=== PATIENT | male | born 1955 | race Caucasian/White ===

== ENCOUNTER 2017-04-04 14:44 | Emergency (ER) | payer OTHER ==
[~2017-04-04] VITALS: Ht 167.6 cm; Wt 72.0 kg
[~2017-04-04 14:44] MED LIST: ALBU1AER9 INH; BENZ1TAB2 PO; BUPR100T8 PO; LISI10TA PO; LURA80TA PO; SIMV40TA4 PO; SYMIN160 INH; TIOTCAP INH; TRAZ1TAB8 PO
[2017-04-04 14:49] VITALS: TEMP 36.8; Ht 167.6 cm; Wt 72.0 kg
[2017-04-04] MEDS ORDERED: LURA80TA PO (15:16)
[2017-04-04] MEDS ORDERED: FLUT0.15 NAE (15:16)
[2017-04-04] MEDS ORDERED: GABA-113 PO (15:16)
[2017-04-04] MEDS ORDERED: SIMV40TA2 PO (15:16)
[2017-04-04] MEDS ORDERED: BENZ2TAB6 PO (15:16)
[2017-04-04] MEDS ORDERED: TRAZ100T29 PO (15:16)
[2017-04-04] MEDS ORDERED: SPRIN/30 INH (15:16)
[2017-04-04 15:24] VITALS: O2SAT 97
[2017-04-04 15:43] LABS: BASO % 0.4 %; BASO ABS # 0.04 K/uL (0-0.2); COMPLETE YES; EOS % 1.5 %; HEMATOCRIT 45.3 % (42-52); IG% 0.2 %; LYMPH % 26.1 %; LYMPH ABS # 2.74 K/uL (1.2-3.4); MEAN CELL VOLUME 92.8 fL (80-100); MEAN CORPUSCULAR HEMOGLOBIN 32.4 pg (25-34); MEAN CORPUSCULAR HGB CONC 34.9 g/dl (32-36); MEAN PLATELET VOLUME 11.6 fL (7.4-10.4); MONO % 11.1 %; NEUT % 60.7 %; PLATELET COUNT 184 K/uL (130-400); RED BLOOD COUNT 4.88 M/uL (4.7-6.1); WHITE BLOOD COUNT 10.49 K/uL (4.8-10.8)
[2017-04-04 16:09] LABS: BUN/CREATININE RATIO 10.9 (10-20); CALCIUM 8.8 mg/dl (8.5-10.1); CREATININE 0.79 mg/dl (0.60-1.40); POTASSIUM 3.5 mmol/L (3.5-5.1)
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
[2017-04-04 16:11] LABS: ALB/GLOB RATIO 1.1 (0.9-2)
[2017-04-04 16:44] LABS: URINE APPEARANCE CLEAR (CLEAR); URINE BILIRUBIN NEG (NEG); URINE COLOR YELLOW; URINE NITRITE NEG (NEG); URINE PH 7.5 (4.5-7.5); URINE SPECIFIC GRAVITY 1.012 (1.000-1.030); UROBILINOGEN NEG (NEG); ZZUR CULT IF INDIC CLEAN CATCH NO
[2017-04-04 16:50] LABS: MANUAL MICROSCOPIC REQUIRED? NO; REVIEW REQ? NO
--- NOTE | 2017-04-04 16:59 | EMERGENCY ROOM VISIT NOTE ---
ED Visit Note First contact with patient: 15:03 This Patient was discussed with the physician Railcar Brake Operator, Loreta Carrillo PA-C. The pertinent historical and physical exam findings were confirmed. I agree with the studies ordered and with the interpretations of these studies. I agree with the disposition and care plan.
[2017-04-04 17:14] VITALS: BP 184/86; PULSE 71; O2SAT 96
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
== END 2017-04-04 17:15 | disposition home or self-care (01) ==
LOC: C.EDC 14:50
DX: M25.552 Pain in left hip (principal); V89.2XXA Person injured in unspecified motor-vehicle accident, traffic, initial encounter; J44.9 Chronic obstructive pulmonary disease, unspecified; F20.9 Schizophrenia, unspecified; F17.200 Nicotine dependence, unspecified, uncomplicated; Z83.3 Family history of diabetes mellitus; Z79.899 Other long term (current) drug therapy

== ENCOUNTER 2019-05-24 04:58 | Inpatient (IN) ==
[2019-05-24] MEDS ORDERED: ONDANSETRON INJ 2 MG/ML 2 ML VIAL IV STA (05:20)
[2019-05-24] MEDS ORDERED: SODIUM CHLORIDE 0.9% 1000ML 1,000 ML IV SCH (05:30)
[2019-05-24 06:13] LABS: Albumin Level 4.2 gm/dl (3.4-5.0); BUN Creatinine Ratio 25.9 (10-20); Calcium 9.8 mg/dl (8.5-10.1); Creatinine Clr Calc Pharmacy 55.7 ml/min; Est GFR (African American) 72.9; Est GFR (Non-African American) 62.9; Potassium 2.7 mmol/L (3.5-5.1)
[2019-05-24 06:18] LABS: Albumin Globulin Ratio 1.4 (0.9-2); Bilirubin,Total 3.7 mg/dl (0.2-1); Globulin 3.1 gm/dl (2.5-4.0); Total Protein 7.3 gm/dl (6.4-8.2); Troponin I 0.043 ng/ml (0-0.045)
[2019-05-24] MEDS ORDERED: POTASSIUM CHLORIDE / WTR 10 MEQ/100 ML PLCT IV ONE (06:22)
[2019-05-24 06:31] LABS: Hematocrit (blood only) 46.9 % (42-52); Hemoglobin 16.6 g/dL (14.0-18.0); Mean Corpuscular Hgb Conc 35.4 g/dL (32-36); Mean Corpuscular Volume 90.4 fL (80-100); Platelet Count 49 K/uL (130-400); RDW Coefficient of Variation 13.2 % (11.5-14.5); RDW Standard Deviation 43.7 fL (36.4-46.3); Red Blood Count 5.19 M/uL (4.7-6.1); White Blood Count 10.05 K/uL (4.8-10.8)
[2019-05-24 06:32] LABS: Immature Granulocytes # (auto) 0.03 K/uL (0.00-0.02); Immature Granulocytes % (auto) 0.3 %; Lymphocytes # (auto) 0.55 K/uL (1.2-3.4); Lymphocytes % (auto) 5.5 %; Monocytes # (auto) 1.02 K/uL (0.11-0.59); Monocytes % (auto) 10.1 %; Neutrophils # (auto) 8.45 K/uL (1.4-6.5); Neutrophils % (auto) 84.1 %; Platelet Estimate Decreased (Normal)
--- NOTE | 2019-05-24 06:45 | XRay Report ---
XR chest 1V portable CLINICAL HISTORY: cough/sore throat COMPARISON STUDY: Chest radiograph January 12, 2016. FINDINGS: Multiple old left rib fractures are noted. Several are nonunited. There is no pneumothorax or pleural effusion. There is no evidence for pulmonary edema. Cardiomediastinal silhouette is unrema rkable. IMPRESSION: 1. No acute cardiopulmonary findings. 2. Numerous old left rib fractures. Electronically signed by: Félix Mc M.D. 05/24/2019 6:44 AM
[2019-05-24] MEDS ORDERED: CHLORASEPTIC 1.4% SOLN 180 ML BTL MT PRN (07:36)
--- NOTE | 2019-05-24 07:43 | Emergency Department Note ---
Entered by Kadeem Bansal acting as a scribe for History of Present Illness General Chief complaint: Vomiting Stated complaint: VOMITING Time Seen by Provider: 05/24/19 05:08 Source: patient History of Present Illness Onset (ago): day(s) (2) Location: abdomen Pain Consistency: + intermittent Maximum Pain Intensity: 10 Quality: + other (vomiting) Associated symptoms: + denies other symptoms (diarrhea), + weakness and + other (sore throat, eye crusting and soreness) The patient is a 63 y/o male who presents to the ED w/ CC of intermittent vomiting beginning 2 days ago. The patient states he has a history of schizophrenia and alcoholism and has been sober for 9 years. He reports 5 days ago he stopped taking his schizophrenia medication. The patient notes he could not take counseling anymore and "just wanted to get drunk". He states over the course of two days he drank 10 beers and 1/2 gallon of vodka. The patient reports he is back on his medication and has stopped drinking. He notes shortly after starting his medication again, his vomiting started. The patient states now he has severe abdominal pain, sore throat, and cannot drink anything, including water. He reports he also developed eye soreness and pain with crusting around his eyes and severe weakness. The patient notes he is still urinating, and he lives alone. He denies a history of this before, being around anyone sick, drug use, and suicidal ideations. He also denies diarrhea and falling down or hurting himself. Home Medications Home Medications Medication Instructions Recorded Confirmed Type benztropine 2 mg PO QAM 02/04/19 05/24/19 History simvastatin 40 mg tablet 40 mg PO HS #30 tab 04/07/19 05/24/19 Rx lisinopril 10 mg tablet 10 mg PO DAILY #30 tab 04/18/19 05/24/19 Rx gabapentin 300 mg capsule 300 mg PO TID #90 cap 05/09/19 05/24/19 Rx umeclidinium 62.5 mcg/actuation 1 inh INHALATION DAILY #30 ea 05/09/19 05/24/19 Rx blister powder for inhalation risperidone 2 mg PO BID 05/24/19 05/24/19 History Allergies Allergy/AdvReac Type Severity Reaction Status Date / Time ibuprofen AdvReac Mild sick to Verified 05/24/19 05:23 stomach Past Med/Surg History Medical History AA (alcohol abuse) QUIT DRINKING 9 YEARS AGO Bronchitis HX OF Chronic back pain Chronic obstructive pulmonary disease Depression Hyperlipidemia Hypertension Osteoarthritis Schizophrenia Surgical History History of colonoscopy History of tooth extraction Family History Brother Family history of diabetes mellitus Social History Preferred Language: Mongolian Communication Ability: Effective Photographic Double Required: No Beliefs That Will Affect Care: None Current Living Situation: Alone Feels Safe at Home: Yes Smoking Status: Current every day smoker Tobacco Type: cigarettes ; Cigarettes Per Day: 15 CIG DAILY ; Second Hand Exposure: No ; Hx Alcohol Use: No Hx Substance Use: No Review of Systems See HPI for pertinent positives & negatives. and A total of 10 systems reviewed and were otherwise negative Physical Exam Vital Signs Vital Signs - 24 hr 05/24/19 05:01 05/24/19 07:18 05/24/19 07:26 Temperature 37 C Temperature Source Oral Sepsis Recent Fever Within 48 Hours No Sepsis Action Taken by Nursing No Action Required Pulse Rate 131 H 89 92 H Pulse Rate from SpO2 Sensor 97 H Respiratory Rate 18 18 14 Respiratory Effort / Characteristics Non-Labored Spontaneous Respiratory Depth Normal Blood Pressure 75/53 L 123/84 144/78 H Blood Pressure Mean 60 97 100 Pulse Oximetry 97 91 Oxygen Delivery Method Room Air 05/24/19 07:30 Temperature Temperature Source Sepsis Recent Fever Within 48 Hours Sepsis Action Taken by Nursing Pulse Rate 90 Pulse Rate from SpO2 Sensor 95 H Respiratory Rate 17 Respiratory Effort / Characteristics Respiratory Depth Blood Pressure 106/72 Blood Pressure Mean 83 Pulse Oximetry 97 Oxygen Delivery Method HEENT: Head - normocephalic and atraumatic Pupils are equal, round, and reactive to light. Extraocular eye muscles are intact, and sclera are anicteric. Moderate yellow/brown discharge from the eyes with moderate crusting around the eyes. Nos e - moist nasal mucosa without discharge. Mouth - dry buccal mucosa. Oropharynx is nonerythematous and there is no tonsillar exudate or edema noted. Neck: Supple; no JVD, nuchal rigidity, cervical lymphadenopathy. Heart: Tachycardia rate and regular rhythm. There is a normal S1 and S2 with no murmurs, clicks, or gallops appreciated. Lungs: Clear to auscultation bilaterally with no wheezes, rales, or rhonchi. Abdomen: Soft, completely nontender, nondistended, with good bowel sounds. There are no palpable pulsatile masses or hepatosplenomegaly. There is no guarding, rigidity, or rebound noted. Extremities: No evidence of cyanosis, clubbing, or edema. There are easily palpable peripheral pulses. Skin: warm and dry with poor turgor and no rashes. Course 0515: The patient was evaluated in room B07. A complete history and physical examination were performed. Nursing notes and previous electronic medical records were reviewed. IV lock was established and labs were drawn as above. 0520: Ordered Ondansetron HCl 4mg IV 0530: Ordered Sodium Chloride 1000 ml @ 999 mls/hr IV. 0550: I reevaluated the patient. Labs were just obtained. 0618: I recirculated the patient's BP. It is 137/77. He is drinking water. 0622: Ordered Potassium Chloride 10 meq in 100 mls @ 100 mls/hr IV 0637: The patient was able to drink water without vomiting. He is still complaining of a sore throat. He will receive Chloraseptic spray. 0721: Upon reevaluation, I discussed findings and results with him. He is vomiting again and not able to keep fluids down. He verbalized agreement of the treatment plan. 0734: I spoke with Dr. Anaya of the [facility] Hospitalist Service. The patient will be evaluated for further management and care. Administered Medications Discontinued Medications Sodium Chloride (Nss 1000ml) 1,000 mls @ 999 mls/hr IV .Q1H1M LAKISHA Stop: 05/24/19 06:30 Last Admin: 05/24/19 05:42 Dose: 999 mls/hr Documented by: [id number] Potassium Chloride (K Yusef / Wtr) 10 meq in 100 mls @ 100 mls/hr IV ONE ONE Stop: 05/24/19 07:21 Last Admin: 05/24/19 06:47 Dose: 100 mls/hr Documented by: [id number] Ondansetron HCl (Zofran) 4 mg IV NOW STA Stop: 05/24/19 05:21 Last Admin: 05/24/19 05:42 Dose: 4 mg Documented by: [id number] Medical Decision Making Differential Diagnosis Differential diagnosis includes: hypokalemia, hypoglycemia, dehydration. Medical Records Attestation: I reviewed the patient's medical records. Home Medications Current Medication List: was personally reviewed by me Laboratory Data Attestation: I reviewed the patient's lab results. Result diagrams: 05/24/19 05:42 05/24/19 05:42 Lab Results 05/24/19 05/24/19 Range/Units 05:42 05:42 WBC 10.05 (4.8-10.8) K/uL RBC 5.19 (4.7-6.1) M/uL Hgb 16.6 (14.0-18.0) g/dL Hct 46.9 (42-52) % MCV 90.4 (80-100) fL MCH 32.0 (25-34) pg MCHC 35.4 (32-36) g/dL RDW Std Deviation 43.7 (36.4-46.3) fL RDW Coeff of Harley 13.2 (11.5-14.5) % Plt Count 49 L (130-400) K/uL Immature Gran % (Auto) 0.3 % Neut % (Auto) 84.1 % Lymph % (Auto) 5.5 % [place] % (Auto) 10.1 % Eos % (Auto) 0.0 % Baso % (Auto) 0.0 % Immature Gran # (Auto) 0.03 H (0.00-0.02) K/uL Neut # (Auto) 8.45 H (1.4-6.5) K/uL Lymph # (Auto) 0.55 L (1.2-3.4) K/uL [place] # (Auto) 1.02 H (0.11-0.59) K/uL Eos # (Auto) 0.00 (0-0.5) K/uL Baso # (Auto) 0.00 (0-0.2) K/uL Platelet Estimate Decreased L (Normal) Sodium 136 (136-145) mmol/L Potassium 2.7 L (3.5-5.1) mmol/L Chloride 89 L (98-107) mmol/L Carbon Dioxide 33 H (21-32) mmol/L Anion Gap 14.0 H (3-11) BUN 31 H (7-18) mg/dl Creatinine 1.21 (0.6-1.4) mg/dl Est Cr Clr Drug Dosing 55.7 ml/min Est GFR ( Amer) 72.9 Est GFR (Non-Af Amer) 62.9 BUN/Creatinine Ratio 25.9 H (10-20) Glucose 159 H (70-99) mg/dl Calcium 9.8 (8.5-10.1) mg/dl Total Bilirubin 3.7 H (0.2-1) mg/dl AST 91 H (15-37) U/L ALT 112 H (12-78) U/L Alkaline Phosphatase 76 (45-117) U/L Troponin I 0.043 (0-0.045) ng/ml Total Protein 7.3 (6.4-8.2) gm/dl Albumin 4.2 (3.4-5.0) gm/dl Globulin 3.1 (2.5-4.0) gm/dl Albumin/Globulin Ratio 1.4 (0.9-2) Lipase 292 (73-393) U/L Imaging Data Radiologist's Impression: Radiology results as stated below per my review and the radiologist's interpretation: XR chest 1V portable CLINICAL HISTORY: cough/sore throat COMPARISON STUDY: Chest radiograph January 12, 2016. FINDINGS: Multiple old left rib fractures are noted. Several are nonunited. There is no pneumothorax or pleural effusion. There is no evidence for pulmonary edema. Cardiomediastinal silhouette is unremarkable. IMPRESSION: 1. No acute cardiopulmonary findings. 2. Numerous old left rib fractures. Electronically signed by: Félix Mc M.D. 05/24/2019 6:44 AM ECG Data Attestation: I personally reviewed and interpreted this ECG as follows: Indication: weakness Rate (beats per minute): 91 Findings: + other (Prolonged QTc at 555 ms); no PAC, no PVC, no ST depression, no ST elevation, no acute ischemic change and no ectopy Blood Pressure Blood Pressure Findings: Low blood pressure Blood Pressure Disposition: Referred to patients primary care provider MDM Narrative The patient is a 63 y/o male who presents to the ED w/ CC of intermittent v omiting beginning 2 days ago. Patient presents unable to keep anything down including water. His symptoms started 2 days ago after he drank a half of a gallon of vodka. The patient appears significantly dehydrated. He was hypotensive on presentation. He received a liter of normal saline solution which did seem to improve blood pressure. He was initially able to drink clear liquids with no further vomiting but then began to vomit again. The patient's potassium was quite low and he received a K rider. Patient also complained of significant sore throat. There was no evidence of thrush within his mouth. He also had drainage from both eyes and may be suffering from an acute viral illness. The patient will be evaluated by the [facility] Hospitalist group for further care. Impression & Plan Acute hypotension, Acute dehydration, Vomiting, Acute hypokalemia, Thrombocytopenia Critical Care Time Critical Care Time: Yes Total Critical Care Time: 50 I have personally spent 50 minutes of critical care time in the direct manage ment of this patient. This includes bedside care, interpretation of diagnostic studies, and testing, discussion with consultants, patient, and family members, and other required patient management activities. This 50 minutes is in excess of all separately billable procedures. Discharge Plan Visit Data Chief Complaint: Vomiting Stated Complaint: VOMITING ED Provider: Gina Weeks Discharge Problem: Acute hypotension, Acute dehydration, Vomiting, Acute hypokalemia, Thrombocytopenia Patient Disposition: Being Evaluated by Hospitalist Forms Stand Alone Forms: My [facility] Prescriptions Prescriptions: No Action simvastatin 40 mg tablet 40 mg PO HS Qty: 30 RF: 5 lisinopril 10 mg tablet 10 mg PO DAILY Qty: 30 RF: 5 gabapentin 300 mg capsule 300 mg PO TID Qty: 90 RF: 5 Incruse Ellipta 62.5 mcg/actuation blister with device 1 inh INHALATION DAILY Qty: 30 RF: 5 benztropine 2 mg Tablet 2 mg PO QAM RF: 0 risperidone 2 mg Tablet 2 mg PO BID RF: 0 Referrals Referrals: Owen Mckinnon III, MD [Primary Care Provider] - Discharge Problem: Vomiting Qualifiers: Vomiting type: unspecified Vomiting Intractability: non-intractable Nausea presence: with nausea Qualified Code(s): R11.2 - Nausea with vomiting, unspecified The scribe's documentation has been prepared under my direction and personally reviewed by me in its entirety. I confirm that the note above accurately reflects all work, treatment, procedures, and medical decision making performed by me.
--- NOTE | 2019-05-24 08:25 | History & Physical Report ---
Date of Service May 24, 2019 Assessment & Plan (1) Vomiting: Seems to be multifactorial, but mostly his symptoms appear consistent with the viral gastroenteritis that is present in the community. I suspect that his is also superimposed on a degree of alcohol induced gastritis given his binge drink 2 days before his nausea vomiting started, but given that he drank heavily, seemed to be okay for a day, and then was bad for the last 2 days with symptoms quite consistent with infection, it seems that a viral GE is the most likely culprit. Of course with his somewhat difficult history will need to be vigilant for any other pathology, but overall his exam is reassuring, and his history is consistent with this. IV fluids, Pepcid to cover for presumed alcohol and viral gastritis, Zofran as needed nausea, serial exams, carefully diet as tolerated. (2) Acute dehydration: Relates to above, IV fluids, hold lisinopril, follow. (3) Acute hypotension: Same as above. Seems to have resolved, follow (4) Acute hypokalemia: From GI lossesreplace. Follow-up in the morning (5) Thrombocytopenia: Acute compared to labs from not quite 2 months ago, uncertain etiology, no other atypia on his CBC noted. Follow-up in a.m. Could be alcohol or viral induced marrow suppression, not showing any petechiae bleeding etc. (6) Transaminitis: Very likely acute related to the virus and the binge drinking 4 days ago. Follow-up in a.m. (7) Elevated bilirubin: Previously completely normal, suspect this to his fairly acute. Check an INR to be safe given his somewhat vague history and prior history of alcohol abuse, but he shows no other stigmata of decompensated liver disease. Follow-up in a.m. (8) Alcohol abuse: Relates that he has been sober for about a decade before one binge recentl y. Seems to be forthcoming in his history as this relates, so he should be no risk for alcohol withdrawal, but obviously given his somewhat withholding history, will follow closely. (9) Schizophrenia: Continue home meds. 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 (10) COPD (chronic obstructive pulmonary disease): Was treated earlier this month for what seemed to have been a bit of an exacerbation, right now his lungs sound quite clear, he has no shortness of breath. Continue with anticholinergic inhaler, and albuterol as needed. (11) DVT prophylaxis: Pharmacologic contraindicated relative to his thrombocytopenia. Mechanical would be of dubious benefit. Ambulation is possible. (12) Discharge planning issues: Admit to medical under [facility] hospitalist service. Hopefully will be able to go home at time of discharge. History of Present Illness Chief Complaint: Nausea and vomiting Primary Care Provider: Owen Mckinnon MD Pleasant 63-year-old male who notes that he has had intractable nausea and vomiting for about the last 2 days. He notes predominantly that he vomits every time he tries to drink anything, and that it will come right back up. After asking several times about vomiting in between attempts at eating or drinking is not clear, but it seems that he probably has some. He is vomited enough that he has a very sore throat. Fortunately there is been no blood in the vomitus. He notes having had some watery diarrhea, none today. He is had subjective fevers as well as chills and questionable sweats. He has had no shortness of breath, he has a cough but seems to not related as acute. This comes on the background of 4 days ago having broken sobriety with an unquantified but seemingly significant amount of beer and whiskey. It should be noted however that 3 days ago he did not seem to be having any trouble with nausea vomiting or diarrhea. He also notes that he stopped his psychiatric meds for a few days, but did resume them in the last day or so as well. It seems he was only off of them approximately 2 to 3 days. He is a somewhat difficult historian, seemingly consistent with his background of schizophreniahe is quite pleasant but seems to almost involuntarily withhold information without directed questioning, and offers reasonably limited responses with directed questioning. Allergies Allergy/AdvReac Type Severity Reaction Status Date / Time ibuprofen AdvReac Mild sick to Verified 05/24/19 05:23 stomach Home Medications Home Medications Medication Instructions Recorded Confirmed Type benztropine 2 mg PO QAM 02/04/19 05/24/19 History simvastatin 40 mg tablet 40 mg PO HS #30 tab 04/07/19 05/24/19 Rx lisinopril 10 mg tablet 10 mg PO DAILY #30 tab 04/18/19 05/24/19 Rx gabapentin 300 mg capsule 300 mg PO TID #90 cap 05/09/19 05/24/19 Rx umeclidinium 62.5 mcg/actuation 1 inh INHALATION DAILY #30 ea 05/09/19 05/24/19 Rx blister powder for inhalation risperidone 2 mg PO BID 05/24/19 05/24/19 History Past Med/Surg History Medical History AA (alcohol abuse) QUIT DRINKING 9 YEARS AGO Bronchitis HX OF Chronic back pain Chronic obstructive pulmonary disease Depression Hyperlipidemia Hypertension Osteoarthritis Schizophrenia Surgical History History of colonoscopy History of tooth extraction Family History Brother Family history of diabetes mellitus Social History Preferred Language: [place] Communication Ability: Effective [employer] Specialist Required: No Beliefs That Will Affect Care: None Current Living Situation: Alone Feels Safe at Home: Yes Smoking Status: Current every day smoker Tobacco Type: cigarettes ; Cigarettes Per Day: 15 CIG DAILY ; Second Hand Exposure: No ; Hx Alcohol Use: No Hx Substance Use: No Review of Systems Review of Systems: All systems reviewed & are unremarkable except as noted in HPI & below Physical Exam Physical Exam: General he is awake and alert pleasant but appears quite fatigued, no pain or respiratory distress. HEENT normocephalic atraumatic mucous membranes fairly dry, eyes somewhat red and swollen. Cardio is regular no rubs murmurs gallops. Lungs are markedly diminished throughout but no rales rhonchi or wheezes with good effort, markedly diminished air entry, no accessory muscle use. Abdomen is soft mildly distended absolutely no fluid wave or dilated blood vessels, mild nondescript left-sided abdominal tenderness without guarding or rebound. No masses noted. Extremities show no sinus clubbing or edema. Skin shows no rashes, telangiectasias, no pallor, no icterus. Neuro shows cranial nerves II through XII be grossly intact gross motor and sensory are intact. Mental status is as aboveshe seems to have good recent and remote recall but is pleasantly withholding and information (fitting with his background history of schizophrenia) seems to have normal mood and affect, reasonable judgment and insight. Musculoskeletal exam shows left-sided mid thoracic paraspinals high in tone, somewhat tender, decreased range of motiondirect myofascialimproved somewhat. Results & Data Vital Signs (Past 12 Hours) Vital Signs Temp Pulse Resp BP Pulse Ox 05/24/19 07:30 90 17 106/72 97 05/24/19 07:26 92 H 14 144/78 H 91 05/24/19 07:18 89 18 123/84 05/24/19 05:01 98.6 F 131 H 18 75/53 L 97 PG Care Time/CCT Total # of Minutes Spent Total Time Spent with Patient: Total time spent is greater than 50% in coordination of care (as documented) at patient's floor/unit and/or counseling patient: (1) Vomiting Nausea presence: with nausea Vomiting Intractability: non-intractable Vomiting type: unspecified Qualified Code(s): R11.2 - Nausea with vomiting, unspecified
[2019-05-24] MEDS ORDERED: POLYETHYLENE (MIRALAX) 17 GM PACK PO PRN (09:39)
[2019-05-24] MEDS ORDERED: ALBUTEROL HFA 8 GM INHALER INH PRN (09:39)
[2019-05-24] MEDS ORDERED: MAGNESIUM HYDROXIDE SUSP 30 ML UDC PO PRN (09:39)
[2019-05-24] MEDS ORDERED: ALUMINUM/MAGNESIUM SUSP 30 ML UDC PO PRN (09:39)
[2019-05-24 10:11] LABS: INR 1.1 (0.9-1.1); Prothrombin Time 10.9 Seconds (9.0-12.0)
[2019-05-24] MEDS: LACTATED RINGER'S 1,000 ML IV SCH ×2 (10:14→18:21)
[2019-05-24] MEDS: ONDANSETRON INJ 2 MG/ML 2 ML VIAL IV PRN ×2 (10:37→16:17)
[2019-05-24] MEDS: GABAPENTIN 300 MG CAP PO SCH ×3 (11:02→20:02)
[2019-05-24] MEDS: FAMOTIDINE 20 MG TAB PO SCH ×2 (11:03→20:02)
[2019-05-24] MEDS: BENZTROPINE MESYLATE 1 MG TAB PO SCH (11:03)
[2019-05-24] MEDS: risperiDONE 2 MG TABLET PO SCH ×2 (11:03→20:03)
[2019-05-24] MEDS: LIDOCAINE HCL 2% VISCOUS 60 ML, DiphenhydrAMINE Syrup 150 MG, ALUMINUM/MAGNESIUM SUSP 6... MT PRN (14:08)
[2019-05-25] MEDS: LACTATED RINGER'S 1,000 ML IV SCH ×3 (02:25→18:06)
[2019-05-25] MEDS ORDERED: COUGH DROP (SUGAR FREE) LOZ 24 LOZ/1 BOX BUCCAL PRN (02:48)
[2019-05-25] MEDS ORDERED: COUGH DROP (SUGAR FREE) LOZ 24 LOZ/1 BOX BUCCAL ONE (02:52)
[2019-05-25 05:08] LABS: Hematocrit (blood only) 41.7 % (42-52); Hemoglobin 14.5 g/dL (14.0-18.0); Mean Corpuscular Hemoglobin 32.1 pg (25-34); Mean Corpuscular Hgb Conc 34.8 g/dL (32-36); Mean Corpuscular Volume 92.3 fL (80-100); RDW Coefficient of Variation 13.1 % (11.5-14.5); RDW Standard Deviation 44.5 fL (36.4-46.3); Red Blood Count 4.52 M/uL (4.7-6.1); White Blood Count 5.38 K/uL (4.8-10.8)
[2019-05-25 05:35] LABS: Albumin Level 3.2 gm/dl (3.4-5.0); BUN Creatinine Ratio 24.6 (10-20); Calcium 8.5 mg/dl (8.5-10.1); Creatinine Clr Calc Pharmacy 94.9 ml/min; Est GFR (African American) 114.9; Est GFR (Non-African American) 99.2; Potassium 2.7 mmol/L (3.5-5.1)
[2019-05-25 05:38] LABS: Albumin Globulin Ratio 1.2 (0.9-2); Bilirubin,Total 2.8 mg/dl (0.2-1); Globulin 2.7 gm/dl (2.5-4.0); Total Protein 5.9 gm/dl (6.4-8.2)
[2019-05-25 05:43] LABS: Mean Platelet Volume 11.2 fL (7.4-10.4); Platelet Count 40 K/uL (130-400)
[2019-05-25 06:01] LABS: Eosinophils # (auto) 0.01 K/uL (0-0.5); Eosinophils % (auto) 0.2 %; Giant Platelets 1+; Immature Granulocytes # (auto) 0.02 K/uL (0.00-0.02); Immature Granulocytes % (auto) 0.4 %; Lymphocytes % (auto) 16.7 %; Monocytes # (auto) 0.68 K/uL (0.11-0.59); Monocytes % (auto) 12.6 %; Neutrophils # (auto) 3.77 K/uL (1.4-6.5); Neutrophils % (auto) 70.1 %
[2019-05-25] MEDS: risperiDONE 2 MG TABLET PO SCH ×2 (09:10→20:56)
[2019-05-25] MEDS: FAMOTIDINE 20 MG TAB PO SCH ×2 (09:10→20:55)
[2019-05-25] MEDS: GABAPENTIN 300 MG CAP PO SCH ×3 (09:11→20:55)
[2019-05-25] MEDS: BENZTROPINE MESYLATE 1 MG TAB PO SCH (09:11)
[2019-05-25] MEDS: ONDANSETRON INJ 2 MG/ML 2 ML VIAL IV PRN ×2 (09:18→16:53)
[2019-05-25] MEDS: POTASSIUM CHLORIDE / WTR 10 MEQ/100 ML PLCT IV SCH ×4 (09:53→13:29)
--- NOTE | 2019-05-25 19:19 | Hospitalist Progress Note ---
Date of Service May 25, 2019 Assessment & Plan (1) Vomiting: Seems to be multifactorial, but mostly his symptoms appear consistent with the viral gastroenteritis that is present in the community. I suspect that his is also superimposed on a degree of alcohol induced gastritis given his binge drink 2 days before his nausea vomiting started, but given that he drank heavily, seemed to be okay for a day, and then was bad for the last 2 days with symptoms quite consistent with infection, it seems that a viral GE is the most likely culprit. That said, he is not really improving with fairly aggressive supportive care. Continue current supportive care, but I will ask gastroenterology to see him to consider an EGD to look for peptic ulcer disease. Also given his somewhat evasive history (I doubt he is deliberately trying to hide something, but he seems to have a hard time opening up because of his schizophrenia) will need to be mindful of maintaining a broad differential (2) Acute dehydration: Secondary to above, he appears better hydrated now, but he is not eating well, so continue IV fluids (3) Acute hypotension: Same as above. Seems to have resolved, follow (4) Acute hypokalemia: From GI lossesreplace. (5) Thrombocytopenia: Acute compared to labs from not quite 2 months ago, uncertain etiology, no other atypia on his CBC noted. Follow-up in a.m. Could be alcohol or viral induced marrow suppression, not showing any petechiae bleeding etc. slightly lower today, but since no bleeding or other worry signs or symptoms, continue to follow. (6) Transaminitis: Very likely acute related to the virus and the binge drinking 4 days ago. Continue to follow to normal (7) Elevated bilirubin: Previously completely normal, suspect this to his fairly acute illness. Improved slightly, INR was reassuring. Continue to trend (8) Alcohol abuse: Relates that he has been sober for about a decade before one binge recently. Seems to be forthcoming in his history as this relates, so he should be no risk for alcohol withdrawal, but obviously given his somewhat withholding history, will follow closely. Thus far he does not appear to be in withdrawal (9) Schizophrenia: Continue home meds. 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 His schizophrenia does seem to complicate his care somewhat in that he is fairly tight with what history he seems to be able to disclose (10) COPD (chronic obstructive pulmonary disease): Was treated earlier this month for what seemed to have been a bit of an exacerbation, but is currently not short of breath (11) DVT prophylaxis: Pharmacologic contraindicated relative to his thrombocytopenia. Mechanical would be of dubious benefit. Ambulation is possible. (12) Discharge planning issues: Continue on medical floor, GI consult as above, anticipate his ability to go home once he is medically stable for discharge. Subjective Unfortunately feeling about the same. Still vomiting. Still has some epigastric discomfort. No blood in the vomitus. No fevers chills sweats. Has not really been able to eat meaningfully. No other new complaints otherwise. He is still a fairly difficult historian being very tight with information he will disclose Review of Systems Review of Systems: All systems reviewed & are unremarkable except as noted in HPI & below Physical Exam Physical Exam: General he is awake and alert pleasant no distress. HEENT normocephalic atraumatic mucous membranes are moist. Breathing unlabored no accessory muscle use good effort. Abdomen is soft he has ongoing epigastric tenderness no guarding no rebound no rigidity, but is quite tender. Extremities show no sinus clubbing or edema. Results & Data Vital Signs (Past 12 Hours) Vital Signs Temp Pulse Resp BP Pulse Ox 05/25/19 15:33 98.8 F 102 H 18 173/93 H 92 PG Care Time/CCT Total # of Minutes Spent Total Time Spent with Patient: Total time spent is greater than 50% in coordination of care (as documented) at patient's floor/unit and/or counseling patient: (1) Vomiting Nausea presence: with nausea Vomiting Intractability: non-intractable Vomiting type: unspecified Qualified Code(s): R11.2 - Nausea with vomiting, unspecified
[2019-05-25] MEDS ORDERED: ALUMINUM/MAGNESIUM SUSP 18 ML, LIDOCAINE HCL VISCOUS 2% 6 ML, BARCODE IDENTIFIER 1 EA PO ONE (21:53)
[2019-05-26] MEDS: LACTATED RINGER'S 1,000 ML IV SCH ×2 (02:21→10:13)
[2019-05-26 06:32] LABS: Hematocrit (blood only) 39.5 % (42-52); Hemoglobin 13.1 g/dL (14.0-18.0); Mean Corpuscular Hemoglobin 30.7 pg (25-34); Mean Corpuscular Hgb Conc 33.2 g/dL (32-36); Mean Corpuscular Volume 92.5 fL (80-100); Mean Platelet Volume 11.7 fL (7.4-10.4); Platelet Count 60 K/uL (130-400); RDW Coefficient of Variation 13.1 % (11.5-14.5); RDW Standard Deviation 44.1 fL (36.4-46.3); Red Blood Count 4.27 M/uL (4.7-6.1); White Blood Count 4.48 K/uL (4.8-10.8)
[2019-05-26 06:41] LABS: Eosinophils # (auto) 0.02 K/uL (0-0.5); Eosinophils % (auto) 0.4 %; Immature Granulocytes # (auto) 0.02 K/uL (0.00-0.02); Immature Granulocytes % (auto) 0.4 %; Lymphocytes # (auto) 1.32 K/uL (1.2-3.4); Lymphocytes % (auto) 29.5 %; Monocytes # (auto) 0.55 K/uL (0.11-0.59); Monocytes % (auto) 12.3 %; Neutrophils # (auto) 2.57 K/uL (1.4-6.5); Neutrophils % (auto) 57.4 %; RBC Morphology Unremarkable
[2019-05-26 06:51] LABS: Albumin Level 2.7 gm/dl (3.4-5.0); BUN Creatinine Ratio 8.6 (10-20); Calcium 8.2 mg/dl (8.5-10.1); Creatinine Clr Calc Pharmacy 118.1 ml/min; Est GFR (African American) 125.8; Est GFR (Non-African American) 108.5; Potassium 2.7 mmol/L (3.5-5.1)
[2019-05-26 06:55] LABS: Bilirubin,Total 1.8 mg/dl (0.2-1); Globulin 2.8 gm/dl (2.5-4.0); Total Protein 5.5 gm/dl (6.4-8.2)
[2019-05-26] MEDS: GABAPENTIN 300 MG CAP PO SCH ×3 (07:57→20:52)
[2019-05-26] MEDS: risperiDONE 2 MG TABLET PO SCH ×2 (07:57→20:53)
[2019-05-26] MEDS: BENZTROPINE MESYLATE 1 MG TAB PO SCH (07:57)
[2019-05-26] MEDS: FAMOTIDINE 20 MG TAB PO SCH ×2 (07:57→20:52)
[2019-05-26] MEDS ORDERED: POTASSIUM CHLORIDE 20 MEQ TABCR PO STA (08:50)
[2019-05-26] MEDS: LISINOPRIL 10 MG TAB PO SCH (09:13)
[2019-05-26] MEDS: POTASSIUM CHLORIDE / WTR 10 MEQ/100 ML PLCT IV SCH ×4 (09:13→12:22)
--- NOTE | 2019-05-26 10:06 | Gastrointestinal Consultation ---
Date of Consultation May 26, 2019 Assessment & Plan (1) Nausea & vomiting: Patient's n/v is improving with prn Zofran. He has not vomited since 05/25. He denies hematemesis/melena. He ate breakfast this AM. -Protonix 40 mg po BID -US abdomen -Continue prn Zofran -Pending results, will consider EGD for further evaluation (inpatient vs outpatient) (2) Transaminitis: Improving. Possibly viral in the setting of nausea & vomiting symptoms as well. -Acute hepatitis panel -US abdomen to assess liver & gallbladder -Continue to monitor LFTs Present on Admission?: Yes Supervising Physician Co-Signing Physician Notes Agree with PRISCILA Tate as above Abd: Soft, NT, ND, +BS Nursing reports no further vomiting today Continue current therapy EGD as outpatient History of Present Illness Reason for Consultation: nausea & vomiting Attending Physician: Anna Cassidy MD History of Present Illness Patient is a 63 yo male with a past medical history of COPD, alcohol abuse, anemia, thrombocytopenia, & schizophrenia. GI has been consulted for nausea & vomiting. He has not vomiting since 05/25 and endorses he is feeling significantly better. He reports some vague abdominal pain, but it is not isolated to a single location. He reports that previously, he was experiencing nausea & vomiting 4-5 times daily. He reports a history of acid reflux. He ate breakfast this AM. He denies previous GI issues. He does not think he takes NSAIDs, but is not confident in that answer. He reports he has not moved his bowels since admission but reports that was not an issue prior to coming to the hospital. He denies pertinent GI family history. He is now receiving IV Zofran prn. He identifies that this has helped him significantly. His T bili upon admission was 3.7 but is now 1.8. AST was 91 and is now 50. ALT was 112 and is now 66. Alk phos has been normal. It is unclear if this is viral, but he reports 2 days of symptoms prior to [facility] Of note, his platelets are only 60. WBC is 4.48. H/H is 13.1/39.5. MCV 92.5. Allergies Allergy/AdvReac Type Severity Reaction Status Date / Time ibuprofen AdvReac Mild sick to Verified 05/24/19 05:23 stomach Home Medications Home Medications Medication Instructions Recorded Confirmed Type benztropine 2 mg PO QAM 02/04/19 05/24/19 History simvastatin 40 mg tablet 40 mg PO HS #30 tab 04/07/19 05/24/19 Rx lisinopril 10 mg tablet 10 mg PO DAILY #30 tab 04/18/19 05/24/19 Rx gabapentin 300 mg capsule 300 mg PO TID #90 cap 05/09/19 05/24/19 Rx umeclidinium 62.5 mcg/actuation 1 inh INHALATION DAILY #30 ea 05/09/19 05/24/19 Rx blister powder for inhalation risperidone 2 mg PO BID 05/24/19 05/24/19 History Patient History Medical History AA (alcohol abuse) QUIT DRINKING 9 YEARS AGO Bronchitis HX OF Chronic back pain Chronic obstructive pulmonary disease Depression Hyperlipidemia Hypertension Osteoarthritis Schizophrenia Surgical History History of colonoscopy History of tooth extraction Family History Brother Family history of diabetes mellitus Social History Preferred Language: Finnish Communication Ability: Effective [employer] Supervisor Required: No Beliefs That Will Affect Care: None Current Living Situation: Alone Other Information That Helps Us Care for You: No Feels Safe at Home: Yes Safety Concerns: Feels Safe At This Time Smoking Status: Current every day smoker Tobacco Type: cigarettes ; Cigarettes Per Day: 10 ; Second Hand Exposure: No ; Hx Alcohol Use: Yes Alcohol type: beer and hard liquor Hx Substance Use: No Review of Systems Constitutional: no fever and no chills Eyes: no acute issues Ear, Nose, Mouth, Throat: no acute issues Respiratory: no cough and no dyspnea Cardiovascular: no chest pain Gastrointestinal: + abdominal pain, + heartburn and + nausea; no vomiting (resolved at present), no coffee ground emesis, no change in bowel habits, no blood in stools and no melena Musculoskeletal: + joint pain Integumentary: no rash Neurologic: no acute complaints Psychiatric: schizophrenia with some non-compliance with meds Hematologic / Lymphatic: no easy bleeding Physical Exam Constitutional: WD/WN, vitals as above Eyes: PERRL, conjunctivae normal, anicteric sclerae ENMT: external ear and nose normal, oropharynx normal Neck: normal visual inspection Respiratory: normal respiratory effort, lungs clear to auscultation Cardiovascular: Rate/Rhythm: regular rate and regular rhythm Gastrointestinal (Abdomen): normal bowel sounds, soft, nontender, no hepatosplenomegaly Musculoskeletal: no cyanosis or clubbing Skin: no rashes, warm and dry Psychiatric: Orientation: alert and oriented x 3 Results & Data Vital Signs (Past 12 Hours) Vital Signs Temp Pulse Resp BP BP Pulse Ox 05/26/19 07:28 36.8 C 83 20 187/90 H 91 05/25/19 23:40 37.1 C 92 H 20 182/88 H 178/94 H 92 PG Care Time/CCT Total # of Minutes Spent Total Time Spent with Patient: Total time spent is greater than 50% in coordination of care (as documented) at patient's floor/unit and/or counseling patient:
[2019-05-26 11:55] LABS: Hepatitis B Surface Antigen Neg (Neg)
[2019-05-26 12:23] LABS: Hepatitis C IgG 13Yrs+Old_Rflx Neg (Neg)
--- NOTE | 2019-05-26 15:00 | Ultrasound Report ---
ABDOMINAL ULTRASOUND COMPLETE HISTORY: Generalized abdominal pain, elevated LFTs, thrombocytopenia. COMPARISON: Abdomen and pelvis CT 01/11/2016. FINDINGS: Pancreas: The pancreatic head is obscured by overlying bowel gas. The remaining portions of the pancr eas are within normal limits. Liver: The liver is echogenic consistent with fatty change. Mildly enlarged measuring 19 cm in length . Gallbladder: Mildly distended. No gallbladder wall thickening. A few small stones are identified. The re is also gallbladder sludge. CBD: 6 mm. Kidneys: No hydronephrosis. Spleen: Normal in size. Aorta: Normal in caliber. IVC: Patent. IMPRESSION: 1. A few small gallstones and gallbladder sludge. No gallbladder wall thickening. 2. Hepatomegaly demonstrating fatty change. Electronically signed by: Zaheer Toledo M.D. 05/26/2019 2:59 PM
[2019-05-26] MEDS: LIDOCAINE HCL 2% VISCOUS 60 ML, DiphenhydrAMINE Syrup 150 MG, ALUMINUM/MAGNESIUM SUSP 6... MT PRN (15:08)
--- NOTE | 2019-05-26 15:32 | Family Medicine Progress Note ---
Date of Service May 26, 2019 Assessment & Plan (1) Nausea & vomitin63 y/o M here with intractable nausea/vomiting and upper abdominal pain. N/V/Abdominal pain -?sec to GE. Alcoholic gastritis given his binge drink 2 days before. -Continue current supportive care -continue liquid diet. -GI consult since not improving -Ordered RUQ ultrasound. Dehydration: -Resolved. -d/c IVF Hypokalemia: -replace with IV and oral k -with h/o HTN - r/o hyperaldosteronism . Thrombocytopenia: -? sec to alcohol or viral induced marrow suppression -no sign of bleeding. Follow. Abnormal LFT with elevated Bili and Transaminitis: -viral/alcohol. HTN -resume home lisinopril. Alcohol abuse: -no sign of withdrawal Schizophrenia: -risperidone COPD -stable DVT prophylaxis:Ambulation F/E/N - LR at 125ml/hr, Replace K, liquid diet (2) Elevated liver enzymes: (3) Thrombocytopenia: (4) Alcohol abuse: (5) COPD (chronic obstructive pulmonary disease): (6) Schizophrenia: Subjective No new concerns. still with some upper abdomen pain some nausea. no fever, chest pain, shortness of breath. Physical Exam Constitutional: WD/WN, vitals as above Respiratory: normal respiratory effort, lungs clear to auscultation Cardiovascular: RRR, no murmur, no edema Gastrointestinal (Abdomen): Inspection/Auscultation: abdomen normal to inspection and normal bowel sounds; abdomen not distended Percussion/Palpation: abdomen soft minimal epigastric tenderness Skin: no rashes, warm and dry Results & Data Vital Signs (Past 12 Hours) Vital Signs Temp Pulse Resp BP Pulse Ox 05/26/19 07:28 36.8 C 83 20 187/90 H 91
[2019-05-26] MEDS: PANTOprazole 40 MG TAB PO SCH (20:53)
[2019-05-27] MEDS: risperiDONE 2 MG TABLET PO SCH (07:59)
[2019-05-27] MEDS: BENZTROPINE MESYLATE 1 MG TAB PO SCH (07:59)
[2019-05-27] MEDS: GABAPENTIN 300 MG CAP PO SCH ×2 (07:59→14:16)
[2019-05-27] MEDS: PANTOprazole 40 MG TAB PO SCH (07:59)
[2019-05-27] MEDS: FAMOTIDINE 20 MG TAB PO SCH (08:00)
[2019-05-27] MEDS: LISINOPRIL 10 MG TAB PO SCH (08:00)
[2019-05-27] MEDS ORDERED: AMLODIPINE BESYLATE 5 MG TAB PO SCH (09:00)
[2019-05-27 10:28] LABS: Albumin Globulin Ratio 0.9 (0.9-2); BUN Creatinine Ratio 7.8 (10-20); Calcium 8.9 mg/dl (8.5-10.1); Creatinine Clr Calc Pharmacy 103.6 ml/min; Est GFR (African American) 119.2; Est GFR (Non-African American) 102.8; Globulin 3.2 gm/dl (2.5-4.0); Total Protein 6.2 gm/dl (6.4-8.2)
[2019-05-27 11:43] VITALS: TEMP 98.8; O2SAT 95
[2019-05-27 13:33] LABS: Hepatitis A Antibody IgM NON-REACTIVE (NON-REACTIVE); Hepatitis B Core Antibody IgM NON-REACTIVE (NON-REACTIVE)
[2019-05-27] MEDS ORDERED: POTASSIUM CHLORIDE 20 MEQ TABCR PO STA (13:38)
[2019-05-27 15:38] VITALS: BP 181/103; PULSE 98
--- NOTE | 2019-05-27 15:43 | Discharge Summary ---
Date of Service May 27, 2019 Admission HPI Per Admitting Provider Pleasant 63-year-old male who notes that he has had intractable nausea and vomiting for about the last 2 days. He notes predominantly that he vomits every time he tries to drink anything, and that it will come right back up. After asking several times about vomiting in between attempts at eating or drinking is not clear, but it seems that he probably has some. He is vomited enough that he has a very sore throat. Fortunately there is been no blood in the vomitus. He notes having had some watery diarrhea, none today. He is had subjective fevers as well as chills and questionable sweats. He has had no shortness of breath, he has a cough but seems to not related as acute. This comes on the background of 4 days ago having broken sobriety with an unquantified but seemingly significant amount of beer and whiskey. It should be noted however that 3 days ago he did not seem to be having any trouble with nausea vomiting or diarrhea. He also notes that he stopped his psychiatric meds for a few days, but did resume them in the last day or so as well. It seems he was only off of them approximately 2 to 3 days. He is a somewhat difficult historian, seemingly consistent with his background of schizophreniahe is quite pleasant but seems to almost involuntarily withhold information without directed questioning, and offers reasonably limited responses with directed questioning. Principal Diagnosis Intractable nausea secondary to viral illness/alcohol use Thrombocytopenia Elevated LFT Discharge Exam Constitutional WD/WN, vitals as above Respiratory normal respiratory effort, lungs clear to auscultation Cardiovascular RRR, no murmur, no edema Gastrointestinal (Abdomen) normal bowel sounds, soft, nontender, no hepatosplenomegaly Skin no rashes, warm and dry Discharge Data Allergies Allergy/AdvReac Type Severity Reaction Status Date / Time ibuprofen AdvReac Mild sick to Verified 05/24/19 05:23 stomach Consultations 05/24/19 07:53 ED Decision to Admit Stat 05/25/19 19:13 Consult Gastroenterology Routine Ordered Studies 05/26/19 10:19 US abdomen complete Routine Hospital Course (1) Nausea & vomitin63 y/o M here with intractable nausea/vomiting and upper abdominal pain. N/V/Abdominal pain -?sec to GE. Alcoholic gastritis given his binge drink 2 days before. -Resolved with supportive care. -GI consulted. Ordered RUQ ultrasound - few gallstones, no cholecystitis. fatty liver noted. Abnormal LFT with elevated Bili and Transaminitis: -viral/alcohol. Dehydration: -Resolved with IVF Hypokalemia: -replaced -with h/o HTN - r/o hyperaldosteronism - pending renin, aldosterone level . Thrombocytopenia: -? sec to alcohol or viral -no sign of bleeding. - oupatient follow up. HTN -increased dose of lisinopril to 20mgs -r/o hyperaldosteronism considering hypokalemia. Alcohol abuse: -no sign of withdrawal Schizophrenia: -risperidone COPD -stable (2) Elevated liver enzymes: (3) Thrombocytopenia: (4) Alcohol abuse: (5) COPD (chronic obstructive pulmonary disease): (6) Schizophrenia: Total Time Total Time Spent Total Time Spent (In Minutes): 35 Discharge Plan Discharge Items Patient Disposition: Home - Self-Care Reason For Visit: INTRACTABLE NAUSEA Discharge Diagnosis: Intractable Nausea secondary to viral illness/alcohol use ds Elevated LFT Thrombocytopenia Activity: Resume your previous activity Non-emergency contact: Primary Care Provider Call non-emergency contact if: you have any medication questions and your symptoms worsen Follow-up/Referrals: Owen Mckinnon III, MD [Primary Care Provider] - Diet: Low Sodium (2gm) Addtl Attending Provider Instructions: Follow with family physician in one week Please refrain from alcohol use so the liver enzymes can get better. Since your blood pressure was running high - your lisinopril dose has been increased to 20mgs daily Your potassium level here has been running low - please have your family physician recheck it. Your platelet level went down as well but was coming up on discharge. You will need to have that rechecked as well by your family physician. You have some blood test pending which you will follow up with your family physician. Pending Studies at Discharge: Yes Studies:: Aldosterone, renin Stand-Alone Forms: My [facility] [place] Medications and DC Order Prescriptions: New lisinopril 20 mg tablet 20 mg PO DAILY Qty: 30 RF: 0 Continued simvastatin 40 mg tablet 40 mg PO HS Qty: 30 RF: 5 gabapentin 300 mg capsule 300 mg PO TID Qty: 90 RF: 5 Incruse Ellipta 62.5 mcg/actuation blister with device 1 inh INHALATION DAILY Qty: 30 RF: 5 benztropine 2 mg Tablet 2 mg PO QAM RF: 0 risperidone 2 mg Tablet 2 mg PO BID RF: 0 Discontinued lisinopril 10 mg tablet 10 mg PO DAILY Qty: 30 RF: 5 Discharge Orders: Discharge Order (Routine); Ordered 05/27/19 Ordered By: Anna Cassidy Admission Data Admit Date/Time: 05/24/19 08:17 Attending Provider: Anna Cassidy Admit Provider: Saad Anaya Primary Care Provider: Owen Mckinnon III Other Providers: Saad Anaya ; Sunil Kincaid DC Date/Time DO NOT enter until pt leaves facility: 05/27/19 15:46
[2019-05-30 17:07] LABS: Renin Activity 2.35 ng/mL/h (0.25-5.82)
== END 2019-05-27 15:46 | disposition home or self-care (01) | DRG 392 ==
LOC: ED 04:58 → 2N 08:17 → SUATTDRO 08:17 → 2N 09:30
DX: E78.5 Hyperlipidemia, unspecified; K29.20 Alcoholic gastritis without bleeding; J44.9 Chronic obstructive pulmonary disease, unspecified; F17.210 Nicotine dependence, cigarettes, uncomplicated; I10 Essential (primary) hypertension; I95.9 Hypotension, unspecified; F32.9 Major depressive disorder, single episode, unspecified; F20.9 Schizophrenia, unspecified; E86.0 Dehydration; Z79.899 Other long term (current) drug therapy; D69.6 Thrombocytopenia, unspecified; E87.6 Hypokalemia; A08.4 Viral intestinal infection, unspecified

== ENCOUNTER 2019-08-27 23:33 | Inpatient (IN) ==
[2019-08-28] MEDS ORDERED: ONDANSETRON INJ 2 MG/ML 2 ML VIAL IV STA ×2 (00:01→01:11)
[2019-08-28] MEDS ORDERED: SODIUM CHLORIDE 0.9% 1000ML 1,000 ML IV ONE (00:01)
[2019-08-28] MEDS ORDERED: fentaNYL citrate 100 MCG/2 ML VIAL IV STA (00:08)
--- NOTE | 2019-08-28 00:12 | Emergency Department Note ---
History of Present Illness General Chief complaint: Weakness Stated complaint: WEAKNESS, VOMITING - GOING ON ABT A WEEK Source: patient Mode of arrival: ambulatory Limitations: no limitations History of Present Illness Provider Complaint: + nausea and + vomiting Onset (ago): day(s) 3 Description of Vomiting: + watery Description of Diarrhea: + none Associated Abdominal Pain: Yes Location of pain: + diffuse Severity: severe Maximum Pain Intensity: 10 Current Pain Intensity: 10 Quality: + crushing and + sharp Pain Consistency: + constant Relieved By: + none Exacerbated By: + none Associated symptoms: + chest pain, + diaphoresis, + fever/chills, + weakness and + fatigue Treatments prior to arrival: + none HPI Narrative: This 63-year-old male patient presents emergency department today, ambulatory, accompanied by a friend. The patient states he has been nauseated and vomiting for the past 3 days. He is not able to eat or drink or keep down food or fluids for this amount of time. The patient states yesterday he developed chest pain in the middle of his chest which radiated across and lasted approximately 3 to 4 hours. He describes this as a sharp and shooting pain radiating into the back into the belly. He states he took some prescription pain medication without relief of the pain. He describes a bandlike sensation in his chest and in his abdomen. The patient states today, he developed some chest tightness which lasted a few hours. He states it was accompanied with shortness of breath and diaphoresis. While on his way to the ED, the patient fell, landing on his back and is now complaining of pain in his back and ribs. He is a current smoker states he smokes 1 pack/day. The patient denies any fever, but does report chills. He denies any recent diarrhea. He denies any hematemesis. The patient does have current substernal chest pain and epigastric/central abdominal pain radiating into the back. Home Medications Home Medications Medication Instructions Recorded Confirmed Type gabapentin 300 mg capsule 300 mg PO TID #90 cap 05/09/19 08/28/19 Rx umeclidinium 62.5 mcg/actuation 1 inh INHALATION DAILY #30 ea 05/09/19 08/28/19 Rx blister powder for inhalation risperidone 2 mg PO QAM 05/24/19 08/28/19 History lisinopril 20 mg tablet 20 mg PO DAILY #30 tab 06/04/19 08/28/19 Rx simvastatin 40 mg tablet 40 mg PO HS tab 06/18/19 08/28/19 History benztropine 2 mg tablet 2 mg PO QAM 07/22/19 08/28/19 History fluticasone propionate 50 2 spray INTNAS DAILY #15.8 gm 08/14/19 08/28/19 Rx mcg/actuation nasal spray,suspension prednisone 10 mg tablet See Rx Instructions PO DAILY #30 08/14/19 08/28/19 Rx tabs guaifenesin [Mucinex] 600 mg PO BID 08/28/19 08/28/19 History risperidone 4 mg PO HS 08/28/19 08/28/19 History Allergies Allergy/AdvReac Type Severity Reaction Status Date / Time ibuprofen AdvReac Mild sick to Verified 08/28/19 01:20 stomach Past Med/Surg History Medical History AA (alcohol abuse) QUIT DRINKING 9 YEARS AGO Bronchitis HX OF Chronic back pain Chronic obstructive pulmonary disease Depression Hyperlipidemia Hypertension Osteoarthritis Schizophrenia Surgical History (Updated 08/14/19 @ 10:37 by Chris Eugene) History of colonoscopy History of hip replacement History of tooth extraction Social History Preferred Language: Gabonese Communication Ability: Effective Print Manager Required: No Beliefs That Will Affect Care: None Current Living Situation: Alone Feels Safe at Home: Yes Smoking Status: Current every day smoker Tobacco Type: cigarettes ; Cigarettes Per Day: 10 ; Second Hand Exposure: No ; Hx Alcohol Use: Yes Alcohol type: beer and hard liquor Hx Substance Use: No Review of Systems A total of 10 systems reviewed and were otherwise negative Physical Exam Vital Signs: Vital Signs - 24 hr 08/27/19 23:44 08/27/19 23:55 08/28/19 00:00 Temperature 36.5 C Temperature Source Oral Pulse Rate 89 91 H Pulse Rate [Apical ] Pulse Rate from Sp O2 Sensor 91 H Respiratory Rate 18 19 Respiratory Effort / Characteristics Non-Labored Sponta neous Respiratory Depth Normal Respiratory Patter n Regular Blood Pressure 89/57 L 83/51 L Blood Pressure [Ri ght Arm] Blood Pressure Nancy n 67 54 Blood Pressure Nancy n [Right Arm] Pulse Oximetry 100 99 98 Oxygen Delivery Me thod Room Air Room Air Sepsis Recent Feve r Within 48 Hours No Sepsis New/Unexpla ined Change in Men nora Status No Sepsis Action Take n by Nursing No Action Required 08/28/19 00:03 08/28/19 00:10 08/28/19 00:20 Temperature Temperature Source Pulse Rate 93 H 85 80 Pulse Rate [Apical ] Pulse Rate from Sp O2 Sensor 92 H 80 Respiratory Rate 21 21 17 Respiratory Effort / Characteristics Respiratory Depth Respiratory Patter n Blood Pressure Blood Pressure [Ri ght Arm] Blood Pressure Nancy n Blood Pressure Nancy n [Right Arm] Pulse Oximetry 98 93 Oxygen Delivery Me thod Sepsis Recent Feve r Within 48 Hours Sepsis New/Unexpla ined Change in Men nora Status Sepsis Action Take n by Nursing 08/28/19 00:27 08/28/19 00:30 08/28/19 00:31 Temperature Temperature Source Pulse Rate 87 86 87 Pulse Rate [Apical ] Pulse Rate from Sp O2 Sensor 87 86 87 Respiratory Rate 19 17 17 Respiratory Effort / Characteristics Respiratory Depth Respiratory Patter n Blood Pressure 93/53 L 95/52 L Blood Pressure [Ri ght Arm] Blood Pressure Nancy n 64 69 Blood Pressure Nancy n [Right Arm] Pulse Oximetry 94 96 96 Oxygen Delivery Me thod Sepsis Recent Feve r Within 48 Hours Sepsis New/Unexpla ined Change in Men nora Status Sepsis Action Take n by Nursing 08/28/19 00:33 08/28/19 00:55 08/28/19 00:56 Temperature Temperature Source Pulse Rate 107 H 106 H Pulse Rate [Apical ] 89 Pulse Rate from Sp O2 Sensor 106 H 106 H Respiratory Rate 16 19 16 Respiratory Effort / Characteristics Non-Labored Sponta neous Respiratory Depth Normal Respiratory Patter n Blood Pressure 128/68 Blood Pressure [Ri ght Arm] 95/52 L Blood Pressure Nancy n 78 Blood Pressure Nancy n [Right Arm] 66 Pulse Oximetry 95 99 98 Oxygen Delivery Me thod Room Air Sepsis Recent Feve r Within 48 Hours Sepsis New/Unexpla ined Change in Men nora Status Sepsis Action Take n by Nursing 08/28/19 01:00 08/28/19 01:01 08/28/19 01:10 Temperature Temperature Source Pulse Rate 100 H 98 H 96 H Pulse Rate [Apical ] Pulse Rate from Sp O2 Sensor 99 H 98 H 96 H Respiratory Rate 18 18 18 Respiratory Effort / Characteristics Respiratory Depth Respiratory Patter n Blood Pressure 108/67 Blood Pressure [Ri ght Arm] Blood Pressure Nancy n 84 Blood Pressure Nancy n [Right Arm] Pulse Oximetry 97 98 99 Oxygen Delivery Me thod Sepsis Recent Feve r Within 48 Hours Sepsis New/Unexpla ined Change in Men nora Status Sepsis Action Take n by Nursing 08/28/19 01:20 08/28/19 01:30 08/28/19 01:31 Temperature Temperature Source Pulse Rate 96 H 93 H 94 H Pulse Rate [Apical ] Pulse Rate from Sp O2 Sensor 96 H 92 H 94 H Respiratory Rate 21 21 19 Respiratory Effort / Characteristics Respiratory Depth Respiratory Patter n Blood Pressure 87/55 L Blood Pressure [Ri ght Arm] Blood Pressure Nancy n 67 Blood Pressure Nancy n [Right Arm] Pulse Oximetry 98 98 98 Oxygen Delivery Me thod Sepsis Recent Feve r Within 48 Hours Sepsis New/Unexpla ined Change in Men nora Status Sepsis Action Take n by Nursing 08/28/19 01:40 08/28/19 01:50 08/28/19 01:55 Temperature Temperature Source Pulse Rate 97 H 109 H 103 H Pulse Rate [Apical ] Pulse Rate from Sp O2 Sensor 103 H Respiratory Rate 16 15 19 Respiratory Effort / Characteristics Respiratory Depth Respiratory Patter n Blood Pressure 117/70 Blood Pressure [Ri ght Arm] Blood Pressure Nancy n 90 Blood Pressure Nancy n [Right Arm] Pulse Oximetry 99 Oxygen Delivery Me thod Sepsis Recent Feve r Within 48 Hours Sepsis New/Unexpla ined Change in Men nora Status Sepsis Action Take n by Nursing 08/28/19 03:01 Temperature Temperature Source Pulse Rate Pulse Rate [Apical ] 102 H Pulse Rate from Sp O2 Sensor Respiratory Rate 18 Respiratory Effort / Characteristics Non-Labored Sponta neous Respiratory Depth Normal Respiratory Patter n Blood Pressure Blood Pressure [Ri ght Arm] 107/65 Blood Pressure Nancy n Blood Pressure Nancy n [Right Arm] 79 Pulse Oximetry 95 Oxygen Delivery Me thod Room Air Sepsis Recent Feve r Within 48 Hours Sepsis New/Unexpla ined Change in Men nora Status Sepsis Action Take n by Nursing Physical Exam: VITALS: Vitals are noted on the nurse's note and reviewed by myself. Vital signs stable. GENERAL: This is a 63-year-old white male, ill-appearing, nondiaphoretic, well- developed well-nourished. SKIN: The skin was pale and ashen without rashes, erythema, edema, or bruising. He is mildly jaundice. There is no tenting of the skin. Capillary refill less than 2 seconds. HEAD: Normocephalic atraumatic. EARS: External auditory canals clear, tympanic membranes pearly taylor without erythema or effusion bilaterally. EYES: Pupils equal round and reactive to light and accommodation. Conjunctivae without injection. Scleral icterus noted. Extraocular movements intact. NOSE: Patent, turbinates without inflammation or discharge. No sinus tender ness. MOUTH: Mucous membranes moist. Tonsils are not enlarged. Pharynx without erythema or exudate. Uvula midline. Airway patent. Tongue does not deviate. NECK: Supple without nuchal rigidity. No lymphadenopathy. Cervical spine is nontender. No JVD. HEART: Regular rate and rhythm without murmurs gallops or rubs. LUNGS: Clear to auscultation bilaterally without wheezes, rales or rhonchi. No retractions or accessory muscle use. ABDOMEN: Positive bowel sounds x 4. Normal tympanic percussion. Epigastric tenderness to palpation. The abdomen is otherwise soft, nontender, without masses or organomegaly. Hall sign positive. + guarding without rebound tenderness. MUSCULOSKELETAL: No muscle atrophy, erythema, or edema noted. Full range of motion without joint tenderness in all extremities. No tenderness to palpation. Normal gait. Strength 5/5 throughout. NEURO: Patient was alert and oriented to person place and time. Normal sensation to light and sharp touch. No focal neurological deficits. Course The patient was seen and evaluated as above. I discussed the case with my attending. IV access obtained, labs drawn. Pt. medicated with 1L IV fluids, Zofran, and Fentanyl. Labs reviewed by myself. Pt. given 2L IV fluids, repeat dose of Zofran, and K rider. Imaging performed and reviewed by myself and radiologist as above. I discussed the findings with the patient at bedside. He complained of ongoing pain and was given fentanyl. I discussed the case with the surgeon on-call, Dr. Kennedy. He recommends admission to medicine with surgery and GI consult for ERCP tomorrow. I discussed the case with the [facility] hospitalist. They did agree to see and evaluate the patient. Administered Medications Fentanyl Citrate (Fentanyl Citrate) 50 mcg IV Q15M PRN PRN Reason: Pain Stop: 09/11/19 01:58 Last Admin: 08/28/19 02:04 Dose: 50 mcg Documented by: [id number] Ioversol (Optiray 320 125ml) 125 ml IV ONCE PRN PRN Reason: Interaction Checking Stop: 09/01/19 01:02 Last Admin: 08/28/19 01:03 Dose: 114 ml Documented by: [id number] Discontinued Medications Fentanyl Citrate (Fentanyl Citrate) 50 mcg IV NOW STA Stop: 08/28/19 00:09 Last Admin: 08/28/19 00:17 Dose: 50 mcg Documented by: [id number] Sodium Chloride (Nss 1000ml) 1,000 mls @ 999 mls/hr IV .Q1H1M ONE Stop: 08/28/19 01:01 Last Infusion: 08/28/19 01:24 Dose: 0 mls/hr Documented by: [id number] Admin: 08/28/19 00:17 Dose: 999 mls/hr Documented by: [id number] Sodium Chloride (Nss 1000ml) 1,000 mls @ 999 mls/hr IV .Q1H1M LAKISHA Stop: 08/28/19 03:11 Last Infusion: 08/28/19 02:28 Dose: 0 mls/hr Documented by: [id number] Admin: 08/28/19 01:24 Dose: 999 mls/hr Documented by: [id number] Potassium Chloride (K Yusef / Wtr) 10 meq in 100 mls @ 100 mls/hr IV ONE ONE Stop: 08/28/19 02:11 Last Infusion: 08/28/19 02:24 Dose: 0 mls/hr Documented by: [id number] Admin: 08/28/19 01:24 Dose: 100 mls/hr Documented by: [id number] Piperacillin Sod/Tazobactam Sod (Zosyn) 3.375 gm in 115 mls @ 230 mls/hr IV NOW STA Stop: 08/28/19 02:15 Last Infusion: 08/28/19 02:59 Dose: 0 mls/hr Documented by: [id number] Admin: 08/28/19 02:23 Dose: 230 mls/hr Documented by: [id number] Ondansetron HCl (Zofran) 4 mg IV NOW STA Stop: 08/28/19 00:02 Last Admin: 08/28/19 00:17 Dose: 4 mg Documented by: [id number] Ondansetron HCl (Zofran) 4 mg IV NOW STA Stop: 08/28/19 01:12 Last Admin: 08/28/19 01:24 Dose: 4 mg Documented by: [id number] Potassium Chloride (Klor-Con M10) 40 meq PO NOW ONE Stop: 08/28/19 03:49 Last Admin: 08/28/19 04:00 Dose: 40 meq Documented by: [id number] Medical Decision Making Differential Diagnosis + gastroenteritis, + food borne illness, + infections, + appendicitis, + diverticulitis, + inflammatory bowel disease, + GI bleed, + biliary pathology, + nausea, + vomiting, + diarrhea and + abdominal pain In addition to the above, etiologies such as cardiac ischemia, aortic dissection, pulmonary embolism, pneumonia, pneumothorax, musculoskeletal, infections, gastrointestinal, as well as others were entertained. Medical Records Attestation: I reviewed the patient's medical records. Home Medications Current Medication List: was personally reviewed by me Laboratory Data Attestation: I reviewed the patient's lab results. No leukocytosis. No anemia. Patient is thrombocytopenic with a platelet count of 48,000. Coags normal. Patient is hypokalemic with a potassium of 2.8. Creatinine 1.48. Glucose elevated to 15. Lactic acid 7.1. Transaminases elevated with an AST of 740 and ALT of 304. Total bilirubin 7.5. Magnesium 1.6. Troponin negative. Lipase normal. TSH 1.09. Influenza testing negative. Result diagrams: 08/28/19 00:18 08/28/19 00:18 Lab Results 08/28/19 08/28/19 08/28/19 Range/Units 00:18 00:18 00:18 WBC 9.01 (4.8-10.8) K/uL RBC 4.61 L (4.7-6.1) M/uL Hgb 15.2 (14.0-18.0) g/dL POC Hgb (14.0-18.0) g/dl Hct 43.5 (42-52) % POC Hct (42-52) % MCV 94.4 (80-100) fL MCH 33.0 (25-34) pg MCHC 34.9 (32-36) g/dL RDW Std Deviation 46.8 H (36.4-46.3) fL RDW Coeff of Harley 13.6 (11.5-14.5) % Plt Count 48 L (130-400) K/uL MPV 11.7 H (7.4-10.4) fL Immature Gran % (Auto) 0.2 % Neut % (Auto) 95.8 % Lymph % (Auto) 1.8 % [place] % (Auto) 2.2 % Eos % (Auto) 0.0 % Baso % (Auto) 0.0 % Immature Gran # (Auto) 0.02 (0.00-0.02) K/uL Neut # (Auto) 8.63 H (1.4-6.5) K/uL Lymph # (Auto) 0.16 L (1.2-3.4) K/uL [place] # (Auto) 0.20 (0.11-0.59) K/uL Eos # (Auto) 0.00 (0-0.5) K/uL Baso # (Auto) 0.00 (0-0.2) K/uL Platelet Estimate Decreased L (Normal) Giant Platelets 1+ Pappenheimer Bodies 1+ PT 10.3 (9.0-12.0) Seconds INR 1.0 (0.9-1.1) APTT 22.4 (21.0-31.0) Seconds PTT Ratio 0.8 POC Sodium (135-144) mEq/L Sodium 136 (136-145) mmol/L POC Potassium (3.3-5.0) mEq/L Potassium 2.8 L (3.5-5.1) mmol/L POC Chloride (101-112) mEq/L Chloride 93 L (98-107) mmol/L Carbon Dioxide 30 (21-32) mmol/L POC Total CO2 (24-31) mEq/l Anion Gap 13.0 H (3-11) POC Anion Gap (16-25) mmol/L POC BUN (7-18) mg/dl BUN 16 (7-18) mg/dl Creatinine 1.48 H (0.6-1.4) mg/dl POC Creatinine (0.6-1.3) mg/dl Est Cr Clr Drug Dosing Not Reportable Est GFR ( Amer) 57.1 Est GFR (Non-Af Amer) 49.3 BUN/Creatinine Ratio 10.6 (10-20) Glucose 215 H (70-99) mg/dl POC Glucose (other) (70-99) mg/dl Lactate (0.4-2.0) mmol/L Calcium 9.2 (8.5-10.1) mg/dl POC Ioniz Calcium Andrew (1.12-1.32) mmol/l Magnesium 1.6 L (1.8-2.4) mg/dl Total Bilirubin 7.5 H (0.2-1) mg/dl AST 740 H (15-37) U/L ALT 304 H (12-78) U/L Alkaline Phosphatase 124 H (45-117) U/L Troponin I < 0.015 (0-0.045) ng/ml Total Protein 7.2 (6.4-8.2) gm/dl Albumin 3.8 (3.4-5.0) gm/dl Globulin 3.4 (2.5-4.0) gm/dl Albumin/Globulin Ratio 1.1 (0.9-2) Lipase 243 (73-393) U/L TSH 1.090 (0.300-4.500) uIu/ml Influenza Type A Ag (Neg) Influenza Type B Ag (Neg) 08/28/19 08/28/19 08/28/19 Range/Units 00:18 00:28 00:29 WBC (4.8-10.8) K/uL RBC (4.7-6.1) M/uL Hgb (14.0-18.0) g/dL POC Hgb 16.3 (14.0-18.0) g/dl Hct (42-52) % POC Hct 48 (42-52) % MCV (80-100) fL MCH (25-34) pg MCHC (32-36) g/dL RDW Std Deviation (36.4-46.3) fL RDW Coeff of Harley (11.5-14.5) % Plt Count (130-400) K/uL MPV (7.4-10.4) fL Immature Gran % (Auto) % Neut % (Auto) % Lymph % (Auto) % [place] % (Auto) % Eos % (Auto) % Baso % (Auto) % Immature Gran # (Auto) (0.00-0.02) K/uL Neut # (Auto) (1.4-6.5) K/uL Lymph # (Auto) (1.2-3.4) K/uL [place] # (Auto) (0.11-0.59) K/uL Eos # (Auto) (0-0.5) K/uL Baso # (Auto) (0-0.2) K/uL Platelet Estimate (Normal) Giant Platelets Pappenheimer Bodies PT (9.0-12.0) Seconds INR (0.9-1.1) APTT (21.0-31.0) Seconds PTT Ratio POC Sodium 135 (135-144) mEq/L Sodium (136-145) mmol/L POC Potassium 2.7 L (3.3-5.0) mEq/L Potassium (3.5-5.1) mmol/L POC Chloride 92 L (101-112) mEq/L Chloride (98-107) mmol/L Carbon Dioxide (21-32) mmol/L POC Total CO2 28 (24-31) mEq/l Anion Gap (3-11) POC Anion Gap 19.0 (16-25) mmol/L POC BUN 15 (7-18) mg/dl BUN (7-18) mg/dl Creatinine (0.6-1.4) mg/dl POC Creatinine 1.0 (0.6-1.3) mg/dl Est Cr Clr Drug Dosing Est GFR ( Amer) Est GFR (Non-Af Amer) BUN/Creatinine Ratio (10-20) Glucose (70-99) mg/dl POC Glucose (other) 225 H (70-99) mg/dl Lactate 7.1 H* (0.4-2.0) mmol/L Calcium (8.5-10.1) mg/dl POC Ioniz Calcium Andrew 1.12 (1.12-1.32) mmol/l Magnesium (1.8-2.4) mg/dl Total Bilirubin (0.2-1) mg/dl AST (15-37) U/L ALT (12-78) U/L Alkaline Phosphatase (45-117) U/L Troponin I (0-0.045) ng/ml Total Protein (6.4-8.2) gm/dl Albumin (3.4-5.0) gm/dl Globulin (2.5-4.0) gm/dl Albumin/Globulin Ratio (0.9-2) Lipase (73-393) U/L TSH (0.300-4.500) uIu/ml Influenza Type A Ag Neg for Influ A (Neg) Influenza Type B Ag Neg for Influ B (Neg) Imaging Data My Impression: Chest x-ray. Findings: A chest x-ray was performed and revealed no pneumothorax, effusion, infiltrate, pulmonary edema, free air under the diaphragm, or wide mediastinum. Radiologist's Impression: CTA CHEST: The mid-ascending aorta is slightly ectatic measuring 3.6 cm in diameter but demonstrates normal tapering to the aortic arch. The aortic arch and descending aorta are normal in caliber. No dissection or acute periaortic abnormality identified. No definite intimal abnormality identified on precontrast imaging. No evidence for pulmonary embolism. The cardiac chambers are normal. No pericar dial effusion. Calcified subcarinal and precarinal lymph nodes incidentally noted without mediastinal lymphadenopathy. No focal consolidation with minimal dependent atelectasis. No pleural effusion or pneumothorax. Chronic appearing dysmorphic changes of multiple left ribs, consistent with remote traumatic injury. No acute osseous abnormality identified. Radiologist: Abel Burns MD CTA ABDOMEN & PELVIS W/WO Contrast: There is a 4 mm stone noted in the distal common bile duct at the level of the ampulla, most consistent with a potentially impacted choledocholithiasis with a borderline prominent common bile duct noted at 8 mm near the head of the pancreas. The gallbladder is prominently distended with multiple additional cholelithiasis noted in the fundus of the gallbladder. Please correlate with laboratory findings for potential biliary stasis. The abdominal aorta is normal in caliber without aneurysm or dissection. No periaortic abnormality. Precontrast imaging demonstrates no intimal abnormality. The visceral branches and single bilateral renal arteries demonstrate no significant abnormality. The common iliac, internal and external iliac arteries demonstrate no significant acute abnormality. Fatty infiltration the liver. The pancreas, spleen, adrenal glands and kidneys demonstrate no significant acute abnormality. No bowel obstruction or significant focal bowel mucosal abnormality. No free intraperitoneal fluid or pneumoperitoneum. The visible bladder is unremarkable. Detailed evaluation is somewhat limited with left hip arthroplasty. No acute osseous or significant overlying soft tissue abnormality. Radiologist: Abel Burns MD ECG Data Attestation: I personally reviewed and interpreted this ECG as follows: Indication: chest pain Rate (beats per minute): 87 Rhythm: normal sinus Findings: no ST depression, no T-wave inversion, no ST elevation, no acute ischemic change and no ectopy Comparison ECG Date: from (05/2019) Change: no significant change Blood Pressure Blood Pressure Findings: Low blood pressure MDM Narrative This 63-year-old male patient presents emergency department today due to weakness, nausea, and vomiting for the past 4 days. The patient is complaining of bilateral rib pain, chest pain, epigastric abdominal pain, dyspnea, and diaphoresis. He has been unable to tolerate any food or fluids for several days. On initial examination, the patient is pale, somewhat ashen, hypotensive, and tachycardic. I was initially concerned for possible cardiac etiology or dissection. We did elect to perform CT imaging which shows evidence of choledocholithiasis with biliary stasis. The patient has been afebrile, but lactic acid was elevated at 7. His hypotension significantly improved with 3 L of IV fluids. His pain was managed with IV fentanyl. His potassium was replaced with a K rider and he was started on Zosyn. The patient will remain n.p.o. I did consult with surgery who recommended admission to medicine with surgery and GI consultation for ERCP tomorrow. I discussed the case with the [facility] hospitalist to did agree to see and evaluate the patient. He will be admitted for further testing and management of his symptoms. The chart was completed utilizing [employer] Speech voice recognition software. Gr ammatical errors, random word insertions, pronoun errors, and incomplete sentences are an occasional consequence of this system due to software limitations, ambient noise, and hardware issues. Any formal questions or concerns about the content, text, or information contained within the body of this dictation should be directly addressed to the provider for clarification. Impression & Plan Choledocholithiasis, Acute hypokalemia, Nausea & vomiting, Hypotension, Abdominal pain, Chest pain Discharge Plan Visit Data Chief Complaint: Weakness Stated Complaint: WEAKNESS, VOMITING - GOING ON ABT A WEEK ED Provider: Gina Weeks ED Midlevel Provider: Elisabeth Buck Discharge Problem: Choledocholithiasis, Acute hypokalemia, Nausea & vomiting, Hypotension, Abdominal pain, Chest pain Patient Disposition: Admitted As Inpatient Condition: Good Forms Stand Alone Forms: My [facility], Important Visit Information Prescriptions Prescriptions: No Action gabapentin 300 mg capsule 300 mg PO TID Qty: 90 RF: 5 Incruse Ellipta 62.5 mcg/actuation blister with device 1 inh INHALATION DAILY Qty: 30 RF: 5 lisinopril 20 mg tablet 20 mg PO DAILY Qty: 30 RF: 5 simvastatin 40 mg tablet 40 mg PO HS RF: 0 fluticasone propionate 50 mcg/actuation spray,suspension 2 spray INTNAS DAILY Qty: 15.8 RF: 2 prednisone 10 mg tablet See Rx Instructions PO DAILY Qty: 30 RF: 0 benztropine 2 mg tablet 2 mg PO QAM RF: 0 risperidone 2 mg Tablet 2 mg PO QAM RF: 0 risperidone 4 mg tablet 4 mg PO HS RF: 0 guaifenesin [Mucinex] 600 mg Tablet Extended Release 12hr 600 mg PO BID RF: 0 Referrals Referrals: Owen Mckinnon III, MD [Primary Care Provider] -
[2019-08-28 00:33] LABS: Hematocrit (blood only) 43.5 % (42-52); Hemoglobin 15.2 g/dL (14.0-18.0); Mean Corpuscular Hgb Conc 34.9 g/dL (32-36); Mean Corpuscular Volume 94.4 fL (80-100); RDW Coefficient of Variation 13.6 % (11.5-14.5); RDW Standard Deviation 46.8 fL (36.4-46.3); Red Blood Count 4.61 M/uL (4.7-6.1); White Blood Count 9.01 K/uL (4.8-10.8)
[2019-08-28 00:46] LABS: Partial Thromboplastin Ratio 0.8; Partial Thromboplastin Time 22.4 Seconds (21.0-31.0); Prothrombin Time 10.3 Seconds (9.0-12.0)
[2019-08-28 00:46] LABS: iSTAT Hemoglobin 16.3 g/dl (14.0-18.0); iSTAT Ionized Calcium 1.12 mmol/l (1.12-1.32); iSTAT Potassium 2.7 mEq/L (3.3-5.0)
[2019-08-28 00:57] LABS: Mean Platelet Volume 11.7 fL (7.4-10.4); Platelet Count 48 K/uL (130-400)
[2019-08-28 00:58] LABS: Giant Platelets 1+; Immature Granulocytes # (auto) 0.02 K/uL (0.00-0.02); Immature Granulocytes % (auto) 0.2 %; Lymphocytes # (auto) 0.16 K/uL (1.2-3.4); Lymphocytes % (auto) 1.8 %; Monocytes % (auto) 2.2 %; Neutrophils # (auto) 8.63 K/uL (1.4-6.5); Neutrophils % (auto) 95.8 %; Pappenheimer Bodies 1+; Platelet Estimate Decreased (Normal)
[2019-08-28 01:03] LABS: Alanine Aminotransferase 304 U/L (12-78); Albumin Globulin Ratio 1.1 (0.9-2); Albumin Level 3.8 gm/dl (3.4-5.0); Alkaline Phosphatase 124 U/L (45-117); Aspartate Aminotransferase 740 U/L (15-37); BUN Creatinine Ratio 10.6 (10-20); Bilirubin,Total 7.5 mg/dl (0.2-1); Blood Urea Nitrogen 16 mg/dl (7-18); Calcium 9.2 mg/dl (8.5-10.1); Carbon Dioxide 30 mmol/L (21-32); Chloride 93 mmol/L (98-107); Est GFR (African American) 57.1; Est GFR (Non-African American) 49.3; Globulin 3.4 gm/dl (2.5-4.0); Glucose 215 mg/dl (70-99); Lipase 243 U/L (73-393); Magnesium 1.6 mg/dl (1.8-2.4); Potassium 2.8 mmol/L (3.5-5.1); Sodium 136 mmol/L (136-145); Total Protein 7.2 gm/dl (6.4-8.2); Troponin I < 0.015 ng/ml (0-0.045)
[2019-08-28] MEDS ORDERED: OPTIRAY 320 125ml IV PRN (01:03)
[2019-08-28] MEDS ORDERED: POTASSIUM CHLORIDE / WTR 10 MEQ/100 ML PLCT IV ONE (01:12)
[2019-08-28] MEDS: SODIUM CHLORIDE 0.9% 1000ML 1,000 ML IV SCH ×2 (01:24→05:59)
[2019-08-28] MEDS ORDERED: PIPERACILL/TAZOBAC CONSULT ACTIVE PRN (01:46)
[2019-08-28] MEDS ORDERED: PIPERACILLIN/TAZOBACTAM 3.375 GM/115 ML BAG IV STA (01:46)
[2019-08-28] MEDS ORDERED: fentaNYL citrate 100 MCG/2 ML VIAL IV PRN (01:59)
--- NOTE | 2019-08-28 02:02 | Emergency Department Note ---
ED Visit Note This is a 63-year-old male patient who presents to the emergency department with severe epigastric pain, vomiting and hypotension. I saw this patient in conjunction with Elisabeth Buck PA-C. On physical exam, the patient does have reproducible epigastric tenderness. We reviewed the results of the CT scan of the abdomen/pelvis. The patient continues to complain of pain and requests additional pain medication. His blood pressure has responded nicely to crystalloid therapy. Systolic blood pressure was now at 117. The patient will require further inpatient evaluation by internal medicine and surgery. .
[2019-08-28] MEDS ORDERED: POTASSIUM CHLORIDE 10 MEQ TABCR PO ONE (03:48)
--- NOTE | 2019-08-28 04:05 | History & Physical Report ---
Date of Service August 28, 2019 Assessment & Plan (1) Choledocholithiasis: 63-year old male was admitted on 28 August 2019 for abdominal and chest pain as well as impacted choledocholithiasis. Impacted choledocholithiasis, transaminitis, hypotension: Patient notes N/V without diarrhea for least three days. Complains of pain virtually everywhere in his thorax and abdomen as well as low back. Does have more focal RUQ ttp on exam. Hypotension may be more volume depletion (instead of overt sepsis), as he responded well to initial IVF. Suspect his CP is more epigastric pain. - In ED, afebrile, borderline tachycardia, lowest BP 87/55, normal room SpO2. WBC 9, lactate 7.1, negative for influenza. Blood and urine culture sent. T bili 7.5 as well as elevations in AST + ALT + alk phos. Negative troponin and EKG NSR 87. Lipase and TSH normal. Overnight reads of CTA chest without acute findings but multiple findings on CT a/p including a 4 mm stone in the distal CBD. - In ED, was given two liters normal saline, fentanyl, Zofran, and started on Zosyn. ED spoke with Dr. Kennedy (general surgery). - Will keep n.p.o. and on IVF. Continue zosyn as above. Recheck lactate. Provide some Dilaudid as needed for pain control. Will consult GI as well and defer further local imaging (e.g. MRCP) vs ERCP to them. 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 Patient says his last drink was five days ago. - Will check an alcohol level. Placed on AWSS. Will not start on empiric benzodiazepines on admit, though may end up needing them. Thrombocytopenia: History of the same back in May that recovered. On this admit, platelets 48. INR 1.0. No present evidence of bleeding. Monitor for now, particularly if he needs to go to the OR. Hypokalemia, hypomagnesemia: Admit K 2.8 and Mg 1.6. Suspect from vomiting and malnutrition. In ED, given potassium rider. EKG looks okay. - Will continue to replace and monitor. Acute kidney injury: Admit Cr 1.48. Recent comparisons around 0.6. Suspect pre-renal given reports of frequent emesis. - Given IVF. Will recheck in afternoon. Elevated glucose: Admit glucose 215. 02Nov HbA1c was 5.6. No reported history of diabetes. - Given IVF. Will recheck in afternoon. Incidental imaging findings: CTA chest: "Slightly ectatic mid sending aorta measuring 3.6 cm". Chronic appearing dysmorphic changes of multiple left ribs. Ongoing medical issues: - Hypertension, hyperlipidemia: Held home Lisinopril due to mild elevated Cr. Continue statin. - COPD: Continue home Incruse Ellipta. - Schizophrenia, depression: Continue home risperidone. - Chronic back pain: Continue home benztropine, gabapentin. - Chronic rhinitis: Continue home Flonase and Mucinex. Code status: Full code. Diet: N.p.o. except meds. DVT prophy: Holding chemical prophylaxis due to thrombocytopenia. SCDs. PT/OT: Deferred. Disbo: Admit to MedSurg. (2) Transaminitis: (3) Hypotension: (4) Alcohol abuse: (5) Thrombocytopenia: (6) Hypokalemia: (7) Hypomagnesemia: (8) Acute kidney injury: (9) Elevated glucose: (10) Hypertension: (11) Hyperlipidemia: (12) COPD (chronic obstructive pulmonary disease): (13) Schizophrenia: (14) Depression: (15) Chronic back pain: (16) Chronic rhinitis: History of Present Illness Primary Care Provider: Owen Mckinnon MD 63-year-old male presents to the ED via a friend after complaining of chest pain, epigastric pain, back pain, as well as nausea and vomiting (without hematemesis). At the time of this H&P, initially found the patient sleeping very comfortably. He wakes easily to voice and immediately said that his epigastric region hurt before any introduction/questioning. He says that he has been vomiting for at least three days. Denies any diarrhea. Also says he has had some chest pain as well as low back pain of unclear duration, perhaps just today. He denies any difficulty breathing or recent fevers. He asked for more pain medicine throughout our interview as well as if he could eat a cracker because he says he is hungry. No other acute patient concerns raised. Of note, patient says that he still smokes and drinks alcohol. Says his last drink was five days ago and denies any recent tremors. - Past medical history includes chronic rhinitis, alcohol abuse, hypertension, schizophrenia, bronchitis, chronic back pain, COPD, depression, hyperlipidemia, osteoarthritis, thrombocytopenia - Past surgical history includes left hip replacement. - Social history includes current smoker. Drinks beer and hard liquor. Lives at home alone. Allergies Allergy/AdvReac Type Severity Reaction Status Date / Time ibuprofen AdvReac Mild sick to Verified 08/28/19 01:20 stomach Home Medications Home Medications Medication Instructions Recorded Confirmed Type gabapentin 300 mg capsule 300 mg PO TID #90 cap 05/09/19 08/28/19 Rx umeclidinium 62.5 mcg/actuation 1 inh INHALATION DAILY #30 ea 05/09/19 08/28/19 Rx blister powder for inhalation risperidone 2 mg PO QAM 05/24/19 08/28/19 History lisinopril 20 mg tablet 20 mg PO DAILY #30 tab 06/04/19 08/28/19 Rx simvastatin 40 mg tablet 40 mg PO HS tab 06/18/19 08/28/19 History benztropine 2 mg tablet 2 mg PO QAM 07/22/19 08/28/19 History fluticasone propionate 50 2 spray INTNAS DAILY #15.8 gm 08/14/19 08/28/19 Rx mcg/actuation nasal spray,suspension prednisone 10 mg tablet See Rx Instructions PO DAILY #30 08/14/19 08/28/19 Rx tabs guaifenesin [Mucinex] 600 mg PO BID 08/28/19 08/28/19 History risperidone 4 mg PO HS 08/28/19 08/28/19 History Past Med/Surg History Medical History AA (alcohol abuse) QUIT DRINKING 9 YEARS AGO Acute hypokalemia (Acute) Acute kidney injury Bronchitis HX OF Choledocholithiasis (Acute) Chronic back pain Chronic obstructive pulmonary disease Depression Elevated liver enzymes Hyperlipidemia Hypertension Osteoarthritis Schizophrenia (Chronic) Schizophrenia Thrombocytopenia (Acute) Surgical History (Updated 08/28/19 @ 14:[address] Telles DO) History of colonoscopy History of hip replacement History of tooth extraction S/P ERCP Family History Brother Family history of diabetes mellitus Social History Preferred Language: Nigerien Communication Ability: Effective Barrel Cooper Required: No Beliefs That Will Affect Care: None marital status: Single Current Living Situation: Alone Other Information That Helps Us Care for You: No Feels Safe at Home: Yes Safety Concerns: Feels Safe At This Time Smoking Status: Current every day smoker Tobacco Type: cigarettes and smokeless tobacco ; Cigarettes Per Day: 10 ; Do You Dip or Chew Tobacco: Yes ; Second Hand Exposure: Yes ; Tobacco Cessation Education Requested by Patient: No (No.) Hx Alcohol Use: Yes Alcohol type: beer and hard liquor Hx Substance Use: No (Per patient statement.) Review of Systems Review of Systems: Constitutional: Denies fevers, chills, focal weakness Eyes: Denies any visual loss or diplopia ENT: Denies any ear/nose/throat pain or difficulty speaking or swallowing Respiratory: Denies any dyspnea, cough, hemoptysis Cardiovascular: Positive chest pain. Gastrointestinal: Positive abdominal pain, nausea, and vomiting. Denies diarrhea. Musculoskeletal: Denies any acute extremity pains, myalgias, or focal weakness Skin: Denies any known acute rashes or lesions Neuro: Denies any headache, acute focal weakness or numbness, or difficulties with speech or swallow. Physical Exam Physical Exam: GENERAL: Initially found patient sleeping very comfortably. He wakes easily, states that he has ongoing epigastric pain, but does not appear in immediate distress. Skin appears jaundiced. HENT: Normocephalic, atraumatic. Oropharynx dry. NECK: Inspection normal. Supple and full ROM. No nuchal rigidity. CARDIAC: +S1S2 borderline but regular tachycardia, no murmurs. RESPIRATORY: Clear to auscultation. No wheezes or rales. Normal respiratory effort. GI: +BS, soft, non-distended. No rebound or guarding. Positive subjective > objective tenderness throughout his abdomen. Objectively, more tender in the right upper quadrant and epigastric regions. BACK: Positive tenderness to light palpation throughout the entire bilateral lumbar region. No contusions or ecchymosis seen. EXTREMITIES: No pedal edema or calf tenderness. Moving all extremities naturally and easily. NEURO: No gross neuro deficits. Results & Data Vital Signs (Past 12 Hours) Vital Signs Temp Pulse Pulse Resp BP BP Pulse Ox 08/28/19 03:01 102 H 18 107/65 95 08/28/19 01:55 103 H 19 117/70 99 08/28/19 01:50 109 H 15 08/28/19 01:40 97 H 16 08/28/19 01:31 94 H 19 98 08/28/19 01:30 93 H 21 87/55 L 98 08/28/19 01:20 96 H 21 98 08/28/19 01:10 96 H 18 99 08/28/19 01:01 98 H 18 98 08/28/19 01:00 100 H 18 108/67 97 08/28/19 00:56 106 H 16 128/68 98 08/28/19 00:55 107 H 19 99 08/28/19 00:33 89 16 95/52 L 95 08/28/19 00:31 87 17 96 08/28/19 00:30 86 17 95/52 L 96 08/28/19 00:27 87 19 93/53 L 94 08/28/19 00:20 80 17 93 08/28/19 00:10 85 21 08/28/19 00:03 93 H 21 98 08/28/19 00:00 91 H 19 83/51 L 98 08/27/19 23:55 99 08/27/19 23:44 36.5 C 89 18 89/57 L 100 Laboratory Results 08/28/19 08/28/19 08/28/19 Range/Units 00:29 00:28 00:18 WBC (4.8-10.8) K/uL RBC (4.7-6.1) M/uL Hgb (14.0-18.0) g/dL POC Hgb 16.3 (14.0-18.0) g/dl Hct (42-52) % POC Hct 48 (42-52) % MCV (80-100) fL MCH (25-34) pg MCHC (32-36) g/dL RDW Std Deviation (36.4-46.3) fL RDW Coeff of Harley (11.5-14.5) % Plt Count (130-400) K/uL MPV (7.4-10.4) fL Immature Gran % (Auto) % Neut % (Auto) % Lymph % (Auto) % [place] % (Auto) % Eos % (Auto) % Baso % (Auto) % Immature Gran # (Auto) (0.00-0.02) K/uL Neut # (Auto) (1.4-6.5) K/uL Lymph # (Auto) (1.2-3.4) K/uL [place] # (Auto) (0.11-0.59) K/uL Eos # (Auto) (0-0.5) K/uL Baso # (Auto) (0-0.2) K/uL Platelet Estimate (Normal) Giant Platelets Pappenheimer Bodies PT (9.0-12.0) Seconds INR (0.9-1.1) APTT (21.0-31.0) Seconds PTT Ratio POC Sodium 135 (135-144) mEq/L Sodium (136-145) mmol/L POC Potassium 2.7 L (3.3-5.0) mEq/L Potassium (3.5-5.1) mmol/L POC Chloride 92 L (101-112) mEq/L Chloride (98-107) mmol/L Carbon Dioxide (21-32) mmol/L POC Total CO2 28 (24-31) mEq/l Anion Gap (3-11) POC Anion Gap 19.0 (16-25) mmol/L POC BUN 15 (7-18) mg/dl BUN (7-18) mg/dl Creatinine (0.6-1.4) mg/dl POC Creatinine 1.0 (0.6-1.3) mg/dl Est Cr Clr Drug Dosing Est GFR ( Amer) Est GFR (Non-Af Amer) BUN/Creatinine Ratio (10-20) Glucose (70-99) mg/dl POC Glucose (other) 225 H (70-99) mg/dl Lactate 7.1 H* (0.4-2.0) mmol/L Calcium (8.5-10.1) mg/dl POC Ioniz Calcium Andrew 1.12 (1.12-1.32) mmol/l Magnesium (1.8-2.4) mg/dl Total Bilirubin (0.2-1) mg/dl AST (15-37) U/L ALT (12-78) U/L Alkaline Phosphatase (45-117) U/L Troponin I (0-0.045) ng/ml Total Protein (6.4-8.2) gm/dl Albumin (3.4-5.0) gm/dl Globulin (2.5-4.0) gm/dl Albumin/Globulin Ratio (0.9-2) Lipase (73-393) U/L TSH (0.300-4.500) uIu/ml Influenza Type A Ag Neg for Influ A (Neg) Influenza Type B Ag Neg for Influ B (Neg) 08/28/19 08/28/19 08/28/19 Range/Units 00:18 00:18 00:18 WBC 9.01 (4.8-10.8) K/uL RBC 4.61 L (4.7-6.1) M/uL Hgb 15.2 (14.0-18.0) g/dL POC Hgb (14.0-18.0) g/dl Hct 43.5 (42-52) % POC Hct (42-52) % MCV 94.4 (80-100) fL MCH 33.0 (25-34) pg MCHC 34.9 (32-36) g/dL RDW Std Deviation 46.8 H (36.4-46.3) fL RDW Coeff of Harley 13.6 (11.5-14.5) % Plt Count 48 L (130-400) K/uL MPV 11.7 H (7.4-10.4) fL Immature Gran % (Auto) 0.2 % Neut % (Auto) 95.8 % Lymph % (Auto) 1.8 % [place] % (Auto) 2.2 % Eos % (Auto) 0.0 % Baso % (Auto) 0.0 % Immature Gran # (Auto) 0.02 (0.00-0.02) K/uL Neut # (Auto) 8.63 H (1.4-6.5) K/uL Lymph # (Auto) 0.16 L (1.2-3.4) K/uL [place] # (Auto) 0.20 (0.11-0.59) K/uL Eos # (Auto) 0.00 (0-0.5) K/uL Baso # (Auto) 0.00 (0-0.2) K/uL Platelet Estimate Decreased L (Normal) Giant Platelets 1+ Pappenheimer Bodies 1+ PT 10.3 (9.0-12.0) Seconds INR 1.0 (0.9-1.1) APTT 22.4 (21.0-31.0) Seconds PTT Ratio 0.8 POC Sodium (135-144) mEq/L Sodium 136 (136-145) mmol/L POC Potassium (3.3-5.0) mEq/L Potassium 2.8 L (3.5-5.1) mmol/L POC Chloride (101-112) mEq/L Chloride 93 L (98-107) mmol/L Carbon Dioxide 30 (21-32) mmol/L POC Total CO2 (24-31) mEq/l Anion Gap 13.0 H (3-11) POC Anion Gap (16-25) mmol/L POC BUN (7-18) mg/dl BUN 16 (7-18) mg/dl Creatinine 1.48 H (0.6-1.4) mg/dl POC Creatinine (0.6-1.3) mg/dl Est Cr Clr Drug Dosing Not Reportable Est GFR ( Amer) 57.1 Est GFR (Non-Af Amer) 49.3 BUN/Creatinine Ratio 10.6 (10-20) Glucose 215 H (70-99) mg/dl POC Glucose (other) (70-99) mg/dl Lactate (0.4-2.0) mmol/L Calcium 9.2 (8.5-10.1) mg/dl POC Ioniz Calcium Andrew (1.12-1.32) mmol/l Magnesium 1.6 L (1.8-2.4) mg/dl Total Bilirubin 7.5 H (0.2-1) mg/dl AST 740 H (15-37) U/L ALT 304 H (12-78) U/L Alkaline Phosphatase 124 H (45-117) U/L Troponin I < 0.015 (0-0.045) ng/ml Total Protein 7.2 (6.4-8.2) gm/dl Albumin 3.8 (3.4-5.0) gm/dl Globulin 3.4 (2.5-4.0) gm/dl Albumin/Globulin Ratio 1.1 (0.9-2) Lipase 243 (73-393) U/L TSH 1.090 (0.300-4.500) uIu/ml Influenza Type A Ag (Neg) Influenza Type B Ag (Neg) Medications Administered Fentanyl Citrate (Fentanyl Citrate) 50 mcg IV Q15M PRN PRN Reason: Pain Stop: 09/11/19 01:58 Last Admin: 08/28/19 02:04 Dose: 50 mcg Documented by: [id number] Ioversol (Optiray 320 125ml) 125 ml IV ONCE PRN PRN Reason: Interaction Checking Stop: 09/01/19 01:02 Last Admin: 08/28/19 01:03 Dose: 114 ml Documented by: [id number] Discontinued Medications Fentanyl Citrate (Fentanyl Citrate) 50 mcg IV NOW STA Stop: 08/28/19 00:09 Last Admin: 08/28/19 00:17 Dose: 50 mcg Documented by: [id number] Sodium Chloride (Nss 1000ml) 1,000 mls @ 999 mls/hr IV .Q1H1M ONE Stop: 08/28/19 01:01 Last Infusion: 08/28/19 01:24 Dose: 0 mls/hr Documented by: [id number] Admin: 08/28/19 00:17 Dose: 999 mls/hr Documented by: [id number] Sodium Chloride (Nss 1000ml) 1,000 mls @ 999 mls/hr IV .Q1H1M LAKISHA Stop: 08/28/19 03:11 Last Infusion: 08/28/19 02:28 Dose: 0 mls/hr Documented by: [id number] Admin: 08/28/19 01:24 Dose: 999 mls/hr Documented by: [id number] Potassium Chloride (K Yusef / Wtr) 10 meq in 100 mls @ 100 mls/hr IV ONE ONE Stop: 08/28/19 02:11 Last Infusion: 08/28/19 02:24 Dose: 0 mls/hr Documented by: [id number] Admin: 08/28/19 01:24 Dose: 100 mls/hr Documented by: [id number] Piperacillin Sod/Tazobactam Sod (Zosyn) 3.375 gm in 115 mls @ 230 mls/hr IV NOW STA Stop: 08/28/19 02:15 Last Infusion: 08/28/19 02:59 Dose: 0 mls/hr Documented by: [id number] Admin: 08/28/19 02:23 Dose: 230 mls/hr Documented by: [id number] Ondansetron HCl (Zofran) 4 mg IV NOW STA Stop: 08/28/19 00:02 Last Admin: 08/28/19 00:17 Dose: 4 mg Documented by: [id number] Ondansetron HCl (Zofran) 4 mg IV NOW STA Stop: 08/28/19 01:12 Last Admin: 08/28/19 01:24 Dose: 4 mg Documented by: [id number] Potassium Chloride (Klor-Con M10) 40 meq PO NOW ONE Stop: 08/28/19 03:49 Last Admin: 08/28/19 04:00 Dose: 40 meq Documented by: [id number] Code Status & VTE Plan Code Status Full code VTE Prophylaxis Plan VTE Prophylaxis will be ordered: Yes Supervising Physician Co-Signing Physician Notes Attending addendum: I have physically seen this patient, have supervised the medical residents activities, and agree with the H&P unless as otherwise noted. Assessment and Plan: Choledocholithiasis/abnormal LFTs- 4 mm stone causing obstruction of distal common bile duct. N.p.o. IV fluids Zosyn 4.5 g IV every 8 hours Famotidine 20 mg IV every 12 hours. Zofran 4 mg IV every 6 hours PRN. Consult gastroenterology, will hold on ordering MRCP since there is an obvious obstructing stone. Will likely need ERCP. Follow serial laboratories. Consult general surgery. Alcohol abuse- AWSS protocol Remainder of orders and notations as noted. Resident Activity Tracking Resident Involvement: Resident Care Provided Care Provided: Adult Hospital Medicine
--- NOTE | 2019-08-28 04:09 | Surgery Consultation ---
Date of Consultation August 28, 2019 Assessment & Plan (1) Acute kidney injury: pt is a 63 year-old male who presents to Er with 3 days history nausea and vomiting with abdominal pain, IMP: choledocholithiasis, cholangitis, hypokalemia, acute kidney injury Plan, Hospitalist will admit pt to hospital, consult GI for ERCP, correct low k, iv antibiotic, laparoscopic cholecystectomy in 1-2 days, D/W benefits, risks and alternatives of the surgery, pt understood, he agrees with the plan, I answered all questions. (2) Hypokalemia: (3) Hypotension: (4) Transaminitis: (5) Choledocholithiasis: (6) Cholangitis: History of Present Illness History of Present Illness Chief complaint: Weakness Stated complaint: WEAKNESS, VOMITING - GOING ON ABT A WEEK Source: patient Mode of arrival: ambulatory Limitations: no limitations History of Present Illness Provider Complaint: + nausea and + vomiting Onset (ago): day(s) 3 Description of Vomiting: + watery Description of Diarrhea: + none Associated Abdominal Pain: Yes Location of pain: + diffuse Severity: severe Maximum Pain Intensity: 10 Current Pain Intensity: 10 Quality: + crushing and + sharp Pain Consistency: + constant Relieved By: + none Exacerbated By: + none Associated symptoms: + chest pain, + diaphoresis, + fever/chills, + weakness and + fatigue Treatments prior to arrival: + none HPI Narrative: This 63-year-old male patient presents emergency department today, ambulatory, accompanied by a friend. The patient states he has been nauseated and vomiting for the past 3 days. He is not able to eat or drink or keep down food or fluids for this amount of time. The patient states yesterday he developed chest pain in the middle of his chest which radiated across and lasted approximately 3 to 4 hours. He describes this as a sharp and shooting pain radiating into the back into the belly. He states he took some prescription pain medication without relief of the pain. He describes a bandlike sensation in his chest and in his abdomen. The patient states today, he developed some chest tightness which lasted a few hours. He states it was accompanied with shortness of breath and diaphoresis. While on his way to the ED, the patient fell, landing on his back and is now complaining of pain in his back and ribs. He is a current smoker states he smokes 1 pack/day. The patient denies any fever, but does report chills. He denies any recent diarrhea. He denies any hematemesis. The patient does have current substernal chest pain and epigastric/central abdominal pain radiating into the back. I ( Dionicio Kennedy MD ) got a call for consult acute cholecystitis, I reviewed pt's H/P, labs, CT scan with pt, pt is still have RUQ pain. pt denies chest pain now, Allergies Allergy/AdvReac Type Severity Reaction Status Date / Time ibuprofen AdvReac Mild sick to Verified 08/28/19 01:20 stomach Home Medications Home Medications Medication Instructions Recorded Confirmed Type gabapentin 300 mg capsule 300 mg PO TID #90 cap 05/09/19 08/28/19 Rx umeclidinium 62.5 mcg/actuation 1 inh INHALATION DAILY #30 ea 05/09/19 08/28/19 Rx blister powder for inhalation risperidone 2 mg PO QAM 05/24/19 08/28/19 History lisinopril 20 mg tablet 20 mg PO DAILY #30 tab 06/04/19 08/28/19 Rx simvastatin 40 mg tablet 40 mg PO HS tab 06/18/19 08/28/19 History benztropine 2 mg tablet 2 mg PO QAM 07/22/19 08/28/19 History fluticasone propionate 50 2 spray INTNAS DAILY #15.8 gm 08/14/19 08/28/19 Rx mcg/actuation nasal spray,suspension prednisone 10 mg tablet See Rx Instructions PO DAILY #30 08/14/19 08/28/19 Rx tabs guaifenesin [Mucinex] 600 mg PO BID 08/28/19 08/28/19 History risperidone 4 mg PO HS 08/28/19 08/28/19 History Patient History Medical History AA (alcohol abuse) QUIT DRINKING 9 YEARS AGO Bronchitis HX OF Chronic back pain Chronic obstructive pulmonary disease Depression Hyperlipidemia Hypertension Osteoarthritis Schizophrenia Surgical History (Updated 08/14/19 @ 10:37 by Chris Eugene) History of colonoscopy History of hip replacement History of tooth extraction Social History Preferred Language: Bulgarian Communication Ability: Effective Splitter Hand Required: No Beliefs That Will Affect Care: None Current Living Situation: Alone Feels Safe at Home: Yes Smoking Status: Current every day smoker Tobacco Type: cigarettes ; Cigarettes Per Day: 10 ; Second Hand Exposure: No ; Hx Alcohol Use: Yes Alcohol type: beer and hard liquor Hx Substance Use: No Review of Systems Review of Systems: All systems reviewed & are unremarkable except as noted in HPI & below COPD, Schizophrenia Physical Exam Constitutional: WD/WN, vitals as above well developed and well nourished ENMT: external ear and nose normal, oropharynx normal jaundice, Neck: trachea midline, no thyromegaly Respiratory: normal respiratory effort, lungs clear to auscultation Cardiovascular: RRR, no murmur, no edema Rate/Rhythm: regular rate and regular rhythm Heart Sounds: normal S1 and normal S2 Gastrointestinal (Abdomen): normal bowel sounds, soft, nontender, no hepatosplenomegaly Percussion/Palpation: + abdomen tender and abdomen soft tenderness at RUQ, no rebound pain, no distend, Musculoskeletal: no cyanosis or clubbing, extremities motor strength 5/5 Skin: no rashes, warm and dry Neurologic: patellar DTR's 2+ bilat, sensation intact Psychiatric: Orientation: alert and oriented x 3 Results & Data Vital Signs (Past 12 Hours) Vital Signs Temp Pulse Pulse Resp BP BP Pulse Ox 08/28/19 03:01 102 H 18 107/65 95 08/28/19 01:55 103 H 19 117/70 99 08/28/19 01:50 109 H 15 08/28/19 01:40 97 H 16 08/28/19 01:31 94 H 19 98 08/28/19 01:30 93 H 21 87/55 L 98 08/28/19 01:20 96 H 21 98 08/28/19 01:10 96 H 18 99 08/28/19 01:01 98 H 18 98 08/28/19 01:00 100 H 18 108/67 97 08/28/19 00:56 106 H 16 128/68 98 08/28/19 00:55 107 H 19 99 08/28/19 00:33 89 16 95/52 L 95 08/28/19 00:31 87 17 96 08/28/19 00:30 86 17 95/52 L 96 08/28/19 00:27 87 19 93/53 L 94 08/28/19 00:20 80 17 93 08/28/19 00:10 85 21 08/28/19 00:03 93 H 21 98 08/28/19 00:00 91 H 19 83/51 L 98 08/27/19 23:55 99 08/27/19 23:44 36.5 C 89 18 89/57 L 100 Laboratory Results Abnormal lab results 08/28/19 08/28/19 08/28/19 Range/Units 00:18 00:18 00:18 RBC 4.61 L (4.7-6.1) M/uL RDW Std Deviation 46.8 H (36.4-46.3) fL Plt Count 48 L (130-400) K/uL MPV 11.7 H (7.4-10.4) fL Neut # (Auto) 8.63 H (1.4-6.5) K/uL Lymph # (Auto) 0.16 L (1.2-3.4) K/uL Platelet Estimate Decreased L (Normal) POC Potassium (3.3-5.0) mEq/L Potassium 2.8 L (3.5-5.1) mmol/L POC Chloride (101-112) mEq/L Chloride 93 L (98-107) mmol/L Anion Gap 13.0 H (3-11) Creatinine 1.48 H (0.6-1.4) mg/dl Glucose 215 H (70-99) mg/dl POC Glucose (other) (70-99) mg/dl Lactate 7.1 H* (0.4-2.0) mmol/L Magnesium 1.6 L (1.8-2.4) mg/dl Total Bilirubin 7.5 H (0.2-1) mg/dl AST 740 H (15-37) U/L ALT 304 H (12-78) U/L Alkaline Phosphatase 124 H (45-117) U/L 08/28/19 Range/Units 00:29 RBC (4.7-6.1) M/uL RDW Std Deviation (36.4-46.3) fL Plt Count (130-400) K/uL MPV (7.4-10.4) fL Neut # (Auto) (1.4-6.5) K/uL Lymph # (Auto) (1.2-3.4) K/uL Platelet Estimate (Normal) POC Potassium 2.7 L (3.3-5.0) mEq/L Potassium (3.5-5.1) mmol/L POC Chloride 92 L (101-112) mEq/L Chloride (98-107) mmol/L Anion Gap (3-11) Creatinine (0.6-1.4) mg/dl Glucose (70-99) mg/dl POC Glucose (other) 225 H (70-99) mg/dl Lactate (0.4-2.0) mmol/L Magnesium (1.8-2.4) mg/dl Total Bilirubin (0.2-1) mg/dl AST (15-37) U/L ALT (12-78) U/L Alkaline Phosphatase (45-117) U/L Diagnostic Findings CT scan- choledocholithiasis
[2019-08-28] MEDS ORDERED: ONDANSETRON INJ 2 MG/ML 2 ML VIAL IV PRN (05:30)
[2019-08-28] MEDS ORDERED: LORazepam 1 MG/2 ML VIAL IV PRN (05:30)
[2019-08-28] MEDS ORDERED: MAGNESIUM SULFATE / D5W 1 GM/100 ML BAG IV ONE (05:30)
--- NOTE | 2019-08-28 06:31 | XRay Report ---
XR chest 1V portable HISTORY: 63 years-old Male chest pain acute vomiting with weakness COMPARISON: Chest radiograph 05/24/2019, CTA chest 08/28/2019 TECHNIQUE: Portable AP view of the chest. FINDINGS: Cardiac silhouette is mildly enlarged. Moderate emphysema. No pneumothorax, pleural effusion, focal a irspace consolidation or overt pulmonary edema. Multiple remote and displaced ununited left-sided rib fractures. Degenerative changes of the shoulders and spine. IMPRESSION: Chronic findings as above without acute process. ACT 112: Negative or not required by law. The above report was generated using voice recognition software. It may contain grammatical, syntax o r spelling errors. Electronically signed by: Kehinde Solis M.D. 08/28/2019 6:30 AM
[2019-08-28] MEDS: PATIENT'S HEIGHT AND/OR WEIGHT NEEDED SCH ×2 (06:38→08:12)
--- NOTE | 2019-08-28 07:13 | CT Scan Report ---
CT angio abd pelvis wo/w con CLINICAL HISTORY: 63 years-old Male presenting with abdominal pain, hypotension, vomiting, chest pain . TECHNIQUE: Multidetector CT angiography of the abdomen and pelvis was performed before and after the administration of intravenous contrast. 3-D volumetric and/or maximum intensity projection (MIP) imag es were subsequently reconstructed for review. IV contrast: 114 mL of Optiray 320. One or more dose l owering techniques were used consistent with the principles of ALARA (as low as reasonably achievable ), including automatic exposure control, mA or kV adjustment to individual patient size, and/or use o f iterative reconstruction. Stenosis measurements were based on NASCET-like criteria (distal lumen di ameter as the denominator for stenosis measurement). COMPARISON: 01/11/2016. CT DOSE (mGy.cm): The estimated cumulative dose is 978.92. 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 Vasculature: Mild atherosclerosis of the normal caliber abdominal aorta. No aneurysm or dissection. Patent major b ranch vessels of the abdominal aorta without evidence of stenosis at their origins or along their cou rses. Bilateral common, internal, and external iliac arteries patent as well as the proximal portions of the femoral arteries. Remaining abdomen and pelvis: Lung bases: Normal heart size. Coronary artery calcification. No pericardial or pleural effusion. Emp hysema. Liver: Normal morphology. Density consistent with moderate hepatic steatosis. Hyperenhancing focus pe ripherally in the right hepatic lobe possibly flash filling hemangioma or vascular shunting. Patent h epatic vasculature. Biliary: 4 mm calculus in the common bile duct at the level of the pancreatic head new from prior. Th ere is moderate upstream extrahepatic biliary ductal dilatation. No intrahepatic biliary ductal dilat ation. The gallbladder is distended with gallstones evident. No gallbladder wall thickening or convin cing evidence of tension at the fundus. Pancreas: Normal. Spleen: Normal. Adrenal glands: Normal. Kidneys and ureters: Calcification in the region of the right renal pelvis is similar to prior exam a nd may either represent a nonobstructing renal pelvic calculus versus adjacent renal vascular calcifi cation. No other evidence of nephrolithiasis. Normal parenchyma. No hydronephrosis. Ureters nondisten ded. Bladder: Circumferential bladder wall thickening, which could be due to underdistention or chronic bl adder outlet obstruction. Pelvic organs: Prostate and seminal vesicles normal. Bowel: Fatty atrophy of the appendix. No bowel obstruction. Heterogeneous material within the stomach likely due to ingested contents. Peritoneal cavity: No free fluid or intraperitoneal gas. Lymph nodes: No enlarged lymph nodes in the abdomen or pelvis. Abdominal wall: Normal. Musculoskeletal: Total left hip arthroplasty. Degenerative changes of the right hip. Degenerative theodora nges of the spine. Multiple old left rib fractures, some of which are nonunited. IMPRESSION: 1. No evidence of acute aortic injury. No dissection, aneurysm, or vessel occlusion. 2. 4 mm obstructing calculus in the distal common bile duct with upstream extrahepatic biliary ducta l dilatation. In addition a choledocholithiasis, the gallbladder is distended and contains gallstones . Cholecystitis is not apparent at this time. Gastroenterology consultation recommended. 3. Moderate hepatic steatosis. ACT 112: Negative or not required by law. Electronically signed by: Adrien Sainz M.D. 08/28/2019 7:11 AM
[2019-08-28] MEDS: POTASSIUM CHLORIDE / WTR 10 MEQ/100 ML PLCT IV SCH ×4 (07:15→12:27)
--- NOTE | 2019-08-28 07:32 | CT Scan Report ---
CT angio chest dissec wo/w con CLINICAL HISTORY: 63 years-old Male presenting with atypical chest pain and hypotension. TECHNIQUE: Multidetector CT angiography of the chest was performed before and after the administratio n of intravenous contrast. 3-D volumetric and/or maximum intensity projection (MIP) images were subse quently reconstructed for review. IV contrast: 114 mL of Optiray 320. One or more dose lowering techn iques were used consistent with the principles of ALARA (as low as reasonably achievable), including automatic exposure control, mA or kV adjustment to individual patient size, and/or use of iterative r econstruction. COMPARISON: Contrast-enhanced chest CT from 01/11/2016. CT DOSE (mGy.cm): The estimated cumulative dose is 978.92 mGy.cm. 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 Vasculature: The study is adequate for assessment of the aorta. Precontrast imaging demonstrates no evidence of in tramural hematoma. Postcontrast imaging demonstrates no evidence of dissection, penetrating ulcer, or aneurysm. Allowing for timing of the contrast bolus, no gross evidence of a filling defect within th e pulmonary arteries to suggest embolus. Main pulmonary artery is not enlarged. No flattening of the interventricular septum. No intracardiac filling defect. No reflux of contrast into the hepatic veins . Remaining chest: Soft tissues: Normal thyroid and thoracic inlet. Gynecomastia. Few calcified mediastinal and right hi lar lymph nodes. Top normal heart size. Moderate coronary artery calcification. No pericardial or ple ural effusion. Hepatic steatosis. Lungs and airways: No pneumothorax. Central airways patent. Pulmonary arteries are not significantly enlarged relative to adjacent bronchi. No interlobular septal thickening. Moderate to severe diffuse centrilobular emphysema versus, less likely, cystic lung disease. Minimal dependent changes likely at electasis. Calcified granuloma noted in the right lower lobe. Musculoskeletal: Degenerative changes of the spine. Multiple old rib fractures, some of which are non united. IMPRESSION: 1. No evidence of acute aortic injury. No acute intrathoracic pathology. 2. Moderate to severe centrilobular emphysema versus, less likely, cystic lung disease. No focal inf iltrate to suggest pneumonia. 3. Evidence of old granulomatous disease. 4. Moderate coronary artery calcification. 5. Hepatic steatosis. ACT 112: Negative or not required by law. Electronically signed by: Adrien Sainz M.D. 08/28/2019 7:31 AM
[2019-08-28] MEDS: LACTATED RINGER'S 1,000 ML IV SCH ×3 (08:07→20:11)
[2019-08-28 08:24] LABS: Folate (Folic Acid) 11.26 ng/ml (>5.38)
[2019-08-28] MEDS: PIPERACILLIN/TAZOBACTAM 3.375 GM in DEXTROSE 5% 100 ML IV SCH ×3 (08:43→23:36)
[2019-08-28] MEDS: INCRUSE ELLIPTA~ORDER AWAITING ACTION SCH ×3 (08:44→23:02)
[2019-08-28] MEDS: risperiDONE 2 MG TABLET PO SCH ×2 (09:13→20:07)
[2019-08-28] MEDS: guaiFENesin 600 MG TABCR PO SCH ×2 (09:13→20:07)
[2019-08-28] MEDS: BENZTROPINE MESYLATE 1 MG TAB PO SCH (09:13)
[2019-08-28] MEDS: GABAPENTIN 300 MG CAP PO SCH ×3 (09:13→20:07)
[2019-08-28] MEDS: FLUTICASONE PROPIONATE NA SPR 16 GM BTL SCH (09:13)
[2019-08-28] MEDS ORDERED: PROPOFOL IV EMULSION 10 MG/ML 20 ML VIAL IV ONE (09:18)
[2019-08-28] MEDS ORDERED: MIDAZOLAM HCL 1 MG/ML 2ML VIAL ONE (09:18)
[2019-08-28] MEDS ORDERED: ONDANSETRON INJ 2 MG/ML 2 ML VIAL ONE (09:18)
[2019-08-28] MEDS ORDERED: LIDOCAINE HCL 2% 2 ML VIAL/AMP(20MG/ML) INFIL ONE (09:18)
[2019-08-28] MEDS ORDERED: GLYCOPYRROLATE 0.2 MG/ML VIAL ONE (09:18)
[2019-08-28] MEDS ORDERED: ROCURONIUM BROMIDE 10 MG/ML 5 ML VIAL ONE (09:18)
[2019-08-28] MEDS ORDERED: fentaNYL citrate 100 MCG/2 ML VIAL ONE (09:18)
[2019-08-28] MEDS ORDERED: DEXAMETHASONE SOD INJ 4 MG/ML VIAL ONE (09:18)
[2019-08-28] MEDS ORDERED: NEOSTIGMINE METHYLSULFATE 5 MG/5 ML SYR ONE (09:18)
--- NOTE | 2019-08-28 09:28 | Gastrointestinal Consultation ---
Date of Consultation August 28, 2019 Assessment & Plan (1) Choledocholithiasis: I spoke with Daughter Esther by phone this morning, explaned her father's admission and need for ERCP. She will come and plans to provide consent. ERCP today after correction of hypokalemia . Further recommendations to follow ERCP. Present on Admission?: Yes Supervising Physician Co-Signing Physician Notes I performed a history and physical examination of the patient, including specifically on physical exam - soft, nontender abdomen. I have discussed the patient's management with Roge. Please refer to the nurse practitioner's note for the documented findings and plan of care. Patient with CBD stone on CT scan and jaundice, signs of cholangitis. Plan for ERCP today Surgery for cholecystectomy Has low PLT count and I explained the risk of bleeding but ERCP seems urgent due to sepsis and AMS History of Present Illness Reason for Consultation: ERCP Requesting Physician: Dr. Bermudez Attending Physician: Di Bermudez, DO History of Present Illness Mr. Jose Raul Maradiaga is a 63 yr old male pt of Dr. Mckinnon was brought to [facility] by a friend for nausea vomiting, weakness. He carries a hx of increased alcohol intake, though ethanol level on arrival was <3, Schizophrenia, Chronic Back pain, HTN, and Hyperlipidemia. On arrival, CT was suggestive of a distended gallbladder with stones and a 4 mm obstructing distal CBD stone. His LFTs were elevated: T Bili 7.5, AST 740, ALT 304, Alk Phos 124. He is afebrile w/o leukocytosis. When examined he is very sleepy though wakes easily and can tell me his name then becomes sleepy again. He did not c/o pain on palpation of the abdomen this morning. Allergies Allergy/AdvReac Type Severity Reaction Status Date / Time ibuprofen AdvReac Mild sick to Verified 08/28/19 01:20 stomach Home Medications Home Medications Medication Instructions Recorded Confirmed Type gabapentin 300 mg capsule 300 mg PO TID #90 cap 05/09/19 08/28/19 Rx umeclidinium 62.5 mcg/actuation 1 inh INHALATION DAILY #30 ea 05/09/19 08/28/19 Rx blister powder for inhalation risperidone 2 mg PO QAM 05/24/19 08/28/19 History lisinopril 20 mg tablet 20 mg PO DAILY #30 tab 06/04/19 08/28/19 Rx simvastatin 40 mg tablet 40 mg PO HS tab 06/18/19 08/28/19 History benztropine 2 mg tablet 2 mg PO QAM 07/22/19 08/28/19 History fluticasone propionate 50 2 spray INTNAS DAILY #15.8 gm 08/14/19 08/28/19 Rx mcg/actuation nasal spray,suspension prednisone 10 mg tablet See Rx Instructions PO DAILY #30 08/14/19 08/28/19 Rx tabs guaifenesin [Mucinex] 600 mg PO BID 08/28/19 08/28/19 History risperidone 4 mg PO HS 08/28/19 08/28/19 History Patient History Medical History AA (alcohol abuse) QUIT DRINKING 9 YEARS AGO Bronchitis HX OF Chronic back pain Chronic obstructive pulmonary disease Depression Hyperlipidemia Hypertension Osteoarthritis Schizophrenia Surgical History History of colonoscopy History of hip replacement History of tooth extraction Family History Brother Family history of diabetes mellitus Social History Preferred Language: Italian Communication Ability: Effective Die Baker Required: No Beliefs That Will Affect Care: None Current Living Situation: Alone Other Information That Helps Us Care for You: No Feels Safe at Home: Yes Safety Concerns: Feels Safe At This Time Smoking Status: Current every day smoker Tobacco Type: cigarettes and smokeless tobacco ; Cigarettes Per Day: 10 ; Do You Dip or Chew Tobacco: Yes ; Second Hand Exposure: Yes ; Tobacco Cessation Education Requested by Patient: No (No.) Hx Alcohol Use: Yes Alcohol type: beer and hard liquor Hx Substance Use: No (Per patient statement.) Review of Systems Review of Systems: Unable to provide ROS because very sleepy. I spoke with his daughter who offers that he has been drinking increased amts of alcohol, having relapsed in June when his x- passed. Physical Exam Constitutional: WD/WN, vitals as above + ill appearing and + thin Eyes: PERRL, conjunctivae normal, anicteric sclerae ENMT: external ear and nose normal, oropharynx normal Neck: trachea midline, no thyromegaly Respiratory: normal respiratory effort Scattered wheezes throughout and decreased sounds to the bases. Cardiovascular: RRR, no murmur, no edema Gastrointestinal (Abdomen): Inspection/Auscultation: abdomen normal to inspection; abdomen not distended Percussion/Palpation: abdomen soft; abdomen nontender Skin: no rashes, warm and dry + turgor decreased Neurologic: PERRL, EOMI, accommodation nl, no face palsy, no dysarthria Psychiatric: Sleepy but able to tell me his name. Results & Data Vital Signs (Past 12 Hours) Vital Signs Temp Pulse Pulse Pulse Resp BP BP 08/28/19 09:21 36.8 C 85 16 92/60 L 08/28/19 07:16 36.7 C 91 H 14 94/58 L 08/28/19 06:36 36.7 C 107 H 14 101/65 08/28/19 05:30 36.7 C 107 H 14 10108/28/19 05:07 99 H 16 86/57 L 08/28/19 03:01 102 H 18 107/65 08/28/19 01:55 103 H 19 117/70 08/28/19 01:50 109 H 15 08/28/19 01:40 97 H 16 08/28/19 01:31 94 H 19 08/28/19 01:30 93 H 21 87/55 L 08/28/19 01:20 96 H 21 08/28/19 01:10 96 H 18 08/28/19 01:01 98 H 18 08/28/19 01:00 100 H 18 108/67 08/28/19 00:56 106 H 16 128/68 08/28/19 00:55 107 H 19 08/28/19 00:33 89 16 95/52 L 08/28/19 00:31 87 17 08/28/19 00:30 86 17 95/52 L 08/28/19 00:27 87 19 93/53 L 08/28/19 00:20 80 17 08/28/19 00:10 85 21 08/28/19 00:03 93 H 21 08/28/19 00:00 91 H 19 83/51 L 08/27/19 23:55 08/27/19 23:44 36.5 C 89 18 89/57 L Pulse Ox 08/28/19 09:21 95 08/28/19 07:16 94 08/28/19 06:36 93 08/28/19 05:30 93 08/28/19 05:07 97 08/28/19 03:01 95 08/28/19 01:55 99 08/28/19 01:50 08/28/19 01:40 08/28/19 01:31 98 08/28/19 01:30 98 08/28/19 01:20 98 08/28/19 01:10 99 08/28/19 01:01 98 08/28/19 01:00 97 08/28/19 00:56 98 08/28/19 00:55 99 08/28/19 00:33 95 08/28/19 00:31 96 08/28/19 00:30 96 08/28/19 00:27 94 08/28/19 00:20 93 08/28/19 00:10 08/28/19 00:03 98 08/28/19 00:00 98 08/27/19 23:55 99 08/27/19 23:44 100 Laboratory Results K .7, Na 136, BUN 16, Cr. 1.48, glucose 215. WBC 8, Hb 15, Hct 43, platelets 215. Diagnostic Findings CT abd/pelvis 06/28 1. No evidence of acute aortic injury. No dissection, aneurysm, or vessel occlusion. 2. 4 mm obstructing calculus in the distal common bile duct with upstream extrahepatic biliary ductal dilatation. In addition a choledocholithiasis, the gallbladder is distended and contains gallstones. Cholecystitis is not apparent at this time. Gastroenterology consultation recommended. 3. Moderate hepatic steatosis.
[2019-08-28] MEDS ORDERED: POTASSIUM CHLORIDE 20 MEQ TABCR PO ONE (10:00)
--- NOTE | 2019-08-28 10:19 | Surgery Progress Note ---
Date of Service pt is doing better, but pt is still have some RUQ pain, with nausea, August 28, 2019 Assessment & Plan (1) Acute kidney injury: pt is a 63 year-old male who presents to Er with 3 days history nausea and vomiting with abdominal pain, IMP: choledocholithiasis, cholangitis, hypokalemia, acute kidney injury Plan, Hospitalist will admit pt to hospital, consult GI for ERCP, correct low k, iv antibiotic, laparoscopic cholecystectomy in 1-2 days, D/W benefits, risks and alternatives of the surgery, pt understood, he agrees with the plan, I answered all questions. 08/28/2019 10:16am pt will have ERCP by GI doctor, I recommend to do laparoscopic cholecystectomy possible open or cholangiogram following ERCP with pt and his daughter, D/W benefits, risks and alternatives of the surgery, the risks - infection, bleeding, injury CBD, sepsis, multiple organs failure, , pt and his daughter understood, they agree with the surgery, I answered all questions, (2) Hypokalemia: (3) Hypotension: (4) Transaminitis: (5) Choledocholithiasis: (6) Cholangitis: Physical Exam Constitutional: WD/WN, vitals as above well developed and well nourished ENMT: external ear and nose normal, oropharynx normal Neck: trachea midline, no thyromegaly Respiratory: normal respiratory effort, lungs clear to auscultation Cardiovascular: RRR, no murmur, no edema Rate/Rhythm: regular rate and regular rhythm Heart Sounds: normal S1 and normal S2 Gastrointestinal (Abdomen): normal bowel sounds, soft, nontender, no hepatosplenomegaly Percussion/Palpation: + abdomen tender and abdomen soft Musculoskeletal: no cyanosis or clubbing, extremities motor strength 5/5 Skin: no rashes, warm and dry Neurologic: patellar DTR's 2+ bilat, sensation intact Psychiatric: Orientation: alert and oriented x 3 Results & Data Vital Signs (Past 12 Hours) Vital Signs Temp Pulse Pulse Pulse Resp BP BP 08/28/19 09:21 36.8 C 85 16 92/60 L 08/28/19 07:16 36.7 C 91 H 14 94/58 L 08/28/19 06:36 36.7 C 107 H 14 101/65 08/28/19 05:30 36.7 C 107 H 14 101/65 08/28/19 05:07 99 H 16 86/57 L 08/28/19 03:01 102 H 18 107/65 08/28/19 01:55 103 H 19 117/70 08/28/19 01:50 109 H 15 08/28/19 01:40 97 H 16 08/28/19 01:31 94 H 19 08/28/19 01:30 93 H 21 87/55 L 08/28/19 01:20 96 H 21 08/28/19 01:10 96 H 18 08/28/19 01:01 98 H 18 08/28/19 01:00 100 H 18 108/67 08/28/19 00:56 106 H 16 128/68 08/28/19 00:55 107 H 19 08/28/19 00:33 89 16 95/52 L 08/28/19 00:31 87 17 08/28/19 00:30 86 17 95/52 L 08/28/19 00:27 87 19 93/53 L 08/28/19 00:20 80 17 08/28/19 00:10 85 21 08/28/19 00:03 93 H 21 08/28/19 00:00 91 H 19 83/51 L 08/27/19 23:55 08/27/19 23:44 36.5 C 89 18 89/57 L Pulse Ox 08/28/19 09:21 95 08/28/19 07:16 94 08/28/19 06:36 93 08/28/19 05:30 93 08/28/19 05:07 97 08/28/19 03:01 95 08/28/19 01:55 99 08/28/19 01:50 08/28/19 01:40 08/28/19 01:31 98 08/28/19 01:30 98 08/28/19 01:20 98 08/28/19 01:10 99 08/28/19 01:01 98 08/28/19 01:00 97 08/28/19 00:56 98 08/28/19 00:55 99 08/28/19 00:33 95 08/28/19 00:31 96 08/28/19 00:30 96 08/28/19 00:27 94 08/28/19 00:20 93 08/28/19 00:10 08/28/19 00:03 98 08/28/19 00:00 98 08/27/19 23:55 99 08/27/19 23:44 100 Laboratory Results Abnormal lab results 08/28/19 08/28/19 08/28/19 Range/Units 00:18 00:18 00:18 RBC 4.61 L (4.7-6.1) M/uL RDW Std Deviation 46.8 H (36.4-46.3) fL Plt Count 48 L (130-400) K/uL MPV 11.7 H (7.4-10.4) fL Neut # (Auto) 8.63 H (1.4-6.5) K/uL Lymph # (Auto) 0.16 L (1.2-3.4) K/uL Platelet Estimate Decreased L (Normal) POC Potassium (3.3-5.0) mEq/L Potassium 2.8 L (3.5-5.1) mmol/L POC Chloride (101-112) mEq/L Chloride 93 L (98-107) mmol/L Anion Gap 13.0 H (3-11) Creatinine 1.48 H (0.6-1.4) mg/dl Glucose 215 H (70-99) mg/dl POC Glucose (other) (70-99) mg/dl Lactate 7.1 H* (0.4-2.0) mmol/L Magnesium 1.6 L (1.8-2.4) mg/dl Total Bilirubin 7.5 H (0.2-1) mg/dl AST 740 H (15-37) U/L ALT 304 H (12-78) U/L Alkaline Phosphatase 124 H (45-117) U/L Vitamin B12 (211-911) pg/ml 08/28/19 08/28/19 08/28/19 Range/Units 00:29 06:07 06:07 RBC (4.7-6.1) M/uL RDW Std Deviation (36.4-46.3) fL Plt Count (130-400) K/uL MPV (7.4-10.4) fL Neut # (Auto) (1.4-6.5) K/uL Lymph # (Auto) (1.2-3.4) K/uL Platelet Estimate (Normal) POC Potassium 2.7 L (3.3-5.0) mEq/L Potassium (3.5-5.1) mmol/L POC Chloride 92 L (101-112) mEq/L Chloride (98-107) mmol/L Anion Gap (3-11) Creatinine (0.6-1.4) mg/dl Glucose (70-99) mg/dl POC Glucose (other) 225 H (70-99) mg/dl Lactate 3.8 H* (0.4-2.0) mmol/L Magnesium (1.8-2.4) mg/dl Total Bilirubin (0.2-1) mg/dl AST (15-37) U/L ALT (12-78) U/L Alkaline Phosphatase (45-117) U/L Vitamin B12 1277 H (211-911) pg/ml
--- NOTE | 2019-08-28 10:20 | History & Physical Bridge Note ---
Date of Service August 28, 2019 History & Physical Bridge Note I have examined the patient, reviewed the History & Physical and in the interval since the performance of the History & Physical I have noted the following changes of clinical significance: no changes noted
[2019-08-28] MEDS ORDERED: BACITRACIN OINT 15 GM TUBE ONE (10:27)
[2019-08-28] MEDS ORDERED: BUPIVACAINE 0.5 % 5 MG/1 ML MPF 30ML VIAL ONE (10:28)
[2019-08-28] MEDS ORDERED: LIDOCAINE HCL 1% 20 ML VIAL ONE (10:28)
[2019-08-28 10:35] LABS: BUN Creatinine Ratio 14.9 (10-20); Calcium 8.1 mg/dl (8.5-10.1); Creatinine Clr Calc Pharmacy 72.4 ml/min; Est GFR (African American) 100.2; Est GFR (Non-African American) 86.5; Potassium 4.3 mmol/L (3.5-5.1)
[2019-08-28] MEDS ORDERED: INDOMETHACIN 50 MG SUPP PR ONE (11:00)
--- NOTE | 2019-08-28 11:04 | Anesthesiology Consultation ---
Date of Service August 28, 2019 Assessment & Plan (1) Encounter for pre-operative examination: Chart Review Chart Review: Acceptable Risk for Surgery and Patient NOT seen in Pre Admission Testing Consults Requested none History Surgery Operation Date: 08/28/19 07:00 Proposed Procedures p Endoscopic Retrograde Cholangiopancreatogram - Satish Guerrero MD s Laparoscopic Cholecystectomy - Dionicio Kennedy MD Operation Date: 08/29/19 13:00 Proposed Procedures p Laparoscopic Cholecystectomy, No Cholangiogram - Dionicio Kennedy MD Height/Weight Height: 5 ft 6 in Weight: 64.4 kg Allergies Allergy/AdvReac Type Severity Reaction Status Date / Time ibuprofen AdvReac Mild sick to Verified 08/28/19 01:20 stomach Medications Home Medications Medication Instructions Recorded Confirmed Last Taken gabapentin 300 mg capsule 300 mg PO TID #90 cap 05/09/19 08/28/19 05/23/19 umeclidinium 62.5 mcg/actuation 1 inh INHALATION DAILY #30 ea 05/09/19 08/28/19 05/23/19 blister powder for inhalation risperidone 2 mg PO QAM 05/24/19 08/28/19 05/23/19 lisinopril 20 mg tablet 20 mg PO DAILY #30 tab 06/04/19 08/28/19 Unknown simvastatin 40 mg tablet 40 mg PO HS tab 06/18/19 08/28/19 Unknown benztropine 2 mg tablet 2 mg PO QAM 07/22/19 08/28/19 Unknown fluticasone propionate 50 2 spray INTNAS DAILY #15.8 gm 08/14/19 08/28/19 Unknown mcg/actuation nasal spray,suspension prednisone 10 mg tablet See Rx Instructions PO DAILY #30 08/14/19 08/28/19 Unknown tabs guaifenesin [Mucinex] 600 mg PO BID 08/28/19 08/28/19 Unknown risperidone 4 mg PO HS 08/28/19 08/28/19 Unknown Active Medications Generic Name Dose Route Start Last Admin Trade Name Freq PRN Reason Stop Dose Admin Benztropine Mesylate 2 mg 08/28/19 09:00 08/28/19 09:13 Cogentin PO 09/27/19 08:59 Not Given QAM LAKISHA Fluticasone Propionate 2 sprays 08/28/19 09:00 08/28/19 09:13 Flonase NA 09/27/19 08:59 Not Given DAILY LAKISHA Gabapentin 300 mg 08/28/19 09:00 08/28/19 09:13 Neurontin PO 09/27/19 08:59 Not Given TID LAKISHA Guaifenesin 600 mg 08/28/19 09:00 08/28/19 09:13 Mucinex PO 09/27/19 08:59 Not Given BID LAKISHA Lactated Ringer's 1,000 mls @ 80 mls/hr 08/28/19 05:30 08/28/19 10:06 Lr IV 09/27/19 05:29 80 mls/hr .[id number] LAKISHA Infusion Piperacillin Sod/Tazobactam 115 mls @ 28.75 mls/hr 08/28/19 08:00 08/28/19 08:43 Sod 3.375 gm/ Dextrose IV 09/07/19 07:59 28.8 mls/hr Q8H LAKISHA Administration Protocol Ioversol 125 ml 08/28/19 01:03 08/28/19 01:03 Optiray 320 125ml IV 09/01/19 01:02 114 ml ONCE PRN Administration Interaction Checking Miscellaneous 1 ea 08/28/19 08:00 08/28/19 08:44 Order Awaiting Action N/A 09/27/19 07:59 Not Given QS LAKISHA Risperidone 2 mg 08/28/19 09:00 08/28/19 09:13 Risperdal PO 09/27/19 08:59 Not Given QAM LAKISHA NPO Date Last Intake of Fluids: 08/28/19 Time Last Intake of Fluids: 10:25 Last Intake of Fluids Comment: sip with pill Date Last Intake of Solids: 08/26/19 Time Last Intake of Solids: 23:59 Past Medical History Medical History AA (alcohol abuse) QUIT DRINKING 9 YEARS AGO Bronchitis HX OF Chronic back pain Chronic obstructive pulmonary disease Depression Hyperlipidemia Hypertension Osteoarthritis Schizophrenia Exercise / Class Metabolic Activity III < 4 Walking/Shop/Light housework Past Family History Family History Brother Family history of diabetes mellitus Past Surgical History Surgical History History of colonoscopy History of hip replacement History of tooth extraction Past Anesthesia History No Hx of Anesthesia Complications and No Family Hx of Anesthesia Complications History of PONV No Hx of PONV and No Hx of Motion Sickness Social History Smoking Status: Current every day smoker tobacco type: cigarettes and smokeless tobacco Smoking cigarettes per day: 10 Do You Dip or Chew Tobacco: Yes Hx Alcohol Use: Yes Alcohol type: beer and hard liquor alcohol intake frequency: a few times a month Hx Substance Use: No (Per patient statement.) substance use type: does not use Physical Exam Vital Signs Last Vital Signs Temp 36.7 C 08/28/19 10:44 Pulse 91 H 08/28/19 10:44 Resp 16 08/28/19 10:44 BP 121/76 08/28/19 10:44 Pulse Ox 94 08/28/19 10:44 Testing Laboratory Results 08/28/19 00:18 08/28/19 09:50 PT 10.3 Seconds (9.0-12.0) 08/28/19 00:18 INR 1.0 (0.9-1.1) 08/28/19 00:18 APTT 22.4 Seconds (21.0-31.0) 08/28/19 00:18 08/28/19 00:29 POC Glucose (other) 225 H Electrocardiogram Date: 08/27/19 Findings: + NSR @ nst.
--- NOTE | 2019-08-28 11:32 | History & Physical Bridge Note ---
Date of Service August 28, 2019 History & Physical Bridge Note I have examined the patient, reviewed the History & Physical and in the interval since the performance of the History & Physical I have noted the following changes of clinical significance: base on low platelet , anesthesiologist recommend to do ERCP today, pt will have laparoscopic cholecystectomy tomorrow, D/W pt and his daughter who agree with the jin, today the cholecystectomy surgery is cancelled.
[2019-08-28] MEDS ORDERED: INDOMETHACIN 50 MG SUPP PR STA (11:38)
--- NOTE | 2019-08-28 12:11 | Operative Report ---
Post Operative Report Pre & Post Diagnosis Operation Date: 08/28/19 07:00 Pre-Op Diagnosis: CHOLEDOCHOLITHIASIS Post-Op Diagnosis: CHOLEDOCHOLITHIASIS Operation Date: 08/29/19 13:00 <No data on this case meets the specified criteria> I identified the patient and participated in the time-out.: Yes Procedure Operation Date: 08/28/19 07:00 Actual Procedures p Endoscopic Retrograde Cholangiopancreatogram, Stent Insertion(Not Applicable) - Satish Guerrero MD Operation Date: 08/29/19 13:00 <No data on this case meets the specified criteria> Surgeon Satish Guerrero MD Route Sales Trainee None Estimated Blood Loss 0 Findings See Below (Cholangitis, CBD stone removed, stent placed) Specimens None Description of Procedure ERCP I attest to the content of the Intraoperative Record and any orders documented therein. Any exceptions are noted below.
[2019-08-28] MEDS ORDERED: GLUCAGON FOR INJ 1 MG VIAL ONE (12:20)
--- NOTE | 2019-08-28 12:23 | GI REPORT ---
Patient Name: Jose Raul Maradiaga Procedure Date: 08/28/2019 11:41 AM Date of : 1955 Admit Type: Inpatient Age: 63 Gender: Male Attending MD: Satish Guerrero MD Procedure: ERCP Providers: Satish Guerrero MD Referring MD: Dionicio Walden . Md Indications: Abdominal pain of suspected biliary origin, Bile duct stone on Computed Tomogram Scan, For therapy of bile duct stone(s), Jaundice, Elevated liver enzymes Medicines: General Anesthesia Complications: No immediate complications. Estimated Blood Loss: Estimated blood loss: none. Procedure: Pre-Anesthesia Assessment: - Prior to the procedure, a History and Physical was performed, and patient medications, allergies and sensitivities were reviewed. The patient's tolerance of previous anesthesia was reviewed. - The risks and benefits of the procedure and the sedation options and risks were discussed with the patient. All questions were answered and informed consent was obtained. - Patient identification and proposed procedure were verified prior to the procedure by the physician and the nurse. The procedure was verified in the procedure room. - Pre-procedure physical examination revealed no contraindications to sedation. After obtaining informed consent, the scope was passed under direct vision. Throughout the procedure, the patient's blood pressure, pulse, and oxygen saturations were monitored continuously. The Scope was introduced through the mouth, and advanced to the duodenum and used to inject contrast into the bile duct. The ERCP was accomplished without difficulty. The patient tolerated the procedure well. Findings: The factory expert film was normal. The esophagus was successfully intubated under direct vision. The scope was advanced to a normal major papilla in the descending duodenum without detailed examination of the pharynx, larynx and associated structures, and upper GI tract. The upper GI tract was grossly normal. The major papilla was on the rim of a diverticulum. A 0.035 inch straight standard Acrobat wire was passed into the biliary tree from the first attempt. The Fusion OMNI sphincterotome was passed over the guidewire and the bile duct was then deeply cannulated. Contrast was injected. I personally interpreted the bile duct images. Ductal flow of contrast was adequate. Image quality was adequate. Contrast extended to the main bile duct. The main bile duct was mildly dilated. The largest diameter was 8 mm. Biliary sphincterotomy was made with a monofilament traction (standard) sphincterotome using ERBE electrocautery. There was no post-sphincterotomy bleeding. The biliary tree was swept with an 11.5 mm balloon starting at the bifurcation. One stone was removed. No stones remained. Black sludge was swept from the duct. One 10 Fr by 7 cm plastic biliary stent with a single external flap and a single internal flap was placed into the common bile duct. Bile flowed through the stent. The stent was in good position. Indomethacin 100 mg was given via suppository to decrease the risk of post-ERCP pancreatitis (PEP). PD was not cannulated nor injected with contrast. Impression: - Choledocholithiasis and sludge was found. Complete removal was accomplished by biliary sphincterotomy and balloon extraction. - One plastic biliary stent was placed into the common bile duct. Recommendation: - [facility]. - Avoid aspirin and nonsteroidal anti-inflammatory medicines for 5 days. - Repeat ERCP in 4 - 6 weeks to remove stent. - Surgery for cholecystectomy. - Continue ABx, complete a 10 days course. - Recall GI if needed. Satish Guerrero MD 08/28/2019 12:22:37 PM This report has been signed electronically. Note Initiated On: 08/28/2019 11:41 AM Number of Addenda: 0 I attest to the content of the Intraoperative Record and orders documented therein, exceptions below {[id number]}
--- NOTE | 2019-08-28 12:25 | Fluoroscopy Report ---
[place] ERCP biliary ductal CLINICAL HISTORY: 63 years-old Male presenting with ERCP. TECHNIQUE: Fluoroscopy was provided for endoscopic retrograde cholangiopancreatography. 9 fluoroscopi c image(s) recorded. COMPARISON: CT from earlier today. FINDINGS: Procedure: An endoscope projects over the descending duodenum. A microcatheter was advanced into the common bile duct to the level of the liver hilum. Common duct subsequently opacified revealing fillin g defects compatible with choledocholithiasis. The gallbladder and intrahepatic ducts subsequently op acified. This indicates an unobstructed cystic duct. Peritoneal spillage: No evidence of peritoneal spillage of contrast. Extrahepatic bile ducts: Mild prominence of the extrahepatic bile duct with filling defect consistent with choledocholithiasis. Subsequent balloon clearance. Intrahepatic bile ducts: There is no intrahepatic bile duct dilatation. Dose area product (mGy.cm^2): 1.8699. Fluoroscopy time: 31.5 seconds. Number or time of high level fluoroscopy (HLF), digital spot, or digital subtraction images: 0. IMPRESSION: Balloon clearance of choledocholithiasis. ACT 112: Negative or not required by law. Electronically signed by: Adrien Sainz M.D. 08/28/2019 12:23 PM
[2019-08-28] MEDS ORDERED: ePHEDrine sulfate 50 MG/ML AMP IV PRN (12:49)
[2019-08-28] MEDS ORDERED: ATROPINE SULFATE 0.1 MG/ML 10ML SYR IV PRN (12:49)
--- NOTE | 2019-08-28 12:49 | Anesthesiology Progress Note ---
Date of Service August 28, 2019 Anesthesia Post Procedure Vital Signs Vital Signs: Temp Pulse Pulse Pulse Resp BP BP 08/28/19 12:45 86 18 110/67 08/28/19 12:35 86 14 99/64 L 08/28/19 12:25 86 15 94/64 L 08/28/19 12:18 36.9 C 95 H 16 89/60 L 08/28/19 10:44 36.7 C 91 H 16 121/76 08/28/19 09:21 36.8 C 85 16 92/60 L 08/28/19 07:16 36.7 C 91 H 14 94/58 L 08/28/19 06:36 36.7 C 107 H 14 101/65 08/28/19 05:30 36.7 C 107 H 14 101/65 08/28/19 05:07 99 H 16 86/57 L 08/28/19 03:01 102 H 18 107/65 08/28/19 01:55 103 H 19 117/70 08/28/19 01:50 109 H 15 08/28/19 01:40 97 H 16 08/28/19 01:31 94 H 19 08/28/19 01:30 93 H 21 87/55 L 08/28/19 01:20 96 H 21 08/28/19 01:10 96 H 18 08/28/19 01:01 98 H 18 08/28/19 01:00 100 H 18 108/67 08/28/19 00:56 106 H 16 128/68 08/28/19 00:55 107 H 19 08/28/19 00:33 89 16 95/52 L 08/28/19 00:31 87 17 08/28/19 00:30 86 17 95/52 L 08/28/19 00:27 87 19 93/53 L 08/28/19 00:20 80 17 08/28/19 00:10 85 21 08/28/19 00:03 93 H 21 08/28/19 00:00 91 H 19 83/51 L 08/27/19 23:55 08/27/19 23:44 36.5 C 89 18 89/57 L Pulse Ox 08/28/19 12:45 94 08/28/19 12:35 98 08/28/19 12:25 97 08/28/19 12:18 97 08/28/19 10:44 94 08/28/19 09:21 95 08/28/19 07:16 94 08/28/19 06:36 93 08/28/19 05:30 93 08/28/19 05:07 97 08/28/19 03:01 95 08/28/19 01:55 99 08/28/19 01:50 08/28/19 01:40 08/28/19 01:31 98 08/28/19 01:30 98 08/28/19 01:20 98 08/28/19 01:10 99 08/28/19 01:01 98 08/28/19 01:00 97 08/28/19 00:56 98 08/28/19 00:55 99 08/28/19 00:33 95 08/28/19 00:31 96 08/28/19 00:30 96 08/28/19 00:27 94 08/28/19 00:20 93 08/28/19 00:10 08/28/19 00:03 98 08/28/19 00:00 98 08/27/19 23:55 99 08/27/19 23:44 100 Pain Intensity Abdomen: Pain Intensity: 0 Right Arm: Pain Intensity: 6 Transfer of Care Handoff Completed per policy Notes Mental Status: alert / awake / arousable and participated in evaluation Patient Amnestic to Procedure: Yes Nausea / Vomiting: adequately controlled Pain: adequately controlled Airway Patency, RR, SpO2: stable & adequate BP & HR: stable & adequate Hydration State: stable & adequate Anesthetic Complications: no major complications apparent and Pt Satisfied with anesthetic care
[2019-08-28] MEDS ORDERED: SODIUM CHLORIDE 0.9% 250 ML IV PRN (13:38)
[2019-08-28] MEDS: PANTOprazole 40 MG TAB PO SCH (14:20)
--- NOTE | 2019-08-28 14:45 | Anesthesiology Consultation ---
Date of Service August 28, 2019 Assessment & Plan Chart Review Chart Review: Acceptable Risk for Surgery and Patient NOT seen in Pre Admission Testing awaiting re-check PLT after administration of 1 unit dose PLT Consults Requested none History Surgery Operation Date: 08/28/19 07:00 Proposed Procedures p Endoscopic Retrograde Cholangiopancreatogram - Satish Guerrero MD s Laparoscopic Cholecystectomy - Dionicio Kennedy MD Operation Date: 08/29/19 13:00 Proposed Procedures p Laparoscopic Cholecystectomy, No Cholangiogram - Dionicio Kennedy MD Height/Weight Height: 5 ft 6 in Weight: 64.4 kg Allergies Allergy/AdvReac Type Severity Reaction Status Date / Time ibuprofen AdvReac Mild sick to Verified 08/28/19 01:20 stomach Medications Home Medications Medication Instructions Recorded Confirmed Last Taken gabapentin 300 mg capsule 300 mg PO TID #90 cap 05/09/19 08/28/19 05/23/19 umeclidinium 62.5 mcg/actuation 1 inh INHALATION DAILY #30 ea 05/09/19 08/28/19 05/23/19 blister powder for inhalation risperidone 2 mg PO QAM 05/24/19 08/28/19 05/23/19 lisinopril 20 mg tablet 20 mg PO DAILY #30 tab 06/04/19 08/28/19 Unknown simvastatin 40 mg tablet 40 mg PO HS tab 06/18/19 08/28/19 Unknown benztropine 2 mg tablet 2 mg PO QAM 07/22/19 08/28/19 Unknown fluticasone propionate 50 2 spray INTNAS DAILY #15.8 gm 08/14/19 08/28/19 Unknown mcg/actuation nasal spray,suspension prednisone 10 mg tablet See Rx Instructions PO DAILY #30 08/14/19 08/28/19 Unknown tabs guaifenesin [Mucinex] 600 mg PO BID 08/28/19 08/28/19 Unknown risperidone 4 mg PO HS 08/28/19 08/28/19 Unknown Active Medications Generic Name Dose Route Start Last Admin Trade Name Freq PRN Reason Stop Dose Admin Benztropine Mesylate 2 mg 08/28/19 09:00 08/28/19 09:13 Cogentin PO 09/27/19 08:59 Not Given QAM LAKISHA Fluticasone Propionate 2 sprays 08/28/19 09:00 08/28/19 09:13 Flonase NA 09/27/19 08:59 Not Given DAILY LAKISHA Gabapentin 300 mg 08/28/19 09:00 08/28/19 14:20 Neurontin PO 09/27/19 08:59 300 mg TID LAKISHA Administration Guaifenesin 600 mg 08/28/19 09:00 08/28/19 09:13 Mucinex PO 09/27/19 08:59 Not Given BID LAKISHA Lactated Ringer's 1,000 mls @ 80 mls/hr 08/28/19 05:30 08/28/19 10:06 Lr IV 09/27/19 05:29 80 mls/hr .[id number] LAKISHA Infusion Piperacillin Sod/Tazobactam 115 mls @ 28.75 mls/hr 08/28/19 08:00 08/28/19 13:19 Sod 3.375 gm/ Dextrose IV 09/07/19 07:59 Infused Q8H LAKISHA Infusion Protocol Ioversol 125 ml 08/28/19 01:03 08/28/19 01:03 Optiray 320 125ml IV 09/01/19 01:02 114 ml ONCE PRN Administration Interaction Checking Miscellaneous 1 ea 08/28/19 08:00 08/28/19 08:44 Order Awaiting Action N/A 09/27/19 07:59 Not Given QS LAKISHA Pantoprazole Sodium 40 mg 08/28/19 12:15 08/28/19 14:20 Protonix PO 09/27/19 12:14 40 mg QAM LAKISHA Administration Risperidone 2 mg 08/28/19 09:00 08/28/19 09:13 Risperdal PO 09/27/19 08:59 Not Given QAM LAKISHA NPO Date Last Intake of Fluids: 08/28/19 Time Last Intake of Fluids: 10:25 Last Intake of Fluids Comment: sip with pill Date Last Intake of Solids: 08/26/19 Time Last Intake of Solids: 23:59 Past Medical History Medical History AA (alcohol abuse) QUIT DRINKING 9 YEARS AGO Acute hypokalemia (Acute) Acute kidney injury Bronchitis HX OF Choledocholithiasis (Acute) Chronic back pain Chronic obstructive pulmonary disease Depression Elevated liver enzymes Hyperlipidemia Hypertension Osteoarthritis Schizophrenia (Chronic) Schizophrenia Thrombocytopenia (Acute) Exercise / Class Metabolic Activity III < 4 Walking/Shop/Light housework Past Family History Family History Brother Family history of diabetes mellitus Past Surgical History Surgical History (Updated 08/28/19 @ 14:[address] Telles DO) History of colonoscopy History of hip replacement History of tooth extraction S/P ERCP Past Anesthesia History No Hx of Anesthesia Complications and No Family Hx of Anesthesia Complications History of PONV No Hx of PONV and No Hx of Motion Sickness Social History Smoking Status: Current every day smoker tobacco type: cigarettes and smokeless tobacco Smoking cigarettes per day: 10 Do You Dip or Chew Tobacco: Yes Hx Alcohol Use: Yes Alcohol type: beer and hard liquor alcohol intake frequency: a few times a month Hx Substance Use: No (Per patient statement.) substance use type: does not use Physical Exam Vital Signs Last Vital Signs Temp 37.1 C 08/28/19 14:28 Pulse 80 08/28/19 14:28 Resp 18 08/28/19 14:28 BP 123/76 08/28/19 14:28 Pulse Ox 93 08/28/19 14:28 Constitutional + cachectic ENMT Mouth: no TMJ abnormality Thyromental Distance: > or= 3.5 Finger Breadths Mallampati Class: II Neck normal visual inspection and trachea midline; neck extension not limited Respiratory normal respiratory effort Auscultation: lungs clear to auscultation bilaterally Cardiovascular Rate/Rhythm: regular rate and regular rhythm Heart Sounds: no murmur Musculoskeletal Spine: normal cervical ROM Extremities: full ROM of extremities Skin +facial hair Neurologic moves all extremities Psychiatric Orientation: alert Testing Laboratory Results 08/28/19 00:18 PT 10.3 Seconds (9.0-12.0) 08/28/19 00:18 INR 1.0 (0.9-1.1) 08/28/19 00:18 APTT 22.4 Seconds (21.0-31.0) 08/28/19 00:18 Blood Type O Positive 08/28/19 10:55 Antibody Screen NEGATIVE 08/28/19 10:55 08/28/19 00:18 Anaerobic Blood Culture - Preliminary Blood Gram negative bacilli 08/28/19 00:18 Anaerobic Blood Culture - Preliminary Blood Gram negative bacilli pt current receiving unit dose of PLT. awaiting re-check Electrocardiogram Date: 08/28/19 Findings: + NSR @ (87bpm)
[2019-08-28 14:51] LABS: Albumin Level 2.9 gm/dl (3.4-5.0); Creatinine Clr Calc Pharmacy 89.8 ml/min; Est GFR (African American) 112.4; Est GFR (Non-African American) 96.9; Magnesium 1.7 mg/dl (1.8-2.4); Potassium 4.6 mmol/L (3.5-5.1)
[2019-08-28 14:55] LABS: Albumin Globulin Ratio 1.3 (0.9-2); Bilirubin,Total 6.6 mg/dl (0.2-1); Globulin 2.2 gm/dl (2.5-4.0); Total Protein 5.1 gm/dl (6.4-8.2)
--- NOTE | 2019-08-28 14:56 | Hospitalist Progress Note ---
Date of Service August 28, 2019 Assessment & Plan (1) Choledocholithiasis: ERCP on 08/28 with stone noted Stent placed Plan for abx x10 days and repeat ERCP in 6 weeks Awaiting OR for lap north Could not be done on 08/28 due to platelets (2) Thrombocytopenia: Seen on last admission and resolved spontaneously Ideally would monitor however pt cannot have lap north with current levels Will transfuse and monitor Likely related to alcohol use (3) Acute hypokalemia: Likely related to persistent n/v Replace and monitor (4) Acute kidney injury: Dehydration related to above Monitor (5) Depression: continue home meds (6) Hyperlipidemia: Holding statin (7) Hypertension: Holding home meds for hypoTN Monitor (8) Elevated glucose: No hx of DM Monitor A1c pending (9) Hypomagnesemia: Replace and monitor (10) Alcohol abuse: Denies current use EtOH neg on admission B12, folate WNL (11) COPD (chronic obstructive pulmonary disease): continue home meds (12) DVT prophylaxis: Holding given likely OR Subjective Pt is feeling much improved s/p ERCP. No further abd pain, n/v. He is hungry and awaiting PO. Pt denies fever, SOB, chest pain, c/d, LE pain or swelling. Review of Systems Review of Systems: Pertinent positives and negatives reviewed in HPI--all others negative Physical Exam Constitutional: WD/WN, vitals as above Eyes: normal visual blood by confrontation and + anicteric sclerae Neck: normal visual inspection and trachea midline Respiratory: normal respiratory effort, lungs clear to auscultation Cardiovascular: Rate/Rhythm: regular rate and regular rhythm Gastrointestinal (Abdomen): Inspection/Auscultation: abdomen not distended Percussion/Palpation: abdomen soft; abdomen nontender Musculoskeletal: Head/Neck/Chest: normocephalic and head atraumatic negative for edema, peripheral pulses intact Skin: no rashes, warm and dry Neurologic: awake; not confused Speech / Cognition: normal speech Psychiatric: A+Ox3, euthymic affect Results & Data Vital Signs (Past 12 Hours) Vital Signs Temp Pulse Pulse Pulse Resp BP BP 08/28/19 14:28 37.1 C 80 18 123/76 08/28/19 14:09 36.5 C 76 18 119/72 08/28/19 13:10 36.7 C 81 16 116/74 08/28/19 13:00 82 15 106/70 08/28/19 12:55 36.8 C 85 17 103/71 08/28/19 12:45 86 18 110/67 08/28/19 12:35 86 14 99/64 L 08/28/19 12:25 86 15 94/64 L 08/28/19 12:18 36.9 C 95 H 16 89/60 L 08/28/19 10:44 36.7 C 91 H 16 121/76 08/28/19 09:21 36.8 C 85 16 92/60 L 08/28/19 07:16 36.7 C 91 H 14 94/58 L 08/28/19 06:36 36.7 C 107 H 14 101/65 08/28/19 05:30 36.7 C 107 H 14 101/65 08/28/19 05:07 99 H 16 86/57 L 08/28/19 03:01 102 H 18 107/65 Pulse Ox 08/28/19 14:28 93 08/28/19 14:09 08/28/19 13:10 95 08/28/19 13:00 94 08/28/19 12:55 94 08/28/19 12:45 94 08/28/19 12:35 98 08/28/19 12:25 97 08/28/19 12:18 97 08/28/19 10:44 94 08/28/19 09:21 95 08/28/19 07:16 94 08/28/19 06:36 93 08/28/19 05:30 93 08/28/19 05:07 97 08/28/19 03:01 95 PG Care Time/CCT Total # of Minutes Spent Total Time Spent with Patient: Total time spent is greater than 50% in coordination of care (as documented) at patient's floor/unit and/or counseling patient:
[2019-08-28] MEDS: SIMVASTATIN 40 MG TAB PO SCH (20:07)
[2019-08-28] MEDS: HYDROmorphone INJ 0.5 MG/0.5 ML SYR IV PRN (23:01)
[2019-08-29 05:34] LABS: Hemoglobin 11.7 g/dL (14.0-18.0); Mean Corpuscular Hemoglobin 31.9 pg (25-34); Mean Corpuscular Hgb Conc 33.4 g/dL (32-36); Mean Corpuscular Volume 95.4 fL (80-100); Mean Platelet Volume 10.9 fL (7.4-10.4); Platelet Count 52 K/uL (130-400); RDW Standard Deviation 48.4 fL (36.4-46.3); Red Blood Count 3.67 M/uL (4.7-6.1); White Blood Count 8.32 K/uL (4.8-10.8)
[2019-08-29 05:58] LABS: Estimated Average Glucose 100 mg/dl; Hemoglobin A1C 5.1 % (4.5-5.6)
[2019-08-29 06:03] LABS: Albumin Globulin Ratio 0.9 (0.9-2); Albumin Level 2.4 gm/dl (3.4-5.0); BUN Creatinine Ratio 10.4 (10-20); Bilirubin,Total 5.3 mg/dl (0.2-1); Calcium 7.8 mg/dl (8.5-10.1); Creatinine Clr Calc Pharmacy 97.6 ml/min; Est GFR (African American) 116.3; Est GFR (Non-African American) 100.3; Globulin 2.6 gm/dl (2.5-4.0); Potassium 3.8 mmol/L (3.5-5.1)
[2019-08-29] MEDS: INCRUSE ELLIPTA~ORDER AWAITING ACTION SCH ×2 (08:00→18:50)
[2019-08-29] MEDS: GABAPENTIN 300 MG CAP PO SCH ×3 (08:00→20:40)
[2019-08-29] MEDS: PANTOprazole 40 MG TAB PO SCH (08:00)
[2019-08-29] MEDS: FLUTICASONE PROPIONATE NA SPR 16 GM BTL SCH (08:00)
[2019-08-29] MEDS: risperiDONE 2 MG TABLET PO SCH ×2 (08:00→20:40)
[2019-08-29] MEDS: BENZTROPINE MESYLATE 1 MG TAB PO SCH (08:00)
[2019-08-29] MEDS: guaiFENesin 600 MG TABCR PO SCH ×2 (08:00→20:41)
[2019-08-29] MEDS: HYDROmorphone INJ 0.5 MG/0.5 ML SYR IV PRN ×3 (08:06→22:28)
[2019-08-29] MEDS: PIPERACILLIN/TAZOBACTAM 3.375 GM in DEXTROSE 5% 100 ML IV SCH ×2 (08:10→20:37)
[2019-08-29] MEDS: LACTATED RINGER'S 1,000 ML IV SCH ×2 (08:14→20:35)
--- NOTE | 2019-08-29 10:01 | Surgery Progress Note ---
Date of Service August 29, 2019 Assessment & Plan (1) Choledocholithiasis: pOD # 1 s/p ERCP with biliary sphincterotomy and biliary stent placement - vitals stable, afebrile - no leukocytosis - t. bili and lfts improving but still elevated - 2/2 positive blood cultures for gram negative bacilli - Platelets 52,000 s/p 1 unit of Platelets Plan: Lap cholecystectomy scheduled today at 1 pm will give 1 more unit of platelets now continue NPO continue IV abx, will need to determine extent of abx given positive blood cultures repeat am labs tomorrow, (cbc, cmp) continue medical management (2) Transaminitis: Improving s/p ERCP with biliary sphincterotomy and stent placement plan as above for lap north today Discussed with Dr. Kennedy who is to see patient prior to lap north Subjective still having some epigastric pain but improved compared to prior to ERCP no nausea or vomiting, tolerated clear liquids last night, hungry wants solid food Physical Exam Constitutional: WD/WN, vitals as above no acute distress Gastrointestinal (Abdomen): Inspection/Auscultation: abdomen normal to inspection; abdomen not distended Percussion/Palpation: + abdomen tender (epigastrium deep palpation) and abdomen soft; no guarding and abdomen not rigid Skin: no rashes, warm and dry Psychiatric: A+Ox3, euthymic affect Results & Data Vital Signs (Past 12 Hours) Vital Signs Temp Pulse Pulse Resp BP BP Pulse Ox 08/29/19 09:51 36.8 C 93 H 18 150/94 H 96 08/29/19 07:05 36.6 C 91 H 16 157/89 H 96 08/28/19 23:03 36.7 C 88 16 142/76 H 95 Laboratory Results 08/29/19 08/29/19 08/29/19 Range/Units 09:40 05:15 05:15 WBC 8.32 (4.8-10.8) K/uL RBC 3.67 L (4.7-6.1) M/uL Hgb 11.7 L D (14.0-18.0) g/dL Hct 35.0 L (42-52) % MCV 95.4 (80-100) fL MCH 31.9 (25-34) pg MCHC 33.4 (32-36) g/dL RDW Std Deviation 48.4 H (36.4-46.3) fL RDW Coeff of Harley 14.0 (11.5-14.5) % Plt Count 52 L (130-400) K/uL MPV 10.9 H (7.4-10.4) fL Sodium 139 (136-145) mmol/L Potassium 3.8 D (3.5-5.1) mmol/L Chloride 108 H (98-107) mmol/L Carbon Dioxide 25 (21-32) mmol/L Anion Gap 6.0 (3-11) BUN 7 D (7-18) mg/dl Creatinine 0.69 (0.6-1.4) mg/dl Est Cr Clr Drug Dosing 97.6 ml/min Est GFR ( Amer) 116.3 Est GFR (Non-Af Amer) 100.3 BUN/Creatinine Ratio 10.4 (10-20) Glucose 85 (70-99) mg/dl Estimat Average Glucose mg/dl Hemoglobin A1c (4.5-5.6) % Calcium 7.8 L (8.5-10.1) mg/dl Magnesium (1.8-2.4) mg/dl Total Bilirubin 5.3 H (0.2-1) mg/dl AST 337 H (15-37) U/L ALT 252 H (12-78) U/L Alkaline Phosphatase 87 (45-117) U/L Total Protein 5.0 L (6.4-8.2) gm/dl Albumin 2.4 L (3.4-5.0) gm/dl Globulin 2.6 (2.5-4.0) gm/dl Albumin/Globulin Ratio 0.9 (0.9-2) Urine Color Pending Urine Appearance Pending Urine pH Pending Ur Specific [place] Pending Urine Protein Pending Urine Glucose (UA) Pending Urine Ketones Pending Urine Blood Pending Urine Nitrite Pending Urine Bilirubin Pending Urine Urobilinogen Pending Ur Leukocyte Esterase Pending Blood Type Antibody Screen 08/29/19 08/28/19 08/28/19 Range/Units 05:15 14:13 10:55 WBC (4.8-10.8) K/uL RBC (4.7-6.1) M/uL Hgb (14.0-18.0) g/dL Hct (42-52) % MCV (80-100) fL MCH (25-34) pg MCHC (32-36) g/dL RDW Std Deviation (36.4-46.3) fL RDW Coeff of Harley (11.5-14.5) % Plt Count (130-400) K/uL MPV (7.4-10.4) fL Sodium 140 (136-145) mmol/L Potassium 4.6 (3.5-5.1) mmol/L Chloride 107 (98-107) mmol/L Carbon Dioxide 26 (21-32) mmol/L Anion Gap 7.0 (3-11) BUN 12 (7-18) mg/dl Creatinine 0.75 (0.6-1.4) mg/dl Est Cr Clr Drug Dosing 89.8 ml/min Est GFR ( Amer) 112.4 Est GFR (Non-Af Amer) 96.9 BUN/Creatinine Ratio 16.0 (10-20) Glucose 106 H (70-99) mg/dl Estimat Average Glucose 100 mg/dl Hemoglobin A1c 5.1 (4.5-5.6) % Calcium 8.0 L (8.5-10.1) mg/dl Magnesium 1.7 L (1.8-2.4) mg/dl Total Bilirubin 6.6 H (0.2-1) mg/dl AST 604 H (15-37) U/L ALT 344 H (12-78) U/L Alkaline Phosphatase 83 (45-117) U/L Total Protein 5.1 L D (6.4-8.2) gm/dl Albumin 2.9 L (3.4-5.0) gm/dl Globulin 2.2 L (2.5-4.0) gm/dl Albumin/Globulin Ratio 1.3 (0.9-2) Urine Color Urine Appearance Urine pH Ur Specific [place] Urine Protein Urine Glucose (UA) Urine Ketones Urine Blood Urine Nitrite Urine Bilirubin Urine Urobilinogen Ur Leukocyte Esterase Blood Type O Positive Antibody Screen NEGATIVE 08/28/19 Range/Units 09:50 WBC (4.8-10.8) K/uL RBC (4.7-6.1) M/uL Hgb (14.0-18.0) g/dL Hct (42-52) % MCV (80-100) fL MCH (25-34) pg MCHC (32-36) g/dL RDW Std Deviation (36.4-46.3) fL RDW Coeff of Harley (11.5-14.5) % Plt Count (130-400) K/uL MPV (7.4-10.4) fL Sodium 138 (136-145) mmol/L Potassium 4.3 D (3.5-5.1) mmol/L Chloride 106 (98-107) mmol/L Carbon Dioxide 25 (21-32) mmol/L Anion Gap 7.0 (3-11) BUN 14 (7-18) mg/dl Creatinine 0.93 D (0.6-1.4) mg/dl Est Cr Clr Drug Dosing 72.4 ml/min Est GFR ( Amer) 100.2 Est GFR (Non-Af Amer) 86.5 BUN/Creatinine Ratio 14.9 (10-20) Glucose 170 H (70-99) mg/dl Estimat Average Glucose mg/dl Hemoglobin A1c (4.5-5.6) % Calcium 8.1 L (8.5-10.1) mg/dl Magnesium (1.8-2.4) mg/dl Total Bilirubin (0.2-1) mg/dl AST (15-37) U/L ALT (12-78) U/L Alkaline Phosphatase (45-117) U/L Total Protein (6.4-8.2) gm/dl Albumin (3.4-5.0) gm/dl Globulin (2.5-4.0) gm/dl Albumin/Globulin Ratio (0.9-2) Urine Color Urine Appearance Urine pH Ur Specific [place] Urine Protein Urine Glucose (UA) Urine Ketones Urine Blood Urine Nitrite Urine Bilirubin Urine Urobilinogen Ur Leukocyte Esterase Blood Type Antibody Screen
[2019-08-29 10:03] LABS: Appearance Urine Clear (Clear); Blood Urine Negative (Negative); Color Urine Dark Yellow; Glucose Urine UA Negative (Negative); Ketones Urine Negative (Negative); Leukocyte Esterase Urine Negative (Negative); Nitrite Urine Negative (Negative); Protein Urine Negative (Negative); Specific Gravity Urine 1.009 (1.000-1.030); Urobilinogen Urine Positive (Negative)
[2019-08-29 10:10] LABS: Bilirubin Urine 1+ (Negative)
[2019-08-29 10:11] LABS: Ictotest Urine Positive (Negative)
--- NOTE | 2019-08-29 11:18 | Gastroenterology Progress Note ---
Date of Service August 29, 2019 Assessment & Plan (1) Choledocholithiasis: Mr. Maradiaga is a 63 yr old male who is Post ERCP day #1 with sphincterotomy and ballon extraction of choledocholithiasis. He is clinically improved. 1. Agree with cholecystectomy - will defer management of platelets, timing of surgery to that team. 2. Diet per surgery. 3. Will arrange OP ERCP in 4-6 weeks for removal of stent, at [facility] with Dr. Guerrero. 4. Pt encouraged to completely abstain from alcohol, which he believes he will be able to do, w/o a structured program or counselling. He has family support (daughter). 5. Avoid NSAIDs for 5 days. 6. GI will sign off. Please notify us if new/worsening GI issues. Present on Admission?: Yes Supervising Physician Co-Signing Physician Notes I performed a history and physical examination of the patient, including specifically on physical exam - soft, nontender abdomen. I have discussed the patient's management with Roge. Please refer to the nurse practitioner's note for the documented findings and plan of care. Doing well today, no abdominal pain. Planned for Lap north today. LFTs improved. Recall GI if needed. Subjective : Mr. Jose Raul Maradiaga was admitted late on 08/27 with nausea/vomiting/abdominal pain. He underwent ERCP with stone extraction and placement of a stent on 08/28, now with improvement in elevated LFTs: T Bili 7.5->5.3, AST 40->337, ALT 124- >87Alk Phos 124->87. Review of Systems Review of Systems: ROS: Gen: Denies weakness, fevers, weight loss Eyes: No eye redness, or pain, no recent vision changes Resp: No SOB, no cough Cardio: No palpitations/irregular beats, no chest pain GI: No abdominal pain, no nausea/vomiting : Denies pain on urination Skin: No jaundice, itching or new rashes Physical Exam Constitutional: WD/WN, vitals as above Eyes: PERRL, conjunctivae normal, anicteric sclerae ENMT: external ear and nose normal, oropharynx normal Neck: trachea midline, no thyromegaly Respiratory: normal respiratory effort, lungs clear to auscultation Cardiovascular: RRR, no murmur, no edema Gastrointestinal (Abdomen): Inspection/Auscultation: abdomen normal to inspection; abdomen not distended Percussion/Palpation: + abdomen tender (mild epigastric and RUQ tenderness w/o guarding) and abdomen soft Skin: no rashes, warm and dry + jaundice (improved) Neurologic: PERRL, EOMI, accommodation nl, no face palsy, no dysarthria Psychiatric: A+Ox3, euthymic affect Lymphatic: no cervical or axillary lymphadenopathy Results & Data Vital Signs (Past 12 Hours) Vital Signs Temp Pulse Pulse Resp BP BP Pulse Ox 08/29/19 10:24 36.7 C 88 18 146/85 H 96 08/29/19 10:09 36.7 C 91 H 18 157/88 H 95 08/29/19 09:51 36.8 C 93 H 18 150/94 H 96 08/29/19 07:05 36.6 C 91 H 16 157/89 H 96
[2019-08-29] MEDS ORDERED: LIDOCAINE HCL 1% 20 ML VIAL INFIL ONE (12:29)
[2019-08-29] MEDS ORDERED: BACITRACIN OINT 15 GM TUBE EXT ONE ×2 (12:29→14:29)
[2019-08-29] MEDS ORDERED: BUPIVACAINE 0.5 % 5 MG/1 ML MPF 30ML VIAL IM ONE (12:29)
--- NOTE | 2019-08-29 12:29 | Hospitalist Progress Note ---
Date of Service August 29, 2019 Assessment & Plan (1) Choledocholithiasis: ERCP on 08/28 with stone noted Stent placed Plan for abx x10 days and repeat ERCP in 6 weeks Awaiting OR for lap north Could not be done on 08/28 due to platelets (2) Thrombocytopenia: Seen on last admission and resolved spontaneously after d/c Ideally would monitor as in the past however pt cannot have lap north with current levels Will transfuse and monitor Likely related to alcohol use Improved s/p platelet transfused x1 on 08/28, repeat transfusion on 08/29 (3) Acute hypokalemia: Likely related to persistent n/v Replace and monitor (4) Acute kidney injury: Dehydration related to above Monitor Cr returned to WNL on 08/29 (5) Depression: continue home meds (6) Hyperlipidemia: Holding statin (7) Hypertension: Holding home meds for hypoTN Monitor (8) Elevated glucose: No hx of DM Monitor A1c 5.1 Likely an acute stress reaction (9) Hypomagnesemia: Replace and monitor (10) Alcohol abuse: Denies current use EtOH neg on admission B12, folate WNL (11) COPD (chronic obstructive pulmonary disease): continue home meds (12) DVT prophylaxis: Holding given likely OR Subjective Pt is still feeling overall improved s/p ERCP. No further abd pain. He had broth yesterday and no issues. Pt denies fever, SOB, chest pain, n/v/c/d, LE pain or swelling. He is hungry, but currently NPO for OR later today. Review of Systems Review of Systems: Pertinent positives and negatives reviewed in HPI--all o thers negative Physical Exam Constitutional: WD/WN, vitals as above Eyes: normal visual blood by confrontation and + anicteric sclerae Neck: normal visual inspection and trachea midline Respiratory: normal respiratory effort, lungs clear to auscultation Cardiovascular: Rate/Rhythm: regular rate and regular rhythm Gastrointestinal (Abdomen): Inspection/Auscultation: abdomen not distended Percussion/Palpation: abdomen soft; abdomen nontender Musculoskeletal: Head/Neck/Chest: normocephalic and head atraumatic neg LE edema Skin: no rashes, warm and dry Neurologic: awake; not confused Speech / Cognition: normal speech Psychiatric: A+Ox3, euthymic affect Results & Data Vital Signs (Past 12 Hours) Vital Signs Temp Pulse Pulse Resp BP BP Pulse Ox 08/29/19 11:26 36.7 C 84 145/82 H 96 08/29/19 10:54 36.8 C 92 H 18 147/87 H 99 08/29/19 10:24 36.7 C 88 18 146/85 H 96 08/29/19 10:09 36.7 C 91 H 18 157/88 H 95 08/29/19 09:51 36.8 C 93 H 18 150/94 H 96 08/29/19 07:05 36.6 C 91 H 16 157/89 H 96 PG Care Time/CCT Total # of Minutes Spent Total Time Spent with Patient: Total time spent is greater than 50% in coordination of care (as documented) at patient's floor/unit and/or counseling patient:
[2019-08-29] MEDS ORDERED: MIDAZOLAM HCL 1 MG/ML 2ML VIAL ONE (12:41)
[2019-08-29] MEDS ORDERED: fentaNYL citrate 100 MCG/2 ML VIAL ONE ×2 (12:42→14:24)
[2019-08-29 13:34] LABS: Platelet Count 85 K/uL (130-400)
[2019-08-29] MEDS ORDERED: CEFAZOLIN 2000MG 2,000 MG/15 ML SYR IV ONE (13:37)
--- NOTE | 2019-08-29 13:37 | History & Physical Bridge Note ---
Date of Service August 29, 2019 History & Physical Bridge Note I have examined the patient, reviewed the History & Physical and in the interval since the performance of the History & Physical I have noted the following changes of clinical significance: no changes noted Supervising Physician Co-Signing Physician Notes I performed a history and physical examination of the patient, including specifically on physical exam - soft, nontender abdomen. I have discussed the patient's management with Roge. Please refer to the nurse practitioner's note for the documented findings and plan of care. Patient with CBD stone on CT scan and jaundice, signs of cholangitis. Plan for ERCP today Surgery for cholecystectomy Has low PLT count and I explained the risk of bleeding but ERCP seems urgent due to sepsis and AMS
[2019-08-29] MEDS ORDERED: CEFAZOLIN 1,000 MG/7.5 ML IV PUSH IV ONE (13:39)
[2019-08-29] MEDS ORDERED: ePHEDrine sulfate 50 MG/ML AMP IV PRN (13:48)
[2019-08-29] MEDS ORDERED: ATROPINE SULFATE 0.1 MG/ML 10ML SYR IV PRN (13:48)
[2019-08-29] MEDS ORDERED: ONDANSETRON INJ 2 MG/ML 2 ML VIAL IV PRN (13:48)
[2019-08-29] MEDS ORDERED: LIDOCAINE HCL 2% 2 ML VIAL/AMP(20MG/ML) INFIL ONE (14:22)
[2019-08-29] MEDS ORDERED: PROPOFOL IV EMULSION 10 MG/ML 20 ML VIAL IV ONE (14:22)
[2019-08-29] MEDS ORDERED: ROCURONIUM BROMIDE 10 MG/ML 5 ML VIAL ONE (14:22)
[2019-08-29] MEDS ORDERED: ONDANSETRON INJ 2 MG/ML 2 ML VIAL ONE (14:22)
[2019-08-29] MEDS ORDERED: ESMOLOL HCL INJ 10 MG/ML 10ML VIAL IV ONE (14:34)
[2019-08-29] MEDS ORDERED: LIDOCAINE HCL 1% 20 ML VIAL INJ ONE (14:49)
[2019-08-29] MEDS ORDERED: BUPIVACAINE 0.5 % 5 MG/1 ML MPF 30ML VIAL INFIL ONE (14:54)
[2019-08-29] MEDS ORDERED: XYLOCAINE 1%/SOD BICARB 20 ML VIAL INFIL STA (15:37)
--- NOTE | 2019-08-29 15:43 | Post Operative Brief Note ---
Immediate Post Op Note v1 Date of Surgery August 29, 2019 Pre & Post Diagnosis Operation Date: 08/28/19 07:00 Pre-Op Diagnosis: CHOLEDOCHOLITHIASIS Post-Op Diagnosis: CHOLEDOCHOLITHIASIS Operation Date: 08/29/19 13:00 Pre-Op Diagnosis: CHOLEDOCHOLITHIASIS, acute cholecystitis Post-Op Diagnosis: CHOLEDOCHOLITHIASIS, acute cholecystitis I identified the patient and participated in the time-out.: Yes Procedure Operation Date: 08/28/19 07:00 Actual Procedures p Endoscopic Retrograde Cholangiopancreatogram, Stent Insertion(Not Applicable) - Satish Guerrero MD Operation Date: 08/29/19 13:00 Actual Procedures p Laparoscopic Cholecystectomy(Not Applicable) - Dionicio Kennedy MD Surgeon Dionicio Kennedy MD Senior Web Engineer surgical garment assembler Estimated Blood Loss 20 Findings Consistent with Post-Op Diagnosis significant inflammation on gallbladder wall Fluids 1300ml Specimens gallbladder Anesthesia Type General Complications none Disposition Accompanied Patient To Recovery: Yes Disposition: Recovery Room Overlapping Procedure I was immediately available: during the entire case.
[2019-08-29] MEDS ORDERED: XYLOCAINE 1%/SOD BICARB 20 ML VIAL INFIL ONE (15:45)
[2019-08-29] MEDS: fentaNYL citrate 100 MCG/2 ML VIAL IV PRN ×2 (16:12→16:22)
[2019-08-29] MEDS ORDERED: LABETALOL HCL IV 5 MG/ML 20ML IV STA (16:41)
[2019-08-29] MEDS ORDERED: LABETALOL HCL IV 5 MG/ML 20ML IV ONE (16:43)
[2019-08-29] MEDS ORDERED: LABETALOL HCL IV 5 MG/ML 20ML IV PRN ×2 (16:54→17:01)
[2019-08-29] MEDS ORDERED: HYDROmorphone INJ 2 MG/ML SYR/VIAL IV PRN (17:01)
[2019-08-29] MEDS ORDERED: fentaNYL citrate 100 MCG/2 ML VIAL IV PRN (17:01)
[2019-08-29] MEDS ORDERED: HYDROmorphone INJ 1 MG/ML SYRINGE ONE (17:08)
--- NOTE | 2019-08-29 17:46 | Anesthesiology Progress Note ---
Date of Service August 29, 2019 Anesthesia Post Procedure Vital Signs Vital Signs: Temp Pulse Pulse Pulse Resp BP BP 08/29/19 17:34 36.9 C 74 18 160/93 H 08/29/19 17:20 68 16 156/96 H 08/29/19 17:10 75 16 162/96 H 08/29/19 17:00 70 14 167/103 H 08/29/19 16:50 37.1 C 73 16 177/107 H 08/29/19 16:40 82 16 176/106 H 08/29/19 16:30 82 14 180/106 H 08/29/19 16:20 85 14 171/95 H 08/29/19 16:10 94 H 16 177/96 H 08/29/19 16:00 92 H 14 175/103 H 08/29/19 15:53 37.1 C 106 H 16 182/110 H 08/29/19 12:22 37 C 88 20 163/97 H 08/29/19 11:26 36.7 C 84 145/82 H 08/29/19 10:54 36.8 C 92 H 18 147/87 H 08/29/19 10:24 36.7 C 88 18 146/85 H 08/29/19 10:09 36.7 C 91 H 18 157/88 H 08/29/19 09:51 36.8 C 93 H 18 150/94 H 08/29/19 07:05 36.6 C 91 H 16 157/89 H 08/28/19 23:03 36.7 C 88 16 142/76 H Pulse Ox 08/29/19 17:34 96 08/29/19 17:20 95 08/29/19 17:10 98 08/29/19 17:00 100 08/29/19 16:50 100 08/29/19 16:40 97 08/29/19 16:30 98 08/29/19 16:20 96 08/29/19 16:10 98 08/29/19 16:00 100 08/29/19 15:53 100 08/29/19 12:22 97 08/29/19 11:26 96 08/29/19 10:54 99 08/29/19 10:24 96 08/29/19 10:09 95 08/29/19 09:51 96 08/29/19 07:05 96 08/28/19 23:03 95 Pain Intensity Abdomen: Pain Intensity: 8 Right Arm: Pain Intensity: 5 Transfer of Care Handoff Completed per policy Notes Mental Status: alert / awake / arousable and participated in evaluation Patient Amnestic to Procedure: Yes Nausea / Vomiting: adequately controlled Pain: adequately controlled Airway Patency, RR, SpO2: stable & adequate BP & HR: stable & adequate Hydration State: stable & adequate Anesthetic Complications: no major complications apparent and Pt Satisfied with anesthetic care
[2019-08-29] MEDS: SIMVASTATIN 40 MG TAB PO SCH (20:41)
[2019-08-30] MEDS: INCRUSE ELLIPTA~ORDER AWAITING ACTION SCH ×3 (00:53→16:20)
--- NOTE | 2019-08-30 03:14 | Operative Report ---
DATE OF OPERATION: 08/29/2019 PREOPERATIVE DIAGNOSES: Acute cholecystitis, cholelithiasis. POSTOPERATIVE DIAGNOSES: Acute cholecystitis, cholelithiasis. PROCEDURE: Laparoscopic cholecystectomy. SURGEON: Dionicio Kennedy MD ANESTHESIA: General. ESTIMATED BLOOD LOSS: About 20 mL. FINDINGS: Significant inflammation on the gallbladder wall, gallbladder wall thickening and edema, confirmed diagnosis of acute cholecystitis. COMPLICATIONS: None. INDICATIONS FOR THE PROCEDURE: This is a 63-year-old gentleman who was admitted to the hospital for acute cholecystitis with cholangitis, common bile duct stone. The patient is post ERCP and now patient required to do laparoscopic cholecystectomy, possible open, possible cholangiogram. I did talk to the patient about the benefits, the risks, alternate procedures. I indicated the risks may include, but not limited, such as bleeding, infection, injury to common bile duct, bile leak, myocardial infarction, DVT, stroke, and even . The patient and patient's daughter understand. The patient's daughter signed informed consent and I answered all questions. DETAILS OF PROCEDURE: We brought in the patient to the OR; put the patient in the supine position. The patient received SCDs on bilateral legs to prevent DVT. Also, patient received 2 grams Ancef IV for prophylactic antibiotic. The patient received general anesthesia without difficulties. The abdomen was prepped and draped in routine sterile fashion. After time-out, I injected local anesthesia by using 1% lidocaine mixed with 0.5% Marcaine just above umbilicus. Then I made a small incision just above umbilicus, opened fascia, and opened peritoneum under direct vision, put a Da trocar in, connected to CO2 to create pneumoperitoneum. Flow rate is 6 liter per minute. Pressure not more than 14 mmHg. Once we got a nice pneumoperitoneum, we put the camera in, looked around the abdomen. It showed possible early stage liver disease, cirrhosis, and the gallbladder showed significant inflammation. Gallbladder wall thickening and edema confirmed diagnosis of acute cholecystitis. Then I put another two 5-mm trocars on the right upper quadrant, one 12 trocar on the epigastric area. Then we used the grasper to hold the gallbladder and put direction to the diaphragm, another grasper to hold the pouch of gallbladder, put lateral to expose the triangle of Calot. The cystic duct was identified and mobilized. The cystic duct had significant dilatation close to 1 cm. Then I used a 10-mm metal clip on the proximal cystic duct x2, one on the distal cystic duct x1. Then I used scissors for transection of cystic duct. Rechecked and no bile leak. The cystic artery was identified and mobilized. I put two 5-mm metal clips on the proximal cystic artery, one on the distal cystic artery. Then I used the scissors for transection of cystic artery. Rechecked, no active bleeding. Then we used the Bovie to take down gallbladder from liver bed. Rechecked and no active bleeding, no bile leak from the liver bed. Then we removed gallbladder through the catch bag. Then we reinserted Da trocar in, connected to CO2 to create pneumoperitoneum and again looked around the abdomen, no active bleeding, no bile leak from the liver bed. Then we removed all trocars under direct vision. No active bleeding from the trocar sites. Pneumoperitoneum was released. Then I closed the umbilical incision, fascial layer by using #1 Vicryl [id number] x2, closed subcutaneous layer by using 2-0 Vicryl interruptedly, closed skin by using 4-0 Vicryl continuous running, closed the epigastric areas trocar site fascial layer by using #1 Vicryl [id number] x2, closed subcutaneous layer by using 2-0 Vicryl interruptedly, closed skin by using 4-0 Vicryl interruptedly, and closed another two 5-mm trocar sites skin only by using 4-0 Vicryl. Then we put the dressing on. The patient tolerated the procedure well. All the instrument, needle, and sponge counts were correct x2 at the end of the case. The patient was transferred to recovery room in a stable condition. The specimen sent to pathology. After procedure, I did talk to the patient's family members about the OR finding and procedure we did, they understand. Also, I informed them the on-call surgeon will cover the patient tomorrow and they understand. I attest to the content of the Intraoperative Record and any orders documented therein. Any exception s are noted below.
[2019-08-30] MEDS: PIPERACILLIN/TAZOBACTAM 3.375 GM in DEXTROSE 5% 100 ML IV SCH ×3 (03:50→20:37)
[2019-08-30] MEDS: HYDROmorphone INJ 0.5 MG/0.5 ML SYR IV PRN (03:51)
--- NOTE | 2019-08-30 04:58 | Billing Data ---
Date of Service August 30, 2019 Coding Level of Care Code 87128 Initial Inpt Care Lvl 3
[2019-08-30 05:37] LABS: Hematocrit (blood only) 37.8 % (42-52); Hemoglobin 12.6 g/dL (14.0-18.0); Mean Corpuscular Hemoglobin 31.7 pg (25-34); Mean Corpuscular Hgb Conc 33.3 g/dL (32-36); RDW Coefficient of Variation 14.2 % (11.5-14.5); RDW Standard Deviation 48.4 fL (36.4-46.3); Red Blood Count 3.98 M/uL (4.7-6.1); White Blood Count 5.01 K/uL (4.8-10.8)
[2019-08-30 05:54] LABS: Mean Platelet Volume 10.5 fL (7.4-10.4); Platelet Count 96 K/uL (130-400)
[2019-08-30 06:03] LABS: BUN Creatinine Ratio 7.4 (10-20); Calcium 8.6 mg/dl (8.5-10.1); Creatinine Clr Calc Pharmacy 105.2 ml/min; Est GFR (African American) 119.9; Est GFR (Non-African American) 103.5; Magnesium 1.5 mg/dl (1.8-2.4)
[2019-08-30 06:17] LABS: Basophils # (auto) 0.02 K/uL (0-0.2); Basophils % (auto) 0.4 %; Eosinophils # (auto) 0.23 K/uL (0-0.5); Eosinophils % (auto) 4.6 %; Immature Granulocytes # (auto) 0.02 K/uL (0.00-0.02); Immature Granulocytes % (auto) 0.4 %; Monocytes # (auto) 0.47 K/uL (0.11-0.59); Monocytes % (auto) 9.4 %; Neutrophils # (auto) 3.77 K/uL (1.4-6.5); Neutrophils % (auto) 75.2 %
--- NOTE | 2019-08-30 08:13 | Surgery Progress Note ---
Date of Service August 30, 2019 Assessment & Plan (1) Choledocholithiasis: POD 1 lap north, day 2 ERCP advance diet Plt count stable cont IV Zosyn also seen by Dr. Toledo Subjective no c/o, wants solid food Physical Exam Gastrointestinal (Abdomen): Inspection/Auscultation: + abdomen distended (minimal) Percussion/Palpation: abdomen soft Results & Data Vital Signs (Past 12 Hours) Vital Signs Temp Pulse Resp BP Pulse Ox 08/30/19 03:38 37.3 C 93 H 18 157/88 H 96 08/29/19 23:35 37.1 C 92 H 18 160/89 H 94 08/29/19 20:47 36.9 C 82 18 154/90 H 95 PG Care Time/CCT Total # of Minutes Spent Total Time Spent with Patient: Total time spent is greater than 50% in coordination of care (as documented) at patient's floor/unit and/or counseling patient:
[2019-08-30] MEDS: LACTATED RINGER'S 1,000 ML IV SCH (08:37)
[2019-08-30] MEDS: lisinopriL 20 MG TAB PO SCH (09:31)
[2019-08-30] MEDS: BENZTROPINE MESYLATE 1 MG TAB PO SCH (09:32)
[2019-08-30] MEDS: guaiFENesin 600 MG TABCR PO SCH ×2 (09:32→20:35)
[2019-08-30] MEDS: risperiDONE 2 MG TABLET PO SCH ×2 (09:33→20:35)
[2019-08-30] MEDS: GABAPENTIN 300 MG CAP PO SCH ×3 (09:33→20:35)
[2019-08-30] MEDS: PANTOprazole 40 MG TAB PO SCH (09:33)
[2019-08-30] MEDS: FLUTICASONE PROPIONATE NA SPR 16 GM BTL SCH (09:33)
[2019-08-30] MEDS: predniSONE 10 MG TABLET PO SCH (09:36)
[2019-08-30] MEDS ORDERED: OXYCODONE/ACETAMINOPHEN 5mg/325mg TAB PO PRN (13:58)
[2019-08-30] MEDS: MAGNESIUM SULFATE / D5W 1 GM/100 ML BAG IV SCH ×2 (14:05→15:19)
--- NOTE | 2019-08-30 16:56 | Hospitalist Progress Note ---
Date of Service August 30, 2019 Assessment & Plan (1) Choledocholithiasis: s/p ERCP with stone extraction stents in biliary ducts will follow up with GI no pain, no fever, WBC normal continue broad spectrum abx on discharge s/p lap north on 08/29 tolerated well, minimal pain tolerating regular diet today (2) Transaminitis: due to stone with blockage of CBD resolved (3) Hypotension: due to infection, resolved stop fluids today (4) Alcohol abuse: Denies current use EtOH neg on admission B12, folate WNL no signs of withdrawal (5) Thrombocytopenia: Seen on last admission and resolved spontaneously after d/c Ideally would monitor as in the past however pt cannot have lap north with current levels transfused one unit platelets stable at 92 (6) Hypokalemia: resolved (7) Hypomagnesemia: Replace and monitor (8) Acute kidney injury: Dehydration related to above Monitor Cr returned to WNL on 08/29 stop LR today (9) Elevated glucose: No hx of DM Monitor A1c 5.1 Likely an acute stress reaction (10) Hypertension: stable (11) Hyperlipidemia: Holding statin (12) COPD (chronic obstructive pulmonary disease): continue home meds (13) Schizophrenia: (14) Depression: continue home meds (15) Chronic back pain: (16) Chronic rhinitis: Subjective patient feeling a lot better, tolerating solid food today, no nausea/vomiting minimal abdominal pain, discussed that we can try Percocet for pain, he agrees will stop fluids discussed with general surgery, appreciate their input reviewed chart, had ERCP with stent, continue broad spectrum antibiotics patient without a BM in a few days but discussed with him that he did not eat for a few days, this is okay labs reviewed, WBC normal, hb stable, BMP with normal electrolytes and renal function discussed that he could likely go home tomorrow Review of Systems Review of Systems: All systems reviewed & are unremarkable except as noted in HPI & below Respiratory: no cough and no dyspnea Cardiovascular: no chest pain and no edema Gastrointestinal: + abdominal pain (minimal, surgical sites); no nausea, no vomiting and no diarrhea/loose stools Physical Exam Constitutional: WD/WN, vitals as above Eyes: PERRL, conjunctivae normal, anicteric sclerae ENMT: external ear and nose normal, oropharynx normal Neck: trachea midline, no thyromegaly Respiratory: normal respiratory effort, lungs clear to auscultation Cardiovascular: RRR, no murmur, no edema Gastrointestinal (Abdomen): normal bowel sounds, soft, nontender, no hepatosplenomegaly (incisions clean and dry) Musculoskeletal: no cyanosis or clubbing, extremities motor strength 5/5 Skin: no rashes, warm and dry Neurologic: patellar DTR's 2+ bilat, sensation intact and PERRL, EOMI, accommodation nl, no face palsy, no dysarthria Psychiatric: A+Ox3, euthymic affect Lymphatic: no cervical or axillary lymphadenopathy Results & Data Vital Signs (Past 12 Hours) Vital Signs Temp Pulse Resp BP Pulse Ox 08/30/19 15:11 37.1 C 91 H 16 128/80 95 08/30/19 09:39 97 H 170/90 H Laboratory Results Laboratory Results - last 24 hr 08/30/19 08/30/19 05:18 05:18 WBC 5.01 RBC 3.98 L Hgb 12.6 L Hct 37.8 L MCV 95.0 MCH 31.7 MCHC 33.3 RDW Std Deviation 48.4 H RDW Coeff of Harley 14.2 Plt Count 96 L MPV 10.5 H Immature Gran % (Auto) 0.4 Neut % (Auto) 75.2 Lymph % (Auto) 10.0 Jennings % (Auto) 9.4 Eos % (Auto) 4.6 Baso % (Auto) 0.4 Immature Gran # (Auto) 0.02 Neut # (Auto) 3.77 Lymph # (Auto) 0.50 L Jennings # (Auto) 0.47 Eos # (Auto) 0.23 Baso # (Auto) 0.02 Sodium 136 Potassium 4.0 Chloride 103 Carbon Dioxide 29 Anion Gap 4.0 BUN 5 L Creatinine 0.64 Est Cr Clr Drug Dosing 105.2 Est GFR ( Amer) 119.9 Est GFR (Non-Af Amer) 103.5 BUN/Creatinine Ratio 7.4 L Glucose 105 H Calcium 8.6 Magnesium 1.5 L Medications Administered Current Inpatient Medications Benztropine Mesylate (Cogentin) 2 mg PO QAM [facility] Stop: 09/27/19 08:59 Last Admin: 08/30/19 09:32 Dose: 2 mg Documented by: Fluticasone Propionate (Flonase) 2 sprays NA DAILY [facility] Stop: 09/27/19 08:59 Last Admin: 08/30/19 09:33 Dose: Not Given Documented by: Gabapentin (Neurontin) 300 mg PO TID [facility] Stop: 09/27/19 08:59 Last Admin: 08/30/19 20:35 Dose: 300 mg Documented by: Guaifenesin (Mucinex) 600 mg PO BID [facility] Stop: 09/27/19 08:59 Last Admin: 08/30/19 20:35 Dose: 600 mg Documented by: Hydromorphone HCl (Dilaudid) 0.5 mg IV Q4H PRN PRN Reason: Pain Stop: 09/11/19 05:29 Last Admin: 08/30/19 03:51 Dose: 0.5 mg Documented by: Lorazepam (Ativan) 1 mg in 2 mls @ 2 mls/min IV ONE PRN; Protocol PRN Reason: EtoH Withdrawal AWSS 6-10 Stop: 09/27/19 05:29 Piperacillin Sod/Tazobactam (Sod 3.375 gm/ Dextrose) 115 mls @ 28.75 mls/hr IV Q8H [facility]; Protocol Stop: 09/07/19 07:59 Last Admin: 08/30/19 20:37 Dose: 28.8 mls/hr Documented by: Lisinopril (Zestril) 20 mg PO DAILY [facility] Stop: 09/29/19 08:59 Last Admin: 08/30/19 09:31 Dose: 20 mg Documented by: Miscellaneous (Order Awaiting Action) 1 ea N/A QS [facility] Stop: 09/27/19 07:59 Last Admin: 08/30/19 16:20 Dose: Not Given Documented by: Miscellaneous Information (Consult) 1 ea N/A UD PRN PRN Reason: Consult Stop: 09/27/19 01:45 Ondansetron HCl (Zofran) 4 mg IV Q6H PRN PRN Reason: Nausea Stop: 09/27/19 05:29 Last Admin: 08/29/19 20:45 Dose: 4 mg Documented by: Oxycodone/Acetaminophen (Percocet 5mg/325mg) 1 tab PO Q4H PRN PRN Reason: Pain Stop: 09/13/19 13:57 Pantoprazole Sodium (Protonix) 40 mg PO QAM [facility] Stop: 09/27/19 12:14 Last Admin: 12/28/19 09:33 Dose: 40 mg Documented by: Prednisone (Prednisone) 40 mg PO DAILY [facility]; Taper Stop: 09/11/19 08:59 Last Admin: 08/30/19 09:36 Dose: 40 mg Documented by: [facility] [place]: 09/27/19 08:59 Last Admin: 08/30/19 09:33 Dose: 2 mg Documented by: Risperidone (Risperdal) 4 mg PO [facility] Stop: 09/27/19 20:59 Last Admin: 08/30/19 20:35 Dose: 4 mg Documented by: Simvastatin (Zocor) 40 mg PO [facility] Stop: 09/27/19 20:59 Last Admin: 08/30/19 20:35 Dose: 40 mg Documented by: PG Care Time/CCT Total # of Minutes Spent Total Time Spent with Patient: Total time spent is greater than 50% in coordination of care (as documented) at patient's floor/unit and/or counseling patient:
--- NOTE | 2019-08-30 19:07 | Anesthesiology Progress Note ---
Date of Service August 30, 2019 Anesthesia Post Procedure Vital Signs Vital Signs: Temp Pulse Resp BP Pulse Ox 08/30/19 15:11 37.1 C 91 H 16 128/80 95 08/30/19 09:39 97 H 170/90 H 08/30/19 03:38 37.3 C 93 H 18 157/88 H 96 08/29/19 23:35 37.1 C 92 H 18 160/89 H 94 08/29/19 20:47 36.9 C 82 18 154/90 H 95 08/29/19 19:31 36.9 C 83 18 146/87 H 95 Pain Intensity Abdomen: Pain Intensity: 3 Right Arm: Pain Intensity: 5 Notes Mental Status: alert / awake / arousable and participated in evaluation Patient Amnestic to Procedure: Yes Nausea / Vomiting: adequately controlled Pain: adequately controlled Airway Patency, RR, SpO2: stable & adequate BP & HR: stable & adequate Hydration State: stable & adequate Anesthetic Complications: no major complications apparent and Pt Satisfied with anesthetic care
[2019-08-30] MEDS: SIMVASTATIN 40 MG TAB PO SCH (20:35)
[2019-08-31] MEDS: INCRUSE ELLIPTA~ORDER AWAITING ACTION SCH ×2 (01:03→08:42)
[2019-08-31] MEDS: PIPERACILLIN/TAZOBACTAM 3.375 GM in DEXTROSE 5% 100 ML IV SCH (05:07)
[2019-08-31] MEDS: FLUTICASONE PROPIONATE NA SPR 16 GM BTL SCH (08:43)
[2019-08-31] MEDS: BENZTROPINE MESYLATE 1 MG TAB PO SCH (08:44)
[2019-08-31] MEDS: predniSONE 10 MG TABLET PO SCH (08:44)
[2019-08-31] MEDS: guaiFENesin 600 MG TABCR PO SCH (08:44)
[2019-08-31] MEDS: PANTOprazole 40 MG TAB PO SCH (08:44)
[2019-08-31] MEDS: lisinopriL 20 MG TAB PO SCH (08:45)
[2019-08-31] MEDS: risperiDONE 2 MG TABLET PO SCH (08:45)
[2019-08-31] MEDS: GABAPENTIN 300 MG CAP PO SCH (08:45)
--- NOTE | 2019-08-31 11:00 | Discharge Summary ---
Date of Service August 31, 2019 Admission HPI Per Admitting Provider 63-year-old male presents to the ED via a friend after complaining of chest pain, epigastric pain, back pain, as well as nausea and vomiting (without hematemesis). At the time of this H&P, initially found the patient sleeping very comfortably. He wakes easily to voice and immediately said that his epigastric region hurt before any introduction/questioning. He says that he has been vomiting for at least three days. Denies any diarrhea. Also says he has had some chest pain as well as low back pain of unclear duration, perhaps just today. He denies any difficulty breathing or recent fevers. He asked for more pain medicine throughout our interview as well as if he could eat a cracker because he says he is hungry. No other acute patient concerns raised. Of note, patient says that he still smokes and drinks alcohol. Says his last drink was five days ago and denies any recent tremors. - Past medical history includes chronic rhinitis, alcohol abuse, hypertension, schizophrenia, bronchitis, chronic back pain, COPD, depression, hyperlipidemia, osteoarthritis, thrombocytopenia - Past surgical history includes left hip replacement. - Social history includes current smoker. Drinks beer and hard liquor. Lives at home alone. Principal Diagnosis Choledocholithiasis Discharge Exam Constitutional WD/WN, vitals as above Eyes PERRL, conjunctivae normal, anicteric sclerae ENMT external ear and nose normal, oropharynx normal Neck trachea midline, no thyromegaly Respiratory normal respiratory effort, lungs clear to auscultation Cardiovascular RRR, no murmur, no edema Gastrointestinal (Abdomen) normal bowel sounds, soft, nontender, no hepatosplenomegaly (incisions clean and dry) Musculoskeletal no cyanosis or clubbing, extremities motor strength 5/5 Skin no rashes, warm and dry Neurologic patellar DTR's 2+ bilat, sensation intact and PERRL, EOMI, accommodation nl, no face palsy, no dysarthria Psychiatric A+Ox3, euthymic affect Lymphatic no cervical or axillary lymphadenopathy Discharge Data Allergies Allergy/AdvReac Type Severity Reaction Status Date / Time ibuprofen AdvReac Mild sick to Verified 08/28/19 01:20 stomach Consultations 08/28/19 02:32 ED Decision to Admit Stat 08/28/19 05:30 Consult Gastroenterology Routine Consult General Surgery Routine 08/28/19 07:57 Consult Gastroenterology Routine Procedures Performed Operation Date: 08/28/19 07:00 Actual Procedures p Endoscopic Retrograde Cholangiopancreatogram, Stent Insertion(Not Applicable) - Satish Guerrero MD Operation Date: 08/29/19 13:00 Actual Procedures p Laparoscopic Cholecystectomy(Not Applicable) - Dionicio Kennedy MD Ordered Studies 08/28/19 00:01 CT angio abd pelvis wo/w con Urgent CT angio chest dissec wo/w con Urgent 08/28/19 11:00 FL ERCP biliary ductal Routine Hospital Course (1) Choledocholithiasis: s/p ERCP with stone extraction stents in biliary ducts will follow up with GI in 4-6 weeks for stent removal no pain, no fever, WBC normal continue broad spectrum abx on discharge, 5 more days of Augmentin s/p lap north on 08/29 tolerated well, minimal pain tolerating regular diet for two days will follow up with general surgery in 2 weeks (2) Transaminitis: due to stone with blockage of CBD resolved (3) Hypotension: due to infection, resolved stop fluids 08/31 (4) Alcohol abuse: Denies current use EtOH neg on admission B12, folate WNL no signs of withdrawal (5) Thrombocytopenia: Seen on last admission and resolved spontaneously after d/c transfused one unit so that he could have lap north platelets stable at 92 on 08/31 (6) Hypokalemia: resolved (7) Hypomagnesemia: Replace and monitor (8) Acute kidney injury: Dehydration related to above Monitor Cr returned to WNL on 08/29 stop LR 08/31 (9) Elevated glucose: No hx of DM Monitor A1c 5.1 Likely an acute stress reaction (10) Hypertension: stable (11) Hyperlipidemia: Holding statin, can resume on discharge (12) COPD (chronic obstructive pulmonary disease): continue home meds (13) Schizophrenia: (14) Depression: continue home meds (15) Chronic back pain: (16) Chronic rhinitis: Total Time Total Time Spent Total Time Spent (In Minutes): 32 minutes Total Time Includes: Examination of the Patient, Discharge Planning, Medication Reconciliation and Communication With Other Providers Discharge Plan Discharge Items Patient Disposition: Home - Home Health Services Reason For Visit: CHOLEDOCHOLITHIASIS Discharge Diagnosis: Cholecystitis, s/p cholecystectomy Choledocholithiasis, s/p ERCP with stone extraction, stent placement Thrombocytopenia Condition on Discharge: Good Goals: complete course of antibiotics follow up with general surgery in two weeks follow up with gastroenterology in several weeks for stent removal Activity: Per Instructions section Lifting: No more than 5 pounds Bathing: Keep incision dry Bathing Comment: may shower, no baths, do not soak Exercise/Sports: Gradually increase as tolerated Driving/Machine Use: do not drive if still taking narcotics Non-emergency contact: Primary Care Provider, Surgeon and Educational Adviser Call non-emergency contact if: you have any medication questions, your symptoms worsen, your pain is not controlled and you have a fever Follow-up/Referrals: Owen Mckinnon III, MD [Primary Care Provider] - Dionicio Kennedy MD [Physician] - (Please call to schedule follow up in clinic within 1-2 weeks) Diet: Low Fat Addtl Attending Provider Instructions: Medications: - AUGMENTIN: take for 5 more days for antibiotic coverage - PERCOCET: take as needed for pain Cholecystitis, cholangitis, stone in common bile duct ERCP on 08/28 with stone extraction, stent placed [facility] will call you for outpatient ERCP in 4-6 weeks for stent removal lap cholecystectomy with Dr. Kennedy on 08/29 pain is well controlled, use Percocet see the activity instructions above follow up with general surgery in office in 2 weeks, call [phone] FOLLOW UP - call Dr. Mckinnon's office tomorrow for follow up visit, need to be seen in the next week for hospital follow up follow up with general surgery in 2 weeks follow up with GI in 4-6 weeks Pending Studies at Discharge: No Stand-Alone Forms: My [employer], Opioid Pain Management, Smoking Cessation Medications and DC Order Prescriptions: New oxycodone-acetaminophen [Percocet] 5-325 mg Tablet 1 tab PO Q4H PRN (Reason: pain) 7 Days Qty: 14 RF: 0 amoxicillin-pot clavulanate [Augmentin] 875-125 mg tablet 1 tab PO BID Qty: 10 RF: 0 Continued gabapentin 300 mg capsule 300 mg PO TID Qty: 90 RF: 5 Incruse Ellipta 62.5 mcg/actuation blister with device 1 inh INHALATION DAILY Qty: 30 RF: 5 lisinopril 20 mg tablet 20 mg PO DAILY Qty: 30 RF: 5 simvastatin 40 mg tablet 40 mg PO HS RF: 0 fluticasone propionate 50 mcg/actuation spray,suspension 2 spray INTNAS DAILY Qty: 15.8 RF: 2 benztropine 2 mg tablet 2 mg PO QAM RF: 0 risperidone 2 mg Tablet 2 mg PO QAM RF: 0 risperidone 4 mg tablet 4 mg PO HS RF: 0 guaifenesin [Mucinex] 600 mg Tablet Extended Release 12hr 600 mg PO BID RF: 0 Discontinued prednisone 10 mg tablet See Rx Instructions PO DAILY Qty: 30 RF: 0 Discharge Orders: Discharge Order (Routine); Ordered 08/31/19 Ordered By: Yony Modi Admission Data Admit Date/Time: 08/28/19 03:48 Attending Provider: Yony Modi Admit Provider: Kehinde Reeves Primary Care Provider: Owen Mckinnon III Other Providers: [place] ; César Santo ; Mejia Pichardo ; Dionicio Kennedy ; Satish Guerrero Other Interventions: Discharge Summary Assessment (RN) Last Done: 08/31/19 10:35 DC Date/Time DO NOT enter until pt leaves facility: 08/31/19 11:18
--- NOTE | 2019-08-31 11:06 | Surgery Progress Note ---
Date of Service August 31, 2019 Assessment & Plan (1) Choledocholithiasis: POD#2 lap north and POD#3 ERCP Pt tolerating diet Incisions c/d/i Passing flatus Needs follow up with GI as o/p for stent removal Okay for discharge from surgical standpoint Will ask patient to follow up with Dr. Kennedy in clinic within 1-2wks Seen and examined with Dr. [place] Subjective Patient feels good. Eager for discharge to home. Physical Exam Physical Exam: awake/alert Gastrointestinal (Abdomen): Inspection/Auscultation: + abdominal surgical incision (c/d/i) Percussion/Palpation: abdomen soft Results & Data Vital Signs (Past 12 Hours) Vital Signs Temp Pulse Pulse Resp BP Pulse Ox 08/31/19 10:35 36.7 C 68 86 18 139/71 95 08/30/19 23:05 36.7 C 86 18 139/71 95 PG Care Time/CCT Total # of Minutes Spent Total Time Spent with Patient: Total time spent is greater than 50% in coordination of care (as documented) at patient's floor/unit and/or counseling patient:
== END 2019-08-31 11:18 | disposition home health service (06) | DRG 418 ==
LOC: ED 23:33 → SUATTDRO 08-28 03:48 → 3N 08-28 03:48

== ENCOUNTER 2020-04-01 17:08 | Inpatient (IN) ==
[2020-04-01] MEDS ORDERED: MULTI-VITAMIN INFUSION 10 ML, THIAMINE HCL 100 MG, FOLIC ACID 1 MG in SODIUM CHLORIDE 0... IV ONE (17:20)
--- NOTE | 2020-04-01 17:25 | Emergency Department Note ---
Impression & Plan Weakness, Fall, Bilateral hip pain, Hypomagnesemia, Hypokalemia ED Provider Note NAME: PARISH CARDOZA AGE: 64 SEX: M : 1955 ARRIVES VIA: Ambulance INFORMANT: [Patient][ems, nurses] ED PROVIDER(S): [Orlando Ortez MD] CHIEF COMPLAINT: Hip pain HISTORY OF PRESENT ILLNESS: Patient is a 64-year-old male who states that 3 days ago he fell. He is not sure why he fell but since the fall, he has bilateral hip pain and states he cannot walk even with a cane. He states he did strike his head but did not lose consciousness. He has no real headache or neck pain. No chest pain. He is not short of breath but he has coughed some lately. No abdominal pain. No back pain. The patient states that he quit drinking alcohol about 3 days ago. He was drinking 12 beers a day. He does not feel any withdrawal symptoms. He has had some vomiting and diarrhea the last few days though. He states he has been drinking a lot of fluids because he is concerned he could be getting dehydrated. Patient rates the hip pain is an 8/10. The pain is worse with any type of ambu lation. REVIEW OF SYSTEMS: See HPI for pertinent positives and negatives. A total of ten systems were reviewed and were otherwise negative. PMHx/PSHx: See Below SOCIAL HISTORY: See Below. PHYSICAL EXAM: GENERAL: Patient is in no acute distress. Frail-appearing. HEENT: No acute trauma, normocephalic atraumatic, mucous membranes moist, no nasal congestion, no scleral icterus. NECK: No stridor, no adenopathy, no meningismus, trachea is midline. Nontender cervical spine. LUNGS: Clear to auscultation bilaterally, no wheeze, no rhonchi, breath sounds equal. HEART: Without murmurs gallops or rubs, regular rate and rhythm. ABDOMEN: Soft, nontender, bowel sounds positive, no hernias, no peritonitis. EXTREMITIES: No cyanosis or edema. There is no gross deformity to either lower extremity but he does complain of some pain with movement of both hip joints. No evidence for acute trauma to the knee or ankles. NEUROLOGIC: Oriented x 3, no acute motor or sensory deficits, no focal weakness. SKIN: No rash, no jaundice, no diaphoresis. DIFFERENTIAL DIAGNOSIS: Infection, dehydration, metabolic abnormality, hypo/hyperglycemia, hip fracture, pelvis contusion, intracranial bleeding, alcohol withdrawal, alcohol abuse, electrolyte disturbance, anemia, hypoxia, cardiac sources, intracerebral event, toxicologic, neurologic, as well as other pathologies. EMERGENCY DEPARTMENT COURSE/PROCEDURES: ECG: Indication was weakness. The ECG shows a normal sinus rhythm with a rate of 88. There is an old septal infarct. There is no ST elevation, no PVCs. QTC is 488. Continuous Cardiac Monitoring: An order was placed for continuous cardiac monitoring. The monitor shows a rate of 83 with normal sinus rhythm. MEDICAL DECISION MAKING: There is a lower white blood cell count. A mild anemia was present. Platelet count was low at 47, the patient has a history of thrombocytopenia. Potassium was slightly low at 3. Magnesium was low at 1.5. No renal failure. There were some liver enzyme elevations consistent with his alcoholism. The patient appeared to be in a euthyroid state. ECG shows a normal sinus rhythm, no acute ischemia. Cardiac enzyme testing x1 is not consistent with acute cardiac injury. Alcohol level was undetectable. Chest film did not show pneumonia or CHF. Brain CT showed no acute bleed or mass-effect. Pelvis CT did not show any fractures. Patient received IV saline for hydration. He was given IV saline with multivitamins, thiamine and folate. He was given IV potassium, IV magnesium, he was given oral potassium. The patient is currently resting comfortably. He was able to eat during his ED stay. The patient is quite debilitated. He is falling at home. He has multiple electrolyte abnormalities. He is currently not able to care for himself at home, he cannot walk since falling 3 days ago. The patient is not stable for discharge. At this point, the reason for his severe hip pain is not clear. He requires a hospital stay, hydration, electrolyte replacement and likely eventually rehab. I did speak to the patient, I talked to case management. The on-call hospitalist was consulted. Past Med/Surg History Medical History Acute kidney injury Alcohol abuse Bronchitis hx Choledocholithiasis Chronic back pain Chronic obstructive pulmonary disease Depression Hip fracture, left (2017) Hyperlipidemia Hypertension Osteoarthritis Schizophrenia Thrombocytopenia Surgical History History of colonoscopy History of hip replacement (2017) LEFT History of tooth extraction S/P ERCP Family History Brother Family history of diabetes mellitus Social History Smoking Status: Current every day smoker Cigarettes Per Day: 1PPD; Second Hand Exposure: No; Hx Alcohol Use: Yes Alcohol type: beer and hard liquor Hx Substance Use: No Preferred Language: Ukrainian Communication Ability: Effective Internet Webmaster Required: No Beliefs That Will Affect Care: None marital status: Single Current Living Situation: Alone How many Children do You have: 1 Feels Safe at Home: Yes Allergies Allergies Allergy/AdvReac Type Severity Reaction Status Date / Time No Known Allergies Allergy Verified 04/01/20 18:31 Home Meds Home Medications Medication Instructions Recorded Confirmed benztropine 2 mg tablet 2 mg PO QAM 07/22/19 04/01/20 azelastine 137 mcg (0.1 %) nasal 1 spray INTNAS BID 09/24/19 04/01/20 spray aerosol bupropion HCl 100 mg tablet 100 mg PO QAM 09/24/19 04/01/20 trazodone 100 mg tablet 200 mg PO HS 09/24/19 04/01/20 aripiprazole 30 mg tablet 30 mg PO DAILY 11/25/19 04/01/20 naproxen 500 mg tablet 500 mg PO TID tab 02/17/20 04/01/20 Previous Rx's Medication Instructions Recorded umeclidinium 62.5 mcg/actuation 1 inh INHALATION DAILY #30 ea 05/09/19 blister powder for inhalation gabapentin 300 mg capsule 300 mg PO TID #90 cap 12/03/19 simvastatin 40 mg tablet 40 mg PO HS #90 tab 01/27/20 lisinopril 20 mg tablet 20 mg PO DAILY #30 tab 02/10/20 ipratropium bromide 0.03 % nasal 2 spray INTNAS BID #30 ml 02/16/20 spray Results & Data (ED) Vital Signs Vital Signs - 24 hr 04/01/20 17:12 04/01/20 17:15 04/01/20 17:21 Temperature 36.7 C Temperature Source Oral Pulse Rate 92 H 92 H 87 Pulse Rate from SpO2 Sensor 91 H 87 Pulse Rhythm Regular Pulse Strength Normal Respiratory Rate 17 16 14 Respiratory Effort / Characteristics Non-Labored Respiratory Depth Normal Respiratory Pattern Regular Blood Pressure 127/74 127/74 Blood Pressure Mean 90 91 Blood Pressure Position Sitting Pulse Oximetry 95 98 95 Oxygen Delivery Method Room Air Sepsis Recent Fever Within 48 Hours No Sepsis New/Unexplained Change in Mental Status N/A Sepsis Action Taken by Nursing No Action Required 04/01/20 17:30 04/01/20 17:36 04/01/20 18:00 Temperature Temperature Source Pulse Rate 103 H Pulse Rate from SpO2 Sensor 94 H 105 H Pulse Rhythm Pulse Strength Respiratory Rate 16 20 Respiratory Effort / Characteristics Respiratory Depth Respiratory Pattern Blood Pressure 109/75 133/86 Blood Pressure Mean 81 116 Blood Pressure Position Pulse Oximetry 94 98 Oxygen Delivery Method Room Air Sepsis Recent Fever Within 48 Hours Sepsis New/Unexplained Change in Mental Status Sepsis Action Taken by Nursing 04/01/20 18:30 04/01/20 19:00 04/01/20 19:30 Temperature Temperature Source Pulse Rate 88 83 110 H Pulse Rate from SpO2 Sensor Pulse Rhythm Pulse Strength Respiratory Rate 12 16 16 Respiratory Effort / Characteristics Respiratory Depth Respiratory Pattern Blood Pressure 123/76 120/72 141/113 H Blood Pressure Mean 90 88 117 Blood Pressure Position Pulse Oximetry 98 Oxygen Delivery Method Sepsis Recent Fever Within 48 Hours Sepsis New/Unexplained Change in Mental Status Sepsis Action Taken by Group Home Medications Current Medication List: was personally reviewed by me Laboratory Data Attestation: I reviewed the patient's lab results. Result diagrams: 04/01/20 17:38 04/01/20 17:38 Lab Results 04/01/20 04/01/20 04/01/20 Range/Units 17:38 17:38 17:38 WBC 3.21 L (4.8-10.8) K/uL RBC 3.84 L (4.7-6.1) M/uL Hgb 12.5 L (14.0-18.0) g/dL Hct 36.6 L (42-52) % MCV 95.3 (80-100) fL MCH 32.6 (25-34) pg MCHC 34.2 (32-36) g/dL RDW Std Deviation 53.0 H (36.4-46.3) fL RDW Coeff of Harley 15.3 H (11.5-14.5) % Plt Count 47 L (130-400) K/uL MPV 11.2 H (7.4-10.4) fL Immature Gran % (Auto) 0.6 % Neut % (Auto) 72.3 % Lymph % (Auto) 14.3 % [place] % (Auto) 12.8 % Eos % (Auto) 0.0 % Baso % (Auto) 0.0 % Neut # (Auto) 2.32 (1.4-6.5) K/uL Lymph # (Auto) 0.46 L (1.2-3.4) K/uL [place] # (Auto) 0.41 (0.11-0.59) K/uL Eos # (Auto) 0.00 (0-0.5) K/uL Baso # (Auto) 0.00 (0-0.2) K/uL Immature Gran # (Auto) 0.02 (0.00-0.02) K/uL [place] Bodies 1+ Sodium 136 (136-145) mmol/L Potassium 3.0 L (3.5-5.1) mmol/L Chloride 99 (98-107) mmol/L Carbon Dioxide 28 (21-32) mmol/L Anion Gap 9.0 (3-11) BUN 9 (7-18) mg/dl Creatinine 0.90 (0.6-1.4) mg/dl Est Cr Clr Drug Dosing 66.2 ml/min Est GFR ( Amer) 103.5 Est GFR (Non-Af Amer) 89.3 BUN/Creatinine Ratio 9.7 L (10-20) Glucose 106 H (70-99) mg/dl Calcium 9.6 (8.5-10.1) mg/dl Magnesium 1.5 L (1.8-2.4) mg/dl Total Bilirubin 1.8 H (0.2-1) mg/dl AST 117 H (15-37) U/L ALT 99 H (12-78) U/L Alkaline Phosphatase 130 H (45-117) U/L Troponin I < 0.015 (0-0.045) ng/ml Total Protein 7.0 (6.4-8.2) gm/dl Albumin 3.1 L (3.4-5.0) gm/dl Globulin 3.9 (2.5-4.0) gm/dl Albumin/Globulin Ratio 0.8 L (0.9-2) TSH 1.660 (0.300-4.500) uIu/ml Ethyl Alcohol mg/dL < 3.0 (0-3) mg/dl Administered Medications Discontinued Medications Sodium Chloride (Nss) 500 mls @ 999 mls/hr IV .Q31M LAKISHA Stop: 04/01/20 18:00 Last Infusion: 04/01/20 18:38 Dose: 0 mls/hr Documented by: [id number] Admin: 04/01/20 17:56 Dose: 999 mls/hr Documented by: [id number] Multivitamins 10 ml/ Thiamine HCl 100 mg/ Folic Acid 1 mg/Sodium Chloride 1,011.2 mls @ 1,011.2 mls/hr IV .Q1H ONE Stop: 04/01/20 18:19 Last Infusion: 04/01/20 20:16 Dose: 0 mls/hr Documented by: [id number] Admin: 04/01/20 17:56 Dose: 1,011.2 mls/hr Documented by: [id number] Potassium Chloride (K Yusef / Wtr) 10 meq in 100 mls @ 100 mls/hr IV ONE ONE Stop: 04/01/20 19:15 Last Infusion: 04/01/20 19:45 Dose: 0 mls/hr Documented by: [id number] Admin: 04/01/20 18:38 Dose: 100 mls/hr Documented by: [id number] Magnesium Sulfate/Dextrose (Magnesium Sulfate / D5w) 1 gm in 100 mls @ 100 mls/hr IV NOW STA Stop: 04/01/20 19:15 Last Infusion: 04/01/20 19:45 Dose: 0 mls/hr Documented by: [id number] Admin: 04/01/20 18:38 Dose: 100 mls/hr Documented by: [id number] Lorazepam (Ativan) 2 mg in 4 mls @ 4 mls/min IV NOW STA Stop: 04/01/20 19:58 Last Admin: 04/01/20 20:06 Dose: 4 mls/min Documented by: [id number] Potassium Chloride (Klor-Con M20) 40 meq PO NOW STA Stop: 04/01/20 18:17 Last Admin: 04/01/20 18:38 Dose: 40 meq Documented by: [id number] Imaging Data Radiologist's Impression: XR chest 1V portable CLINICAL HISTORY: weakness dyspnea COMPARISON STUDY: 08/28/2019 FINDINGS: The bones soft tissues and hemidiaphragms are normal. The cardiomediastinal silhouette is normal. The lungs are clear. The pulmonary vasculature is normal. Several old left-sided rib fractures unchanged from the prior study. IMPRESSION: No acute process. CT head/brain wo con CT DOSE: 894.83 mGy.cm HISTORY: Trauma fall, etoh TECHNIQUE: Multiaxial CT images of the head were performed without the use of intravenous contrast. A dose lowering technique was utilized adhering to the principles of ALARA. Comparison: None. Findings: The paranasal sinuses and mastoid air cells are clear. The calvarium and skull base are intact. The ventricles and sulci are within normal limits. There is no mass, hematoma, midline shift, or acute infarct. Impression: No acute intracranial abnormality. Age-related atrophy and chronic small vessel change Study: CT pelvis HISTORY: Trauma. Pain. FINDINGS: Total left hip arthroplasty. Slight deformity left pubic ring consider old posttraumatic change. No acute bony abnormality. Cortical margins are intact. IMPRESSION: No acute posttraumatic abnormality. Blood Pressure Blood Pressure Findings: Elevated blood pressure Blood Pressure Disposition: further management by hospitalist Head Trauma GCS Score: 15 Discharge Plan Visit Data *Final* Discharge Date/Time: 04/01/20 22:41 Chief Complaint: Hip Pain Stated Complaint: LEG PAIN ED Provider: Orlando Ortez Discharge Problem: Weakness, Fall, Bilateral hip pain, Hypomagnesemia, Hypokalemia Patient Disposition: Admitted As Inpatient Condition: Fair Discharge Instructions Interventions: ED Discharge Assessment Last Done: 04/01/20 22:41
[2020-04-01] MEDS ORDERED: SODIUM CHLORIDE 0.9% 500 ML IV SCH (17:30)
--- NOTE | 2020-04-01 17:37 | XRay Report ---
XR chest 1V portable CLINICAL HISTORY: weakness dyspnea COMPARISON STUDY: 08/28/2019 FINDINGS: The bones soft tissues and hemidiaphragms are normal. The cardiomediastinal silhouette is n ormal. The lungs are clear. The pulmonary vasculature is normal. Several old left-sided rib fractures unchanged from the prior study. IMPRESSION: No acute process. ACT 112: Negative or not required by law. The above report was generated using voice recognition software. It may contain grammatical, syntax or spelling errors. Electronically signed by: Ward Werner M.D. 04/01/2020 5:36 PM
--- NOTE | 2020-04-01 18:04 | CT Scan Report ---
CT head/brain wo con CT DOSE: 894.83 mGy.cm HISTORY: Trauma fall, etoh TECHNIQUE: Multiaxial CT images of the head were performed without the use of intravenous contrast. A dose lowering technique was utilized adhering to the principles of ALARA. Comparison: None. Findings: The paranasal sinuses and mastoid air cells are clear. The calvarium and skull base are int act. The ventricles and sulci are within normal limits. There is no mass, hematoma, midline shift, or acute infarct. Impression: No acute intracranial abnormality. Age-related atrophy and chronic small vessel change ACT 112: Negative or not required by law. The above report was generated using voice recognition software. It may contain grammatical, syntax or spelling errors. Electronically signed by: aWrd Werner M.D. 04/01/2020 6:03 PM
--- NOTE | 2020-04-01 18:08 | CT Scan Report ---
Study: CT pelvis HISTORY: Trauma. Pain. FINDINGS: Total left hip arthroplasty. Slight deformity left pubic ring consider old posttraumatic ch bethany. No acute bony abnormality. Cortical margins are intact. IMPRESSION: No acute posttraumatic abnormality. Electronically signed by: Ward Werner M.D. 04/01/2020 6:07 PM
[2020-04-01 18:14] LABS: Alanine Aminotransferase 99 U/L (12-78); Albumin Level 3.1 gm/dl (3.4-5.0); Aspartate Aminotransferase 117 U/L (15-37); BUN Creatinine Ratio 9.7 (10-20); Blood Urea Nitrogen 9 mg/dl (7-18); Calcium 9.6 mg/dl (8.5-10.1); Carbon Dioxide 28 mmol/L (21-32); Chloride 99 mmol/L (98-107); Creatinine Clr Calc Pharmacy 66.2 ml/min; Est GFR (African American) 103.5; Est GFR (Non-African American) 89.3; Glucose 106 mg/dl (70-99); Magnesium 1.5 mg/dl (1.8-2.4); Sodium 136 mmol/L (136-145)
[2020-04-01] MEDS ORDERED: POTASSIUM CHLORIDE 20 MEQ TABCR PO STA (18:16)
[2020-04-01] MEDS ORDERED: MAGNESIUM SULFATE / D5W 1 GM/100 ML BAG IV STA (18:16)
[2020-04-01] MEDS ORDERED: POTASSIUM CHLORIDE / WTR 10 MEQ/100 ML PLCT IV ONE (18:16)
[2020-04-01 18:25] LABS: Albumin Globulin Ratio 0.8 (0.9-2); Alkaline Phosphatase 130 U/L (45-117); Bilirubin,Total 1.8 mg/dl (0.2-1); Globulin 3.9 gm/dl (2.5-4.0); Troponin I < 0.015 ng/ml (0-0.045)
[2020-04-01 18:36] LABS: Hematocrit (blood only) 36.6 % (42-52); Hemoglobin 12.5 g/dL (14.0-18.0); Howell-Jolly Bodies 1+; Immature Granulocytes # (auto) 0.02 K/uL (0.00-0.02); Immature Granulocytes % (auto) 0.6 %; Lymphocytes # (auto) 0.46 K/uL (1.2-3.4); Lymphocytes % (auto) 14.3 %; Mean Corpuscular Hemoglobin 32.6 pg (25-34); Mean Corpuscular Hgb Conc 34.2 g/dL (32-36); Mean Corpuscular Volume 95.3 fL (80-100); Mean Platelet Volume 11.2 fL (7.4-10.4); Monocytes # (auto) 0.41 K/uL (0.11-0.59); Monocytes % (auto) 12.8 %; Neutrophils # (auto) 2.32 K/uL (1.4-6.5); Neutrophils % (auto) 72.3 %; Platelet Count 47 K/uL (130-400); RDW Coefficient of Variation 15.3 % (11.5-14.5); Red Blood Count 3.84 M/uL (4.7-6.1); White Blood Count 3.21 K/uL (4.8-10.8)
[2020-04-01] MEDS ORDERED: LORazepam 1 MG TAB PO PRN (19:55)
--- NOTE | 2020-04-01 19:56 | History & Physical Report ---
Date of Service April 01, 2020 Assessment & Plan (1) Weakness: 64 yo M PMHx HTN, HLD, schizophrenia, COPD, pancytopenia for admission for generalized weakness and fall, potential alcohol withdrawal, and electrolyte derangement. Weakness and Fall: - For several days has been increasingly weak. No outward signs of infection, no findings on CTHead or CTpelvis suggestive of bleed, fracture, acute process. CXR without signs of pneumonia. - Patient unable to get up out of bed himself, and was brought in via EMS due to concern by neighbors. - PT/OT evaluations placed. - Placement vs. home with home PT/OT pending evaluations. ? Alcohol withdrawal: - Over the last 2 months has been drinking 12 beers a day. - Alcohol level negative in ED. - Patient with some outward signs of potential withdrawal including tremor and mild tachycardia, though he has tremor at baseline. - Ativan 2mg IV now, then continue at risk Ativan PO protocol. - AWSS score of 9 on my interview due to tremor, nausea, unclear on date. - B12, folate levels ordered. - Patient received banana bag in ED, continue thiamine, folate, multivitamin while admitted. Hypokalemia/Hypomagnesemia: - K on arrival 3.0; given KCl 40meq PO, KRiders 10meq IV in ED. - Mg on arrival 1.5; given Mag Sulfate 1g IV in ED. - Repeat BMP, Mg on AM labs. Pancytopenia: - History of, normocytic, chronic since starting his alcohol consumption. - Likely 2/2 alcohol abuse causing bone marrow toxicity. COPD: - Hx of, with chronic cough. Current active smoker. - Declines nicotine patch at this time. - Continue home Incruse Ellipta. Albuterol inhaler PRN SOB/wheezing. Schizophrenia: - Continue home Abilify, benztropine, trazodone. - Patient is mentating well at this time, alert and oriented. HTN: - Continue lisinopril 20mg daily. - Patient normotensive at this time. HLD: - Continue simvastatin 40mg daily. Chronic Back Pain: - Continue naproxen 500mg TID, gabapentin 300mg TID. Code Status: FULL CODE FEN/GI: Heart Healthy DVT ppx: low risk, SCDs Dispo: Med/Surg with Telemetry for AWSS scoring, PT/OT evaluations in AM (2) Fall: (3) Neuroleptic-induced Parkinsonism: (4) Chronic back pain: (5) Hyperlipidemia: (6) Hypertension: (7) Transaminitis: (8) Thrombocytopenia: (9) Anemia: (10) Schizophrenia: (11) Leukopenia: History of Present Illness Chief Complaint: weakness and fall Primary Care Provider: Owen Mckinnon MD 64 yo M PMHx HTN, HLD, schizophrenia, COPD, pancytopenia presented to hospital via EMS for several falls, profound weakness such that he could not get up, and hip pain. EMS was called by a friend who had come to check in on him. Patient endorses that for the last 2 months, in bereavement over his who has recently passed, he has been drinking 12 regular-sized cans of beer daily. Over the last 3-4 days has had 2 falls due to feeling so weak that he could not take another step. During the second fall he did hit his head but did not lose consciousness. Since the second fall 3 days ago he has not had any alcohol, and he has had bilateral hip pain which is worse with any attempt at ambulating. Has also endorsed some nausea and diarrhea over the last several days, but no stated increase in tremor (has one at baseline), no auditory/visual/tactile hallucinations. ED course: CT Pelvis without fracture, CTHead without signs of acute pathology, CXR negative. Labwork showed pancytopenia, hypokalemia, hypomagnesemia, mild transaminitis, alcohol level normal. Hospitalist service was consulted for admission for electrolyte repletion, alcohol withdrawal protocol, and PT/OT for weakness and falls. Allergies Allergy/AdvReac Type Severity Reaction Status Date / Time No Known Allergies Allergy Verified 04/01/20 18:31 Home Medications Home Medications Medication Instructions Recorded Confirmed Type umeclidinium 62.5 mcg/actuation 1 inh INHALATION DAILY #30 ea 05/09/19 04/01/20 Rx blister powder for inhalation benztropine 2 mg tablet 2 mg PO QAM 07/22/19 04/01/20 History azelastine 137 mcg (0.1 %) nasal 1 spray INTNAS BID 09/24/19 04/01/20 History spray aerosol bupropion HCl 100 mg tablet 100 mg PO QAM 09/24/19 04/01/20 History trazodone 100 mg tablet 200 mg PO HS 09/24/19 04/01/20 History aripiprazole 30 mg tablet 30 mg PO DAILY 11/25/19 04/01/20 History gabapentin 300 mg capsule 300 mg PO TID #90 cap 12/03/19 04/01/20 Rx simvastatin 40 mg tablet 40 mg PO HS #90 tab 01/27/20 04/01/20 Rx lisinopril 20 mg tablet 20 mg PO DAILY #30 tab 02/10/20 04/01/20 Rx ipratropium bromide 0.03 % nasal 2 spray INTNAS BID #30 ml 02/16/20 04/01/20 Rx spray naproxen 500 mg tablet 500 mg PO TID tab 02/17/20 04/01/20 History Past Med/Surg History Medical History Acute kidney injury Alcohol abuse Bronchitis hx Choledocholithiasis Chronic back pain Chronic obstructive pulmonary disease Depression Hip fracture, left (2016) Hyperlipidemia Hypertension Osteoarthritis Schizophrenia Thrombocytopenia Surgical History History of colonoscopy History of hip replacement (2017) LEFT History of tooth extraction S/P ERCP Family History Brother Family history of diabetes mellitus Social History Smoking Status: Current every day smoker Cigarettes Per Day: 1PPD; Second Hand Exposure: No; Hx Alcohol Use: Yes Alcohol type: beer and hard liquor Hx Substance Use: No Preferred Language: Dominican Communication Ability: Effective 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: No Beliefs That Will Affect Care: None marital status: Single Current Living Situation: Alone How many Children do You have: 1 Feels Safe at Home: Yes Review of Systems Review of Systems: All systems reviewed & are unremarkable except as noted in HPI & below Physical Exam Constitutional: disheveled appearing but pleasant, thin, no acute distress Eyes: PERRL, conjunctivae normal, anicteric sclerae ENMT: external ear and nose normal, oropharynx normal Neck: normal visual inspection Respiratory: respiratory effort normal with decreased air movement throughout, no wheezes or crackles intermittent cough (chronic) Cardiovascular: RRR, no murmur, no edema Gastrointestinal (Abdomen): normal bowel sounds, soft, nontender, no hepatosplenomegaly Musculoskeletal: Head/Neck/Chest: normocephalic and head atraumatic Extremities: no cyanosis and no clubbing diffusely weak bilateral UE/LE, no asymmetry Skin: no rashes, warm and dry Neurologic: moves all extremities; no focal motor deficits Speech / Cognition: normal speech Motor/Sensory: + tremor Psychiatric: Speech: normal rate/rhythm/volume of speech Affect: euthymic affect alert and oriented to self, situation (does not know the date), tangential but redirectable Results & Data [facility] & [facility] ([facility]) Vital Signs (Past 12 Hours) Vital Signs Temp Pulse Resp BP Pulse Ox 04/01/20 19:00 83 16 120/72 98 04/01/20 18:30 88 12 123/76 04/01/20 18:00 103 H 20 133/86 04/01/20 17:36 98 04/01/20 17:30 16 109/75 94 04/01/20 17:21 87 14 95 04/01/20 17:15 36.7 C 92 H 16 127/74 98 04/01/20 17:12 92 H 17 127/74 95 Code Status & VTE Plan VTE Prophylaxis Plan VTE Prophylaxis will be ordered: Yes Supervising Physician Co-Signing Physician Notes Patient seen and examined, chart reviewed, case discussed with Dr. Verdin clinically with her assessment and plan as documented above. Briefly, patient is a 64-year-old male with history of schizophrenia, COPD, hypertension, hyperlipidemia presenting with 2 weeks of progressive weakness, frequent falls and alcohol abuse with possible withdrawal. On exam patient is afebrile hemodynamically stable, mild tremor HEENT - NC/AT, PERRL, EOMI, dry MM, neck supple Heart - +S1/S2, regular, tachycardic Lungs - CTA Abd - +BS, soft, NT/ND Ext - No edema Labs and images reviewed. Patient with hypomagnesemia, hypokalemia. Pancytopenia with chronic lymphopenia, abnormal liver studies. TSH WNL. CT head unremarkable Assessment/Plan - 64yo C male presenting with increased weakness, frequent falls and Etoh withdrawal -Admit to Med Surge with telemetry -AWSS protocol -Electrolyte repletion -Repeat labs in AM -PT/OT -Remainder of plan as above Resident Activity Tracking Resident Involvement: Resident Care Provided Care Provided: Adult Hospital Medicine (1) Anemia Anemia type: unspecified type Qualified Code(s): D64.9 - Anemia, unspecified (2) Hyperlipidemia Hyperlipidemia type: unspecified Qualified Code(s): E78.5 - Hyperlipidemia, unspecified (3) Schizophrenia Schizophrenia type: unspecified Qualified Code(s): F20.9 - Schizophrenia, unspecified (4) Chronic back pain Back pain laterality: unspecified Back pain location: low back pain Sciatica presence: unspecified whether sciatica present Qualified Code(s): M54.5 - Low back pain; G89.29 - Other chronic pain (5) Hypertension Hypertension type: essential hypertension Qualified Code(s): I10 - Essential (primary) hypertension (6) Fall Encounter type: initial encounter Qualified Code(s): W19.XXXA - Unspecified fall, initial encounter
[2020-04-01] MEDS ORDERED: LORazepam 2 MG/4 ML VIAL IV STA (19:57)
[2020-04-01] MEDS ORDERED: ALBUTEROL HFA 8 GM INHALER INH PRN (20:18)
[2020-04-01] MEDS ORDERED: POLYETHYLENE (MIRALAX) 17 GM PACK PO PRN (23:33)
[2020-04-01] MEDS ORDERED: TRAZODONE HCL 100 MG TAB PO SCH (23:33)
[2020-04-01] MEDS ORDERED: ONDANSETRON INJ 2 MG/ML 2 ML VIAL IV PRN (23:33)
[2020-04-02] MEDS ORDERED: MAGNESIUM SULFATE / D5W 1 GM/100 ML BAG IV ONE (00:30)
--- NOTE | 2020-04-02 00:34 | Billing Data ---
Date of Service April 01, 2020 Coding Level of Care Code 58989 Initial Inpt Care Lvl 3
[2020-04-02] MEDS: SIMVASTATIN 40 MG TAB PO SCH ×2 (01:32→21:02)
[2020-04-02] MEDS: NAPROXEN 250 MG TAB PO SCH ×4 (01:32→21:01)
[2020-04-02] MEDS: FOLIC ACID 1 MG TAB PO SCH ×2 (01:32→09:30)
[2020-04-02] MEDS: GABAPENTIN 300 MG CAP PO SCH ×3 (01:32→14:47)
[2020-04-02] MEDS: THIAMINE HCL 100 MG TAB PO SCH ×2 (01:32→09:30)
[2020-04-02 01:38] LABS: Appearance Urine Clear (Clear); Bacteria Urine Automated Negative (Negative); Bilirubin Urine Negative (Negative); Blood Urine Trace (Negative); Color Urine Yellow; Glucose Urine UA Negative (Negative); Ketones Urine Negative (Negative); Leukocyte Esterase Urine Negative (Negative); Nitrite Urine Negative (Negative); Protein Urine Negative (Negative); RBC Urine Automated 0-4 /hpf (0-4); Specific Gravity Urine 1.009 (1.000-1.030); Urobilinogen Urine Negative (Negative); pH Urine 7.5 (4.5-7.5)
[2020-04-02] MEDS: LORazepam 1 MG/2 ML VIAL IV PRN ×4 (03:21→17:00)
[2020-04-02] MEDS ORDERED: LORazepam 1 MG/2 ML VIAL IV ONE (04:15)
[2020-04-02 07:47] LABS: Hematocrit (blood only) 36.9 % (42-52); Hemoglobin 12.8 g/dL (14.0-18.0); Mean Corpuscular Hemoglobin 32.8 pg (25-34); Mean Corpuscular Hgb Conc 34.7 g/dL (32-36); Mean Corpuscular Volume 94.6 fL (80-100); RDW Coefficient of Variation 15.3 % (11.5-14.5); RDW Standard Deviation 52.4 fL (36.4-46.3); White Blood Count 3.65 K/uL (4.8-10.8)
[2020-04-02 07:58] LABS: Mean Platelet Volume 10.8 fL (7.4-10.4); Platelet Count 54 K/uL (130-400)
[2020-04-02 08:01] LABS: Prothrombin Time 10.5 Seconds (9.0-12.0)
--- NOTE | 2020-04-02 08:06 | Hospitalist Progress Note ---
Date of Service April 02, 2020 Assessment & Plan (1) Alcohol abuse: pt admitted with falls and concerns for alcohol withdrawal, previously on gabapentin for other issues, ativan for withdrawal Patient be hydrated as he appears to be clinically dry he is tachycardic gabapentin be escalated limit need for benzodiazepines Difficult to assess mental status (2) COPD (chronic obstructive pulmonary disease): has remained stable , continues albuterol and umeclidinium (3) Hypertension: remains on lisinopril (4) Depression: aripiprazole, buproprion, trazadone Pt has neuroloeptic induced parkinsonism, continues on benztropine (5) Chronic back pain: naproxen and gabapentin (6) DVT prophylaxis: will start on heparin Admission and Anticipated Discharge Date Admission Date: April 01, 2020 Subjective Patient looks much older than his stated age he looks much more declined and the picture on file in the chart. He is confused and lethargic reaching about he is placid and redirectable has some abrasions on his elbows Review of Systems Review of Systems: Unobtainable due to cognitive status She is in mild/moderate distress he is confused and sedate Physical Exam Physical Exam: The patient appeared patient. Ill And older than his stated age Vital signs as documented. Head exam is normocephalic atraumatic no scleral icterus Neck is without JVD, thyromegaly, or carotid bruits. Lungs are clear to auscultation, no focal loss of breath sounds Cardiac exam, tachycardic but regular, no murmurs, rubs or gallops. Abdominal exam reveals normal bowel sounds, soft non tender, no masses Extremities are nonedematous and abrasions on his elbows and knees Neurologic exam is alert disoriented redirectable follows commands Skin is with abrasions particularly left elbow Psychologically is able to be assessed as he is in alcohol withdrawal at this time Results & Data Results & Data ([facility]) Vital Signs (Past 12 Hours) Vital Signs Temp Pulse Pulse Resp BP BP Pulse Ox 04/02/20 07:31 97.7 F 81 16 157/96 H 96 04/02/20 07:17 102 H 04/02/20 05:00 106 H 04/02/20 03:35 98.8 F 112 H 18 155/92 H 97 04/02/20 00:13 97.5 F L 120 H 16 128/86 94 07/30/20 23:15 97.9 F 111 H 18 152/93 H 97 04/01/20 22:30 100 H 22 144/85 H 96 04/01/20 22:02 116 H 24 152/81 H 99 04/01/20 21:31 102 H 16 137/84 98 04/01/20 21:00 20 127/78 98 04/01/20 20:30 95 H 16 111/71 94 04/01/20 20:00 92 H 14 140/85 PG Care Time/CCT Total # of Minutes Spent Total Time Spent with Patient: Total time spent is greater than 50% in coordination of care (as documented) at patient's floor/unit and/or counseling patient: Coding Level of Care Code 80802 Subseq Hosp Care Lvl 3 Diagnoses Alcohol abuse F10.10 COPD (chronic obstructive pulmonary disease) J44.9 Hypertension I10 Hypertension type: essential hypertension Depression F32.9 Chronic back pain M54.5; G89.29 Back pain laterality: unspecified Back pain location: low back pain Sciatica presence: unspecified whether sciatica present DVT prophylaxis Z29.9 (1) Chronic back pain Back pain laterality: unspecified Back pain location: low back pain Sciatica presence: unspecified whether sciatica present Qualified Code(s): M54.5 - Low back pain; G89.29 - Other chronic pain (2) Hypertension Hypertension type: essential hypertension Qualified Code(s): I10 - Essential (primary) hypertension
[2020-04-02 08:11] LABS: Basophils # (auto) 0.01 K/uL (0-0.2); Basophils % (auto) 0.3 %; Eosinophils # (auto) 0.03 K/uL (0-0.5); Eosinophils % (auto) 0.8 %; Immature Granulocytes # (auto) 0.02 K/uL (0.00-0.02); Immature Granulocytes % (auto) 0.5 %; Lymphocytes % (auto) 21.9 %; Monocytes # (auto) 0.52 K/uL (0.11-0.59); Monocytes % (auto) 14.2 %; Neutrophils # (auto) 2.27 K/uL (1.4-6.5); Neutrophils % (auto) 62.3 %; Pappenheimer Bodies Occasional
[2020-04-02 08:29] LABS: Albumin Globulin Ratio 0.9 (0.9-2); Albumin Level 3.2 gm/dl (3.4-5.0); BUN Creatinine Ratio 8.2 (10-20); Bilirubin,Total 1.3 mg/dl (0.2-1); Calcium 8.6 mg/dl (8.5-10.1); Est GFR (African American) 131.8; Est GFR (Non-African American) 113.7; Globulin 3.5 gm/dl (2.5-4.0); Potassium 2.9 mmol/L (3.5-5.1); Total Protein 6.7 gm/dl (6.4-8.2)
[2020-04-02 08:38] LABS: Folate (Folic Acid) 14.48 ng/ml (>5.38)
[2020-04-02] MEDS ORDERED: HEPARIN SOD 5,000 UNIT/0.5 ML VIAL SQ SCH (09:00)
[2020-04-02] MEDS: buPROPion HCl 100 MG TABLET PO SCH (09:30)
[2020-04-02] MEDS: ARIPiprazole 15 MG TAB PO SCH (09:30)
[2020-04-02] MEDS: BENZTROPINE MESYLATE 1 MG TAB PO SCH (09:30)
[2020-04-02] MEDS: lisinopriL 20 MG TAB PO SCH (09:30)
[2020-04-02] MEDS: UMECLIDINIUM BROMIDE 62.5MCG/BLISTER 7 PUFFS/INHALER INH SCH (09:30)
[2020-04-02] MEDS: MULTIVITAMIN TAB PO SCH (09:30)
[2020-04-02] MEDS: D5W AND 1/2NSS + 20MEQ KCL 20 MEQ/1,000 ML BAG IV SCH (20:49)
[2020-04-02] MEDS: TRAZODONE HCL 100 MG TAB PO SCH (21:01)
[2020-04-02] MEDS: GABAPENTIN 600 MG TAB PO SCH (21:02)
[2020-04-03] MEDS: LORazepam 1 MG/2 ML VIAL IV PRN ×2 (03:35→08:40)
[2020-04-03] MEDS: D5W AND 1/2NSS + 20MEQ KCL 20 MEQ/1,000 ML BAG IV SCH ×2 (04:22→12:24)
--- NOTE | 2020-04-03 06:45 | Electrocardiogram Report ---
Test Reason : Blood Pressure : / mmHG Vent. Rate : 088 BPM Atrial Rate : 088 BPM P-R Int : 166 ms QRS Dur : 082 ms QT Int : 404 ms P-R-T Axes : 068 007 057 degrees QTc Int : 488 ms Normal sinus rhythm Septal infarct , age undetermined Abnormal ECG When compared with ECG of 28-AUG-2019 00:00, Septal infarct is now Present Confirmed by Suleman Gomez ([id number]) on 04/03/2020 6:45:14 AM Referred By: REFERRED SELF Confirmed By:Suleman Gomez
--- NOTE | 2020-04-03 08:29 | Hospitalist Progress Note ---
Date of Service April 03, 2020 Assessment & Plan (1) Alcohol abuse: pt admitted with falls and concerns for alcohol withdrawal, previously on gabapentin for other issues, Patient will have AWSS stopped and just continue on ativan prn and gabapentin be escalated to try to limit need for benzodiazepines continues to be difficult to assess mental status (2) COPD (chronic obstructive pulmonary disease): has remained stable , continues albuterol and umeclidinium (3) Hypertension: contriolled with lisinopril (4) Depression: aripiprazole, buproprion, trazadone Pt has neuroloeptic induced parkinsonism, continues on benztropine (5) Chronic back pain: naproxen and gabapentin (6) DVT prophylaxis: sc heparin Admission and Anticipated Discharge Date Admission Date: April 01, 2020 Subjective Patient continues to be sedate and lethargic, difficult to get in home meds, maybe scale is too aggressive for him, he looks much older than his stated age. He is confused and lethargic reaching about he remains placid and re directable has some abrasions on his elbows Review of Systems Review of Systems: he is in mild/moderate distress he is confused and sedate Physical Exam Physical Exam: The patient appeared patient. Ill And older than his stated age Vital signs as documented. Head exam is normocephalic atraumatic no scleral icterus Neck is without JVD, thyromegaly, or carotid bruits. Lungs are clear to auscultation, no focal loss of breath sounds Cardiac exam, tachycardic but regular, no murmurs, rubs or gallops. Abdominal exam reveals normal bowel sounds, soft non tender, no masses Extremities are nonedematous and abrasions on his elbows and knees Neurologic exam is alert disoriented redirectable follows commands Skin is with abrasions particularly left elbow Psychologically is able to be assessed as he is in alcohol withdrawal at this time Results & Data Results & Data ([facility]) Vital Signs (Past 12 Hours) Vital Signs Temp Pulse Resp BP Pulse Ox 04/03/20 08:00 98.6 F 110 H 20 156/88 H 91 04/03/20 03:26 97.9 F 105 H 20 158/89 H 96 04/02/20 23:41 98.2 F 76 20 152/91 H 95 PG Care Time/CCT Total # of Minutes Spent Total Time Spent with Patient: Total time spent is greater than 50% in coordination of care (as documented) at patient's floor/unit and/or counseling patient: Coding Level of Care Code 20471 Subseq Hosp Care Lvl 2 Diagnoses Alcohol abuse F10.10 COPD (chronic obstructive pulmonary disease) J44.9 Hypertension I10 Hypertension type: essential hypertension Depression F32.9 Chronic back pain M54.5; G89.29 Back pain laterality: unspecified Back pain location: low back pain Sciatica presence: unspecified whether sciatica present DVT prophylaxis Z29.9 (1) Chronic back pain Back pain laterality: unspecified Back pain location: low back pain Sciatica presence: unspecified whether sciatica present Qualified Code(s): M54.5 - Low back pain; G89.29 - Other chronic pain (2) Hypertension Hypertension type: essential hypertension Qualified Code(s): I10 - Essential (primary) hypertension
[2020-04-03 09:27] LABS: BUN Creatinine Ratio 9.6 (10-20); Calcium 8.7 mg/dl (8.5-10.1); Creatinine Clr Calc Pharmacy 121.8 ml/min; Est GFR (African American) 132.9; Est GFR (Non-African American) 114.7; Potassium 3.2 mmol/L (3.5-5.1)
[2020-04-03] MEDS: BENZTROPINE MESYLATE 1 MG TAB PO SCH (11:28)
[2020-04-03] MEDS: MULTIVITAMIN TAB PO SCH (11:28)
[2020-04-03] MEDS: FOLIC ACID 1 MG TAB PO SCH (11:28)
[2020-04-03] MEDS: ARIPiprazole 15 MG TAB PO SCH (11:28)
[2020-04-03] MEDS: UMECLIDINIUM BROMIDE 62.5MCG/BLISTER 7 PUFFS/INHALER INH SCH (11:28)
[2020-04-03] MEDS: buPROPion HCl 100 MG TABLET PO SCH (11:29)
[2020-04-03] MEDS: GABAPENTIN 600 MG TAB PO SCH ×3 (11:29→20:44)
[2020-04-03] MEDS: lisinopriL 20 MG TAB PO SCH (11:29)
[2020-04-03] MEDS: NAPROXEN 250 MG TAB PO SCH ×3 (11:29→20:43)
[2020-04-03] MEDS: THIAMINE HCL 100 MG TAB PO SCH (11:29)
[2020-04-03] MEDS: POTASSIUM CHLORIDE 40 MEQ in D5W AND 1/2NSS 1,000 ML/1,000 ML BAG IV SCH (18:16)
[2020-04-03] MEDS: TRAZODONE HCL 100 MG TAB PO SCH (20:43)
[2020-04-03] MEDS: SIMVASTATIN 40 MG TAB PO SCH (20:44)
[2020-04-04] MEDS: POTASSIUM CHLORIDE 40 MEQ in D5W AND 1/2NSS 1,000 ML/1,000 ML BAG IV SCH ×3 (02:57→23:52)
[2020-04-04] MEDS: LORazepam 0.5 MG/1 ML VIAL IV PRN (03:35)
[2020-04-04 06:43] LABS: BUN Creatinine Ratio 6.2 (10-20); Calcium 8.9 mg/dl (8.5-10.1); Creatinine Clr Calc Pharmacy 108.9 ml/min; Est GFR (African American) 126.7; Est GFR (Non-African American) 109.4; Potassium 3.7 mmol/L (3.5-5.1)
--- NOTE | 2020-04-04 07:26 | Hospitalist Progress Note ---
Date of Service April 04, 2020 Assessment & Plan (1) Alcohol abuse: pt admitted with falls and concerns for alcohol withdrawal, previously on gabapentin for other issues, 04/03/2020 AWSS stopped and continues on ativan prn and gabapentin, his usual home dose has been increased to try to limit need for benzodiazepines (2) COPD (chronic obstructive pulmonary disease): has remained stable , continues albuterol and umeclidinium Patient is a cough of green sputum this could be aspiration event versus bronchitis associate with COPD. He is on oral doxycycline and will have an x- ray (3) Hypertension: contriolled with lisinopril (4) Depression: aripiprazole, buproprion, trazadone Pt has neuroloeptic induced parkinsonism, continues on benztropine Physical therapy and Occupational Therapy is ordered patient may likely need placement (5) Chronic back pain: naproxen and gabapentin (6) DVT prophylaxis: sc heparin Admission and Anticipated Discharge Date Admission Date: April 01, 2020 Subjective Patient has improved since discontinuing the alcohol withdrawal scale he is now on gabapentin with PRN Ativan at a lower dose. He is much more awake and alert. He is coughing productive sputum. Certainly with his level of sedation her last visit would be concern for some aspiration. Patient is placed on doxycycline and an x-ray was performed Review of Systems Review of Systems: Mild distress and fatigue no headache, blurry or double vision Patient has dysarthria but is trying to communicate he can make out some words I think he needs his dentures in place no chest pain, pressure or palpitations no shortness of breath, has been coughing up thick green sputum no abdominal pain, nausea or vomiting, diarrhea or constipation no dysuria, hematuria or frequency no focal joint pain or swelling no back pain, CVA tenderness or radicular pain no bruising, bleeding or rashes no focal signs of weakness or numbness or altered sensation no complaints or anxiety or depression. Physical Exam Physical Exam: The patient appeared older than his stated age Vital signs as documented. Head exam is normocephalic atraumatic no scleral icterus Neck is without JVD, thyromegaly, or carotid bruits. Lungs are coarse rhonchi bilaterally right greater than left Cardiac exam, tachycardic but regular, no murmurs, rubs or gallops. Abdominal exam reveals normal bowel sounds, soft non tender, no masses Extremities are nonedematous and abrasions on his elbows and knees Neurologic exam is alert speech is garbled, re directable follows commands Skin is with abrasions particularly left elbow Psychologically is able to be assessed as he is in alcohol withdrawal at this time Results & Data Results & Data ([facility]) Vital Signs (Past 12 Hours) Vital Signs Temp Pulse Pulse Resp BP Pulse Ox 04/04/20 04:16 98.1 F 71 18 184/83 H 96 04/04/20 01:42 107 H 04/03/20 23:28 98.2 F 85 20 145/84 H 94 04/03/20 19:37 98.2 F 78 20 145/91 H 96 PG Care Time/CCT Total # of Minutes Spent Total Time Spent with Patient: Total time spent is greater than 50% in coordination of care (as documented) at patient's floor/unit and/or counseling patient: Coding Level of Care Code 13423 Subseq Hosp Care Lvl 2 Diagnoses Alcohol abuse F10.10 COPD (chronic obstructive pulmonary disease) J44.9 Hypertension I10 Hypertension type: essential hypertension Depression F32.9 Chronic back pain M54.5; G89.29 Back pain laterality: unspecified Back pain location: low back pain Sciatica presence: unspecified whether sciatica present DVT prophylaxis Z29.9 (1) Chronic back pain Back pain laterality: unspecified Back pain location: low back pain Sciatica presence: unspecified whether sciatica present Qualified Code(s): M54.5 - Low back pain; G89.29 - Other chronic pain (2) Hypertension Hypertension type: essential hypertension Qualified Code(s): I10 - Essential (primary) hypertension
[2020-04-04] MEDS: CIPRO 0.3%/DEXAMETHASONE 0.1% OTIC SUSP 7.5ML OT SCH ×2 (09:06→20:48)
[2020-04-04] MEDS: lisinopriL 20 MG TAB PO SCH (09:07)
[2020-04-04] MEDS: MULTIVITAMIN TAB PO SCH (09:07)
[2020-04-04] MEDS: BENZTROPINE MESYLATE 1 MG TAB PO SCH (09:07)
[2020-04-04] MEDS: FOLIC ACID 1 MG TAB PO SCH (09:08)
[2020-04-04] MEDS: UMECLIDINIUM BROMIDE 62.5MCG/BLISTER 7 PUFFS/INHALER INH SCH (09:08)
[2020-04-04] MEDS: buPROPion HCl 100 MG TABLET PO SCH (09:09)
[2020-04-04] MEDS: ARIPiprazole 15 MG TAB PO SCH (09:09)
[2020-04-04] MEDS: NAPROXEN 250 MG TAB PO SCH ×3 (09:10→21:30)
[2020-04-04] MEDS: GABAPENTIN 600 MG TAB PO SCH ×3 (09:10→21:30)
[2020-04-04] MEDS: THIAMINE HCL 100 MG TAB PO SCH (09:11)
--- NOTE | 2020-04-04 15:53 | XRay Report ---
XR chest 1V portable CLINICAL HISTORY: Weakness and shortness of breath SUSPECTED PNEUMONIA COMPARISON STUDY: No previous studies for comparison. FINDINGS: The heart is the upper limits of normal in size. There are old left-sided rib fractures. Th ere is no failure. There is no lobar consolidation. Slightly prominent right basilar markings are lik steven atelectatic.[ IMPRESSION: Slightly prominent right basilar markings statistically atelectatic. No evidence of lobar consolidation. No evidence of failure ACT 112: Negative or not required by law. Electronically signed by: True Tan M.D. 04/04/2020 3:51 PM
[2020-04-04] MEDS: TRAZODONE HCL 100 MG TAB PO SCH (21:29)
[2020-04-04] MEDS: DOXYCYCLINE HYCLATE 100 MG CAP PO SCH (21:31)
[2020-04-04] MEDS: SIMVASTATIN 40 MG TAB PO SCH (21:31)
[2020-04-05 06:34] LABS: Mean Corpuscular Hemoglobin 32.4 pg (25-34); Mean Corpuscular Hgb Conc 33.3 g/dL (32-36); Mean Corpuscular Volume 97.2 fL (80-100); Mean Platelet Volume 11.1 fL (7.4-10.4); Platelet Count 138 K/uL (130-400); RDW Coefficient of Variation 15.8 % (11.5-14.5); RDW Standard Deviation 56.4 fL (36.4-46.3); Red Blood Count 4.32 M/uL (4.7-6.1); White Blood Count 5.71 K/uL (4.8-10.8)
[2020-04-05 07:02] LABS: BUN Creatinine Ratio 10.1 (10-20); Calcium 9.2 mg/dl (8.5-10.1); Creatinine Clr Calc Pharmacy 130.9 ml/min; Est GFR (African American) 136.4; Est GFR (Non-African American) 117.7; Potassium 3.9 mmol/L (3.5-5.1)
[2020-04-05] MEDS: MULTIVITAMIN TAB PO SCH (08:22)
[2020-04-05] MEDS: buPROPion HCl 100 MG TABLET PO SCH (08:22)
[2020-04-05] MEDS: DOXYCYCLINE HYCLATE 100 MG CAP PO SCH ×2 (08:22→20:04)
[2020-04-05] MEDS: lisinopriL 20 MG TAB PO SCH (08:22)
[2020-04-05] MEDS: ARIPiprazole 15 MG TAB PO SCH (08:22)
[2020-04-05] MEDS: FOLIC ACID 1 MG TAB PO SCH (08:22)
[2020-04-05] MEDS: GABAPENTIN 600 MG TAB PO SCH ×3 (08:22→20:01)
[2020-04-05] MEDS: UMECLIDINIUM BROMIDE 62.5MCG/BLISTER 7 PUFFS/INHALER INH SCH (08:23)
[2020-04-05] MEDS: NAPROXEN 250 MG TAB PO SCH ×3 (08:23→20:03)
[2020-04-05] MEDS: CIPRO 0.3%/DEXAMETHASONE 0.1% OTIC SUSP 7.5ML OT SCH ×2 (08:23→20:03)
[2020-04-05] MEDS: BENZTROPINE MESYLATE 1 MG TAB PO SCH (08:23)
[2020-04-05] MEDS: THIAMINE HCL 100 MG TAB PO SCH (08:23)
[2020-04-05] MEDS: POTASSIUM CHLORIDE 40 MEQ in D5W AND 1/2NSS 1,000 ML/1,000 ML BAG IV SCH ×2 (09:33→20:01)
--- NOTE | 2020-04-05 15:05 | Hospitalist Progress Note ---
Date of Service April 05, 2020 Assessment & Plan (1) Alcohol abuse: pt admitted with falls and concerns for alcohol withdrawal, previously on gabapentin for other issues, 04/03/2020 AWSS stopped and continues on ativan prn and gabapentin, He is more alert on just gabapentin and dose will be reduced in the PM of 04/05 (2) COPD (chronic obstructive pulmonary disease): has remained stable , continues albuterol and umeclidinium Patient is a cough of green sputum, concern for bronchitis associate with COPD. He is on oral doxycycline and will have an x-ray (3) Hypertension: contriolled with lisinopril (4) Depression: aripiprazole, buproprion, trazadone Pt has neuroloeptic induced parkinsonism, continues on benztropine Physical therapy and Occupational Therapy (5) Chronic back pain: naproxen and gabapentin (6) DVT prophylaxis: sc heparin (7) Conjunctivitis: Patient is on oral Cipro Admission and Anticipated Discharge Date Admission Date: April 01, 2020 I did have a conversation with the patient's daughter Esther, she is understanding that he may need a supportive environment after discharge. She prefer we initially attempt to consider an [facility] but would be acceptance of a subacute rehab or senior living facility as long as it is a temporary situation. Subjective Patient has improved since discontinuing the alcohol withdrawal scale he is now on gabapentin with PRN Ativan at a lower dose. He is awake but continues to be lethargic. He had a episode of coughing and with initial lethargy was concern for aspiration Patient is placed on doxycycline and an x-ray was performed but did not show infiltrate Review of Systems Review of Systems: Mild distress and fatigue no headache, blurry or double vision Patient has dysarthria but is trying to communicate he can make out some words I think he needs his dentures in place no chest pain, pressure or palpitations no shortness of breath, has been coughing up thick green sputum no abdominal pain, nausea or vomiting, diarrhea or constipation no dysuria, hematuria or frequency no focal joint pain or swelling no back pain, CVA tenderness or radicular pain no bruising, bleeding or rashes no focal signs of weakness or numbness or altered sensation no complaints or anxiety or depression. Physical Exam Physical Exam: The patient appeared older than his stated age Vital signs as documented. Head exam is normocephalic atraumatic no scleral icterus Neck is without JVD, thyromegaly, or carotid bruits. Lungs are coarse rhonchi bilaterally right greater than left Cardiac exam, tachycardic but regular, no murmurs, rubs or gallops. Abdominal exam reveals normal bowel sounds, soft non tender, no masses Extremities are nonedematous and abrasions on his elbows and knees Neurologic exam is alert speech is garbled, re directable follows commands Skin is with abrasions particularly left elbow Psychologically is able to be assessed as he is in alcohol withdrawal at this time Results & Data Results & Data ([facility]) Vital Signs (Past 12 Hours) Vital Signs Temp Pulse Pulse Resp BP Pulse Ox 04/05/20 11:25 98.1 F 72 18 119/77 90 04/05/20 08:00 104 H 04/05/20 07:08 99.7 F H 19 L 18 164/89 H 98 04/05/20 05:08 98.6 F 81 20 177/96 H 97 PG Care Time/CCT Total # of Minutes Spent Total Time Spent with Patient: Total time spent is greater than 50% in coordination of care (as documented) at patient's floor/unit and/or counseling patient: Coding Level of Care Code 56145 Subseq Hosp Care Lvl 3 Diagnoses Alcohol abuse F10.10 COPD (chronic obstructive pulmonary disease) J44.9 Hypertension I10 Hypertension type: essential hypertension Depression F32.9 Chronic back pain M54.5; G89.29 Back pain location: low back pain Back pain laterality: unspecified Sciatica presence: unspecified whether sciatica present DVT prophylaxis Z29.9 Conjunctivitis H10.9 (1) Hypertension Hypertension type: essential hypertension Qualified Code(s): I10 - Essential (primary) hypertension (2) Chronic back pain Back pain location: low back pain Back pain laterality: unspecified Sciatica presence: unspecified whether sciatica present Qualified Code(s): M54.5 - Low back pain; G89.29 - Other chronic pain
[2020-04-05] MEDS: TRAZODONE HCL 100 MG TAB PO SCH (20:03)
[2020-04-05] MEDS: SIMVASTATIN 40 MG TAB PO SCH (20:04)
[2020-04-05] MEDS: LORazepam 0.5 MG/1 ML VIAL IV PRN (23:22)
[2020-04-06] MEDS: POTASSIUM CHLORIDE 40 MEQ in D5W AND 1/2NSS 1,000 ML/1,000 ML BAG IV SCH (06:13)
[2020-04-06 06:32] LABS: BUN Creatinine Ratio 11.4 (10-20); Calcium 9.6 mg/dl (8.5-10.1); Creatinine Clr Calc Pharmacy 92.3 ml/min; Est GFR (African American) 118.3; Est GFR (Non-African American) 102.1; Potassium 5.2 mmol/L (3.5-5.1)
[2020-04-06] MEDS: LORazepam 0.5 MG/1 ML VIAL IV PRN ×2 (07:19→09:50)
[2020-04-06] MEDS: BENZTROPINE MESYLATE 1 MG TAB PO SCH ×2 (08:50→10:35)
[2020-04-06] MEDS: ARIPiprazole 15 MG TAB PO SCH ×2 (08:50→10:35)
[2020-04-06] MEDS: DOXYCYCLINE HYCLATE 100 MG CAP PO SCH ×3 (08:50→20:36)
[2020-04-06] MEDS: GABAPENTIN 600 MG TAB PO SCH ×3 (08:50→20:34)
[2020-04-06] MEDS: FOLIC ACID 1 MG TAB PO SCH (08:50)
[2020-04-06] MEDS: MULTIVITAMIN TAB PO SCH (08:50)
[2020-04-06] MEDS: UMECLIDINIUM BROMIDE 62.5MCG/BLISTER 7 PUFFS/INHALER INH SCH (08:50)
[2020-04-06] MEDS: NAPROXEN 250 MG TAB PO SCH ×3 (08:50→20:36)
[2020-04-06] MEDS: THIAMINE HCL 100 MG TAB PO SCH (08:51)
[2020-04-06] MEDS: lisinopriL 20 MG TAB PO SCH ×2 (08:51→10:36)
[2020-04-06] MEDS: buPROPion HCl 100 MG TABLET PO SCH (08:51)
[2020-04-06] MEDS: CIPRO 0.3%/DEXAMETHASONE 0.1% OTIC SUSP 7.5ML OT SCH ×2 (09:15→20:32)
[2020-04-06] MEDS ORDERED: DIAZEPAM 5 MG/ML INJ 10ML VIAL IV STA (09:28)
[2020-04-06] MEDS ORDERED: MULTI-VITAMIN INFUSION 10 ML, THIAMINE HCL 100 MG, FOLIC ACID 1 MG in SODIUM CHLORIDE 0... IV ONE (09:30)
[2020-04-06] MEDS ORDERED: MULTI-VITAMIN INFUSION 10 ML, THIAMINE HCL 100 MG, FOLIC ACID 1 MG in SODIUM CHLORIDE 0... IV SCH (09:30)
--- NOTE | 2020-04-06 09:32 | Hospitalist Progress Note ---
Date of Service April 06, 2020 Assessment & Plan (1) Alcohol abuse: pt admitted with falls and concerns for alcohol withdrawal, previously on gabapentin for other issues, 04/03/2020 AWSS stopped and continues on ativan prn and gabapentin, He is more alert on just gabapentin and dose will be reduced in the PM of 04/05 On 04/06, patient appears confused. First day I am seeing patient. Patient is refusing PO meds. Encephalopathy is likely multifactorial. Maybe be from alcohol withdrawal, wernicke encephalopathy and schizophrenia. He has not bee taking his meds for schizophrenia. Currently though he appears somewhat agitated, as he is punching the air. Will order a one time dose of diazepam and monitor how he responds to this. (2) COPD (chronic obstructive pulmonary disease): has remained stable , continues albuterol and umeclidinium Patient is a cough of green sputum, concern for bronchitis associate with COPD. He is on oral doxycycline and will have an x-ray (3) Hypertension: contriolled with lisinopril (4) Depression: aripiprazole, buproprion, trazadone Pt has neuroloeptic induced parkinsonism, continues on benztropine Physical therapy and Occupational Therapy (5) Chronic back pain: naproxen and gabapentin (6) DVT prophylaxis: sc heparin (7) Conjunctivitis: Patient is on oral Cipro Admission and Anticipated Discharge Date Admission Date: April 01, 2020 Subjective Patient is incoherent. Patient is unable to provide complaints. Review of Systems Review of Systems: Unobtainable due to cognitive status Physical Exam Physical Exam: The patient appeared older than his stated age. Patient is punching the air. Vital signs as documented. Head exam is normocephalic atraumatic no scleral icterus Neck is without JVD, thyromegaly, or carotid bruits. Lungs: patient does not allow me to auscultate Cardiac exam, RR on moniotr, not allowing me to auscultate Abdominal exam: soft, nontender Extremities are nonedematous and abrasions on his elbows and knees Neurologic exam is alert speech is garbled, re directable follows commands Skin is with abrasions particularly left elbow Psychologically is able to be assessed as he is in alcohol withdrawal at this time Results & Data Results & Data ([facility]) Vital Signs (Past 12 Hours) Vital Signs Temp Pulse Pulse Resp BP BP Pulse Ox 08/04/20 07:31 156/81 H 04/06/20 07:16 36.8 C 89 20 167/147 H 176/101 H 95 04/06/20 05:23 89 04/06/20 04:03 36.9 C 78 20 160/91 H 95 04/05/20 23:15 36.8 C 70 18 113/74 96 04/05/20 23:00 Pulse Ox 04/06/20 07:31 04/06/20 07:16 04/06/20 05:23 04/06/20 04:03 04/05/20 23:15 04/05/20 23:00 96 PG Care Time/CCT Total # of Minutes Spent Total Time Spent with Patient: Total time spent is greater than 50% in coordination of care (as documented) at patient's floor/unit and/or counseling patient: Coding Level of Care Code 28844 Subseq Hosp Care Lvl 3 Diagnoses Alcohol abuse F10.10 COPD (chronic obstructive pulmonary disease) J44.9 Hypertension I10 Hypertension type: essential hypertension Depression F32.9 Chronic back pain M54.5; G89.29 Back pain location: low back pain Back pain laterality: unspecified Sciatica presence: unspecified whether sciatica present DVT prophylaxis Z29.9 Conjunctivitis H10.9 Time Spent (min) 35 (1) Hypertension Hypertension type: essential hypertension Qualified Code(s): I10 - Essential (primary) hypertension (2) Chronic back pain Back pain location: low back pain Back pain laterality: unspecified Sciatica presence: unspecified whether sciatica present Qualified Code(s): M54.5 - Low back pain; G89.29 - Other chronic pain
--- NOTE | 2020-04-06 12:40 | Psychiatric Consultation ---
Date of Consultation April 06, 2020 Impression / Recommendations Impression Dr. Nadia Mckoy was directly involved in review and discussion of the patient's case and participated in medical decision making regarding treatment recommendations. RECOMMENDATIONS: 04/06 - Psychiatric consultation requested to evaluate patient for history of schizophrenia, medication refusal, and alcohol withdrawal. - Pt is unable to participate in productive interview and based on observation appears to be delirious. Review of chart, vital signs, and collateral obtained from patient's daughter suggests patient is likely still going through alcohol withdrawal, and may even be experiencing delirium tremens. Suggest resuming active AWSS protocol and initiating gabapentin taper which can then be tapered as directed to his current dose. This recommendation was relayed to attending physician via [employer] message. - Recommend continuing aripiprazole, but holding benztropine until mental status improves and holding bupropion until patient is through active withdrawal given compounded concern for seizure in the setting of alcohol withdrawal. - Collateral obtained from patient's daughter, who reports patient likely drinks significantly more than he initially disclosed. Daughter states the patient's current presentation is consistent with episodes of alcohol withdrawal in the past and is not consistent with his history of schizophrenia. Will continue to coordinate with daughter as able. - Please reach out with any additional questions or updates. Psych History Identifying Data 64-year-old male admitted medically on 04/01/2020 after presenting to the ED with weakness and recent falls. Pt was initially started on AWSS protocol due to concern for alcohol withdrawal - last drink was 03/29 per patient reports. Psychiatric consultation was requested to evaluate patient for reported history of schizophrenia, patient refusing medications, and alcohol withdrawal. Chief Complaint [Pt only offering incoherent mumbling during interview]. History of Present Illness Jose Raul Maradiaga is a 64-year-old male admitted medically on 04/01/2020 after presenting to the ED for weakness and falls. It was reported that a friend had called EMS after checking on the patient and realizing his poor condition. Pt admitted earlier in his stay that he had been drinking alcohol excessively and was struggling with grieving the loss of his . PMH is significant for HTN, HLD, COPD, pancytopenia, generalized weakness, history of alcohol abuse, and reported diagnosis of schizophrenia. Pt had reported his last drink was on 03/29, but that prior to that he had been drinking 12 cans a beer a day. Collateral from daughter suggests his recent alcohol use has been more excessive than this. AWSS protocol was started on admission, but was discontinued on 04/03/2020. It is reported that the patient has been intermittently agitated, confused, and occasionally combative. He has intermittently refused or spit out medications. Psychiatric consultation was requested to evaluate patient for re ported diagnosis of schizophrenia, medication refusal, and alcohol withdrawal. Pt was seen initially by our psychiatric nurse liaison, who reported the patient was actively hallucinating during her attempted visit. He appeared to be reaching into the air and bringing his hand to his mouth as if feeding himself. Pt's daughter was reportedly present in the room, and she reportedly stated the patient's presentation was consistent with his history of alcohol withdrawal, not with diagnosis of schizophrenia. She clearly indicates that the patient's behavior at this time is not baseline and that his alcohol use was likely more excessive than patient originally stated. See remainder of psychiatric nurse liaison note for collateral. During this provider's assessment, the patient was unable to participate in conversation. He is incoherent and is not oriented. Pt was observed to be staring at the ceiling and appeared to be picking items from the air above him. Pt does not respond to questions asked by this provider. At one point, the patient does start mumbling incoherently but does not participate in any productive conversation. Past Psychiatric History Current Psychiatric Diagnosis: Schizophrenia, per previous visit notes Allergies Allergy/AdvReac Type Severity Reaction Status Date / Time No Known Allergies Allergy Verified 04/01/20 18:31 Home Medications Home Medications Medication Instructions Recorded Confirmed Type umeclidinium 62.5 mcg/actuation 1 inh INHALATION DAILY #30 ea 05/09/19 04/01/20 Rx blister powder for inhalation benztropine 2 mg tablet 2 mg PO QAM 07/22/19 04/01/20 History azelastine 137 mcg (0.1 %) nasal 1 spray INTNAS BID 09/24/19 04/01/20 History spray aerosol bupropion HCl 100 mg tablet 100 mg PO QAM 09/24/19 04/01/20 History trazodone 100 mg tablet 200 mg PO HS 09/24/19 04/01/20 History aripiprazole 30 mg tablet 30 mg PO DAILY 11/25/19 04/01/20 History gabapentin 300 mg capsule 300 mg PO TID #90 cap 12/03/19 04/01/20 Rx simvastatin 40 mg tablet 40 mg PO HS #90 tab 01/27/20 04/01/20 Rx lisinopril 20 mg tablet 20 mg PO DAILY #30 tab 02/10/20 04/01/20 Rx ipratropium bromide 0.03 % nasal 2 spray INTNAS BID #30 ml 02/16/20 04/01/20 Rx spray naproxen 500 mg tablet 500 mg PO TID tab 02/17/20 04/01/20 History Substance Abuse History H&P reports patient admitted to consuming 12 cans of beer a day. Daughter is concerned patient's alcohol use has been much more significant and includes excessive liquor consumption as well. Pt has numerous previous ED visits for alcohol intoxication. Personal History Living Arrangements: Home Marital Status: Number Of Children: at least one adult daughter Psychological Trauma History Comment: reportedly recently Patient History Medical History Acute kidney injury Alcohol abuse Bronchitis hx Choledocholithiasis Chronic back pain Chronic obstructive pulmonary disease Depression Hip fracture, left (2017) Hyperlipidemia Hypertension Osteoarthritis Schizophrenia Thrombocytopenia Surgical History History of colonoscopy History of hip replacement (2017) LEFT History of tooth extraction S/P ERCP Family History Brother Family history of diabetes mellitus Social History Smoking Status: Current every day smoker Cigarettes Per Day: 1PPD; Second Hand Exposure: No; Hx Alcohol Use: Yes (n/a pt aox1) Alcohol type: beer and hard liquor Hx Substance Use: No Preferred Language: [place] Communication Ability: Unable Pharmaceutical Sales Representative Required: No Beliefs That Will Affect Care: None marital status: Single Current Living Situation: Alone How many Children do You have: 1 Physical Exam Psychiatric: Orientation: + not alert (awake, but not alert or aware of surroundings) and + not oriented x 3 Apperance: appropriately dressed and + disheveled; + inappropriately groomed male, laying in bed appearing uncomfortable but not in acute distress. Pt is awake but does not seem to be aware of surroundings. He stares at the ceiling, moving his hands and arms as if picking things out of the air. He is appropriately dressed in a hospital gown, but level of hygiene and grooming are inadequate. Pt is malodorous and edentulous. Eye Contact: + poor eye contact (only staring at the ceiling) Motor Behavior: + psychomotor agitation and + tremor; + abnormal motor movements Pt appears restless but also with constricted motor movements. Intermittent fidgeting of arms and legs. Tremors observed in hands/arms bilaterally. Pt making movements as if picking things out of the air above him. Speech: + abnormal rate/rhythm/volume of speech (incoherent mumbling) Affect: + constricted affect Insight: + severely impaired insight Judgement: + severely impaired judgement Vital Signs (Past 24 Hours): Last Vital Signs Temp 36.3 C L 04/06/20 12:00 Pulse 97 H 04/06/20 12:00 Resp 16 04/06/20 12:00 BP 169/94 H 04/06/20 12:00 Pulse Ox 96 04/06/20 12:00 Review of Systems Pt is unable to participate in interview at this time due to level of disorientation. He is not able to verbalize any physical complaint. Results & Data ([facility]) Medications Administered Aripiprazole (Abilify) 30 mg PO DAILY [facility] Stop: 05/02/20 08:59 Last Admin: 04/06/20 10:35 Dose: 30 mg Documented by: [id number] Admin: 04/06/20 08:50 Dose: Not Given Documented by: [id number] Admin: 04/05/20 08:22 Dose: 30 mg Documented by: [id number] Admin: 04/04/20 09:09 Dose: 30 mg Documented by: [id number] Admin: 04/03/20 11:28 Dose: Not Given Documented by: [id number] Admin: 04/02/20 09:30 Dose: Not Given Documented by: [id number] Benztropine Mesylate (Cogentin) 2 mg PO QAM [facility] Stop: 05/02/20 08:59 Last Admin: 04/06/20 10:35 Dose: 2 mg Documented by: [id number] Admin: 04/06/20 08:50 Dose: Not Given Documented by: [id number] Admin: 04/05/20 08:23 Dose: 2 mg Documented by: [id number] Admin: 04/04/20 09:07 Dose: 2 mg Documented by: [id number] Admin: 04/03/20 11:28 Dose: Not Given Documented by: [id number] Admin: 04/02/20 09:30 Dose: Not Given Documented by: [id number] Bupropion HCl (Wellbutrin) 100 mg PO QAM [facility] Stop: 05/02/20 08:59 Last Admin: 04/06/20 08:51 Dose: Not Given Documented by: [id number] Admin: 04/05/20 08:22 Dose: 100 mg Documented by: [id number] Admin: 04/04/20 09:09 Dose: 100 mg Documented by: [id number] Admin: 04/03/20 11:29 Dose: Not Given Documented by: [id number] Admin: 04/02/20 09:30 Dose: Not Given Documented by: [id number] Ciprofloxacin/Dexamethasone (Ciprodex Otic) 4 drops OT BID [facility] Stop: 05/04/20 08:59 Last Admin: 04/06/20 09:15 Dose: 4 drops Documented by: [id number] Admin: 04/05/20 20:03 Dose: 4 drops Documented by: [id number] Admin: 04/05/20 08:23 Dose: 4 drops Documented by: [id number] Admin: 04/04/20 20:48 Dose: 4 drops Documented by: [id number] Admin: 04/04/20 09:06 Dose: 4 drops Documented by: [id number] Doxycycline Hyclate (Vibramycin) 100 mg PO BID [facility] Stop: 04/11/20 20:59 Last Admin: 04/06/20 10:36 Dose: 100 mg Documented by: [id number] Admin: 04/06/20 08:50 Dose: Not Given Documented by: [id number] Admin: 04/05/20 20:04 Dose: 100 mg Documented by: [id number] Admin: 04/05/20 08:22 Dose: 100 mg Documented by: [id number] Admin: 04/04/20 21:31 Dose: Not Given Documented by: [id number] Folic Acid (Folvite) 1 mg PO QAM [facility] Stop: 05/01/20 23:32 Last Admin: 04/06/20 08:50 Dose: Not Given Documented by: [id number] Admin: 04/05/20 08:22 Dose: 1 mg Documented by: [id number] Admin: 04/04/20 09:08 Dose: 1 mg Documented by: [id number] Admin: 04/03/20 11:28 Dose: Not Given Documented by: [id number] Admin: 04/02/20 09:30 Dose: Not Given Documented by: [id number] Admin: 04/02/20 01:32 Dose: Not Given Documented by: [id number] Gabapentin (Neurontin) 600 mg PO BID [facility] Stop: 05/05/20 20:59 Last Admin: 04/06/20 10:34 Dose: 600 mg Documented by: [id number] Admin: 04/06/20 08:50 Dose: Not Given Documented by: [id number] Admin: 04/05/20 20:01 Dose: 600 mg Documented by: [id number] Lorazepam (Ativan) 0.5 mg in 1 mls @ 1 mls/min IV Q4H PRN PRN Reason: Agitation Stop: 05/03/20 16:55 Last Admin: 04/06/20 09:50 Dose: 1 mls/min Documented by: [id number] Admin: 04/06/20 07:19 Dose: 1 mls/min Documented by: [id number] Admin: 04/05/20 23:22 Dose: 1 mls/min Documented by: [id number] Admin: 04/04/20 03:35 Dose: 1 mls/min Documented by: [id number] Lisinopril (Zestril) 20 mg PO DAILY [facility] Stop: 05/02/20 08:59 Last Admin: 04/06/20 10:36 Dose: 20 mg Documented by: [id number] Admin: 04/06/20 08:51 Dose: Not Given Documented by: [id number] Admin: 04/05/20 08:22 Dose: 20 mg Documented by: [id number] Admin: 04/04/20 09:07 Dose: 20 mg Documented by: [id number] Admin: 04/03/20 11:29 Dose: Not Given Documented by: [id number] Admin: 04/02/20 09:30 Dose: Not Given Documented by: [id number] Multivitamins (Multivitamin Tab) 1 tab PO QAM [facility] Stop: 05/02/20 08:59 Last Admin: 04/06/20 08:50 Dose: Not Given Documented by: [id number] Admin: 04/05/20 08:22 Dose: 1 tab Documented by: [id number] Admin: 04/04/20 09:07 Dose: 1 tab Documented by: [id number] Admin: 04/03/20 11:28 Dose: Not Given Documented by: [id number] Admin: 04/02/20 09:30 Dose: Not Given Documented by: [id number] Naproxen (Naprosyn) 500 mg PO TID [facility] Stop: 05/01/20 23:32 Last Admin: 04/06/20 10:35 Dose: 500 mg Documented by: [id number] Admin: 04/06/20 08:50 Dose: Not Given Documented by: [id number] Admin: 04/05/20 20:03 Dose: 500 mg Documented by: [id number] Admin: 04/05/20 13:00 Dose: 500 mg Documented by: [id number] Admin: 04/05/20 08:23 Dose: 500 mg Documented by: [id number] Admin: 04/04/20 21:30 Dose: Not Given Documented by: [id number] Admin: 04/04/20 14:36 Dose: Not Given Documented by: [id number] Admin: 04/04/20 09:10 Dose: 500 mg Documented by: [id number] Admin: 04/03/20 20:43 Dose: 500 mg Documented by: [id number] Admin: 04/03/20 14:19 Dose: Not Given Documented by: [id number] Admin: 04/03/20 11:29 Dose: Not Given Documented by: [id number] Admin: 04/02/20 21:01 Dose: Not Given Documented by: [id number] Admin: 04/02/20 14:47 Dose: Not Given Documented by: [id number] Admin: 04/02/20 09:30 Dose: Not Given Documented by: [id number] Admin: 04/02/20 01:32 Dose: Not Given Documented by: [id number] Simvastatin (Zocor) 40 mg PO HS [facility] Stop: 05/01/20 23:32 Last Admin: 04/05/20 20:04 Dose: 40 mg Documented by: [id number] Admin: 04/04/20 21:31 Dose: Not Given Documented by: [id number] Admin: 04/03/20 20:44 Dose: 40 mg Documented by: [id number] Admin: 04/02/20 21:02 Dose: Not Given Documented by: [id number] Admin: 04/02/20 01:32 Dose: Not Given Documented by: [id number] Thiamine HCl (Vitamin B-1) 100 mg PO QAM [facility] Stop: 05/01/20 23:32 Last Admin: 04/06/20 08:51 Dose: Not Given Documented by: [id number] Admin: 04/05/20 08:23 Dose: 100 mg Documented by: [id number] Admin: 04/04/20 09:11 Dose: 100 mg Documented by: [id number] Admin: 04/03/20 11:29 Dose: Not Given Documented by: [id number] Admin: 04/02/20 09:30 Dose: Not Given Documented by: [id number] Admin: 04/02/20 01:32 Dose: Not Given Documented by: [id number] Trazodone HCl (Desyrel) 100 mg PO HS [facility] Stop: 05/02/20 20:59 Last Admin: 04/05/20 20:03 Dose: 100 mg Documented by: [id number] Admin: 04/04/20 21:29 Dose: Not Given Documented by: [id number] Admin: 04/03/20 20:43 Dose: 100 mg Documented by: [id number] Admin: 04/02/20 21:01 Dose: Not Given Documented by: [id number] Umeclidinium [place] (Incruse Ellipta) 1 puffs INH DAILY [facility] Stop: 05/02/20 08:59 Last Admin: 04/06/20 08:50 Dose: Not Given Documented by: [id number] Admin: 04/05/20 08:23 Dose: 1 puffs Documented by: [id number] Admin: 04/04/20 09:08 Dose: 1 puffs Documented by: [id number] Admin: 04/03/20 11:28 Dose: Not Given Documented by: [id number] Admin: 04/02/20 09:30 Dose: Not Given Documented by: [id number] Coding Level of Care Code 12672 U Intl Hosp Care Lvl 1
[2020-04-06] MEDS: LORazepam 1 MG/2 ML VIAL IV PRN ×2 (14:27→20:29)
[2020-04-06] MEDS: TRAZODONE HCL 100 MG TAB PO SCH (20:34)
[2020-04-06] MEDS: SIMVASTATIN 40 MG TAB PO SCH (20:35)
[2020-04-07] MEDS: LORazepam 1 MG/2 ML VIAL IV PRN ×2 (00:28→19:30)
[2020-04-07 07:34] LABS: Hematocrit (blood only) 38.7 % (42-52); Hemoglobin 13.4 g/dL (14.0-18.0); Mean Corpuscular Hemoglobin 32.8 pg (25-34); Mean Corpuscular Hgb Conc 34.6 g/dL (32-36); Mean Corpuscular Volume 94.6 fL (80-100); Mean Platelet Volume 10.4 fL (7.4-10.4); Platelet Count 230 K/uL (130-400); RDW Coefficient of Variation 15.4 % (11.5-14.5); RDW Standard Deviation 53.2 fL (36.4-46.3); Red Blood Count 4.09 M/uL (4.7-6.1); White Blood Count 4.59 K/uL (4.8-10.8)
[2020-04-07 08:05] LABS: BUN Creatinine Ratio 17.2 (10-20); Calcium 9.2 mg/dl (8.5-10.1); Creatinine Clr Calc Pharmacy 114.4 ml/min; Est GFR (African American) 129.7; Est GFR (Non-African American) 111.9; Potassium 4.2 mmol/L (3.5-5.1)
[2020-04-07] MEDS: CIPRO 0.3%/DEXAMETHASONE 0.1% OTIC SUSP 7.5ML OT SCH ×2 (09:12→20:08)
[2020-04-07] MEDS: ARIPiprazole 15 MG TAB PO SCH (09:13)
[2020-04-07] MEDS: MULTIVITAMIN TAB PO SCH (09:13)
[2020-04-07] MEDS: FOLIC ACID 1 MG TAB PO SCH (09:13)
[2020-04-07] MEDS: NAPROXEN 250 MG TAB PO SCH ×3 (09:13→19:59)
[2020-04-07] MEDS: DOXYCYCLINE HYCLATE 100 MG CAP PO SCH ×2 (09:13→19:59)
[2020-04-07] MEDS: UMECLIDINIUM BROMIDE 62.5MCG/BLISTER 7 PUFFS/INHALER INH SCH (09:13)
[2020-04-07] MEDS: GABAPENTIN 600 MG TAB PO SCH ×2 (09:13→19:59)
[2020-04-07] MEDS: THIAMINE HCL 100 MG TAB PO SCH (09:13)
[2020-04-07] MEDS: lisinopriL 20 MG TAB PO SCH (09:14)
[2020-04-07] MEDS ORDERED: PIPERACILL/TAZOBAC CONSULT ACTIVE PRN (11:08)
[2020-04-07] MEDS ORDERED: SODIUM CHLORIDE 0.9% 500 ML IV SCH (11:15)
[2020-04-07] MEDS ORDERED: PIPERACILLIN/TAZOBACTAM 3.375 GM in DEXTROSE 5% 100 ML IV ONE (11:30)
--- NOTE | 2020-04-07 11:38 | XRay Report ---
XR chest 1V portable CLINICAL HISTORY: aspiration dyspnea COMPARISON STUDY: 04/04/2020 FINDINGS: . The interstitial prominence of the right lung bases show near complete resolution. Lungs currently are considered clear. There are several old left-sided rib fractures unchanged. Diaphragms are smooth. IMPRESSION: Improved exam with the lungs now considered clear. ACT 112: Negative or not required by law. The above report was generated using voice recognition software. It may contain grammatical, syntax or spelling errors. Electronically signed by: Ward Werner M.D. 04/07/2020 11:36 AM
[2020-04-07] MEDS: SODIUM CHLORIDE 0.9% 1000ML 1,000 ML IV SCH ×2 (11:43→20:07)
--- NOTE | 2020-04-07 12:50 | Hospitalist Progress Note ---
Date of Service April 07, 2020 Assessment & Plan (1) Alcohol abuse: pt admitted with falls and concerns for alcohol withdrawal, previously on gabapentin for other issues, 04/03/2020 AWSS stopped and continues on ativan prn and gabapentin, Gabapentin dosage has been down titrated this admission. Poor oral intake. He remains delirious and lethargic. He is not eating much and not taking oral medications Encephalopathy is likely multifactorial, from alcohol withdrawal, wernicke encephalopathy and schizophrenia. He has not bee taking his meds for schizophrenia. 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 (2) COPD (chronic obstructive pulmonary disease): continues albuterol and umeclidinium (3) Hypertension: contriolled with lisinopril (4) Depression: aripiprazole, buproprion, trazadone Pt has neuroloeptic induced parkinsonism. Benztropine is on hold Physical therapy and Occupational Therapy (5) Chronic back pain: naproxen and gabapentin (6) DVT prophylaxis: sc heparin (7) Conjunctivitis: Patient is on Cipro eyedrops (8) Aspiration into lower respiratory tract: Chest x-ray today. Start Zosyn therapy. IV fluids. N.p.o. until more alert Admission and Anticipated Discharge Date Admission Date: April 01, 2020 Subjective The patient is lethargic and delirious. He is not eating much. He appears to be volume depleted. IV fluids have been started. He has scattered rhonchi bilaterally. Zosyn started and chest x-ray will be obtained. He needs continued support. Review of Systems Review of Systems: The patient is unable to answer any review of systems questions Physical Exam Physical Exam: General-lethargic. Nonverbal HEENT-head atraumatic and normocephalic, pupils equal and reactive to light, extraocular muscles intact. Dry mucous membranes Neck-no lymphadenopathy or thyromegaly, trachea midline Chest-scattered bilateral rhonchi. No wheezing Cardiac-regular rate and rhythm, normal S1 and S2, no murmurs Abdomen-normal bowel sounds, no hepatosplenomegaly Extremities-no cyanosis, clubbing, or edema Neuro-moves all extremities randomly. He is lethargic and delirious. No apparent focal deficits Psych-lethargic Results & Data Results & Data ([facility]) Vital Signs (Past 12 Hours) Vital Signs Temp Pulse Pulse Resp BP Pulse Ox 04/07/20 11:14 36.6 C 78 20 147/72 H 94 04/07/20 07:13 84 04/07/20 07:00 36 C L 101 H 20 118/52 L 94 04/07/20 04:19 84 20 181/63 H 96 Laboratory Results Laboratory Results WBC 4.59 K/uL (4.8-10.8) L 04/07/20 07:18 RBC 4.09 M/uL (4.7-6.1) L 04/07/20 07:18 Hgb 13.4 g/dL (14.0-18.0) L 04/07/20 07:18 Hct 38.7 % (42-52) L 04/07/20 07:18 MCV 94.6 fL (80-100) 04/07/20 07:18 MCH 32.8 pg (25-34) 04/07/20 07:18 MCHC 34.6 g/dL (32-36) 04/07/20 07:18 RDW Std Deviation 53.2 fL (36.4-46.3) H 04/07/20 07:18 RDW Coeff of Harley 15.4 % (11.5-14.5) H 04/07/20 07:18 Plt Count 230 K/uL (130-400) 04/07/20 07:18 MPV 10.4 fL (7.4-10.4) 04/07/20 07:18 Immature Gran % (Auto) 0.5 % 04/02/20 07:40 Neut % (Auto) 62.3 % 04/02/20 07:40 Lymph % (Auto) 21.9 % 04/02/20 07:40 Worth % (Auto) 14.2 % 04/02/20 07:40 Eos % (Auto) 0.8 % 04/02/20 07:40 Baso % (Auto) 0.3 % 04/02/20 07:40 Neut # (Auto) 2.27 K/uL (1.4-6.5) 04/02/20 07:40 Lymph # (Auto) 0.80 K/uL (1.2-3.4) L 04/02/20 07:40 Worth # (Auto) 0.52 K/uL (0.11-0.59) 04/02/20 07:40 Eos # (Auto) 0.03 K/uL (0-0.5) 04/02/20 07:40 Baso # (Auto) 0.01 K/uL (0-0.2) 04/02/20 07:40 Immature Gran # (Auto) 0.02 K/uL (0.00-0.02) 04/02/20 07:40 Pappenheimer Bodies Occasional 04/02/20 07:40 [place] Bodies 1+ 04/01/20 17:38 PT 10.5 Seconds (9.0-12.0) 04/02/20 07:39 INR 1.0 (0.9-1.1) 04/02/20 07:39 Sodium 135 mmol/L (136-145) L 04/07/20 07:18 Potassium 4.2 mmol/L (3.5-5.1) D 04/07/20 07:18 Chloride 103 mmol/L (98-107) 04/07/20 07:18 Carbon Dioxide 24 mmol/L (21-32) 04/07/20 07:18 Anion Gap 8.0 (3-11) 04/07/20 07:18 BUN 9 mg/dl (7-18) 04/07/20 07:18 Creatinine 0.52 mg/dl (0.6-1.4) L 04/07/20 07:18 Est Cr Clr Drug Dosing 114.4 ml/min 04/07/20 07:18 Est GFR ( Amer) 129.7 04/07/20 07:18 Est GFR (Non-Af Amer) 111.9 04/07/20 07:18 BUN/Creatinine Ratio 17.2 (10-20) 04/07/20 07:18 Glucose 63 mg/dl (70-99) L 04/07/20 07:18 Calcium 9.2 mg/dl (8.5-10.1) 04/07/20 07:18 Magnesium 2.0 mg/dl (1.8-2.4) 04/02/20 07:39 Total Bilirubin 1.3 mg/dl (0.2-1) H 04/02/20 07:39 AST 102 U/L (15-37) H 04/02/20 07:39 ALT 89 U/L (12-78) H 04/02/20 07:39 Alkaline Phosphatase 117 U/L (45-117) 04/02/20 07:39 Ammonia 21.2 umol/L (11-32) 04/02/20 07:40 Troponin I < 0.015 ng/ml (0-0.045) 04/01/20 17:38 Total Protein 6.7 gm/dl (6.4-8.2) 04/02/20 07:39 Albumin 3.2 gm/dl (3.4-5.0) L 04/02/20 07:39 Globulin 3.5 gm/dl (2.5-4.0) 04/02/20 07:39 Albumin/Globulin Ratio 0.9 (0.9-2) 04/02/20 07:39 Vitamin B12 846 pg/ml (211-911) 04/02/20 07:39 Folate 14.48 ng/ml (>5.38) 04/02/20 07:39 TSH 1.660 uIu/ml (0.300-4.500) 04/01/20 17:38 Urine Color Yellow 04/02/20 01:05 Urine Appearance Clear (Clear) 04/02/20 01:05 Urine pH 7.5 (4.5-7.5) 04/02/20 01:05 Ur Specific [place] 1.009 (1.000-1.030) 04/02/20 01:05 Urine Protein Negative (Negative) 04/02/20 01:05 Urine Glucose (UA) Negative (Negative) 04/02/20 01:05 Urine Ketones Negative (Negative) 04/02/20 01:05 Urine Blood Trace (Negative) H 04/02/20 01:05 Urine Nitrite Negative (Negative) 04/02/20 01:05 Urine Bilirubin Negative (Negative) 04/02/20 01:05 Urine Urobilinogen Negative (Negative) 04/02/20 01:05 Ur Leukocyte Esterase Negative (Negative) 04/02/20 01:05 Urine WBC (Auto) 1-5 /hpf (0-5) 04/02/20 01:05 Urine RBC (Auto) 0-4 /hpf (0-4) 04/02/20 01:05 U Hyaline Cast (Auto) 1-5 /lpf (0-5) 04/02/20 01:05 U Epithel Cells (Auto) 5-10 /lpf (0-5) H 04/02/20 01:05 Urine Bacteria (Auto) Negative (Negative) 04/02/20 01:05 Ethyl Alcohol mg/dL < 3.0 mg/dl (0-3) 04/01/20 17:38 PG Care Time/CCT Total # of Minutes Spent Total Time Spent with Patient: Total time spent is greater than 50% in coordination of care (as documented) at patient's floor/unit and/or counseling patient: Coding Level of Care Code 09940 Subseq Hosp Care Lvl 3 Diagnoses Alcohol abuse F10.10 COPD (chronic obstructive pulmonary disease) J44.9 Hypertension I10 Hypertension type: essential hypertension Depression F32.9 Chronic back pain M54.5; G89.29 Back pain location: low back pain Back pain laterality: unspecified Sciatica presence: unspecified whether sciatica present DVT prophylaxis Z29.9 Conjunctivitis H10.9 Aspiration into lower respiratory tract T17.800A (1) Hypertension Hypertension type: essential hypertension Qualified Code(s): I10 - Essential (primary) hypertension (2) Chronic back pain Back pain location: low back pain Back pain laterality: unspecified Sciatica presence: unspecified whether sciatica present Qualified Code(s): M54.5 - Low back pain; G89.29 - Other chronic pain
[2020-04-07] MEDS: PIPERACILLIN/TAZOBACTAM 3.375 GM in DEXTROSE 5% 100 ML IV SCH (18:28)
[2020-04-07] MEDS: TRAZODONE HCL 100 MG TAB PO SCH (19:59)
[2020-04-07] MEDS: SIMVASTATIN 40 MG TAB PO SCH (19:59)
[2020-04-07] MEDS ORDERED: LORazepam 1 MG/2 ML VIAL IV PRN (22:15)
[2020-04-07] MEDS ORDERED: LORazepam 3 MG/6 ML VIAL IV PRN (22:15)
[2020-04-07] MEDS ORDERED: ATIVAN IV ALCOHOL WITHDRAWL IV PRN (22:15)
[2020-04-07] MEDS ORDERED: LORazepam 2 MG/4 ML VIAL IV PRN (22:15)
[2020-04-08] MEDS: PIPERACILLIN/TAZOBACTAM 3.375 GM in DEXTROSE 5% 100 ML IV SCH ×3 (01:14→17:48)
[2020-04-08] MEDS: SODIUM CHLORIDE 0.9% 1000ML 1,000 ML IV SCH ×3 (03:17→19:00)
[2020-04-08 06:22] LABS: BUN Creatinine Ratio 11.3 (10-20); Calcium 8.5 mg/dl (8.5-10.1); Creatinine Clr Calc Pharmacy 112.6 ml/min; Est GFR (African American) 128.7; Potassium 3.6 mmol/L (3.5-5.1)
[2020-04-08] MEDS: UMECLIDINIUM BROMIDE 62.5MCG/BLISTER 7 PUFFS/INHALER INH SCH (08:38)
[2020-04-08] MEDS: MULTIVITAMIN TAB PO SCH (08:38)
[2020-04-08] MEDS: lisinopriL 20 MG TAB PO SCH (08:38)
[2020-04-08] MEDS: DOXYCYCLINE HYCLATE 100 MG CAP PO SCH ×2 (08:38→20:28)
[2020-04-08] MEDS: NAPROXEN 250 MG TAB PO SCH ×3 (08:39→20:28)
[2020-04-08] MEDS: GABAPENTIN 600 MG TAB PO SCH ×2 (08:39→20:28)
[2020-04-08] MEDS: FOLIC ACID 1 MG TAB PO SCH (08:39)
[2020-04-08] MEDS: CIPRO 0.3%/DEXAMETHASONE 0.1% OTIC SUSP 7.5ML OT SCH ×2 (08:40→20:27)
[2020-04-08] MEDS: THIAMINE HCL 100 MG TAB PO SCH (08:40)
[2020-04-08] MEDS: ARIPiprazole 15 MG TAB PO SCH (08:40)
[2020-04-08] MEDS: NICOTINE 14 MG/24 HR PATCH TD SCH (11:22)
--- NOTE | 2020-04-08 12:25 | Hospitalist Progress Note ---
Date of Service April 08, 2020 Assessment & Plan (1) Alcohol abuse: pt admitted with falls and alcohol withdrawal 04/03/2020 AWSS stopped. Scheduled Librium dosing started today. Gabapentin dosage has been down titrated this admission. He is now alert and regular diet ordered. Encephalopathy is likely multifactorial, from alcohol withdrawal, wernicke encephalopathy and schizophrenia. He has not bee taking his meds for schizophrenia. 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 (2) COPD (chronic obstructive pulmonary disease): continues albuterol and umeclidinium (3) Hypertension: contriolled with lisinopril (4) Depression: aripiprazole, buproprion, trazadone Pt has neuroloeptic induced parkinsonism. Benztropine is on hold Physical therapy and Occupational Therapy (5) Chronic back pain: naproxen and gabapentin (6) DVT prophylaxis: sc heparin (7) Conjunctivitis: Patient is on Cipro eyedrops (8) Aspiration into lower respiratory tract: Chest x-ray 04/07 noted. Continue Zosyn therapy, day 2. IV fluids taper down. Now on regular diet Admission and Anticipated Discharge Date Admission Date: April 01, 2020 Subjective The patient is now awake and talkative. Somewhat test test test The patient is now alert but somewhat anxious and mildly tremulous. Librium will be started but held if he develops lethargy. He admits to having visual and auditory hallucinations but he states he always hears things. He is asking for a cigarette and a beer. Regular diet has been started and IV fluids taper down. OT and PT assessments requested. Review of Systems Review of Systems: Constitutional-no fever or chills ENT-no blurred vision, no double vision, no epistaxis, no sore throat Respiratory-no cough, no wheezing, no shortness of breath Cardiac-no palpitations, no chest pain, no syncope GI-no nausea, vomiting, diarrhea, melena, hematochezia -no urinary retention, no urinary incontinence, no dysuria, no hematuria Musculoskeletal-no joint pain, no muscle tenderness Skin-no bruising, no rashes, no pruritus Neuro-mild resting tremor. No apparent focal deficits Psych-appears anxious Physical Exam Physical Exam: General-awake and alert. Anxious HEENT-head atraumatic and normocephalic, pupils equal and reactive to light, extraocular muscles intact. Neck-no lymphadenopathy or thyromegaly, trachea midline Chest-scattered bilateral rhonchi have improved considerably from yesterday. No wheezing Cardiac-regular rate and rhythm, normal S1 and S2, no murmurs Abdomen-normal bowel sounds, no hepatosplenomegaly Extremities-no cyanosis, clubbing, or edema Neuro-no focal deficits. Mild resting tremor. Alert. Psych-appears anxious Results & Data Results & Data ([facility]) Vital Signs (Past 12 Hours) Vital Signs Temp Pulse Pulse Resp BP Pulse Ox 04/08/20 11:27 37.2 C 81 18 158/81 H 98 04/08/20 07:16 61 04/08/20 07:15 36.4 C L 79 20 189/93 H 98 04/08/20 03:20 37 C 71 20 180/91 H 96 Laboratory Results 04/07/20 07:18 04/08/20 05:31 PG Care Time/CCT Total # of Minutes Spent Total Time Spent with Patient: Total time spent is greater than 50% in coordination of care (as documented) at patient's floor/unit and/or counseling patient: Coding Level of Care Code 20198 Subseq Hosp Care Lvl 3 Diagnoses Alcohol abuse F10.10 COPD (chronic obstructive pulmonary disease) J44.9 Hypertension I10 Hypertension type: essential hypertension Depression F32.9 Chronic back pain M54.5; G89.29 Back pain location: low back pain Back pain laterality: unspecified Sciatica presence: unspecified whether sciatica present DVT prophylaxis Z29.9 Conjunctivitis H10.9 Aspiration into lower respiratory tract T17.800A (1) Hypertension Hypertension type: essential hypertension Qualified Code(s): I10 - Essential (primary) hypertension (2) Chronic back pain Back pain location: low back pain Back pain laterality: unspecified Sciatica presence: unspecified whether sciatica present Qualified Code(s): M54.5 - Low back pain; G89.29 - Other chronic pain
[2020-04-08] MEDS: chlordiazePOXIDE HCl 25 MG CAP PO SCH ×3 (14:40→20:28)
[2020-04-08] MEDS: SIMVASTATIN 40 MG TAB PO SCH (20:28)
[2020-04-08] MEDS: TRAZODONE HCL 100 MG TAB PO SCH (20:28)
[2020-04-09] MEDS: PIPERACILLIN/TAZOBACTAM 3.375 GM in DEXTROSE 5% 100 ML IV SCH ×2 (02:41→15:56)
[2020-04-09 06:00] LABS: Hemoglobin 12.8 g/dL (14.0-18.0); Mean Corpuscular Hemoglobin 33.2 pg (25-34); Mean Corpuscular Hgb Conc 34.6 g/dL (32-36); Mean Corpuscular Volume 95.9 fL (80-100); Mean Platelet Volume 10.3 fL (7.4-10.4); Platelet Count 263 K/uL (130-400); RDW Coefficient of Variation 15.5 % (11.5-14.5); RDW Standard Deviation 53.8 fL (36.4-46.3); Red Blood Count 3.86 M/uL (4.7-6.1); White Blood Count 3.96 K/uL (4.8-10.8)
[2020-04-09 06:35] LABS: BUN Creatinine Ratio 11.3 (10-20); Calcium 8.2 mg/dl (8.5-10.1); Creatinine Clr Calc Pharmacy 132.6 ml/min; Est GFR (African American) 137.6; Est GFR (Non-African American) 118.8; Potassium 3.1 mmol/L (3.5-5.1)
[2020-04-09] MEDS: NICOTINE 14 MG/24 HR PATCH TD SCH (09:00)
[2020-04-09] MEDS: NAPROXEN 250 MG TAB PO SCH ×3 (09:00→19:37)
[2020-04-09] MEDS: chlordiazePOXIDE HCl 25 MG CAP PO SCH ×2 (09:00→14:00)
[2020-04-09] MEDS: GABAPENTIN 600 MG TAB PO SCH ×2 (12:00→19:37)
[2020-04-09] MEDS: THIAMINE HCL 100 MG TAB PO SCH (12:00)
[2020-04-09] MEDS: ARIPiprazole 15 MG TAB PO SCH (12:00)
[2020-04-09] MEDS: MULTIVITAMIN TAB PO SCH (12:00)
[2020-04-09] MEDS: FOLIC ACID 1 MG TAB PO SCH (12:00)
[2020-04-09] MEDS: DOXYCYCLINE HYCLATE 100 MG CAP PO SCH ×2 (12:00→19:37)
[2020-04-09] MEDS: lisinopriL 20 MG TAB PO SCH (15:39)
[2020-04-09] MEDS: CIPRO 0.3%/DEXAMETHASONE 0.1% OTIC SUSP 7.5ML OT SCH ×2 (15:42→19:36)
[2020-04-09] MEDS: UMECLIDINIUM BROMIDE 62.5MCG/BLISTER 7 PUFFS/INHALER INH SCH (15:42)
--- NOTE | 2020-04-09 18:07 | Hospitalist Progress Note ---
Date of Service April 09, 2020 Assessment & Plan (1) Alcohol abuse: pt admitted with falls and alcohol withdrawal 04/03/2020 AWSS stopped. Scheduled Librium dosing started today. Gabapentin dosage has been down titrated this admission. He is now alert and regular diet ordered. Encephalopathy is likely multifactorial, from alcohol withdrawal, wernicke encephalopathy and schizophrenia. 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 (2) COPD (chronic obstructive pulmonary disease): continues albuterol and umeclidinium (3) Hypertension: contriolled with lisinopril (4) Depression: aripiprazole, buproprion, trazadone Pt has neuroloeptic induced parkinsonism. Benztropine is on hold Physical therapy and Occupational Therapy (5) Chronic back pain: naproxen and gabapentin (6) DVT prophylaxis: sc heparin (7) Conjunctivitis: Patient is on Cipro eyedrops (8) Aspiration into lower respiratory tract: Chest x-ray 04/07 noted. Completed course of zosyn, d/c on 04/09 (9) Fall: Likely related to above PT recs for SNF, OT recs for rehab CM working on this (10) Hypokalemia: Replace and monitor Admission and Anticipated Discharge Date Admission Date: April 01, 2020 Subjective Pt is doing better overall. He tells me he did not take his AM meds or have breakfast today. Nursing states that this was because he was too drowsy. Pt states he still feels weak. He has not been OOB yet today. Pt denies fever, SOB, chest pain, abd pain, n/v/c/d, LE pain or swelling. Review of Systems Review of Systems: Pertinent positives and negatives reviewed in HPI--all others negative Physical Exam Constitutional: WD/WN, vitals as above Eyes: normal visual blood by confrontation and + anicteric sclerae Neck: normal visual inspection and trachea midline Respiratory: normal respiratory effort, lungs clear to auscultation Cardiovascular: Rate/Rhythm: regular rate and regular rhythm Gastrointestinal (Abdomen): Inspection/Auscultation: abdomen not distended Percussion/Palpation: abdomen soft; abdomen nontender Musculoskeletal: Head/Neck/Chest: normocephalic and head atraumatic negative for edema, peripheral pulses intact Skin: no rashes, warm and dry Neurologic: awake; not confused Speech / Cognition: normal speech Psychiatric: Orientation: alert and cooperative Speech: normal rate/r hythm/volume of speech; no pressured speech Affect: euthymic affect Results & Data Results & Data ([facility]) Vital Signs (Past 12 Hours) Vital Signs Temp Pulse Pulse Resp BP Pulse Ox 04/09/20 16:00 59 L 04/09/20 15:45 36.8 C 61 18 134/80 97 04/09/20 07:28 36.4 C L 58 L 16 154/73 H 97 PG Care Time/CCT Total # of Minutes Spent Total Time Spent with Patient: Total time spent is greater than 50% in coordination of care (as documented) at patient's floor/unit and/or counseling patient: Coding Level of Care Code 30701 Subseq Hosp Care Lvl 3 Diagnoses Alcohol abuse F10.10 COPD (chronic obstructive pulmonary disease) J44.9 Hypertension I10 Hypertension type: essential hypertension Depression F32.9 Chronic back pain M54.5; G89.29 Back pain location: low back pain Back pain laterality: unspecified Sciatica presence: unspecified whether sciatica present DVT prophylaxis Z29.9 Conjunctivitis H10.9 Aspiration into lower respiratory tract T17.800A Fall W19.XXXA Encounter type: initial encounter Hypokalemia E87.6 (1) Hypertension Hypertension type: essential hypertension Qualified Code(s): I10 - Essential (primary) hypertension (2) Chronic back pain Back pain location: low back pain Back pain laterality: unspecified Sciatica presence: unspecified whether sciatica present Qualified Code(s): M54.5 - Low back pain; G89.29 - Other chronic pain (3) Fall Encounter type: initial encounter Qualified Code(s): W19.XXXA - Unspecified fall, initial encounter
[2020-04-09] MEDS ORDERED: POTASSIUM PHOS 3 MMOL/1 ML INFUSION IV STA (18:08)
[2020-04-09] MEDS ORDERED: POTASSIUM PHOSPHATE 21 MMOL in SODIUM CHLORIDE 0.9% 500 ML IV ONE (18:45)
[2020-04-09] MEDS: TRAZODONE HCL 100 MG TAB PO SCH (19:37)
[2020-04-09] MEDS: SIMVASTATIN 40 MG TAB PO SCH (19:37)
[2020-04-09] MEDS: SODIUM CHLORIDE 0.9% 1000ML 1,000 ML IV SCH (21:16)
[2020-04-10] MEDS: SODIUM CHLORIDE 0.9% 1000ML 1,000 ML IV SCH ×2 (03:36→17:02)
[2020-04-10] MEDS: ARIPiprazole 15 MG TAB PO SCH (09:58)
[2020-04-10] MEDS: UMECLIDINIUM BROMIDE 62.5MCG/BLISTER 7 PUFFS/INHALER INH SCH (09:59)
[2020-04-10] MEDS: DOXYCYCLINE HYCLATE 100 MG CAP PO SCH ×2 (09:59→20:22)
[2020-04-10] MEDS: CIPRO 0.3%/DEXAMETHASONE 0.1% OTIC SUSP 7.5ML OT SCH ×2 (09:59→20:19)
[2020-04-10] MEDS: NAPROXEN 250 MG TAB PO SCH ×3 (09:59→20:20)
[2020-04-10] MEDS: MULTIVITAMIN TAB PO SCH (09:59)
[2020-04-10] MEDS: GABAPENTIN 600 MG TAB PO SCH ×2 (09:59→20:20)
[2020-04-10] MEDS: FOLIC ACID 1 MG TAB PO SCH (09:59)
[2020-04-10] MEDS: NICOTINE 14 MG/24 HR PATCH TD SCH (09:59)
[2020-04-10] MEDS: lisinopriL 20 MG TAB PO SCH (09:59)
[2020-04-10 10:10] LABS: BUN Creatinine Ratio 15.1 (10-20); Calcium 8.7 mg/dl (8.5-10.1); Creatinine Clr Calc Pharmacy 82.3 ml/min; Est GFR (African American) 114.8; Magnesium 1.4 mg/dl (1.8-2.4); Phosphorus 2.8 mg/dl (2.5-4.9); Potassium 3.2 mmol/L (3.5-5.1)
[2020-04-10] MEDS ORDERED: POTASSIUM PHOS 3 MMOL/1 ML INFUSION IV STA (10:16)
[2020-04-10] MEDS ORDERED: POTASSIUM PHOSPHATE 30 MMOL in SODIUM CHLORIDE 0.9% 500 ML IV ONE (10:45)
[2020-04-10] MEDS: THIAMINE HCL 100 MG TAB PO SCH (11:21)
[2020-04-10] MEDS: MAGNESIUM SULFATE / D5W 1 GM/100 ML BAG IV SCH ×2 (11:21→13:21)
--- NOTE | 2020-04-10 15:04 | Hospitalist Progress Note ---
Date of Service April 10, 2020 Assessment & Plan (1) Alcohol abuse: pt admitted with falls and alcohol withdrawal 04/03/2020 AWSS stopped. Scheduled Librium dosing Gabapentin dosage has been down titrated this admission. He is now alert and regular diet ordered. Encephalopathy is likely multifactorial, from alcohol withdrawal, wernicke encephalopathy and schizophrenia. 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 (2) COPD (chronic obstructive pulmonary disease): continues albuterol and umeclidinium (3) Hypertension: contriolled with lisinopril (4) Depression: aripiprazole, buproprion, trazadone Pt has neuroloeptic induced parkinsonism. Benztropine is on hold Physical therapy and Occupational Therapy (5) Chronic back pain: naproxen and gabapentin (6) DVT prophylaxis: sc heparin (7) Conjunctivitis: Patient is on Cipro eyedrops (8) Aspiration into lower respiratory tract: Chest x-ray 04/07 noted. Completed course of zosyn, d/c on 04/09 (9) Fall: Likely related to above PT recs for SNF, OT recs for rehab CM working on this (10) Hypokalemia: Replace and monitor (11) Hypomagnesemia: Replace and monitor Admission and Anticipated Discharge Date Admission Date: April 01, 2020 Subjective Pt is doing better overall. Pt was OOB earlier today. Pt states he still feels weak. Pt denies fever, SOB, chest pain, abd pain, n/v/c/d, LE pain or swelling. Review of Systems Review of Systems: Pertinent positives and negatives reviewed in HPI--all others negative Physical Exam Constitutional: WD/WN, vitals as above Eyes: normal visual blood by confrontation and + anicteric sclerae Neck: normal visual inspection and trachea midline Respiratory: normal respiratory effort, lungs clear to auscultation Cardiovascular: Rate/Rhythm: regular rate and regular rhythm Gastrointestinal (Abdomen): Inspection/Auscultation: abdomen not distended Percussion/Palpation: abdomen soft; abdomen nontender Musculoskeletal: Head/Neck/Chest: normocephalic and head atraumatic Skin: no rashes, warm and dry Neurologic: awake; not confused Speech / Cognition: normal speech Psychiatric: A+Ox3, euthymic affect Orientation: alert and cooperative Speech: normal rate/rhythm/volume of speech; no pressured speech Affect: euthymic affect Results & Data Results & Data ([facility]) Vital Signs (Past 12 Hours) Vital Signs Temp Pulse Pulse Resp BP Pulse Ox 04/10/20 11:53 36.9 C 61 18 124/74 94 04/10/20 09:00 64 04/10/20 07:49 37.1 C 70 17 150/76 H 94 04/10/20 03:36 37 C 62 20 147/77 H 94 PG Care Time/CCT Total # of Minutes Spent Total Time Spent with Patient: Total time spent is greater than 50% in coordination of care (as documented) at patient's floor/unit and/or counseling patient: Coding Level of Care Code 52430 Subseq Hosp Care Lvl 3 Diagnoses Alcohol abuse F10.10 COPD (chronic obstructive pulmonary disease) J44.9 Hypertension I10 Hypertension type: essential hypertension Depression F32.9 Chronic back pain M54.5; G89.29 Back pain location: low back pain Back pain laterality: unspecified Sciatica presence: unspecified whether sciatica present DVT prophylaxis Z29.9 Conjunctivitis H10.9 Aspiration into lower respiratory tract T17.800A Fall W19.XXXA Encounter type: initial encounter Hypokalemia E87.6 Hypomagnesemia E83.42 (1) Hypertension Hypertension type: essential hypertension Qualified Code(s): I10 - Essential (primary) hypertension (2) Chronic back pain Back pain location: low back pain Back pain laterality: unspecified Sciatica presence: unspecified whether sciatica present Qualified Code(s): M54.5 - Low back pain; G89.29 - Other chronic pain (3) Fall Encounter type: initial encounter Qualified Code(s): W19.XXXA - Unspecified fall, initial encounter
[2020-04-10] MEDS: SIMVASTATIN 40 MG TAB PO SCH (20:23)
[2020-04-10] MEDS: TRAZODONE HCL 100 MG TAB PO SCH (20:23)
[2020-04-11] MEDS: SODIUM CHLORIDE 0.9% 1000ML 1,000 ML IV SCH ×2 (04:42→17:43)
[2020-04-11] MEDS: CIPRO 0.3%/DEXAMETHASONE 0.1% OTIC SUSP 7.5ML OT SCH ×2 (08:27→21:17)
[2020-04-11] MEDS: lisinopriL 20 MG TAB PO SCH (08:27)
[2020-04-11] MEDS: DOXYCYCLINE HYCLATE 100 MG CAP PO SCH (08:27)
[2020-04-11] MEDS: ARIPiprazole 15 MG TAB PO SCH (08:27)
[2020-04-11] MEDS: FOLIC ACID 1 MG TAB PO SCH (08:27)
[2020-04-11] MEDS: GABAPENTIN 600 MG TAB PO SCH ×2 (08:27→21:18)
[2020-04-11] MEDS: MULTIVITAMIN TAB PO SCH (08:27)
[2020-04-11] MEDS: NAPROXEN 250 MG TAB PO SCH ×3 (08:27→21:18)
[2020-04-11] MEDS: UMECLIDINIUM BROMIDE 62.5MCG/BLISTER 7 PUFFS/INHALER INH SCH (08:27)
[2020-04-11] MEDS: NICOTINE 14 MG/24 HR PATCH TD SCH (08:27)
[2020-04-11] MEDS: THIAMINE HCL 100 MG TAB PO SCH (08:27)
[2020-04-11 08:59] LABS: BUN Creatinine Ratio 11.7 (10-20); Calcium 8.4 mg/dl (8.5-10.1); Creatinine Clr Calc Pharmacy 93.6 ml/min; Est GFR (African American) 123.1; Est GFR (Non-African American) 106.2; Magnesium 1.9 mg/dl (1.8-2.4); Phosphorus 2.5 mg/dl (2.5-4.9); Potassium 3.8 mmol/L (3.5-5.1)
--- NOTE | 2020-04-11 16:03 | Hospitalist Progress Note ---
Date of Service April 11, 2020 Assessment & Plan (1) Alcohol abuse: pt admitted with falls and alcohol withdrawal 04/03/2020 AWSS stopped. Scheduled Librium dosing Gabapentin dosage has been down titrated this admission. He is now alert and regular diet ordered. Encephalopathy is likely multifactorial, from alcohol withdrawal, wernicke encephalopathy and schizophrenia. 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 (2) COPD (chronic obstructive pulmonary disease): continues albuterol and umeclidinium (3) Hypertension: contriolled with lisinopril (4) Depression: aripiprazole, buproprion, trazadone Pt has neuroloeptic induced parkinsonism. Benztropine is on hold Physical therapy and Occupational Therapy (5) Chronic back pain: naproxen and gabapentin (6) DVT prophylaxis: sc heparin (7) Conjunctivitis: Patient is on Cipro eyedrops (8) Aspiration into lower respiratory tract: Chest x-ray 04/07 noted. Completed course of zosyn, d/c on 04/09 (9) Fall: Likely related to above PT recs for SNF, OT recs for rehab CM working on this (10) Hypokalemia: Replace and monitor (11) Hypomagnesemia: Replace and monitor Admission and Anticipated Discharge Date Admission Date: April 01, 2020 Subjective Pt is OOB to chair during our discussion. He states he feels his weakness is better today. Pt denies fever, SOB, chest pain, abd pain, n/v/c/d, LE pain or swelling. Review of Systems Review of Systems: Pertinent positives and negatives reviewed in HPI--all others negative Physical Exam Constitutional: WD/WN, vitals as above Eyes: normal visual blood by confrontation and + anicteric sclerae Neck: normal visual inspection and trachea midline Respiratory: normal respiratory effort, lungs clear to auscultation Cardiovascular: Rate/Rhythm: regular rate and regular rhythm Gastrointestinal (Abdomen): Inspection/Auscultation: abdomen not distended Percussion/Palpation: abdomen soft; abdomen nontender Musculoskeletal: Head/Neck/Chest: normocephalic and head atraumatic Skin: no rashes, warm and dry Neurologic: awake; not confused Speech / Cognition: normal speech Psychiatric: A+Ox3, euthymic affect Orientation: alert and cooperative Speech: normal rate/rhythm/volume of speech; no pressured speech Affect: euthymic affect Results & Data Results & Data ([facility]) Vital Signs (Past 12 Hours) Vital Signs Temp Pulse Pulse Resp BP Pulse Ox 04/11/20 15:29 36.5 C 60 16 119/73 93 04/11/20 15:14 66 04/11/20 11:24 36.5 C 63 18 121/74 92 04/11/20 07:30 59 L 04/11/20 07:17 36.6 C 52 L 18 169/79 H 96 PG Care Time/CCT Total # of Minutes Spent Total Time Spent with Patient: Total time spent is greater than 50% in coordination of care (as documented) at patient's floor/unit and/or counseling patient: Coding Level of Care Code 15923 Subseq Hosp Care Lvl 2 Diagnoses Alcohol abuse F10.10 COPD (chronic obstructive pulmonary disease) J44.9 Hypertension I10 Hypertension type: essential hypertension Depression F32.9 Chronic back pain M54.5; G89.29 Back pain location: low back pain Back pain laterality: unspecified Sciatica presence: unspecified whether sciatica present DVT prophylaxis Z29.9 Conjunctivitis H10.9 Aspiration into lower respiratory tract T17.800A Fall W19.XXXA Encounter type: initial encounter Hypokalemia E87.6 Hypomagnesemia E83.42 (1) Hypertension Hypertension type: essential hypertension Qualified Code(s): I10 - Essential (primary) hypertension (2) Chronic back pain Back pain location: low back pain Back pain laterality: unspecified Sciatica presence: unspecified whether sciatica present Qualified Code(s): M54.5 - Low back pain; G89.29 - Other chronic pain (3) Fall Encounter type: initial encounter Qualified Code(s): W19.XXXA - Unspecified fall, initial encounter
[2020-04-11] MEDS: SIMVASTATIN 40 MG TAB PO SCH (21:19)
[2020-04-11] MEDS: TRAZODONE HCL 100 MG TAB PO SCH (21:19)
[2020-04-12 06:38] LABS: BUN Creatinine Ratio 18.3 (10-20); Calcium 8.2 mg/dl (8.5-10.1); Creatinine Clr Calc Pharmacy 106.1 ml/min; Est GFR (African American) 128.7; Magnesium 1.7 mg/dl (1.8-2.4); Potassium 3.8 mmol/L (3.5-5.1)
[2020-04-12 06:39] LABS: Phosphorus 2.6 mg/dl (2.5-4.9)
[2020-04-12] MEDS: SODIUM CHLORIDE 0.9% 1000ML 1,000 ML IV SCH (06:55)
[2020-04-12] MEDS: UMECLIDINIUM BROMIDE 62.5MCG/BLISTER 7 PUFFS/INHALER INH SCH (08:56)
[2020-04-12] MEDS: lisinopriL 20 MG TAB PO SCH (08:57)
[2020-04-12] MEDS: MULTIVITAMIN TAB PO SCH (08:57)
[2020-04-12] MEDS: ARIPiprazole 15 MG TAB PO SCH (08:57)
[2020-04-12] MEDS: FOLIC ACID 1 MG TAB PO SCH (08:57)
[2020-04-12] MEDS: THIAMINE HCL 100 MG TAB PO SCH (08:57)
[2020-04-12] MEDS: NICOTINE 14 MG/24 HR PATCH TD SCH (08:58)
[2020-04-12] MEDS: NAPROXEN 250 MG TAB PO SCH ×2 (08:58→15:31)
[2020-04-12] MEDS: GABAPENTIN 600 MG TAB PO SCH (08:59)
[2020-04-12] MEDS: CIPRO 0.3%/DEXAMETHASONE 0.1% OTIC SUSP 7.5ML OT SCH (09:04)
[2020-04-12] MEDS: MAGNESIUM SULFATE / D5W 1 GM/100 ML BAG IV SCH ×2 (09:05→11:17)
--- NOTE | 2020-04-12 14:27 | Discharge Summary ---
Date of Service April 12, 2020 Admission HPI Per Admitting Provider 64 yo M PMHx HTN, HLD, schizophrenia, COPD, pancytopenia presented to hospital via EMS for several falls, profound weakness such that he could not get up, and hip pain. EMS was called by a friend who had come to check in on him. Patient endorses that for the last 2 months, in bereavement over his who has recently passed, he has been drinking 12 regular-sized cans of beer daily. Over the last 3-4 days has had 2 falls due to feeling so weak that he could not take another step. During the second fall he did hit his head but did not lose consciousness. Since the second fall 3 days ago he has not had any alcohol, and he has had bilateral hip pain which is worse with any attempt at ambulating. Has also endorsed some nausea and diarrhea over the last several days, but no stated increase in tremor (has one at baseline), no auditory/visual/tactile hallucinations. ED course: CT Pelvis without fracture, CTHead without signs of acute pathology, CXR negative. Labwork showed pancytopenia, hypokalemia, hypomagnesemia, mild transaminitis, alcohol level normal. Hospitalist service was consulted for admission for electrolyte repletion, alcohol withdrawal protocol, and PT/OT for weakness and falls. Principal Diagnosis Pt still feeling weak, but better overall. He is OOB to chair currently. Tolerating PO without issue. Pt denies fever, SOB, chest pain, abd pain, n/v/c/d, LE pain or swelling. Discharge Exam Constitutional WD/WN, vitals as above Eyes normal visual blood by confrontation and + anicteric sclerae Neck normal visual inspection and trachea midline Respiratory normal respiratory effort, lungs clear to auscultation Cardiovascular Rate/Rhythm: regular rate and regular rhythm Gastrointestinal (Abdomen) Inspection/Auscultation: abdomen not distended Percussion/Palpation: abdomen soft; abdomen nontender Musculoskeletal Head/Neck/Chest: normocephalic and head atraumatic Skin no rashes, warm and dry Neurologic awake; not confused Speech / Cognition: normal speech Psychiatric A+Ox3, euthymic affect Orientation: alert and cooperative Speech: normal rate/rhythm/volume of speech; no pressured speech Affect: euthymic affect Discharge Data Allergies Allergy/AdvReac Type Severity Reaction Status Date / Time No Known Allergies Allergy Verified 04/01/20 18:31 Consultations 04/01/20 19:04 ED Decision to Admit Stat 04/01/20 23:33 Consult Case Management - Discharge Planning Routine 04/06/20 09:29 Consult Psychiatry Routine Ordered Studies 04/01/20 17:18 CT head/brain wo con Stat CT pelvis wo con Stat Hospital Course (1) Alcohol abuse: pt admitted with falls and alcohol withdrawal 04/03/2020 AWSS stopped. Scheduled Librium dosing Taper off librium as able He is now alert and regular diet ordered. Encephalopathy is likely multifactorial, from alcohol withdrawal, wernicke encephalopathy and schizophrenia. 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 Pt should be taking B complex, B1, and folate moving forward (2) COPD (chronic obstructive pulmonary disease): continues albuterol and umeclidinium (3) Hypertension: contriolled with lisinopril (4) Depression: aripiprazole, buproprion, trazadone Pt has neuroloeptic induced parkinsonism. Benztropine is on hold (5) Chronic back pain: naproxen and gabapentin (6) DVT prophylaxis: sc heparin (7) Conjunctivitis: Patient is on Cipro eyedrops (8) Aspiration into lower respiratory tract: Chest x-ray 04/07 noted. Completed course of zosyn, d/c on 04/09 (9) Fall: Likely related to above PT recs for SNF, OT recs for rehab CM working on this (10) Hypokalemia: Replace and monitor Repeat PRP, Mg in 3 days (11) Hypomagnesemia: Replace and monitor Total Time Total Time Spent Total Time Spent (In Minutes): >30 Total Time Includes: Examination of the Patient, Discharge Planning, Medication Reconciliation, Communication With Other Providers and Other Discharge Plan Discharge Items Patient Disposition: Transfer Inpatient Rehab Fac Reason For Visit: WEAKNESS, HIP PAIN, ALCOHOL WITHDRAWAL Discharge Diagnosis: Alcohol withdrawal Condition on Discharge: Fair Activity: Resume your previous activity Non-emergency contact: Primary Care Provider Call non-emergency contact if: you have any medication questions Follow-up/Referrals: Owen Mckinnon III, MD [Primary Care Provider] - Diet: Regular Addtl Attending Provider Instructions: Can use condom cath if ongoing HS urination issues Pending Studies at Discharge: No Stand-Alone Forms: [facility] Skilled Items Patient informed of condition?: Yes DNR: No Discharge Level of Care: Acute rehab Communicable Disease: No Discharge Prognosis: Stable Lines: None Urinary Catheter: No Medications and DC Order Prescriptions: Continued gabapentin 300 mg capsule 300 mg PO TID Qty: 90 RF: 5 simvastatin 40 mg tablet 40 mg PO HS Qty: 90 RF: 3 lisinopril 20 mg tablet 20 mg PO DAILY Qty: 30 RF: 5 ipratropium bromide 0.03 % spray,non-aerosol 2 spray INTNAS BID Qty: 30 RF: 2 Incruse Ellipta 62.5 mcg/actuation blister with device 1 inh INHALATION DAILY Qty: 30 RF: 5 azelastine 137 mcg (0.1 %) aerosol,spray 1 spray INTNAS BID RF: 0 trazodone 100 mg tablet 200 mg PO HS RF: 0 bupropion HCl 100 mg tablet 100 mg PO QAM RF: 0 naproxen 500 mg tablet 500 mg PO TID RF: 0 aripiprazole 30 mg tablet 30 mg PO DAILY RF: 0 benztropine 2 mg tablet 2 mg PO QAM RF: 0 Discharge Orders: Discharge Order (Routine); Ordered 04/12/20 Ordered By: Di Bermudez Admission Data Admit Date/Time: 04/01/20 19:55 Attending Provider: Di Bermudez Admit Provider: Candida Verdin Primary Care Provider: Owen Mckinnon III Other Providers: Marilee Sun ; Nadia Mckoy ; [facility] Other Interventions: Discharge Summary Assessment (RN) Last Done: 04/12/20 15:39 PSY Interdisciplinary Discharge Planning Last Done: 04/12/20 14:45 DC Date/Time DO NOT enter until pt leaves facility: 04/12/20 17:42 Coding Level of Care Code D/C Day Management >30 mins Diagnoses Alcohol abuse F10.10 COPD (chronic obstructive pulmonary disease) J44.9 Hypertension I10 Hypertension type: essential hypertension Depression F32.9 Chronic back pain M54.5; G89.29 Back pain laterality: unspecified Back pain location: low back pain Sciatica presence: unspecified whether sciatica present DVT prophylaxis Z29.9 Conjunctivitis H10.9 Aspiration into lower respiratory tract T17.800A Fall W19.XXXA Encounter type: initial encounter Hypokalemia E87.6 Hypomagnesemia E83.42
--- NOTE | 2020-04-20 15:02 | Coding Query ---
CODING QUERY To promote full compliance with coding requirements relating to patient care, provider participation is requested in all cases of plug machine operator uncertainty. Please assist us with the question(s) below: Coding Question(s): Patient admitted in [facility]. Progress note 04/04 documents cough,green sputum, aspiration vs: bronchitis. Patient with underlying COPD. Patient completed course of Zosyn. Subsequent progress notes document aspiration in lower respiratory airway. * Please document, a specific diagnosis for the aspiration in the airway, if known or suspected. Thanks for your help! Marciano Bray [facility] Physician's Response(s): Aspiration PNA Principal Diagnosis: "that condition established after study, to be chiefly responsible for occasioning the admission of the patient to the hospital for care." Co-Existing Principal Diagnosis: "when two or more diagnoses equally meet the criteria for principal diagnosis as determined by the circumstances of admission, diagnostic work up, and/or therapy provided, and the Alphabetic Index, Tabular List, or another coding guideline does not provide sequencing direction, any one of the diagnoses may be sequenced first." "When the physician has documented what appears to be a current diagnosis in the body of the record, but has not included the diagnosis in the final diagnostic statement, the physician should be asked whether the diagnosis should be added." (Source Coding [facility] 2 QTR90. p3-4) VANESSA
== END 2020-04-12 17:42 | DRG 896 ==
LOC: ED 17:08 → 2N 19:55 → SUATTDRO 19:55 → 2N 22:41

== ENCOUNTER 2020-09-20 04:03 | Inpatient (IN) ==
[2020-09-20] MEDS ORDERED: MULTI-VITAMIN INFUSION 10 ML, THIAMINE HCL 100 MG, FOLIC ACID 1 MG in SODIUM CHLORIDE 0... IV ONE (04:10)
[2020-09-20] MEDS ORDERED: ONDANSETRON INJ 2 MG/ML 2 ML VIAL IV STA ×2 (04:10→06:00)
--- NOTE | 2020-09-20 04:18 | Emergency Department Note ---
Impression & Plan Intractable vomiting, Abdominal pain, LLQ, ELENA (acute kidney injury) ED Provider Note Name: PARISH CARDOZA Age: 64 Sex: M Arrives Via: Ambulance Informant: Patient ED Provider: Segundo Moreno MD Chief Complaint: Vomiting Impression: Intractable Vomiting Abdominal Pain LLQ ELENA (Acute Kidney Injury) Medical Decision Makin yr old male with 1 day of continued nausea, vomiting. Notes vague abdominal pain on arrival along with chills, cough, fatigue. Covid testing obtained negative. CXR clear. Labs with AKD and low K consistent with vomiting and d ehydration. Multiple rounds nausea meds and still dry heaving. Noted some increasing localization abdominal pain to LLQ thus at this point CT obtained. While ELENA compared to previous labs, felt with IV fluids it would be best to get ct with contrast. CT fortunately negative. Patient still with nausea and noting pain. Unable to urinate thus bladder scan and PRN straight cath ordered. With three rounds of IV anti-emetics and still symptomatic consulted hospitalist for further monitoring/management. Prior Medical Record and Triage/Nursing Notes reviewed by Me Additional history obtained from chart. Differentials:Gastroenteritis, food borne illness, infections, appendicitis, diverticulitis, inflammatory bowel disease, obstruction, GI bleed, biliary pathology, volvulus, as well as other pathologies. Vital Signs: reviewed and remarkable for no significant abnormalities Interventions: saline lock, banana bag 1L IV, nss bolus 1 L IV, Zofran 4mg IV x 2, phenergan 25mg IV, klor con 10meq IV x 2 Labs:Reviewed and remarkable for low k, Cr elevation from baseline, low Cl Imaging:Radiologist interpretation reviewed by me: CT a/p w iv con: No acute findings X ray results are stated below per my interpretation: Chest: 1 view: No infiltrate, no effusion, normal cardiac border. Cardiac/Tele Monitoring: Cardiac Monitoring: An Order was placed for continuous cardiac monitoring. The monitor shows a rate of 80 with a normal sinus rhythm. Consults:Orlando Delgado PA-C will evaluate for [place] Hospitalist team Plan: Disposition:Hospitalization. Referred to: PCP Condition: Good Prescriptions:none PDMP: n/a History of Present Illness:64 yr old male arrives for evaluation of nausea and vomiting. Patient arrives this morning for nausea, vomiting since yesterday. He admits he had 2 pancakes yesterday morning but started feeling sick. He did have normal bowel movement at that time. Since then with regular vomiting. Increasing diffuse abdominal discomfort without severe pain. Admits that overnight started having cough, chills, fatigue, and short of breath. No blood in stool/emesis. He denies recent heavy ETOH. No medications prior to arrival. Nothing makes better nor worse. He did try sipping water overnight without improvement. Admits nausea/vomiting last summer for which he was admitted though can't remember the cause. ROS: See above HPI for pertinent positives & negatives. A total of 10 systems reviewed and were otherwise negative. Past Medical History:Alcohol abuse, Schizophrenia, COPD, HTN, DLP, Depression, Thrombocytopenia Past Surgical History:Hip replacement Family History:DMII Brother Social History:Smoker, Drinks alcohol, lives alone Home Medications:See Below Allergies:NKDA Vitals:Blood Pressure: 172/102, Pulse 87, RR 18, T 37.7C, O2 96% on RA Physical Exam: GENERAL: Patient is uncomfortable appearing and in mild distress. Dry heaving. Dehydrated appearing EYES: No scleral icterus, unremarkable pupils. ENT: Mucous membranes dry, no nasal congestion. NECK: No masses appreciated, nomeningismus, trachea is midline. RESPIRATORY: Mild dyspnea. Mild diffuse wheezing equal bilaterally. No rhonchi. CARDIOVASCULAR: Regular rate and rhythm.No murmurs, rubs, gallops appreciated. GASTROINTESTINAL: Abdomen soft, non-tender, no peritonitis.Bowel sounds positive.No masses appreciated. BACK: No midline tenderness, no CVA tenderness EXTREMITIES: Normal motion all extremities, no cyanosis, no edema. NEUROLOGIC: Alert and oriented, no acute motor or sensory deficits, no focal weakness, cranial nerves grossly intact. SKIN: No rash, no jaundice, no diaphoresis. PSYCH: Appropriate GCS: 15 ED Course: Times/Reassessments: waxing waning dry heaving, development LLQ abdominal pain though no TTP Segundo Moreno MD Past Med/Surg History Medical History (Updated 09/20/20 @ 09:09 by Orlando Delgado PA-C) Acute kidney injury Alcohol abuse Bronchitis hx Choledocholithiasis Chronic back pain Chronic obstructive pulmonary disease Depression Hip fracture, left (2017) Hyperlipidemia Hypertension Osteoarthritis Schizophrenia Thrombocytopenia Tobacco abuse Surgical History History of colonoscopy History of hip replacement (2017) LEFT History of tooth extraction S/P ERCP Family History Brother Family history of diabetes mellitus Social History Smoking Status: Current every day smoker Cigarettes Per Day: 1PPD; Second Hand Exposure: Yes; Do You Dip or Chew Tobacco: Yes; Tobacco Cessation Education Requested by Patient: No Hx Alcohol Use: Yes Alcohol type: hard liquor Hx Substance Use: No Preferred Language: Sinhala Communication Ability: Effective 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 Affairs 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 President Required: No Beliefs That Will Affect Care: None marital status: Single Current Living Situation: Alone How many Children do You have: 1 Other Information That Helps Us Care for You: No Feels Safe at Home: Yes Safety Concerns: Feels Safe At This Time Assistive Devices: Cane, Glasses and Walker Allergies Allergies Allergy/AdvReac Type Severity Reaction Status Date / Time No Known Allergies Allergy Verified 09/20/20 06:14 Home Meds Home Medications Medication Instructions Recorded Confirmed bupropion HCl 150 mg PO QAM 09/20/20 09/20/20 lorazepam 1 mg PO .Q4-6HR PRN 09/20/20 09/20/20 loxapine succinate 10 mg PO BID 09/20/20 09/20/20 quetiapine 300 mg PO DAILY 09/20/20 09/20/20 trazodone 300 mg PO HS 09/20/20 09/20/20 Previous Rx's Medication Instructions Recorded lisinopril 20 mg tablet 20 mg PO DAILY #30 tab 02/10/20 furosemide 20 mg tablet 20 mg PO DAILY #30 tab 08/11/20 Results & Data (ED) Vital Signs Vital Signs - 24 hr 09/20/20 04:10 09/20/20 04:33 09/20/20 05:24 Temperature 37.7 C H 37.0 C Temperature Source Oral Oral Pulse Rate 87 76 Pulse Rate [Left] Pulse Rate from SpO2 Sensor 75 Pulse Rhythm Regular Pulse Strength Normal Respiratory Rate 18 15 Respiratory Effort / Characteristics Non-Labored Spontaneous Respiratory Depth Normal Respiratory Pattern Regular Blood Pressure 172/102 H 164/103 H Blood Pressure Mean 125 136 Blood Pressure Position Sitting Blood Pressure Position [Right Arm] Pulse Oximetry 96 95 Oxygen Delivery Method Room Air Room Air Sepsis Recent Fever Within 48 Hours Yes Sepsis New/Unexplained Change in Mental Status No Sepsis Action Taken by Nursing No Action Required 09/20/20 05:30 09/20/20 05:31 09/20/20 06:00 Temperature Temperature Source Pulse Rate 67 74 88 Pulse Rate [Left] Pulse Rate from SpO2 Sensor 70 76 Pulse Rhythm Pulse Strength Respiratory Rate 14 22 18 Respiratory Effort / Characteristics Respiratory Depth Respiratory Pattern Blood Pressure 179/90 H 158/99 H Blood Pressure Mean 121 119 Blood Pressure Position Blood Pressure Position [Right Arm] Pulse Oximetry 97 95 95 Oxygen Delivery Method Room Air Sepsis Recent Fever Within 48 Hours Sepsis New/Unexplained Change in Mental Status Sepsis Action Taken by Nursing 09/20/20 06:30 09/20/20 07:00 09/20/20 07:25 Temperature Temperature Source Pulse Rate 63 83 Pulse Rate [Left] 83 Pulse Rate from SpO2 Sensor Pulse Rhythm Pulse Strength Respiratory Rate 19 12 22 Respiratory Effort / Characteristics Non-Labored Spontaneous Respiratory Depth Normal Respiratory Pattern Blood Pressure Blood Pressure Mean Blood Pressure Position Blood Pressure Position [Right Arm] Lying Pulse Oximetry 94 Oxygen Delivery Method Room Air Sepsis Recent Fever Within 48 Hours Sepsis New/Unexplained Change in Mental Status Sepsis Action Taken by Nursing 09/20/20 07:30 09/20/20 07:52 09/20/20 08:00 Temperature Temperature Source Pulse Rate 89 91 H 74 Pulse Rate [Left] Pulse Rate from SpO2 Sensor 89 82 Pulse Rhythm Pulse Strength Respiratory Rate 24 20 17 Respiratory Effort / Characteristics Respiratory Depth Respiratory Pattern Blood Pressure 188/98 H 161/93 H Blood Pressure Mean 138 117 Blood Pressure Position Blood Pressure Position [Right Arm] Pulse Oximetry 97 93 Oxygen Delivery Method Sepsis Recent Fever Within 48 Hours Sepsis New/Unexplained Change in Mental Status Sepsis Action Taken by Nursing 09/20/20 08:01 09/20/20 08:30 09/20/20 08:31 Temperature Temperature Source Pulse Rate 74 77 78 Pulse Rate [Left] Pulse Rate from SpO2 Sensor 75 75 71 Pulse Rhythm Pulse Strength Respiratory Rate 16 17 14 Respiratory Effort / Characteristics Respiratory Depth Respiratory Pattern Blood Pressure 182/98 H Blood Pressure Mean 118 Blood Pressure Position Blood Pressure Position [Right Arm] Pulse Oximetry 93 95 95 Oxygen Delivery Method Sepsis Recent Fever Within 48 Hours Sepsis New/Unexplained Change in Mental Status Sepsis Action Taken by Nursing Laboratory Data Result diagrams: 09/20/20 04:18 09/20/20 14:02 Lab Results 09/20/20 09/20/20 09/20/20 Range/Units 04:18 04:18 04:18 WBC 10.24 (4.8-10.8) K/uL RBC 5.22 (4.7-6.1) M/uL Hgb 17.7 (14.0-18.0) g/dL Hct 49.6 (42-52) % MCV 95.0 (80-100) fL MCH 33.9 (25-34) pg MCHC 35.7 (32-36) g/dL RDW Std Deviation 46.0 (36.4-46.3) fL RDW Coeff of Harley 13.3 (11.5-14.5) % Plt Count 295 (130-400) K/uL MPV 10.9 H (7.4-10.4) fL Immature Gran % (Auto) 0.2 % Neut % (Auto) 70.6 % Lymph % (Auto) 14.6 % Clark % (Auto) 14.5 % Eos % (Auto) 0.0 % Baso % (Auto) 0.1 % Neut # (Auto) 7.24 H (1.4-6.5) K/uL Lymph # (Auto) 1.49 (1.2-3.4) K/uL Clark # (Auto) 1.48 H (0.11-0.59) K/uL Eos # (Auto) 0.00 (0-0.5) K/uL Baso # (Auto) 0.01 (0-0.2) K/uL Immature Gran # (Auto) 0.02 (0.00-0.02) K/uL PT 10.7 (9.0-12.0) Seconds INR 1.0 (0.9-1.1) Sodium 133 L (136-145) mmol/L Potassium 2.8 L (3.5-5.1) mmol/L Chloride 85 L (98-107) mmol/L Carbon Dioxide 39 H (21-32) mmol/L Anion Gap 9.0 (3-11) BUN 38 H (7-18) mg/dl Creatinine 1.30 (0.6-1.4) mg/dl Est Cr Clr Drug Dosing 48.7 ml/min Est GFR ( Amer) 66.4 Est GFR (Non-Af Amer) 57.3 BUN/Creatinine Ratio 29.0 H (10-20) Glucose 150 H (70-99) mg/dl Calcium 9.5 (8.5-10.1) mg/dl Magnesium 2.5 H (1.8-2.4) mg/dl Total Bilirubin 3.2 H (0.2-1) mg/dl Direct Bilirubin 0.6 H (0-0.2) mg/dl AST 25 (15-37) U/L ALT 33 (12-78) U/L Alkaline Phosphatase 91 (45-117) U/L Troponin I < 0.015 (0-0.045) ng/ml Total Protein 9.0 H (6.4-8.2) gm/dl Albumin 4.1 (3.4-5.0) gm/dl Lipase 125 (73-393) U/L Urine Color Urine Appearance (Clear) Urine pH (4.5-7.5) Ur Specific [place] (1.000-1.030) Urine Protein (Negative) Urine Glucose (UA) (Negative) Urine Ketones (Negative) Urine Blood (Negative) Urine Nitrite (Negative) Urine Bilirubin (Negative) Urine Urobilinogen (Negative) Ur Leukocyte Esterase (Negative) Urine WBC (Auto) (0-5) /hpf Urine RBC (Auto) (0-4) /hpf U Hyaline Cast (Auto) (0-5) /lpf U Epithel Cells (Auto) (0-5) /lpf Urine Bacteria (Auto) (Negative) Urine Opiates Screen (Neg) Ur Methadone, Qual (Neg) Urine Barbiturates (Neg) Ur Phencyclidine (PCP) (Neg) U Amphetamin/Meth Scrn (Neg) MDMA (Ecstasy) Screen (Neg) U Benzodiazepines Scrn (Neg) Ur Cocaine Metabolite (Neg) U Marijuana (THC) Screen (Neg) COVID-19 Eval Order SARS-CoV-2 (PCR) (Negative) Influenza Type A (PCR) (Neg) Influenza Type B (PCR) (Neg) RSV (RT-PCR) (Neg) 09/20/20 09/20/20 09/20/20 Range/Units 04:30 04:30 08:00 WBC (4.8-10.8) K/uL RBC (4.7-6.1) M/uL Hgb (14.0-18.0) g/dL Hct (42-52) % MCV (80-100) fL MCH (25-34) pg MCHC (32-36) g/dL RDW Std Deviation (36.4-46.3) fL RDW Coeff of Harley (11.5-14.5) % Plt Count (130-400) K/uL MPV (7.4-10.4) fL Immature Gran % (Auto) % Neut % (Auto) % Lymph % (Auto) % Clark % (Auto) % Eos % (Auto) % Baso % (Auto) % Neut # (Auto) (1.4-6.5) K/uL Lymph # (Auto) (1.2-3.4) K/uL Clark # (Auto) (0.11-0.59) K/uL Eos # (Auto) (0-0.5) K/uL Baso # (Auto) (0-0.2) K/uL Immature Gran # (Auto) (0.00-0.02) K/uL PT (9.0-12.0) Seconds INR (0.9-1.1) Sodium (136-145) mmol/L Potassium (3.5-5.1) mmol/L Chloride (98-107) mmol/L Carbon Dioxide (21-32) mmol/L Anion Gap (3-11) BUN (7-18) mg/dl Creatinine (0.6-1.4) mg/dl Est Cr Clr Drug Dosing ml/min Est GFR ( Amer) Est GFR (Non-Af Amer) BUN/Creatinine Ratio (10-20) Glucose (70-99) mg/dl Calcium (8.5-10.1) mg/dl Magnesium (1.8-2.4) mg/dl Total Bilirubin (0.2-1) mg/dl Direct Bilirubin (0-0.2) mg/dl AST (15-37) U/L ALT (12-78) U/L Alkaline Phosphatase (45-117) U/L Troponin I (0-0.045) ng/ml Total Protein (6.4-8.2) gm/dl Albumin (3.4-5.0) gm/dl Lipase (73-393) U/L Urine Color Urine Appearance (Clear) Urine pH (4.5-7.5) Ur Specific [place] (1.000-1.030) Urine Protein (Negative) Urine Glucose (UA) (Negative) Urine Ketones (Negative) Urine Blood (Negative) Urine Nitrite (Negative) Urine Bilirubin (Negative) Urine Urobilinogen (Negative) Ur Leukocyte Esterase (Negative) Urine WBC (Auto) (0-5) /hpf Urine RBC (Auto) (0-4) /hpf U Hyaline Cast (Auto) (0-5) /lpf U Epithel Cells (Auto) (0-5) /lpf Urine Bacteria (Auto) (Negative) Urine Opiates Screen Neg (Neg) Ur Methadone, Qual Neg (Neg) Urine Barbiturates Neg (Neg) Ur Phencyclidine (PCP) Neg (Neg) U Amphetamin/Meth Scrn Neg (Neg) MDMA (Ecstasy) Screen Pos H (Neg) U Benzodiazepines Scrn Neg (Neg) Ur Cocaine Metabolite Neg (Neg) U Marijuana (THC) Screen Neg (Neg) COVID-19 Eval Order Cov[facility]Rsv at [facility] SARS-CoV-2 (PCR) NEGATIVE (Negative) Influenza Type A (PCR) Negative (Neg) Influenza Type B (PCR) Negative (Neg) RSV (RT-PCR) Negative (Neg) 09/20/20 Range/Units 08:00 WBC (4.8-10.8) K/uL RBC (4.7-6.1) M/uL Hgb (14.0-18.0) g/dL Hct (42-52) % MCV (80-100) fL MCH (25-34) pg MCHC (32-36) g/dL RDW Std Deviation (36.4-46.3) fL RDW Coeff of Harley (11.5-14.5) % Plt Count (130-400) K/uL MPV (7.4-10.4) fL Immature Gran % (Auto) % Neut % (Auto) % Lymph % (Auto) % Clark % (Auto) % Eos % (Auto) % Baso % (Auto) % Neut # (Auto) (1.4-6.5) K/uL Lymph # (Auto) (1.2-3.4) K/uL Clark # (Auto) (0.11-0.59) K/uL Eos # (Auto) (0-0.5) K/uL Baso # (Auto) (0-0.2) K/uL Immature Gran # (Auto) (0.00-0.02) K/uL PT (9.0-12.0) Seconds INR (0.9-1.1) Sodium (136-145) mmol/L Potassium (3.5-5.1) mmol/L Chloride (98-107) mmol/L Carbon Dioxide (21-32) mmol/L Anion Gap (3-11) BUN (7-18) mg/dl Creatinine (0.6-1.4) mg/dl Est Cr Clr Drug Dosing ml/min Est GFR ( Amer) Est GFR (Non-Af Amer) BUN/Creatinine Ratio (10-20) Glucose (70-99) mg/dl Calcium (8.5-10.1) mg/dl Magnesium (1.8-2.4) mg/dl Total Bilirubin (0.2-1) mg/dl Direct Bilirubin (0-0.2) mg/dl AST (15-37) U/L ALT (12-78) U/L Alkaline Phosphatase (45-117) U/L Troponin I (0-0.045) ng/ml Total Protein (6.4-8.2) gm/dl Albumin (3.4-5.0) gm/dl Lipase (73-393) U/L Urine Color Dark Yellow Urine Appearance Clear (Clear) Urine pH 7.0 (4.5-7.5) Ur Specific [place] 1.033 H (1.000-1.030) Urine Protein 2+ H (Negative) Urine Glucose (UA) Negative (Negative) Urine Ketones Trace H (Negative) Urine Blood Negative (Negative) Urine Nitrite Negative (Negative) Urine Bilirubin 1+ H (Negative) Urine Urobilinogen Negative (Negative) Ur Leukocyte Esterase Trace H (Negative) Urine WBC (Auto) 1-5 (0-5) /hpf Urine RBC (Auto) 5-10 H (0-4) /hpf U Hyaline Cast (Auto) 5-10 H (0-5) /lpf U Epithel Cells (Auto) >30 H (0-5) /lpf Urine Bacteria (Auto) Negative (Negative) Urine Opiates Screen (Neg) Ur Methadone, Qual (Neg) Urine Barbiturates (Neg) Ur Phencyclidine (PCP) (Neg) U Amphetamin/Meth Scrn (Neg) MDMA (Ecstasy) Screen (Neg) U Benzodiazepines Scrn (Neg) Ur Cocaine Metabolite (Neg) U Marijuana (THC) Screen (Neg) COVID-19 Eval Order SARS-CoV-2 (PCR) (Negative) Influenza Type A (PCR) (Neg) Influenza Type B (PCR) (Neg) RSV (RT-PCR) (Neg) Administered Medications Bupropion HCl (Bupropion Xl 150 Mg Tabcr) 150 mg PO QAM LAKISHA Stop: 10/20/20 10:09 Last Admin: 09/20/20 11:11 Dose: 150 mg Documented by: [id number] Heparin Sodium (Porcine) (Heparin Sod 5,000 Unit/0.5 Ml Vial) 5,000 units SQ Q12 LAKISHA Stop: 10/20/20 10:09 Last Admin: 09/20/20 20:23 Dose: 5,000 units Documented by: [id number] Admin: 09/20/20 11:10 Dose: 5,000 units Documented by: [id number] Potassium Chloride/Sodium Chloride (Normal Saline W/20 Meq Kcl) 20 meq in 1,000 mls @ 125 mls/hr IV .Q8H LAKISHA Stop: 10/20/20 10:29 Last Admin: 09/20/20 20:21 Dose: 125 mls/hr Documented by: [id number] Infusion: 09/20/20 19:08 Dose: 125 mls/hr Documented by: [id number] Admin: 09/20/20 11:08 Dose: 125 mls/hr Documented by: [id number] Famotidine 20 mg/ Syringe 5 mls @ 2.5 mls/min IV DAILY LAKISHA Stop: 10/20/20 10:09 Last Admin: 09/20/20 11:08 Dose: 2.5 mls/min Documented by: [id number] Lisinopril (Lisinopril 20 Mg Tab) 20 mg PO DAILY LAKISHA Stop: 10/20/20 10:09 Last Admin: 09/20/20 11:11 Dose: 20 mg Documented by: [id number] Miscellaneous (Loxapine - Order Awaiting Action) 1 ea N/A QS LAKISHA Stop: 10/20/20 15:59 Last Admin: 09/20/20 23:03 Dose: Not Given Documented by: [id number] Admin: 09/20/20 15:48 Dose: Not Given Documented by: [id number] Ondansetron HCl (Ondansetron Inj 2 Mg/Ml 2 Ml Vial) 4 mg IV Q4H PRN PRN Reason: Nausea Stop: 10/20/20 15:55 Last Admin: 09/20/20 20:36 Dose: 4 mg Documented by: [id number] Quetiapine Fumarate (Quetiapine Fumarate 300 Mg Tablet) 300 mg PO DAILY LAKISHA Stop: 10/20/20 10:09 Last Admin: 09/20/20 11:11 Dose: 300 mg Documented by: [id number] Trazodone HCl (Trazodone Hcl 100 Mg Tab) 300 mg PO HS LAKISHA Stop: 10/20/20 20:59 Last Admin: 09/20/20 20:24 Dose: 300 mg Documented by: [id number] Discontinued Medications Multivitamins 10 ml/ Thiamine HCl 100 mg/ Folic Acid 1 mg/Sodium Chloride 1,011.2 mls @ 1,011.2 mls/hr IV .Q1H ONE Stop: 09/20/20 05:09 Last Infusion: 09/20/20 05:50 Dose: 0 mls/hr Documented by: [id number] Admin: 09/20/20 04:45 Dose: 1,011.2 mls/hr Documented by: [id number] Sodium Chloride (Nss 1000ml) 1,000 mls @ 999 mls/hr IV .Q1H1M ONE Stop: 09/20/20 07:00 Last Infusion: 09/20/20 07:06 Dose: 0 mls/hr Documented by: [id number] Admin: 09/20/20 06:01 Dose: 999 mls/hr Documented by: [id number] Promethazine HCl (Phenergan) 25 mg in 51 mls @ 204 mls/hr IV NOW STA Stop: 09/20/20 07:01 Last Infusion: 09/20/20 07:26 Dose: 0 mls/hr Documented by: [id number] Admin: 09/20/20 06:59 Dose: 204 mls/hr Documented by: [id number] Potassium Chloride (K Yusef / Wtr) 10 meq in 100 mls @ 100 mls/hr IV Q1H LAKISHA Stop: 09/20/20 09:44 Last Infusion: 09/20/20 10:06 Dose: 0 mls/hr Documented by: [id number] Admin: 09/20/20 09:06 Dose: 100 mls/hr Documented by: [id number] Infusion: 09/20/20 09:06 Dose: 0 mls/hr Documented by: [id number] Admin: 09/20/20 08:10 Dose: 100 mls/hr Documented by: [id number] Potassium Chloride (K Yusef / Wtr) 10 meq in 100 mls @ 100 mls/hr IV Q1H LAKISHA Stop: 09/20/20 19:29 Last Infusion: 09/20/20 20:22 Dose: 0 mls/hr Documented by: [id number] Admin: 09/20/20 19:03 Dose: 100 mls/hr Documented by: [id number] Infusion: 09/20/20 18:59 Dose: 100 mls/hr Documented by: [id number] Admin: 09/20/20 17:59 Dose: 100 mls/hr Documented by: [id number] Infusion: 09/20/20 17:38 Dose: 100 mls/hr Documented by: [id number] Admin: 09/20/20 16:38 Dose: 100 mls/hr Documented by: [id number] Infusion: 09/20/20 16:18 Dose: 100 mls/hr Documented by: [id number] Admin: 09/20/20 15:18 Dose: 100 mls/hr Documented by: [id number] Ioversol (Ioversol 100ml) 94 ml IV ONCE ONE Stop: 09/20/20 07:12 Last Admin: 09/20/20 07:12 Dose: 94 ml Documented by: [id number] Ondansetron HCl (Ondansetron Inj 2 Mg/Ml 2 Ml Vial) 4 mg IV NOW STA Stop: 09/20/20 04:11 Last Admin: 09/20/20 04:34 Dose: 4 mg Documented by: [id number] Ondansetron HCl (Ondansetron Inj 2 Mg/Ml 2 Ml Vial) 4 mg IV NOW STA Stop: 09/20/20 06:01 Last Admin: 09/20/20 06:28 Dose: 4 mg Documented by: [id number] Potassium Chloride (Potassium Chloride Crtab 20 Meq Tabcr) 40 meq PO NOW STA Stop: 09/20/20 15:57 Last Admin: 09/20/20 16:30 Dose: 40 meq Documented by: [id number] Discharge Plan Visit Data Chief Complaint: Vomiting Stated Complaint: N/V ED Provider: Segundo Moreno Discharge Problem: Intractable vomiting, Abdominal pain, LLQ, ELENA (acute kidney injury) Patient Disposition: Admitted As Inpatient Discharge Instructions Interventions: ED Discharge Assessment Last Done: 09/20/20 09:51 Discharge Problem: Intractable vomiting Qualifiers: Vomiting type: unspecified Nausea presence: with nausea Qualified Code(s): R11.2 - Nausea with vomiting, unspecified
[2020-09-20 04:27] LABS: Basophils # (auto) 0.01 K/uL (0-0.2); Basophils % (auto) 0.1 %; Hematocrit (blood only) 49.6 % (42-52); Hemoglobin 17.7 g/dL (14.0-18.0); Immature Granulocytes # (auto) 0.02 K/uL (0.00-0.02); Immature Granulocytes % (auto) 0.2 %; Lymphocytes # (auto) 1.49 K/uL (1.2-3.4); Lymphocytes % (auto) 14.6 %; Mean Corpuscular Hemoglobin 33.9 pg (25-34); Mean Corpuscular Hgb Conc 35.7 g/dL (32-36); Mean Platelet Volume 10.9 fL (7.4-10.4); Monocytes # (auto) 1.48 K/uL (0.11-0.59); Monocytes % (auto) 14.5 %; Neutrophils # (auto) 7.24 K/uL (1.4-6.5); Neutrophils % (auto) 70.6 %; Platelet Count 295 K/uL (130-400); RDW Coefficient of Variation 13.3 % (11.5-14.5); Red Blood Count 5.22 M/uL (4.7-6.1); White Blood Count 10.24 K/uL (4.8-10.8)
[2020-09-20 04:35] LABS: Prothrombin Time 10.7 Seconds (9.0-12.0)
[2020-09-20 04:38] LABS: Chloride 85 mmol/L (98-107); Potassium 2.8 mmol/L (3.5-5.1); Sodium 133 mmol/L (136-145)
[2020-09-20 04:48] LABS: Alanine Aminotransferase 33 U/L (12-78); Albumin Level 4.1 gm/dl (3.4-5.0); Aspartate Aminotransferase 25 U/L (15-37); Bilirubin Direct 0.6 mg/dl (0-0.2); Blood Urea Nitrogen 38 mg/dl (7-18); Calcium 9.5 mg/dl (8.5-10.1); Carbon Dioxide 39 mmol/L (21-32); Creatinine Clr Calc Pharmacy 48.7 ml/min; Est GFR (African American) 66.4; Est GFR (Non-African American) 57.3; Glucose 150 mg/dl (70-99); Lipase 125 U/L (73-393); Magnesium 2.5 mg/dl (1.8-2.4)
[2020-09-20 04:53] LABS: Alkaline Phosphatase 91 U/L (45-117); Bilirubin,Total 3.2 mg/dl (0.2-1); Troponin I < 0.015 ng/ml (0-0.045)
[2020-09-20 05:43] LABS: Influenza A virus by PCR Negative (Neg); Influenza B virus by PCR Negative (Neg); RSV by PCR Negative (Neg); SARS CoV2 RNA(COVID-19) InHosp NEGATIVE (Negative)
[2020-09-20] MEDS ORDERED: SODIUM CHLORIDE 0.9% 1000ML 1,000 ML IV ONE (06:00)
[2020-09-20] MEDS ORDERED: PROMETHAZINE 25 MG/51 ML BAG IV STA (06:47)
--- NOTE | 2020-09-20 06:58 | XRay Report ---
XR chest 1V portable CLINICAL HISTORY: Cough and shortness of breath COMPARISON STUDY: 04/07/2020 FINDINGS: The cardiac and mediastinal contours are normal. There is no evidence of focal pulmonary co nsolidation. There is no evidence of failure. No pleural effusions are visualized.[There are multiple old left-sided rib fractures. IMPRESSION: No active disease in the chest. ACT 112: Negative or not required by law. Electronically signed by: True Tan M.D. 09/20/2020 6:57 AM
[2020-09-20] MEDS ORDERED: IOVERSOL 100ml IV ONE (07:11)
--- NOTE | 2020-09-20 07:31 | CT Scan Report ---
CT abd pelvis IV con only CLINICAL HISTORY: Intractable vomiting. Left lower quadrant abdominal pain. Cough, chills. COMPARISON STUDY: August 2019 TECHNIQUE: Patient was scanned in a dynamic helical fashion due to disuse administration of 94 cc of Optiray 3 A dose lowering technique was utilized adhering to the principles of ALARA. CT DOSE: 309.55 mGy.cm FINDINGS: Lower chest: There are multiple old left-sided rib fractures. There are no pleural effusions. There i s a calcified right lower lobe granuloma. Liver: The contrast-enhanced liver is normal in size, contour, and attenuation. There is no intrahepa tic biliary ductal dilatation. The hepatic veins and portal veins are patent. Gallbladder: Surgically absent Spleen: Normal in size and attenuation. Pancreas: Unremarkable. Adrenal glands: Unremarkable. Kidneys: No solid renal masses are visualized. A right renal hilar calcifications likely vascular. Th ere is mild prominence the left renal pelvis. Bowel: There are no transition zones indicate bowel obstruction. There is no evidence of acute divert iculitis. There are no findings to indicate acute appendicitis. Peritoneum: There is no intraperitoneal free air or abdominal ascites. Vasculature: The abdominal aorta is normal in course and caliber. Adenopathy: None. Pelvic viscera: The bladder, and pelvic viscera are unremarkable. Evaluation is limited due to artifa ct from a total left hip arthroplasty Skeletal structures: No destructive osseous lesions are seen. There is total left hip arthroplasty IMPRESSION: 1. No evidence of bowel obstruction. No evidence of free air 2. No acute inflammatory changes. ACT 112: Negative or not required by law. Electronically signed by: True Tan M.D. 09/20/2020 7:29 AM
[2020-09-20] MEDS: POTASSIUM CHLORIDE / WTR 10 MEQ/100 ML PLCT IV SCH ×6 (08:10→19:03)
[2020-09-20 08:16] LABS: Appearance Urine Clear (Clear); Bacteria Urine Automated Negative (Negative); Blood Urine Negative (Negative); Color Urine Dark Yellow; Epithelial Cell Urine Auto >30 /lpf (0-5); Glucose Urine UA Negative (Negative); Ketones Urine Trace (Negative); Leukocyte Esterase Urine Trace (Negative); Nitrite Urine Negative (Negative); Protein Urine 2+ (Negative); Specific Gravity Urine 1.033 (1.000-1.030); Urobilinogen Urine Negative (Negative)
[2020-09-20 08:33] LABS: Bilirubin Urine 1+ (Negative)
[2020-09-20 09:13] LABS: Amphetamines+Metham, Urine Neg (Neg); Barbiturates, Urine Neg (Neg); Benzodiazepine, Urine Neg (Neg); Cocaine, Urine Neg (Neg); MDMA (Ecstacy), Urine Pos (Neg); Methadone, Urine Neg (Neg); Opiate, Urine Neg (Neg); Phencyclidine, Urine Neg (Neg)
--- NOTE | 2020-09-20 09:22 | History & Physical Report ---
Date of Service September 20, 2020 Assessment & Plan (1) Intractable vomiting: Impression: This is a 64-year-old male with a 12-hour history of intractable nausea and vomiting. He denies any diarrhea. He has had no unusual foods or visited any restaurants. Patient does have electrolyte imbalance with hypokalemia and hyponatremia. He is an ethanol user and drank approximate 1/2 g allon of vodka yesterday. He has no other contacts for acute illness. He has no one bringing food into the home for him. He has been admitted under observation for electrolyte disorder, acute kidney injury, and intractable nausea and vomiting. At this point patient received 8 mg of Zofran and 25 mg of Phenergan in the emergency department. EKG was acquired and patient has a QTC of 499 ms We will continue with IV hydration and hold off on further antiemetics. We will follow closely in the event that more antiemetics are needed Patient chest x-ray is clear and there does not appear to be any evidence of aspiration with auscultation CT abdomen pelvis is negative for any inflammation, diverticulosis, diverticulitis, or free air or other acute pathology We will monitor the patient on medical telemetry Clear liquid diet for now Famotidine 20 mg IV daily (2) Abdominal pain, LLQ: CT abdomen pelvis is negative Patient has no rebound tenderness or guarding He does report pain with deep palpation but this does not induce further nausea Clear liquid diet Manage electrolyte imbalance Continue to monitor (3) ELENA (acute kidney injury): Etiology is most likely secondary to acute nausea and vomiting. Will hydrate with normal saline with 20 mEq of potassium chloride per liter at 125 mL/h Repeat labs in the morning Bladder scan if no urination Follow expectantly (4) Hypokalemia: Potassium level is 2.8 mmol/L on admission Magnesium is 2.5 Patient did not receive any oral potassium chloride secondary to nausea and vomiting Patient did receive potassium chloride riders in the emergency department Repeat PRP at 1400 this afternoon Continue normal saline with 20 mEq of potassium chloride per hour at 125 mL/h Follow serial labs (5) Hyponatremia: Sodium level is 133 Continue normal saline with 20 mEq potassium chloride per hour at 125 mL/h Check repeat labs at 1400 this afternoon Follow serial labs No altered mentation (6) Alcohol abuse: AWSS protocol ordered Discussed with psychiatry in light of prolonged QTC They continue to recommend lorazepam as needed as well as gabapentin as needed Patient with consumption of 1/2 gallon of vodka yesterday No tremor or asterixis on exam (7) Schizophrenia: Patient reports diagnosis approximately 10 years ago Follows with [facility] Discussed with psychiatry Continue bupropion, lorazepam, loxapine, quetiapine, and trazodone as ordered outpatient When patient is on maintenance doses, very seldom do they have issues with prolonged QTC We will continue to follow on telemetry Patient denies any command hallucinations or other sensory hallucinations (8) Hypertension: Continue lisinopril 20 mg daily Hold furosemide 20 mg daily due to ELENA We will follow and treat expectantly Troponin is negative No indication for echocardiogram or other intervention at this time (9) Tobacco abuse: Patient reports starting smoking 17 years ago while working for the [employer] Currently smokes approximately 15 cigarettes/day Discussed need for abstinence No history of malignancy or pulmonary disease (10) COPD (chronic obstructive pulmonary disease): COPD is listed in the patient's history but there is no evidence of pulmonary function testing and patient is not on any bronchodilators Chest x-ray does not indicate any emphysema At this time we will hold off on any pulmonary medications If patient does develop bronchospasm or shortness of breath, will reevaluate and order bronchodilators at that time (11) DVT prophylaxis: Patient with no thrombocytopenia, active bleeding, anemia We will order heparin 5000 units SQ every 12 hours Also will order ALEXANDER hose and SCDs Ambulate as tolerated with assistance Please refer to Dr. Lal's addendum for any further recommendations or c orrections. History of Present Illness Primary Care Provider: Owen Mckinnon MD Attending: Dr. Lal This is a 64-year-old male with a past medical history of schizophrenia diagnosed 10 years ago, chronic prolonged QTC, alcohol abuse, tobacco abuse, hypertension. The patient presents today with intractable nausea and vomiting. He states that this began last night. Prior to bedtime he was in his normal state. He denies any hematemesis. He has no history of GI bleed or ulcers that he is aware of. He denies any melena, hematochezia, bright red blood per rectum. He is unaware of any hemorrhoid problems. He has no history of malignancy and has no rectal pain or tenesmus. He denies any fever. He has had no unusual foods. He lives alone and has not gone anywhere to eat or to socialize. Aside from some mild abdominal pain, nausea, vomiting, he has no other acute symptoms. The patient does have acute kidney injury with a creatinine of 1.3. Baseline is 0.5. He denies any hematuria and has no suprapubic pain. He states that he was diagnosed with schizophrenia approximately 10 years ago and has been on steady doses of trazodone, quetiapine, loxapine, and bupropion. He is also on as needed lorazepam which is prescribed through the [facility] clinic. 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 He has no command hallucinations. He does report some auditory hallucinations but they wax and wane. He has no other sensory hallucinations. He does drink ethanol on the weekends and yesterday drank a half a gallon of vodka straight. He has a prior history of approximately 12 beers per day but now states that he only drinks on weekends. He smokes about three quarters of a pack of cigarettes daily and has done this for 17 years. 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, . Allergies Allergy/AdvReac Type Severity Reaction Status Date / Time No Known Allergies Allergy Verified 09/20/20 06:14 Home Medications Medication Instructions Recorded Confirmed Type lisinopril 20 mg tablet 20 mg PO DAILY #30 tab 02/10/20 09/20/20 Rx furosemide 20 mg tablet 20 mg PO DAILY #30 tab 08/11/20 09/20/20 Rx bupropion HCl 150 mg PO QAM 09/20/20 09/20/20 History lorazepam 1 mg PO .Q4-6HR PRN 09/20/20 09/20/20 History loxapine succinate 10 mg PO BID 09/20/20 09/20/20 History quetiapine 300 mg PO DAILY 09/20/20 09/20/20 History trazodone 300 mg PO HS 09/20/20 09/20/20 History Past Med/Surg History Medical History (Updated 09/20/20 @ 09:09 by Orlando Delgado PA-C) Acute kidney injury Alcohol abuse Bronchitis hx Choledocholithiasis Chronic back pain Chronic obstructive pulmonary disease Depression Hip fracture, left (2017) Hyperlipidemia Hypertension Osteoarthritis Schizophrenia Thrombocytopenia Tobacco abuse Surgical History History of colonoscopy History of hip replacement (2017) LEFT History of tooth extraction S/P ERCP Family History Brother Family history of diabetes mellitus Social History Smoking Status: Current every day smoker Cigarettes Per Day: 1PPD; Second Hand Exposure: Yes; Do You Dip or Chew Tobacco: No; Tobacco Cessation Education Requested by Patient: No Hx Alcohol Use: Yes Alcohol type: hard liquor Hx Substance Use: No Preferred Language: Persian Communication Ability: Effective 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 Pleasant EYES: No icterus, gaze conjugate. Pupils equal round and reactive to light NOSE: No evidence of epistaxis MOUTH: No lesions or candidiasis. Mucosa is moist. Patient is absent of all teeth. He states that he has dentures at home but did not bring them with him. NECK: Supple. No JVD. No carotid bruits. No stridor appreciated LUNGS: CTA B/L, no wheezes, rales or rhonchi. Good inspiratory effort HEART: Regular, rate is in the mid 90s. No appreciation of murmurs gallops or rubs. ABDOMEN: Soft, ND, BS Present in all 4 quadrants. Patient does report some t enderness with deep palpation but has no rebound tenderness and no guarding. EXTREMITIES: No LE edema, pedal pulses intact and equal bilaterally NEURO: A&OX3. Results & Data Results & Data ([facility]) Vital Signs (Past 12 Hours) Vital Signs Temp Pulse Pulse Resp BP Pulse Ox 09/20/20 08:01 74 16 93 09/20/20 08:00 74 17 161/93 H 93 09/20/20 07:52 91 H 20 188/98 H 97 09/20/20 07:30 89 24 01/18/21 07:25 83 22 94 09/20/20 07:00 83 12 09/20/20 06:30 63 19 09/20/20 06:00 88 18 158/99 H 95 09/20/20 05:31 74 22 95 09/20/20 05:30 67 14 179/90 H 97 09/20/20 05:24 76 15 164/103 H 95 09/20/20 04:33 37.0 C 09/20/20 04:10 37.7 C H 87 18 172/102 H 96 Laboratory Results 09/20/20 04:18 09/20/20 04:18 09/20/20 04:18 Troponin I < 0.[address] abd pelvis IV con only CLINICAL HISTORY: Intractable vomiting. Left lower quadrant abdominal pain. Cough, chills. COMPARISON STUDY: August 2019 TECHNIQUE: Patient was scanned in a dynamic helical fashion due to disuse administration of 94 cc of Optiray 3 A dose lowering technique was utilized adhering to the principles of ALARA. CT DOSE: 309.55 mGy.cm FINDINGS: Lower chest: There are multiple old left-sided rib fractures. There are no pleural effusions. There is a calcified right lower lobe granuloma. Liver: The contrast-enhanced liver is normal in size, contour, and attenuation. There is no intrahepatic biliary ductal dilatation. The hepatic veins and portal veins are patent. Gallbladder: Surgically absent Spleen: Normal in size and attenuation. Pancreas: Unremarkable. Adrenal glands: Unremarkable. Kidneys: No solid renal masses are visualized. A right renal hilar calcifications likely vascular. There is mild prominence the left renal pelvis. Bowel: There are no transition zones indicate bowel obstruction. There is no evidence of acute diverticulitis. There are no findings to indicate acute append icitis. Peritoneum: There is no intraperitoneal free air or abdominal ascites. Vasculature: The abdominal aorta is normal in course and caliber. Adenopathy: None. Pelvic viscera: The bladder, and pelvic viscera are unremarkable. Evaluation is limited due to artifact from a total left hip arthroplasty Skeletal structures: No destructive osseous lesions are seen. There is total left hip arthroplasty IMPRESSION: 1. No evidence of bowel obstruction. No evidence of free air 2. No acute inflammatory changes. Electronically signed by: True Tan M.D. 09/20/2020 7:29 AM XR chest 1V portable CLINICAL HISTORY: Cough and shortness of breath COMPARISON STUDY: 04/07/2020 FINDINGS: The cardiac and mediastinal contours are normal. There is no evidence of focal pulmonary consolidation. There is no evidence of failure. No pleural effusions are visualized.[There are multiple old left-sided rib fractures. IMPRESSION: No active disease in the chest. Electronically signed by: True Tan M.D. 09/20/2020 6:57 AM Code Status & VTE Plan Code Status Patient will be a full resuscitation VTE Prophylaxis Plan VTE Prophylaxis will be ordered: Yes Supervising Physician Co-Signing Physician Notes Patient seen and examined at bedside. I obtained a history and physical examination on the patient. I reviewed above note and discussed plan of care with patient and Kroner. Patient will be admitted for supportive care given his intractable nausea. will monitor for alcohol withdrawal as well. PG Care Time/CCT Total # of Minutes Spent Total Time Spent with Patient: Total time spent is greater than 50% in coordination of care (as documented) at patient's floor/unit and/or counseling patient: 60 minutes including discussion with subspecialists Coding Level of Care Code 23951 OBS Care - Level 3 Medical Decision Making High Complexity Diagnoses Intractable vomiting R11.2 Nausea presence: with nausea Vomiting type: unspecified Abdominal pain, LLQ R10.32 ELENA (acute kidney injury) N17.9 Hypokalemia E87.6 Hyponatremia E87.1 Alcohol abuse F10.10 Schizophrenia F20.9 Schizophrenia type: unspecified Hypertension I10 Hypertension type: essential hypertension Tobacco abuse Z72.0 COPD (chronic obstructive pulmonary disease) J44.9 DVT prophylaxis Z29.9 Time Spent (min) 60 (1) Schizophrenia Schizophrenia type: unspecified Qualified Code(s): F20.9 - Schizophrenia, uns pecified (2) Intractable vomiting Nausea presence: with nausea Vomiting type: unspecified Qualified Code(s): R11.2 - Nausea with vomiting, unspecified (3) Hypertension Hypertension type: essential hypertension Qualified Code(s): I10 - Essential (primary) hypertension
[2020-09-20] MEDS ORDERED: LORazepam 1 MG TAB PO PRN (10:10)
[2020-09-20] MEDS ORDERED: POLYETHYLENE (MIRALAX) 17 GM PACK PO PRN (10:10)
[2020-09-20] MEDS: FAMOTIDINE 20 MG in SYRINGE 3 ML IV SCH (11:08)
[2020-09-20] MEDS: NSS + 20MEQ KCL 20 MEQ/1,000 ML BAG IV SCH ×2 (11:08→20:21)
[2020-09-20] MEDS: HEPARIN SOD 5,000 UNIT/0.5 ML VIAL SQ SCH ×2 (11:10→20:23)
[2020-09-20] MEDS: QUEtiapine FUMARATE 300 MG TABLET PO SCH (11:11)
[2020-09-20] MEDS: buPROPion XL 150 MG TABCR PO SCH (11:11)
[2020-09-20] MEDS: lisinopril 20 MG TAB PO SCH (11:11)
[2020-09-20 14:43] LABS: BUN Creatinine Ratio 26.3 (10-20); Calcium 8.4 mg/dl (8.5-10.1); Creatinine Clr Calc Pharmacy 72.8 ml/min; Est GFR (Non-African American) 90.6; Potassium 2.6 mmol/L (3.5-5.1)
[2020-09-20] MEDS ORDERED: POTASSIUM CHLORIDE CRTAB 20 MEQ TABCR PO STA (15:56)
--- NOTE | 2020-09-20 18:27 | Electrocardiogram Report ---
Test Reason : Blood Pressure : / mmHG Vent. Rate : 077 BPM Atrial Rate : 077 BPM P-R Int : 156 ms QRS Dur : 098 ms QT Int : 440 ms P-R-T Axes : 053 -23 031 degrees QTc Int : 497 ms Normal sinus rhythm Septal infarct (cited on or before 01-APR-2020) Prolonged QT Abnormal ECG When compared with ECG of 01-APR-2020 17:28, No significant change was found Confirmed by Alexandro Wong ([id number]) on 09/20/2020 6:27:24 PM Referred By: REFERRED SELF Confirmed By:Alexandro Wong
--- NOTE | 2020-09-20 18:44 | Electrocardiogram Report ---
Test Reason : Blood Pressure : / mmHG Vent. Rate : 086 BPM Atrial Rate : 086 BPM P-R Int : 180 ms QRS Dur : 084 ms QT Int : 402 ms P-R-T Axes : 074 -24 041 degrees QTc Int : 481 ms Normal sinus rhythm Possible Left atrial enlargement Anteroseptal infarct (cited on or before 01-APR-2020) Nonspecific T wave abnormality Prolonged QT Abnormal ECG When compared with ECG of 20-SEP-2020 08:08, No significant change was found Confirmed by Alexandro Wong ([id number]) on 09/20/2020 6:44:05 PM Referred By: REFERRED SELF Confirmed By:Alexandro Wong
[2020-09-20] MEDS: traZODone HCL 100 MG TAB PO SCH (20:24)
[2020-09-20] MEDS: ONDANSETRON INJ 2 MG/ML 2 ML VIAL IV PRN (20:36)
[2020-09-21] MEDS: ONDANSETRON INJ 2 MG/ML 2 ML VIAL IV PRN ×2 (04:10→09:31)
[2020-09-21] MEDS: NSS + 20MEQ KCL 20 MEQ/1,000 ML BAG IV SCH ×3 (04:10→20:55)
[2020-09-21 08:09] LABS: Basophils # (auto) 0.01 K/uL (0-0.2); Basophils % (auto) 0.2 %; Eosinophils # (auto) 0.01 K/uL (0-0.5); Eosinophils % (auto) 0.2 %; Hematocrit (blood only) 41.6 % (42-52); Hemoglobin 14.2 g/dL (14.0-18.0); Immature Granulocytes # (auto) 0.02 K/uL (0.00-0.02); Immature Granulocytes % (auto) 0.4 %; Lymphocytes # (auto) 1.86 K/uL (1.2-3.4); Mean Corpuscular Hemoglobin 33.7 pg (25-34); Mean Corpuscular Hgb Conc 34.1 g/dL (32-36); Mean Corpuscular Volume 98.8 fL (80-100); Mean Platelet Volume 11.3 fL (7.4-10.4); Monocytes # (auto) 0.63 K/uL (0.11-0.59); Monocytes % (auto) 11.5 %; Neutrophils # (auto) 2.94 K/uL (1.4-6.5); Neutrophils % (auto) 53.7 %; Platelet Count 206 K/uL (130-400); RDW Coefficient of Variation 13.2 % (11.5-14.5); RDW Standard Deviation 47.7 fL (36.4-46.3); Red Blood Count 4.21 M/uL (4.7-6.1); White Blood Count 5.47 K/uL (4.8-10.8)
[2020-09-21 08:35] LABS: BUN Creatinine Ratio 15.2 (10-20); Calcium 8.5 mg/dl (8.5-10.1); Creatinine Clr Calc Pharmacy 121.7 ml/min; Est GFR (African American) 128.7; Potassium 3.7 mmol/L (3.5-5.1)
[2020-09-21] MEDS: QUEtiapine FUMARATE 300 MG TABLET PO SCH (09:31)
[2020-09-21] MEDS: FAMOTIDINE 20 MG in SYRINGE 3 ML IV SCH (09:31)
[2020-09-21] MEDS: FOLIC ACID 1 MG TAB PO SCH (09:31)
[2020-09-21] MEDS: THIAMINE HCL 100 MG TAB PO SCH (09:31)
[2020-09-21] MEDS: buPROPion XL 150 MG TABCR PO SCH (09:31)
[2020-09-21] MEDS: lisinopril 20 MG TAB PO SCH (09:31)
[2020-09-21] MEDS: HEPARIN SOD 5,000 UNIT/0.5 ML VIAL SQ SCH ×2 (09:32→20:56)
[2020-09-21] MEDS: traZODone HCL 100 MG TAB PO SCH (20:56)
--- NOTE | 2020-09-21 21:50 | Hospitalist Progress Note ---
Date of Service September 21, 2020 Assessment & Plan (1) Intractable vomiting: Impression: This is a 64-year-old male with a 12-hour history of intractable nausea and vomiting. He denies any diarrhea. He has had no unusual foods or visited any restaurants. Patient does have electrolyte imbalance with hypokalemia and hyponatremia. He is an ethanol user and drank approximate 1/2 gallon of vodka yesterday. He has no other contacts for acute illness. He has no one bringing food into the home for him. He has been admitted under observation for electrolyte disorder, acute kidney injury, and intractable nausea and vomiting. At this point patient received 8 mg of Zofran and 25 mg of Phenergan in the emergency department. EKG was acquired and patient has a QTC of 499 ms We will continue with IV hydration and hold off on further antiemetics. We will follow closely in the event that more antiemetics are needed Patient chest x-ray is clear and there does not appear to be any evidence of aspiration with auscultation CT abdomen pelvis is negative for any inflammation, diverticulosis, diverticulitis, or free air or other acute pathology We will monitor the patient on medical telemetry Clear liquid diet for now Not tolerating his meals and vomiting. Will continue to monitor. Famotidine 20 mg IV daily will continue on zofran. (2) Abdominal pain, LLQ: CT abdomen pelvis is negative Patient has no rebound tenderness or guarding He does report pain with deep palpation but this does not induce further nausea Clear liquid diet Manage electrolyte imbalance Continue to monitor (3) ELENA (acute kidney injury): Etiology is most likely secondary to acute nausea and vomiting. Will hydrate with normal saline with 20 mEq of potassium chloride per liter at 125 mL/h Repeat labs in the morning Bladder scan if no urination Follow expectantly (4) Hypokalemia: Potassium level is 2.8 mmol/L on admission Magnesium is 2.5 Patient did not receive any oral potassium chloride secondary to nausea and vomiting Patient did receive potassium chloride riders in the emergency department Repeat PRP at 1400 this afternoon Continue normal saline with 20 mEq of potassium chloride per hour at 125 mL/h Follow serial labs (5) Hyponatremia: Sodium level is 139 Check repeat labs at 1400 this afternoon Follow serial labs No altered mentation (6) Alcohol abuse: AWSS protocol ordered Discussed with psychiatry in light of prolonged QTC They continue to recommend lorazepam as needed as well as gabapentin as needed Patient with consumption of 1/2 gallon of vodka yesterday No tremor or asterixis on exam (7) Schizophrenia: Patient reports diagnosis approximately 10 years ago Follows with [facility] Discussed with psychiatry Continue bupropion, lorazepam, loxapine, quetiapine, and trazodone as ordered o utpatient When patient is on maintenance doses, very seldom do they have issues with prolonged QTC We will continue to follow on telemetry Patient denies any command hallucinations or other sensory hallucinations (8) Hypertension: Continue lisinopril 20 mg daily Hold furosemide 20 mg daily due to ELENA We will follow and treat expectantly Troponin is negative No indication for echocardiogram or other intervention at this time (9) Tobacco abuse: Patient reports starting smoking 17 years ago while working for the [employer] Currently smokes approximately 15 cigarettes/day Discussed need for abstinence No history of malignancy or pulmonary disease (10) COPD (chronic obstructive pulmonary disease): COPD is listed in the patient's history but there is no evidence of pulmonary function testing and patient is not on any bronchodilators Chest x-ray does not indicate any emphysema At this time we will hold off on any pulmonary medications If patient does develop bronchospasm or shortness of breath, will reevaluate and order bronchodilators at that time (11) DVT prophylaxis: Patient with no thrombocytopenia, active bleeding, anemia We will order heparin 5000 units SQ every 12 hours Also will order ALEXANDER hose and SCDs Ambulate as tolerated with assistance Please refer to Dr. Lal's addendum for any further recommendations or corrections. Admission and Anticipated Discharge Date Admission Date: September 21, 2020 Subjective 64 yo male reports having had nausea and vomiting today. Not being able to tolerate food today. Review of Systems Review of Systems: All systems reviewed & are unremarkable except as noted in HPI & below Physical Exam Physical Exam: GENERAL : Resting. No acute distress. EYES: Pupils equal round and reactive to light NOSE: No evidence of epistaxis MOUTH: Mucosa is moist. Patient is absent of all teeth. He states that he has dentures at home but did not bring them with him. NECK: Supple. No JVD. No carotid bruits. No stridor appreciated LUNGS: CTA B/L. Good inspiratory effort HEART: Regular, rate is in the mid 90s. No appreciation of murmurs gallops or rubs. ABDOMEN: Soft, ND, BS Present in all 4 quadrants. Patient does report some tenderness with deep palpation but has no rebound tenderness and no guarding. EXTREMITIES: No LE edema, pedal pulses intact and equal bilaterally NEURO: A&OX3. Results & Data Results & Data ([facility]) Vital Signs (Past 12 Hours) Vital Signs Temp Pulse Pulse Resp BP Pulse Ox 09/21/20 21:14 69 184/95 H 09/21/20 19:00 36.7 C 71 16 172/95 H 95 09/21/20 16:00 86 09/21/20 15:53 36.8 C 73 18 166/92 H 94 PG Care Time/CCT Total # of Minutes Spent Total Time Spent with Patient: Total time spent is greater than 50% in coordination of care (as documented) at patient's floor/unit and/or counseling patient: Coding Level of Care Code 74257 Subseq Hosp Care Lvl 2 Diagnoses Intractable vomiting R11.2 Nausea presence: with nausea Vomiting type: unspecified Abdominal pain, LLQ R10.32 ELENA (acute kidney injury) N17.9 Hypokalemia E87.6 Hyponatremia E87.1 Alcohol abuse F10.10 Schizophrenia F20.9 Schizophrenia type: unspecified Hypertension I10 Hypertension type: essential hypertension Tobacco abuse Z72.0 COPD (chronic obstructive pulmonary disease) J44.9 DVT prophylaxis Z29.9 (1) Schizophrenia Schizophrenia type: unspecified Qualified Code(s): F20.9 - Schizophrenia, unspecified (2) Intractable vomiting Nausea presence: with nausea Vomiting type: unspecified Qualified Code(s): R11.2 - Nausea with vomiting, unspecified (3) Hypertension Hypertension type: essential hypertension Qualified Code(s): I10 - Essential (primary) hypertension
[2020-09-22] MEDS: NSS + 20MEQ KCL 20 MEQ/1,000 ML BAG IV SCH ×3 (05:39→22:24)
--- NOTE | 2020-09-22 06:31 | Electrocardiogram Report ---
Test Reason : Blood Pressure : / mmHG Vent. Rate : 071 BPM Atrial Rate : 071 BPM P-R Int : 146 ms QRS Dur : 082 ms QT Int : 420 ms P-R-T Axes : 072 -17 075 degrees QTc Int : 456 ms Normal sinus rhythm Possible Septal infarct Abnormal ECG When compared with ECG of 20-SEP-2020 15:34, Questionable change in initial forces of Anteroseptal leads Nonspecific T wave abnormality no longer evident in Inferior leads Confirmed by Alexandro Wong ([id number]) on 09/22/2020 6:31:04 AM Referred By: REFERRED SELF Confirmed By:Alexandro Wong
[2020-09-22 06:43] LABS: BUN Creatinine Ratio 6.8 (10-20); Calcium 8.6 mg/dl (8.5-10.1); Creatinine Clr Calc Pharmacy 121.3 ml/min; Est GFR (African American) 128.7; Potassium 3.5 mmol/L (3.5-5.1)
[2020-09-22] MEDS: FOLIC ACID 1 MG TAB PO SCH (07:48)
[2020-09-22] MEDS: HEPARIN SOD 5,000 UNIT/0.5 ML VIAL SQ SCH ×2 (07:48→21:21)
[2020-09-22] MEDS: QUEtiapine FUMARATE 300 MG TABLET PO SCH (07:49)
[2020-09-22] MEDS: THIAMINE HCL 100 MG TAB PO SCH (07:49)
[2020-09-22] MEDS: lisinopril 20 MG TAB PO SCH (07:50)
[2020-09-22] MEDS: buPROPion XL 150 MG TABCR PO SCH (07:50)
[2020-09-22] MEDS: FAMOTIDINE 20 MG in SYRINGE 3 ML IV SCH (07:56)
[2020-09-22] MEDS ORDERED: GABAPENTIN 1200MG ALCOHOL WITHDRAWAL LOAD PO STA (11:38)
[2020-09-22] MEDS ORDERED: GABAPENTIN 600 MG TAB PO ONE (12:00)
[2020-09-22] MEDS ORDERED: amLODIPine BESYLATE 5 MG TAB PO ONE (12:00)
--- NOTE | 2020-09-22 12:48 | Hospitalist Progress Note ---
Date of Service September 22, 2020 Assessment & Plan (1) Intractable vomiting: Impression: This is a 64-year-old male with a 12-hour history of intractable nausea and vomiting. He denies any diarrhea. He has had no unusual foods or visited any restaurants. Patient does have electrolyte imbalance with hypokalemia and hyponatremia. He is an ethanol user and drank approximate 1/2 gallon of vodka yesterday. He has no other contacts for acute illness. He has no one bringing food into the home for him. He has been admitted under observation for electrolyte disorder, acute kidney injury, and intractable nausea and vomiting. At this point patient received 8 mg of Zofran and 25 mg of Phenergan in the emergency department. EKG was acquired and patient has a QTC of 499 ms Patient appears to be improving. Patient chest x-ray is clear and there does not appear to be any evidence of aspiration with auscultation CT abdomen pelvis is negative for any inflammation, diverticulosis, diverticulitis, or free air or other acute pathology We will monitor the patient on medical telemetry will advance diet as tolerated. Will continue to monitor. Famotidine 20 mg IV daily will continue on zofran. (2) Abdominal pain, LLQ: CT abdomen pelvis is negative Patient has no rebound tenderness or guarding He does report pain with deep palpation but this does not induce further nausea advance diet as tolerated. Manage electrolyte imbalance Continue to monitor (3) ELENA (acute kidney injury): Etiology is most likely secondary to acute nausea and vomiting. Will hydrate with normal saline with 20 mEq of potassium chloride per liter at 125 mL/h creatinine is improving. Bladder scan if no urination Follow expectantly (4) Hypokalemia: improving. will continue to monitor. (5) Hyponatremia: Sodium level is improving wo;; ,pmotpr/ (6) Alcohol abuse: AWSS protocol ordered Discussed with psychiatry in light of prolonged QTC They continue to recommend lorazepam as needed as well as gabapentin as needed Patient with consumption of 1/2 gallon of vodka day prior to admission. Becoming more confused. will place on gabapentin taper and lorazepam. No tremor or asterixis on exam (7) Schizophrenia: Patient reports diagnosis approximately 10 years ago Follow[address] with [facility] psychological clinic Discussed with psychiatry Continue bupropion, lorazepam, loxapine, quetiapine, and trazodone as ordered outpatient When patient is on maintenance doses, very seldom do they have issues with prolonged QTC We will continue to follow on telemetry Patient denies any command hallucinations or other sensory hallucinations (8) Hypertension: Continue lisinopril 20 mg daily Hold furosemide 20 mg daily due to ELENA We will follow and treat expectantly Troponin is negative No indication for echocardiogram or other intervention at this time (9) Tobacco abuse: Patient reports starting smoking 17 years ago while working for the [employer] Currently smokes approximately 15 cigarettes/day Discussed need for abstinence No history of malignancy or pulmonary disease (10) COPD (chronic obstructive pulmonary disease): COPD is listed in the patient's history but there is no evidence of pulmonary function testing and patient is not on any bronchodilators Chest x-ray does not indicate any emphysema At this time we will hold off on any pulmonary medications If patient does develop bronchospasm or shortness of breath, will reevaluate and order bronchodilators at that time (11) DVT prophylaxis: Patient with no thrombocytopenia, active bleeding, anemia We will order heparin 5000 units SQ every 12 hours Also will order ALEXANDER hose and SCDs Ambulate as tolerated with assistance Admission and Anticipated Discharge Date Admission Date: September 21, 2020 Subjective Patient is having a a dry cough todayl He did bring up a small amount of food, but did not vomit today. As the day bhakti on patient became more confused. Review of Systems Review of Systems: All systems reviewed & are unremarkable except as noted in HPI & below Physical Exam Physical Exam: GENERAL : Resting. No acute distress. EYES: Pupils equal round and reactive to light NOSE: No evidence of epistaxis MOUTH: Mucosa is moist. Patient is absent of all teeth. He states that he has dentures at home but did not bring them with him. NECK: Supple. No JVD. No carotid bruits. No stridor appreciated LUNGS: CTA B/L. Good inspiratory effort HEART: Regular, rate is in the mid 90s. No appreciation of murmurs gallops or rubs. ABDOMEN: Soft, ND, BS Present in all 4 quadrants. nontender EXTREMITIES: No LE edema, pedal pulses intact and equal bilaterally NEURO: A&OX3. Results & Data Results & Data ([facility]) Vital Signs (Past 12 Hours) Vital Signs Temp Pulse Pulse Resp BP BP Pulse Ox 09/22/20 12:01 36.8 C 74 18 173/95 H 96 09/22/20 11:01 77 188/98 H 96 09/22/20 07:44 205/93 H 214/105 H 09/22/20 07:34 37.2 C 70 20 192/102 H 96 09/22/20 07:27 70 09/22/20 03:45 36.7 C 72 16 186/93 H 93 PG Care Time/CCT Total # of Minutes Spent Total Time Spent with Patient: Total time spent is greater than 50% in coordination of care (as documented) at patient's floor/unit and/or counseling patient: Coding Level of Care Code 75108 Subseq Hosp Care Lvl 3 Diagnoses Intractable vomiting R11.2 Nausea presence: with nausea Vomiting type: unspecified Abdominal pain, LLQ R10.32 ELENA (acute kidney injury) N17.9 Hypokalemia E87.6 Hyponatremia E87.1 Alcohol abuse F10.10 Schizophrenia F20.9 Schizophrenia type: unspecified Hypertension I10 Hypertension type: essential hypertension Tobacco abuse Z72.0 COPD (chronic obstructive pulmonary disease) J44.9 DVT prophylaxis Z29.9 Time Spent (min) 35 (1) Schizophrenia Schizophrenia type: unspecified Qualified Code(s): F20.9 - Schizophrenia, unspecified (2) Intractable vomiting Nausea presence: with nausea Vomiting type: unspecified Qualified Code(s): R11.2 - Nausea with vomiting, unspecified (3) Hypertension Hypertension type: essential hypertension Qualified Code(s): I10 - Essential (primary) hypertension
[2020-09-22] MEDS: NICOTINE 21 MG/24 HR TDSY TD SCH (13:05)
[2020-09-22 13:29] LABS: MDA negative; MDEA negative; MDMA (Ecstasy) Urine, Confirm negative
[2020-09-22] MEDS ORDERED: LORazepam 3 MG/6 ML VIAL IV PRN (15:32)
[2020-09-22] MEDS ORDERED: ATIVAN IV ALCOHOL WITHDRAWL IV PRN (15:32)
[2020-09-22] MEDS: LORazepam 2 MG/4 ML VIAL IV PRN (16:26)
[2020-09-22] MEDS: GABAPENTIN 600 MG TAB PO SCH ×2 (18:53→23:23)
[2020-09-22] MEDS: traZODone HCL 100 MG TAB PO SCH (20:53)
--- NOTE | 2020-09-23 05:42 | Electrocardiogram Report ---
Test Reason : Blood Pressure : / mmHG Vent. Rate : 070 BPM Atrial Rate : 070 BPM P-R Int : 150 ms QRS Dur : 096 ms QT Int : 422 ms P-R-T Axes : 076 005 065 degrees QTc Int : 455 ms Normal sinus rhythm Anteroseptal infarct (cited on or before 01-APR-2020) Abnormal ECG When compared with ECG of 21-SEP-2020 06:52, Questionable change in initial forces of Anteroseptal leads Confirmed by Alexandro Wong ([id number]) on 09/23/2020 5:42:16 AM Referred By: REFERRED SELF Confirmed By:Alexandro Wong
[2020-09-23 06:39] LABS: Hematocrit (blood only) 39.3 % (42-52); Hemoglobin 13.3 g/dL (14.0-18.0); Mean Corpuscular Hemoglobin 33.2 pg (25-34); Mean Corpuscular Hgb Conc 33.8 g/dL (32-36); Mean Platelet Volume 11.3 fL (7.4-10.4); Platelet Count 198 K/uL (130-400); RDW Coefficient of Variation 12.9 % (11.5-14.5); RDW Standard Deviation 46.3 fL (36.4-46.3); Red Blood Count 4.01 M/uL (4.7-6.1); White Blood Count 6.32 K/uL (4.8-10.8)
[2020-09-23] MEDS: NSS + 20MEQ KCL 20 MEQ/1,000 ML BAG IV SCH ×2 (06:52→15:49)
[2020-09-23 06:58] LABS: BUN Creatinine Ratio 7.7 (10-20); Calcium 8.4 mg/dl (8.5-10.1); Creatinine Clr Calc Pharmacy 99.4 ml/min; Est GFR (African American) 117.6; Est GFR (Non-African American) 101.5; Potassium 3.8 mmol/L (3.5-5.1)
[2020-09-23] MEDS: HEPARIN SOD 5,000 UNIT/0.5 ML VIAL SQ SCH ×2 (08:04→20:43)
[2020-09-23] MEDS: GABAPENTIN 600 MG TAB PO SCH ×2 (08:04→15:52)
[2020-09-23] MEDS: NICOTINE 21 MG/24 HR TDSY TD SCH (08:04)
[2020-09-23] MEDS: FAMOTIDINE 20 MG in SYRINGE 3 ML IV SCH (08:05)
[2020-09-23] MEDS: lisinopril 20 MG TAB PO SCH (08:05)
[2020-09-23] MEDS: QUEtiapine FUMARATE 300 MG TABLET PO SCH (08:05)
[2020-09-23] MEDS: buPROPion XL 150 MG TABCR PO SCH (08:05)
[2020-09-23] MEDS: THIAMINE HCL 100 MG TAB PO SCH (08:05)
[2020-09-23] MEDS: FOLIC ACID 1 MG TAB PO SCH (08:36)
[2020-09-23] MEDS: LORazepam 1 MG/2 ML VIAL IV PRN (13:43)
[2020-09-23] MEDS: LORazepam 2 MG/4 ML VIAL IV PRN ×3 (16:02→19:41)
[2020-09-23] MEDS: traZODone HCL 100 MG TAB PO SCH (20:43)
--- NOTE | 2020-09-23 22:25 | Hospitalist Progress Note ---
Date of Service September 23, 2020 Assessment & Plan (1) Intractable vomiting: Impression: This is a 64-year-old male with a 12-hour history of intractable nausea and vomiting. He denies any diarrhea. He has had no unusual foods or visited any restaurants. Patient does have electrolyte imbalance with hypokalemia and hyponatremia. He is an ethanol user and drank approximate 1/2 gallon of vodka yesterday. He has no other contacts for acute illness. He has no one bringing food into the home for him. He has been admitted under observation for electrolyte disorder, acute kidney injury, and intractable nausea and vomiting. At this point patient received 8 mg of Zofran and 25 mg of Phenergan in the emergency department. EKG was acquired and patient has a QTC of 499 ms Patient appears to be improving and no longer appears to be vomiting, however, he is very confused today. Patient chest x-ray is clear and there does not appear to be any evidence of aspiration with auscultation CT abdomen pelvis is negative for any inflammation, diverticulosis, diverticulitis, or free air or other acute pathology We will monitor the patient on medical telemetry will advance diet as tolerated. Will continue to monitor. Famotidine 20 mg IV daily will continue on zofran. (2) Abdominal pain, LLQ: CT abdomen pelvis is negative Patient has no rebound tenderness or guarding No longer complaining of pain. advance diet as tolerated. Manage electrolyte imbalance Continue to monitor (3) ELENA (acute kidney injury): Etiology is most likely secondary to acute nausea and vomiting. Will hydrate with normal saline with 20 mEq of potassium chloride per liter at 125 mL/h creatinine normalized. Bladder scan if no urination (4) Hypokalemia: improving. will continue to monitor. (5) Hyponatremia: Sodium level is improving/ (6) Alcohol abuse: Metabolic Encephalopathy Likely going through withdrawal vvs medication induced confusion AWSS protocol ordered Discussed with psychiatry in light of prolonged QTC They continue to recommend lorazepam as needed as well as gabapentin as needed Patient with consumption of 1/2 gallon of vodka day prior to admission. Becoming more confused. on gabapentin taper and lorazepam as needed. No tremor or asterixis on exam (7) Schizophrenia: Patient reports diagnosis approximately 10 years ago Follows with [facility] psychological clinic Discussed with psychiatry Continue bupropion, lorazepam, loxapine, quetiapine, and trazodone as ordered outpatient When patient is on maintenance doses, very seldom do they have issues with prolonged QTC We will continue to follow on telemetry Patient denies any command hallucinations or other sensory hallucinations (8) Hypertension: Continue lisinopril 20 mg daily Hold furosemide 20 mg daily due to ELENA We will follow and treat expectantly Troponin is negative No indication for echocardiogram or other intervention at this time (9) Tobacco abuse: Patient reports starting smoking 17 years ago while working for the [employer] Currently smokes approximately 15 cigarettes/day Discussed need for abstinence No history of malignancy or pulmonary disease (10) COPD (chronic obstructive pulmonary disease): COPD is listed in the patient's history but there is no evidence of pulmonary function testing and patient is not on any bronchodilators Chest x-ray does not indicate any emphysema At this time we will hold off on any pulmonary medications If patient does develop bronchospasm or shortness of breath, will reevaluate and order bronchodilators at that time (11) DVT prophylaxis: Patient with no thrombocytopenia, active bleeding, anemia We will order heparin 5000 units SQ every 12 hours Also will order ALEXANDER hose and SCDs Ambulate as tolerated with assistance Admission and Anticipated Discharge Date Admission Date: September 21, 2020 Subjective Patient is more confused, and unable to express complaints. He states he is looking for his guns. He denies any discomfort. Review of Systems Review of Systems: All systems reviewed & are unremarkable except as noted in HPI & below Physical Exam Physical Exam: GENERAL : Awake, trying to get out of bed.. EYES: Pupils equal round and reactive to light NOSE: No evidence of epistaxis MOUTH: Mucosa is moist. Patient is absent of all teeth. NECK: Supple. No JVD. No carotid bruits. No stridor appreciated LUNGS: CTA B/L. HEART: Regular, rate regular. No appreciation of murmurs gallops or rubs. ABDOMEN: Soft, ND, BS Present in all 4 quadrants. nontender EXTREMITIES: No LE edema, pedal pulses intact and equal bilaterally NEURO: A&O to person, not oriented to place or time. Results & Data Results & Data ([facility]) Vital Signs (Past 12 Hours) Vital Signs Temp Pulse Pulse Resp BP BP Pulse Ox 09/23/20 20:43 36 C L 59 L 18 197/98 H 96 09/23/20 18:15 36.8 C 64 20 167/82 H 95 09/23/20 16:59 36.8 C 64 20 177/95 H 94 09/23/20 16:42 66 09/23/20 15:56 36.6 C 66 21 176/97 H 97 09/23/20 13:37 36.6 C 73 18 139/73 98 09/23/20 11:58 36.4 C L 68 18 128/79 95 PG Care Time/CCT Total # of Minutes Spent Total Time Spent with Patient: Total time spent is greater than 50% in coordination of care (as documented) at patient's floor/unit and/or counseling patient: Coding Level of Care Code 92568 Subseq Hosp Care Lvl 3 Diagnoses Intractable vomiting R11.2 Nausea presence: with nausea Vomiting type: unspecified Abdominal pain, LLQ R10.32 ELENA (acute kidney injury) N17.9 Hypokalemia E87.6 Hyponatremia E87.1 Alcohol abuse F10.10 Schizophrenia F20.9 Schizophrenia type: unspecified Hypertension I10 Hypertension type: essential hypertension Tobacco abuse Z72.0 COPD (chronic obstructive pulmonary disease) J44.9 DVT prophylaxis Z29.9 Time Spent (min) 35 (1) Schizophrenia Schizophrenia type: unspecified Qualified Code(s): F20.9 - Schizophrenia, unspecified (2) Intractable vomiting Nausea presence: with nausea Vomiting type: unspecified Qualified Code(s): R11.2 - Nausea with vomiting, unspecified (3) Hypertension Hypertension type: essential hypertension Qualified Code(s): I10 - Essential (primary) hypertension
[2020-09-24] MEDS: NSS + 20MEQ KCL 20 MEQ/1,000 ML BAG IV SCH ×2 (00:01→06:37)
[2020-09-24] MEDS: GABAPENTIN 600 MG TAB PO SCH ×2 (00:03→12:04)
[2020-09-24] MEDS: LORazepam 1 MG/2 ML VIAL IV PRN (00:15)
[2020-09-24] MEDS: FAMOTIDINE 20 MG in SYRINGE 3 ML IV SCH (08:00)
[2020-09-24] MEDS: NICOTINE 21 MG/24 HR TDSY TD SCH (08:00)
[2020-09-24] MEDS: HEPARIN SOD 5,000 UNIT/0.5 ML VIAL SQ SCH ×2 (08:01→20:40)
[2020-09-24] MEDS: THIAMINE HCL 100 MG TAB PO SCH (12:03)
[2020-09-24] MEDS: FOLIC ACID 1 MG TAB PO SCH (12:03)
[2020-09-24] MEDS: QUEtiapine FUMARATE 300 MG TABLET PO SCH (12:03)
[2020-09-24] MEDS: buPROPion XL 150 MG TABCR PO SCH (12:03)
[2020-09-24] MEDS: lisinopril 20 MG TAB PO SCH (12:04)
[2020-09-24] MEDS: LORazepam 2 MG/4 ML VIAL IV PRN (12:20)
--- NOTE | 2020-09-24 13:54 | Hospitalist Progress Note ---
Date of Service September 24, 2020 Assessment & Plan (1) Alcohol abuse: Metabolic encephalopathy; alcohol withdrawal vs medication-induced confusion. - AWSS protocol ordered - Will get official psychiatric eval as this also could be schizophrenia. (2) Intractable vomiting: He is an ethanol user and drank approximate 1/2 gallon of vodka prior to presentation. He has no other contacts for acute illness. He has no one bringing food into the home for him. - Patient appears to be improving and no longer appears to be vomiting, however, he is very confused today. - Resolved (3) Abdominal pain, LLQ: CT abdomen pelvis is negative. Patient has no rebound tenderness or guarding. - No longer complaining of pain. (4) Schizophrenia: Patient reports diagnosis approximately 10 years ago. Follows with [facility] psychological clinic. - Continue bupropion, lorazepam, loxapine, quetiapine, and trazodone as ordered outpatient (5) Hypertension: BP is 190/95 today. - Continue lisinopril - Restart furosemide as ELENA resolved (6) Tobacco abuse: Patient reports starting smoking 17 years ago while working for the [employer]. Currently smokes approximately 15 cigarettes/day. - Discussed need for abstinence (7) COPD (chronic obstructive pulmonary disease): COPD is listed in the patient's history but there is no evidence of pulmonary function testing and patient is not on any bronchodilators. - DuoNebs PRN (8) DVT prophylaxis: Patient with no thrombocytopenia, active bleeding, or anemia. - Heparin 5000 units SQ every 12 hours Admission and Anticipated Discharge Date Admission Date: September 21, 2020 Subjective Very hard to understand. Unable to really understand responses when he speaks. Review of Systems Review of Systems: Unobtainable due to mental health condition Physical Exam Constitutional: WD/WN, vitals as above + acute distress Eyes: EOM intact bilaterally; no conjunctival abnormality ENMT: external ear and nose normal, oropharynx normal Neck: trachea midline, no thyromegaly normal visual inspection Respiratory: normal respiratory effort, lungs clear to auscultation no respiratory distress Cardiovascular: RRR, no murmur, no edema Gastrointestinal (Abdomen): Inspection/Auscultation: abdomen normal to inspection; abdomen not distended Musculoskeletal: no cyanosis or clubbing, extremities motor strength 5/5 Skin: no rashes, warm and dry Neurologic: moves all extremities and awake Psychiatric: Orientation: alert, oriented to person and cooperative Apperance: + disheveled Eye Contact: + poor eye contact Speech: no mute (But low voice and garbled speech) Results & Data Results & Data ([facility]) Vital Signs (Past 12 Hours) Vital Signs Temp Pulse Pulse Resp BP BP Pulse Ox 09/24/20 11:25 36.6 C 63 20 187/97 H 191/96 H 97 09/24/20 07:06 65 09/24/20 06:10 36.3 C L 67 18 177/87 H 99 09/24/20 02:39 36.6 C 59 L 20 202/95 H 98 09/24/20 02:08 36.6 C 64 18 197/84 H 93 PG Care Time/CCT Total # of Minutes Spent Total Time Spent with Patient: Total time spent is greater than 50% in coordination of care (as documented) at patient's floor/unit and/or counseling patient: Coding Level of Care Code 30676 Subseq Hosp Care Lvl 2 Diagnoses Alcohol abuse F10.10 Intractable vomiting R11.2 Nausea presence: with nausea Vomiting type: unspecified Abdominal pain, LLQ R10.32 Schizophrenia F20.9 Schizophrenia type: unspecified Hypertension I10 Hypertension type: essential hypertension Tobacco abuse Z72.0 COPD (chronic obstructive pulmonary disease) J44.9 DVT prophylaxis Z29.9 (1) Intractable vomiting Nausea presence: with nausea Vomiting type: unspecified Qualified Code(s): R11.2 - Nausea with vomiting, unspecified (2) Schizophrenia Schizophrenia type: unspecified Qualified Code(s): F20.9 - Schizophrenia, unspecified (3) Hypertension Hypertension type: essential hypertension Qualified Code(s): I10 - Essential (primary) hypertension
--- NOTE | 2020-09-24 16:14 | Communication Note ---
Date of Service: September 24, 2020 64-year-old male admitted medically on 09/21/2020 after presenting to the ED with intractable vomiting. Pt is well-known to our service from previous psychiatric consultations for alcohol abuse and history of schizophrenia. Most recent consultation note from 04/06/2020. Psychiatric consultation was requested today to evaluate patient for possible worsening symptoms of schizophrenia. Pt is also likely experiencing alcohol withdrawal - AWSS score of 9 around noon today. Chart reviewed and consultation question clarified with Dr. Ramirez. Pt was visualized by Dr. Zee - see addendum for findings. Patient's case was reviewed with Dr. Zee, supervising physician. Recommend discontinuing all psychiatric medications (bupropion, lorazepam, loxapine, quetiapine, and trazodone), as patient is reported to not be alert or oriented and appears encephalopathic. It was also recommended to discontinue lorazepam due to concern for sedation/confusion - with close monitoring of vitals. Lorazepam can be resumed if drastic change in vitals. When appropriate, the patient's daughter may be able to provide loxapine (non- formulary medication), but would not suggest starting this medication at this time.
[2020-09-24] MEDS: traZODone HCL 100 MG TAB PO SCH (20:40)
[2020-09-25] MEDS: GABAPENTIN 600 MG TAB PO SCH (00:21)
[2020-09-25] MEDS: LORazepam 2 MG/4 ML VIAL IV PRN (06:04)
[2020-09-25 06:46] LABS: Hematocrit (blood only) 45.6 % (42-52); Hemoglobin 15.6 g/dL (14.0-18.0); Mean Corpuscular Hemoglobin 32.8 pg (25-34); Mean Corpuscular Hgb Conc 34.2 g/dL (32-36); Mean Platelet Volume 12.3 fL (7.4-10.4); Platelet Count 182 K/uL (130-400); RDW Coefficient of Variation 13.2 % (11.5-14.5); RDW Standard Deviation 45.8 fL (36.4-46.3); Red Blood Count 4.75 M/uL (4.7-6.1); White Blood Count 12.93 K/uL (4.8-10.8)
[2020-09-25 07:54] LABS: Albumin Level 3.3 gm/dl (3.4-5.0); BUN Creatinine Ratio 10.9 (10-20); Calcium 9.1 mg/dl (8.5-10.1); Creatinine Clr Calc Pharmacy 88.5 ml/min; Est GFR (African American) 114.1; Est GFR (Non-African American) 98.5
[2020-09-25 07:57] LABS: Albumin Globulin Ratio 0.8 (0.9-2); Bilirubin,Total 1.2 mg/dl (0.2-1); Total Protein 7.3 gm/dl (6.4-8.2)
[2020-09-25] MEDS: HEPARIN SOD 5,000 UNIT/0.5 ML VIAL SQ SCH ×2 (08:20→20:16)
[2020-09-25] MEDS ORDERED: FUROSEMIDE 20 MG TAB PO SCH (09:00)
[2020-09-25] MEDS: lisinopril 20 MG TAB PO SCH (09:55)
[2020-09-25] MEDS: THIAMINE HCL 100 MG TAB PO SCH (09:55)
[2020-09-25] MEDS: FOLIC ACID 1 MG TAB PO SCH (09:55)
[2020-09-25] MEDS: NICOTINE 21 MG/24 HR TDSY TD SCH (09:55)
--- NOTE | 2020-09-25 11:03 | Hospitalist Progress Note ---
Date of Service September 25, 2020 Assessment & Plan (1) Alcohol abuse: Metabolic encephalopathy; alcohol withdrawal vs medication-induced confusion. - AWSS protocol ordered - Seen by psychiatry with thought this is toxic encephalopathy from alcohol and medications. Holding all psychoactive medications. Using benzodiazepine sparingly. - Will get CXR, procalcitonin, and blood cultures. Some concern for aspiration during somnolence/altered mental state. (2) Intractable vomiting: He is an ethanol user and drank approximate 1/2 gallon of vodka prior to presentation. He has no other contacts for acute illness. He has no one bringing food into the home for him. - Patient no longer vomiting. - Resolved (3) Abdominal pain, LLQ: CT abdomen pelvis is negative. Patient has no rebound tenderness or guarding. - No longer complaining of pain. (4) Schizophrenia: Patient reports diagnosis approximately 10 years ago. Follows with [facility] psychological clinic. - Hold bupropion, lorazepam, loxapine, quetiapine, and trazodone as per psych above (5) Hypertension: BP is 150/85 today. - Continue lisinopril as mental status allows. - Restarted furosemide on 09/25 as able given mental status. (6) Tobacco abuse: Patient reports starting smoking 17 years ago while working for the [employer]. Currently smokes approximately 15 cigarettes/day. - Discussed need for abstinence (7) COPD (chronic obstructive pulmonary disease): COPD is listed in the patient's history but there is no evidence of pulmonary function testing and patient is not on any bronchodilators. - DuoNebs PRN (8) DVT prophylaxis: Patient with no thrombocytopenia, active bleeding, or anemia. - Heparin 5000 units SQ every 12 hours Admission and Anticipated Discharge Date Admission Date: September 21, 2020 Subjective Only slight arousal to verbal and physical stimulus. Review of Systems Review of Systems: Unobtainable due to mental health condition and Unobtainable due to cognitive status Physical Exam Constitutional: WD/WN, vitals as above + acute distress Eyes: EOM intact bilaterally; no conjunctival abnormality ENMT: external ear and nose normal, oropharynx normal Neck: trachea midline, no thyromegaly normal visual inspection Respiratory: normal respiratory effort, lungs clear to auscultation no respiratory distress Cardiovascular: RRR, no murmur, no edema Gastrointestinal (Abdomen): Inspection/Auscultation: abdomen normal to inspection; abdomen not distended Musculoskeletal: no cyanosis or clubbing, extremities motor strength 5/5 Skin: no rashes, warm and dry Neurologic: moves all extremities; + not awake Psychiatric: Orientation: + not alert and + not oriented to person Apperance: + disheveled Eye Contact: + poor eye contact Speech: no mute (But low voice and garbled speech) Results & Data Results & Data ([facility]) Vital Signs (Past 12 Hours) Vital Signs Temp Pulse Pulse Resp BP BP Pulse Ox 09/25/20 07:13 36.8 C 109 H 20 147/85 H 90 09/25/20 05:58 36.6 C 101 H 18 143/85 H 90 09/25/20 03:01 36.7 C 87 18 156/88 H 90 09/25/20 01:58 36.6 C 64 18 197/84 H 93 09/25/20 00:35 82 09/24/20 23:05 36.5 C 85 18 156/92 H 92 PG Care Time/CCT Total # of Minutes Spent Total Time Spent with Patient: Total time spent is greater than 50% in coordination of care (as documented) at patient's floor/unit and/or counseling patient: Coding Level of Care Code 70716 Subseq Hosp Care Lvl 2 Diagnoses Alcohol abuse F10.10 Intractable vomiting R11.2 Nausea presence: with nausea Vomiting type: unspecified Abdominal pain, LLQ R10.32 Schizophrenia F20.9 Schizophrenia type: unspecified Hypertension I10 Hypertension type: essential hypertension Tobacco abuse Z72.0 COPD (chronic obstructive pulmonary disease) J44.9 DVT prophylaxis Z29.9 (1) Intractable vomiting Nausea presence: with nausea Vomiting type: unspecified Qualified Code(s): R11.2 - Nausea with vomiting, unspecified (2) Schizophrenia Schizophrenia type: unspecified Qualified Code(s): F20.9 - Schizophrenia, unspecified (3) Hypertension Hypertension type: essential hypertension Qualified Code(s): I10 - Essential (primary) hypertension
--- NOTE | 2020-09-25 13:31 | XRay Report ---
XR chest 1V portable HISTORY: 64 years-old Male Possible aspiration acute shortness of breath with possible aspiration pn eumonitis COMPARISON: Chest radiograph and CT abdomen and pelvis 09/20/2020 TECHNIQUE: Portable AP view of the chest FINDINGS: Cardiomediastinal and hilar silhouettes are within normal limits. Suggested emphysema. Mild asymmetri c interstitial coarsening of the left lung base has progressed from comparison. Numerous remote displ aced left-sided rib fractures redemonstrated. Degenerative changes of the shoulders and spine. IMPRESSION: Interval development of asymmetric interstitial opacities of the left lung base suspiciou s for a nonspecific infectious or inflammatory pneumonitis. ACT 112: Negative or not required by law. The above report was generated using voice recognition software. It may contain grammatical, syntax o r spelling errors. Electronically signed by: Kehinde Solis M.D. 09/25/2020 1:29 PM
[2020-09-26] MEDS ORDERED: GABAPENTIN 600 MG TAB PO SCH
[2020-09-26 06:16] LABS: Hemoglobin 14.4 g/dL (14.0-18.0); Mean Corpuscular Hemoglobin 32.9 pg (25-34); Mean Corpuscular Hgb Conc 34.3 g/dL (32-36); Mean Corpuscular Volume 95.9 fL (80-100); Mean Platelet Volume 11.5 fL (7.4-10.4); Platelet Count 228 K/uL (130-400); RDW Coefficient of Variation 13.5 % (11.5-14.5); RDW Standard Deviation 46.7 fL (36.4-46.3); Red Blood Count 4.38 M/uL (4.7-6.1); White Blood Count 10.38 K/uL (4.8-10.8)
[2020-09-26 06:49] LABS: BUN Creatinine Ratio 18.2 (10-20); Creatinine Clr Calc Pharmacy 47.4 ml/min; Est GFR (African American) 66.4; Est GFR (Non-African American) 57.3; Magnesium 2.3 mg/dl (1.8-2.4); Potassium 3.7 mmol/L (3.5-5.1)
[2020-09-26] MEDS ORDERED: NORMOSOL-R 500 ML IV ONE (07:30)
[2020-09-26] MEDS: HEPARIN SOD 5,000 UNIT/0.5 ML VIAL SQ SCH ×2 (08:10→20:07)
[2020-09-26] MEDS: NICOTINE 21 MG/24 HR TDSY TD SCH (08:10)
--- NOTE | 2020-09-26 16:11 | Hospitalist Progress Note ---
Date of Service September 26, 2020 Assessment & Plan (1) Alcohol abuse: Metabolic encephalopathy; alcohol withdrawal vs medication-induced confusion. - AWSS protocol ordered - Seen by psychiatry with thought this is toxic encephalopathy from alcohol and medications. Holding all psychoactive medications. Using benzodiazepine sparingly. - CXR on 09/25 indicated increase in left lung base infiltrate. Procalcitonin was negative. Blood cultures done on 09/25 are no growth to date. - Will start Unasyn for presumed aspiration x 5 days. (2) Intractable vomiting: He is an ethanol user and drank approximate 1/2 gallon of vodka prior to presentation. He has no other contacts for acute illness. He has no one bringing food into the home for him. - Patient no longer vomiting. - Resolved (3) Abdominal pain, LLQ: CT abdomen pelvis is negative. Patient has no rebound tenderness or guarding. - No longer complaining of pain. (4) Schizophrenia: Patient reports diagnosis approximately 10 years ago. Follows with [facility] psychological clinic. - Hold bupropion, lorazepam, loxapine, quetiapine, and trazodone as per psych above (5) Hypertension: BP is 150/85 today. - Hold lisinopril & furosemide until improved mental status. (6) Tobacco abuse: Patient reports starting smoking 17 years ago while working for the [employer]. Currently smokes approximately 15 cigarettes/day. - Discussed need for abstinence (7) COPD (chronic obstructive pulmonary disease): COPD is listed in the patient's history but there is no evidence of pulmonary function testing and patient is not on any bronchodilators. - DuoNebs PRN (8) DVT prophylaxis: Patient with no thrombocytopenia, active bleeding, or anemia. - Heparin 5000 units SQ every 12 hours Admission and Anticipated Discharge Date Admission Date: September 21, 2020 Subjective More awake this morning. Speaking and has some orientation. Mostly says yes/no to questions, but does know what hospital he is in. Reports he has pain, and says yes to every location I ask about. Physical Exam Constitutional: WD/WN, vitals as above + acute distress Eyes: EOM intact bilaterally; no conjunctival abnormality ENMT: external ear and nose normal, oropharynx normal Neck: trachea midline, no thyromegaly normal visual inspection Respiratory: normal respiratory effort, lungs clear to auscultation no respiratory distress Cardiovascular: RRR, no murmur, no edema Gastrointestinal (Abdomen): Inspection/Auscultation: abdomen normal to inspection; abdomen not distended Musculoskeletal: no cyanosis or clubbing, extremities motor strength 5/5 Skin: no rashes, warm and dry Neurologic: moves all extremities and awake Psychiatric: Orientation: alert and oriented to person Apperance: + disheveled Eye Contact: + poor eye contact Speech: no mute (But low voice and garbled speech) Results & Data Results & Data ([facility]) Vital Signs (Past 12 Hours) Vital Signs Temp Pulse Pulse Pulse Resp BP BP 09/26/20 15:06 37.1 C 79 20 99/64 L 09/26/20 14:47 81 09/26/20 11:09 36.7 C 64 18 127/76 09/26/20 08:00 36.5 C 77 18 99/65 L 09/26/20 07:38 73 Pulse Ox 09/26/20 15:06 99 09/26/20 14:47 09/26/20 11:09 98 09/26/20 08:00 90 09/26/20 07:38 PG Care Time/CCT Total # of Minutes Spent Total Time Spent with Patient: Total time spent is greater than 50% in coordination of care (as documented) at patient's floor/unit and/or counseling patient: Coding Level of Care Code 87619 Subseq Hosp Care Lvl 3 Diagnoses Alcohol abuse F10.10 Intractable vomiting R11.2 Nausea presence: with nausea Vomiting type: unspecified Abdominal pain, LLQ R10.32 Schizophrenia F20.9 Schizophrenia type: unspecified Hypertension I10 Hypertension type: essential hypertension Tobacco abuse Z72.0 COPD (chronic obstructive pulmonary disease) J44.9 DVT prophylaxis Z29.9 (1) Intractable vomiting Nausea presence: with nausea Vomiting type: unspecified Qualified Code(s): R11.2 - Nausea with vomiting, unspecified (2) Schizophrenia Schizophrenia type: unspecified Qualified Code(s): F20.9 - Schizophrenia, unspecified (3) Hypertension Hypertension type: essential hypertension Qualified Code(s): I10 - Essential (primary) hypertension
[2020-09-26] MEDS: AMPICILLIN/SULBACTAM SOD 3,000 MG in 0.9 % SODIUM CHLORIDE 100 ML IV SCH (18:27)
[2020-09-27] MEDS: AMPICILLIN/SULBACTAM SOD 3,000 MG in 0.9 % SODIUM CHLORIDE 100 ML IV SCH ×4 (00:18→21:00)
[2020-09-27 07:03] LABS: Hematocrit (blood only) 38.7 % (42-52); Hemoglobin 13.3 g/dL (14.0-18.0); Mean Corpuscular Hemoglobin 32.9 pg (25-34); Mean Corpuscular Hgb Conc 34.4 g/dL (32-36); Mean Corpuscular Volume 95.8 fL (80-100); Mean Platelet Volume 12.4 fL (7.4-10.4); Platelet Count 295 K/uL (130-400); RDW Coefficient of Variation 13.4 % (11.5-14.5); RDW Standard Deviation 46.7 fL (36.4-46.3); Red Blood Count 4.04 M/uL (4.7-6.1); White Blood Count 7.57 K/uL (4.8-10.8)
--- NOTE | 2020-09-27 07:25 | XRay Report ---
XR chest 1V portable CLINICAL HISTORY: Aspiration COMPARISON STUDY: 09/25/2010 FINDINGS: The cardiac and mediastinal contours are normal. There is no evidence of focal pulmonary co nsolidation. There is no evidence of failure. No pleural effusions are visualized.[There are multiple old left-sided rib deformities. There is been resolution of the previously described interstitial ba silar opacities IMPRESSION: No active disease in the chest. ACT 112: Negative or not required by law. Electronically signed by: True Tan M.D. 09/27/2020 7:24 AM
[2020-09-27 07:49] LABS: BUN Creatinine Ratio 21.4 (10-20); Calcium 8.8 mg/dl (8.5-10.1); Creatinine Clr Calc Pharmacy 73.5 ml/min; Est GFR (Non-African American) 91.4; Magnesium 2.1 mg/dl (1.8-2.4); Potassium 3.9 mmol/L (3.5-5.1)
[2020-09-27] MEDS: NICOTINE 21 MG/24 HR TDSY TD SCH (08:19)
[2020-09-27] MEDS: HEPARIN SOD 5,000 UNIT/0.5 ML VIAL SQ SCH ×2 (08:20→21:01)
--- NOTE | 2020-09-27 11:42 | Psychiatric Progress Note ---
Date of Service September 27, 2020 Impression / Recommendations Impression 64-year-old male, initially seen by my supervising physician on 09/24/2020 at request of our hospitalist service due to concerns for atypical alcohol withdrawal presentation in the setting of chronic schizophrenia diagnosis. Based on our service's previous involvement with this patient, he is known to have a typically atypical alcohol withdrawal presentation. Due to significant sedation at time of that assessment, it was recommended that all psychotropic agents be held with close monitoring for worsening of condition. Pt was seen today now that he is demonstrating more consistently improved presentation, and recommendations to resume several of his psychotropic agents were discussed. Pt agreed to the following recommendations. - Will resume quetiapine at 150mg this evening, then titrate to home dose of 300mg qHS. - Resume loxapine 10mg BID, starting with this evening's dose. - Will order trazodone 100mg to be available NEEDED at this time for insomnia. If not necessary to use this dose to promote healthy sleep in the hospital setting, this is a medication that can be resumed on an outpatient basis after follow-up with patient's psychiatric prescriber. - Would suggest discontinuation of bupropion, as patient as not demonstrated a commitment to abstaining from alcohol and he generally presents with severe alcohol withdrawal symptoms. Concern for this medications is risk of seizure in the setting of alcohol use/withdrawal. - We will request ROIs from the patient to contact the [facility] to confirm next medication management appointment. Please reach out to our service with any additional questions or updates. Interval History Identifying Information 64-year-old male admitted medically on 09/21/2020 after presenting to the ED with intractable vomiting. Pt has a significant history of alcohol abuse, unfortunately no BAL available from admission. Due to patient's diagnosis of schizophrenia and atypical alcohol withdrawal presentation, psychiatry was consulted for recommendations. Pt is seen today in follow-up. Chief Complaint "I'm feeling better." Review of Systems Notes Constitutional: reports feeling less sedated Cardiovascular: denied Respiratory: denied Gastrointestinal: denied Neurological: denied Psychiatric: denies symptoms other than stated above Total of at least 10 systems reviewed, pertinent positives as above and in HPI. Subjective Subjective Patient's case has been reviewed and discussed daily with psychiatric nurse liaison service and rounding psychiatric providers. His case was reviewed today with reports that he has been presenting as alert and oriented more consistently in the last 1-2 days. Pt was seen today to determine if appropriate to begin resuming his home psychotropic medications. Pt was initially seen on our consult service on 09/24/20 to assess for atypical alcohol withdrawal presentation. Today, patient is alert and oriented. He denies feeling confused and overall denies any physical concerns. We discussed reasoning for holding his psychotropic medication regimen and patient verbalized understanding. He is also agreeable with beginning to resume some of these medications. Pt denied any psychiatric concerns at this time. He was encouraged to reach out to our service with any questions as desired. Physical Exam Psychiatric Orientation: alert, oriented x 3 and cooperative Apperance: appropriately dressed, + disheveled and appeared stated age Eye Contact: good eye contact Motor Behavior: no abnormal motor movements (observed while laying in bed) Speech: normal rate/rhythm/volume of speech (non-spontaneous, brief responses to questions, polite tone) Affect: + blunted affect (subdued, not appearing overtly depressed) Mood: no depressed mood ("I'm ok") Thought Process: goal directed thought process and clear/coherent thought process Thought Content: reality based without delusions Cognition: attention grossly intact and language grossly intact Insight: + fair insight Judgement: + fair judgement Vital Signs (Past 24 Hours) Last Vital Signs Temp 37.0 C 09/27/20 07:30 Pulse 67 09/27/20 07:30 Resp 18 09/27/20 07:30 BP 167/86 H 09/27/20 07:30 Pulse Ox 94 09/27/20 07:30 Results & Data ([facility]) Laboratory Results Laboratory Results - last 24 hr 09/27/20 09/27/20 09/27/20 05:58 05:58 05:58 WBC 7.57 RBC 4.04 L Hgb 13.3 L Hct 38.7 L MCV 95.8 MCH 32.9 MCHC 34.4 RDW Std Deviation 46.7 H RDW Coeff of Harley 13.4 Plt Count 295 MPV 12.4 H Sodium 139 Potassium 3.9 Chloride 108 H Carbon Dioxide 24 Anion Gap 7.0 BUN 18 Creatinine 0.85 D Est Cr Clr Drug Dosing 73.5 Est GFR ( Amer) 106.0 Est GFR (Non-Af Amer) 91.4 BUN/Creatinine Ratio 21.4 H Glucose 108 H Calcium 8.8 Magnesium 2.1 Procalcitonin 0.15 Current Inpatient Medications Current Inpatient Medications: Current Inpatient Medications Folic Acid (Folic Acid 1 Mg Tab) 1 mg PO QAM [facility] Stop: 10/21/20 08:59 Last Admin: 09/25/20 09:55 Dose: Not Given Documented by: Heparin Sodium (Porcine) (Heparin Sod 5,000 Unit/0.5 Ml Vial) 5,000 units SQ Q12 [facility] Stop: 10/20/20 10:09 Last Admin: 09/27/20 08:20 Dose: 5,000 units Documented by: Ampicillin Sodium/Sulbactam Sodium 3,000 mg/ Sodium Chloride 108 mls @ 200 mls/hr IV Q6H [facility]; Protocol Stop: 10/01/20 17:59 Last Infusion: 09/27/20 06:15 Dose: Infused Documented by: Lisinopril (Lisinopril 20 Mg Tab) 20 mg PO DAILY [facility] Stop: 10/20/20 10:09 Last Admin: 09/25/20 09:55 Dose: 20 mg Documented by: Miscellaneous (Remove Nicoderm Patch) 1 ea N/A DAILY@0859 [facility] Stop: 10/23/20 08:58 Last Admin: 09/27/20 08:19 Dose: 1 ea Documented by: Nicotine (Nicotine 21 Mg/24 Hr Tdsy) 21 mg TD QAM [facility] Stop: 10/22/20 12:59 Last Admin: 09/27/20 08:19 Dose: 21 mg Documented by: Ondansetron HCl (Ondansetron Inj 2 Mg/Ml 2 Ml Vial) 4 mg IV Q4H PRN PRN Reason: Nausea Stop: 10/20/20 15:55 Last Admin: 09/21/20 09:31 Dose: 4 mg Documented by: Polyethylene Glycol (Polyethylene (Miralax) 17 Gm Pack) 17 gm PO DAILY PRN PRN Reason: Constipation Stop: 10/20/20 10:09 Thiamine HCl (Thiamine Hcl 100 Mg Tab) 100 mg PO QAM [facility] Stop: 10/21/20 08:59 Last Admin: 09/25/20 09:55 Dose: Not Given Documented by: Mental Health & Subst Abuse Tx Psychiatrist Name of Psychiatrist: [facility] Psychiatrist's Psychiatric Appointment Comment: follow-up as scheduled
--- NOTE | 2020-09-27 13:10 | Hospitalist Progress Note ---
Date of Service September 27, 2020 Assessment & Plan (1) Alcohol abuse: Metabolic encephalopathy; alcohol withdrawal vs medication-induced confusion. - AWSS protocol ordered - Now down to 0. - Seen by psychiatry with thought this is toxic encephalopathy from alcohol and medications. Holding all psychoactive medications. Using benzodiazepine sparingly. - CXR on 09/25 indicated increase in left lung base infiltrate. Procalcitonin was negative. Blood cultures done on 09/25 are no growth to date. - Will start Unasyn for presumed aspiration x 5 days. - By 09/27, he is doing very well. Much more alert and active. Will work with PT/OT/REVIEW COORDINATOR today. (2) Schizophrenia: Patient reports diagnosis approximately 10 years ago. Follows with [facility] psychological clinic. - Hold bupropion, lorazepam, loxapine, quetiapine, and trazodone as per psych above - Reached out to psychiatry today to plan to restart meds. (3) Intractable vomiting: He is an ethanol user and drank approximate 1/2 gallon of vodka prior to presentation. He has no other contacts for acute illness. He has no one bringing food into the home for him. - Patient no longer vomiting. - Resolved (4) Abdominal pain, LLQ: CT abdomen pelvis is negative. Patient has no rebound tenderness or guarding. - No longer complaining of pain. (5) Hypertension: BP is 170/85 today. - Restart lisinopril on 09/28 - Hold furosemide until we are sure he has good PO intake. Also, could consider switching agents as furosemide is not an ideal first-line HTN medication. (6) Tobacco abuse: Patient reports starting smoking 17 years ago while working for the [employer]. Currently smokes approximately 15 cigarettes/day. - Discussed need for abstinence (7) COPD (chronic obstructive pulmonary disease): COPD is listed in the patient's history but there is no evidence of pulmonary function testing and patient is not on any bronchodilators. - DuoNebs PRN (8) DVT prophylaxis: Patient with no thrombocytopenia, active bleeding, or anemia. - Heparin 5000 units SQ every 12 hours Admission and Anticipated Discharge Date Admission Date: September 21, 2020 Subjective Doing much better today. Some cough. Reports no fevers/chills, chest pain, shortness of breath, abdominal pain, nausea, or vomiting. Physical Exam Constitutional: WD/WN, vitals as above no acute distress Eyes: EOM intact bilaterally; no conjunctival abnormality ENMT: external ear and nose normal, oropharynx normal Neck: trachea midline, no thyromegaly normal visual inspection Respiratory: normal respiratory effort, lungs clear to auscultation no respiratory distress Cardiovascular: RRR, no murmur, no edema Gastrointestinal (Abdomen): Inspection/Auscultation: abdomen normal to inspection; abdomen not distended Musculoskeletal: no cyanosis or clubbing, extremities motor strength 5/5 Skin: no rashes, warm and dry Neurologic: moves all extremities and awake Psychiatric: Orientation: alert and oriented to person Apperance: + disheveled Eye Contact: good eye contact Speech: normal rate/rhythm/volume of speech Affect: euthymic affect Results & Data Results & Data ([facility]) Vital Signs (Past 12 Hours) Vital Signs Temp Pulse Pulse Resp BP Pulse Ox 09/27/20 07:30 37.0 C 67 18 167/86 H 94 09/27/20 07:07 66 09/27/20 03:19 37.0 C 75 18 135/75 92 PG Care Time/CCT Total # of Minutes Spent Total Time Spent with Patient: Total time spent is greater than 50% in coordination of care (as documented) at patient's floor/unit and/or counseling patient: Coding Level of Care Code 66481 Subseq Hosp Care Lvl 2 Diagnoses Alcohol abuse F10.10 Schizophrenia F20.9 Schizophrenia type: unspecified Intractable vomiting R11.2 Nausea presence: with nausea Vomiting type: unspecified Abdominal pain, LLQ R10.32 Hypertension I10 Hypertension type: essential hypertension Tobacco abuse Z72.0 COPD (chronic obstructive pulmonary disease) J44.9 DVT prophylaxis Z29.9 (1) Intractable vomiting Nausea presence: with nausea Vomiting type: unspecified Qualified Code(s): R11.2 - Nausea with vomiting, unspecified (2) Schizophrenia Schizophrenia type: unspecified Qualified Code(s): F20.9 - Schizophrenia, unspecified (3) Hypertension Hypertension type: essential hypertension Qualified Code(s): I10 - Essential (primary) hypertension
[2020-09-27] MEDS ORDERED: traZODone HCL 100 MG TAB PO PRN (13:21)
[2020-09-27] MEDS ORDERED: QUEtiapine FUMARATE 100 MG TABLET PO SCH (21:00)
[2020-09-27] MEDS ORDERED: QUEtiapine FUMARATE 300 MG TABLET PO SCH (21:00)
[2020-09-27] MEDS: LOXAPINE 10 MG PO SCH (21:10)
[2020-09-28] MEDS: AMPICILLIN/SULBACTAM SOD 3,000 MG in 0.9 % SODIUM CHLORIDE 100 ML IV SCH ×3 (00:44→11:54)
[2020-09-28] MEDS: HEPARIN SOD 5,000 UNIT/0.5 ML VIAL SQ SCH ×2 (07:35→20:02)
[2020-09-28] MEDS: lisinopril 20 MG TAB PO SCH (07:35)
[2020-09-28] MEDS: LOXAPINE 10 MG PO SCH ×2 (07:36→20:01)
[2020-09-28] MEDS: FOLIC ACID 1 MG TAB PO SCH (07:36)
[2020-09-28] MEDS: THIAMINE HCL 100 MG TAB PO SCH (07:37)
[2020-09-28] MEDS: NICOTINE 21 MG/24 HR TDSY TD SCH (07:37)
--- NOTE | 2020-09-28 14:08 | Hospitalist Progress Note ---
Date of Service September 28, 2020 Assessment & Plan (1) Alcohol abuse: Metabolic encephalopathy; alcohol withdrawal vs medication-induced confusion. - AWSS protocol ordered - Now down to 0. - Seen by psychiatry with thought this is toxic encephalopathy from alcohol and medications. Holding all psychoactive medications. Using benzodiazepine sparingly. - CXR on 09/25 indicated increase in left lung base infiltrate. Procalcitonin was negative. Blood cultures done on 09/25 are no growth to date. - Unasyn for presumed aspiration x 5 days. -> Switch to Augmentin for remaining course. (End date: 10/01/2020) - By 09/27, he is doing very well. Much more alert and active. Will work with PT/OT today. Plan for rehab. (2) Schizophrenia: Patient reports diagnosis approximately 10 years ago. Follows with [facility] psychological clinic. - Initially held bupropion, lorazepam, loxapine, quetiapine, and trazodone as per psych - Restarted loxapine & quetiapine. Trazodone PRN. - STOP bupropion on discharge as it increases the risk of seizures with drinking. STOP lorazepam for abuse potential with alcohol. (3) Intractable vomiting: He is an ethanol user and drank approximate 1/2 gallon of vodka prior to presentation. He has no other contacts for acute illness. He has no one bringing food into the home for him. - Patient no longer vomiting. - Resolved (4) Abdominal pain, LLQ: CT abdomen pelvis is negative. Patient has no rebound tenderness or guarding. - No longer complaining of pain. (5) Hypertension: BP is 150/90 today. - Restarted lisinopril on 09/28 - Hold furosemide until we are sure he has good PO intake. Also, could consider switching agents as furosemide is not an ideal first-line HTN medication. (6) Tobacco abuse: Patient reports starting smoking 17 years ago while working for the [employer]. Currently smokes approximately 15 cigarettes/day. - Discussed need for abstinence (7) COPD (chronic obstructive pulmonary disease): COPD is listed in the patient's history but there is no evidence of pulm onary function testing and patient is not on any bronchodilators. - DuoNebs PRN (8) DVT prophylaxis: Patient with no thrombocytopenia, active bleeding, or anemia. - Heparin 5000 units SQ every 12 hours Admission and Anticipated Discharge Date Admission Date: September 21, 2020 Subjective Doing well today. Willing to try a SNF/rehab. Reports no fevers/chills, chest pain, shortness of breath, abdominal pain, nausea, or vomiting. Physical Exam Constitutional: WD/WN, vitals as above no acute distress Eyes: EOM intact bilaterally; no conjunctival abnormality ENMT: external ear and nose normal, oropharynx normal Neck: trachea midline, no thyromegaly normal visual inspection Respiratory: normal respiratory effort, lungs clear to auscultation no respiratory distress Cardiovascular: RRR, no murmur, no edema Gastrointestinal (Abdomen): Inspection/Auscultation: abdomen normal to inspection; abdomen not distended Musculoskeletal: no cyanosis or clubbing, extremities motor strength 5/5 Skin: no rashes, warm and dry Neurologic: moves all extremities and awake Psychiatric: Orientation: alert and oriented to person Apperance: + disheveled Eye Contact: good eye contact Speech: normal rate/rhythm/volume of speech Affect: euthymic affect Results & Data Results & Data ([facility]) Vital Signs (Past 12 Hours) Vital Signs Temp Pulse Pulse Resp BP BP Pulse Ox 09/28/20 12:05 36.6 C 82 20 151/92 H 97 09/28/20 08:00 71 09/28/20 07:13 36.9 C 77 20 121/73 90 09/28/20 02:48 36.9 C 70 16 130/68 95 PG Care Time/CCT Total # of Minutes Spent Total Time Spent with Patient: Total time spent is greater than 50% in coordination of care (as documented) at patient's floor/unit and/or counseling patient: Coding Level of Care Code 05221 Subseq Hosp Care Lvl 2 Diagnoses Alcohol abuse F10.10 Schizophrenia F20.9 Schizophrenia type: unspecified Intractable vomiting R11.2 Nausea presence: with nausea Vomiting type: unspecified Abdominal pain, LLQ R10.32 Hypertension I10 Hypertension type: essential hypertension Tobacco abuse Z72.0 COPD (chronic obstructive pulmonary disease) J44.9 DVT prophylaxis Z29.9 (1) Schizophrenia Schizophrenia type: unspecified Qualified Code(s): F20.9 - Schizophrenia, unspecified (2) Intractable vomiting Nausea presence: with nausea Vomiting type: unspecified Qualified Code(s): R11.2 - Nausea with vomiting, unspecified (3) Hypertension Hypertension type: essential hypertension Qualified Code(s): I10 - Essential (primary) hypertension
[2020-09-28] MEDS: AMOXICILLIN/CLAVULANATE 875 MG TAB PO SCH (17:10)
[2020-09-28] MEDS: QUEtiapine FUMARATE 300 MG TABLET PO SCH (20:03)
[2020-09-29 06:16] LABS: Hematocrit (blood only) 40.4 % (42-52); Hemoglobin 13.7 g/dL (14.0-18.0); Mean Corpuscular Hemoglobin 32.9 pg (25-34); Mean Corpuscular Hgb Conc 33.9 g/dL (32-36); Mean Corpuscular Volume 97.1 fL (80-100); Platelet Count 362 K/uL (130-400); RDW Coefficient of Variation 13.6 % (11.5-14.5); RDW Standard Deviation 47.8 fL (36.4-46.3); Red Blood Count 4.16 M/uL (4.7-6.1); White Blood Count 5.87 K/uL (4.8-10.8)
[2020-09-29 06:44] LABS: BUN Creatinine Ratio 20.8 (10-20); Calcium 9.6 mg/dl (8.5-10.1); Creatinine Clr Calc Pharmacy 86.8 ml/min; Est GFR (African American) 113.5; Est GFR (Non-African American) 97.9; Potassium 3.7 mmol/L (3.5-5.1)
[2020-09-29] MEDS: THIAMINE HCL 100 MG TAB PO SCH (07:50)
[2020-09-29] MEDS: FOLIC ACID 1 MG TAB PO SCH (07:50)
[2020-09-29] MEDS: lisinopril 20 MG TAB PO SCH (07:50)
[2020-09-29] MEDS: AMOXICILLIN/CLAVULANATE 875 MG TAB PO SCH ×2 (07:50→16:17)
[2020-09-29] MEDS: NICOTINE 21 MG/24 HR TDSY TD SCH (07:50)
[2020-09-29] MEDS: HEPARIN SOD 5,000 UNIT/0.5 ML VIAL SQ SCH ×2 (07:50→20:35)
[2020-09-29] MEDS: LOXAPINE 10 MG PO SCH ×2 (07:51→20:34)
--- NOTE | 2020-09-29 16:09 | Hospitalist Progress Note ---
Date of Service September 29, 2020 Assessment & Plan (1) Alcohol abuse: Metabolic encephalopathy; alcohol withdrawal vs medication-induced confusion. - AWSS protocol ordered - Now down to 0. - Seen by psychiatry with thought this is toxic encephalopathy from alcohol and medications. Holding all psychoactive medications. Using benzodiazepine sparingly. - CXR on 09/25 indicated increase in left lung base infiltrate. Procalcitonin was negative. Blood cultures done on 09/25 are no growth to date. - Unasyn for presumed aspiration x 5 days. -> Switch to Augmentin for remaining course. (End date: 10/01/2020) - By 09/27, he is doing very well. -Continue to do well and be alert on 09/29. Plan for rehab. waiting for insurance auth (2) Schizophrenia: Patient reports diagnosis approximately 10 years ago. Follows with [facility] psychological clinic. - Initially held bupropion, lorazepam, loxapine, quetiapine, and trazodone as per psych - Restarted loxapine & quetiapine. Trazodone PRN. - STOP bupropion on discharge as it increases the risk of seizures with drinking. STOP lorazepam for abuse potential with alcohol. (3) Intractable vomiting: He is an ethanol user and drank approximate 1/2 gallon of vodka prior to presentation. He has no other contacts for acute illness. He has no one bringing food into the home for him. - Patient no longer vomiting. - Resolved (4) Abdominal pain, LLQ: CT abdomen pelvis is negative. Patient has no rebound tenderness or guarding. - No longer complaining of pain. (5) Hypertension: BP is 150/90 today. - Restarted lisinopril on 09/28 - Hold furosemide until we are sure he has good PO intake. Also, could consider switching agents as furosemide is not an ideal first-line HTN medication. (6) Tobacco abuse: Patient reports starting smoking 17 years ago while working for the [email or web address]. Currently smokes approximately 15 cigarettes/day. - Discussed need for abstinence (7) COPD (chronic obstructive pulmonary disease): COPD is listed in the patient's history but there is no evidence of pulmonary function testing and patient is not on any bronchodilators. - DuoNebs PRN (8) DVT prophylaxis: Patient with no thrombocytopenia, active bleeding, or anemia. - Heparin 5000 units SQ every 12 hours Admission and Anticipated Discharge Date Admission Date: September 21, 2020 Subjective Patient reports feeling well. He has no new complaints at this time. Review of Systems Review of Systems: All systems reviewed & are unremarkable except as noted in HPI & below Physical Exam Physical Exam: Constitutional: WD/WN, vitals as above no acute distress Eyes: EOM intact bilaterally; no conjunctival abnormality ENMT: external ear and nose normal, oropharynx normal Neck: trachea midline, no thyromegaly normal visual inspection Respiratory: normal respiratory effort, lungs clear to auscultation no respiratory distress Cardiovascular: RRR, no murmur, no edema Gastrointestinal (Abdomen): Inspection/Auscultation: abdomen normal to inspection; abdomen not distended Musculoskeletal: no cyanosis or clubbing, extremities motor strength 5/5 Skin: no rashes, warm and dry Neurologic: moves all extremities and awake Psychiatric: Orientation: alert and oriented to person Apperance: + disheveled Eye Contact: good eye contact Speech: normal rate/rhythm/volume of speech Affect: euthymic affect Results & Data Results & Data ([facility]) Vital Signs (Past 12 Hours) Vital Signs Temp Pulse Resp BP BP Pulse Ox 09/29/20 15:00 36.8 C 64 18 169/52 H 156/90 H 93 09/29/20 07:00 36.7 C 74 18 155/97 H 93 PG Care Time/CCT Total # of Minutes Spent Total Time Spent with Patient: Total time spent is greater than 50% in coordination of care (as documented) at patient's floor/unit and/or counseling patient: Coding Level of Care Code 40321 Subseq Hosp Care Lvl 3 Diagnoses Alcohol abuse F10.10 Schizophrenia F20.9 Schizophrenia type: unspecified Intractable vomiting R11.2 Nausea presence: with nausea Vomiting type: unspecified Abdominal pain, LLQ R10.32 Hypertension I10 Hypertension type: essential hypertension Tobacco abuse Z72.0 COPD (chronic obstructive pulmonary disease) J44.9 DVT prophylaxis Z29.9 Time Spent (min) 35 (1) Schizophrenia Schizophrenia type: unspecified Qualified Code(s): F20.9 - Schizophrenia, unspecified (2) Intractable vomiting Nausea presence: with nausea Vomiting type: unspecified Qualified Code(s): R11.2 - Nausea with vomiting, unspecified (3) Hypertension Hypertension type: essential hypertension Qualified Code(s): I10 - Essential (primary) hypertension
[2020-09-29] MEDS: QUEtiapine FUMARATE 300 MG TABLET PO SCH (20:35)
[2020-09-30] MEDS ORDERED: COUGH DROP (SUGAR FREE) LOZ 24 LOZ/1 BOX BUCCAL PRN (01:34)
[2020-09-30 01:35] VITALS: TEMP 97.5
[2020-09-30 07:28] VITALS: O2SAT 94
[2020-09-30] MEDS: THIAMINE HCL 100 MG TAB PO SCH (08:21)
[2020-09-30] MEDS: lisinopril 20 MG TAB PO SCH (08:21)
[2020-09-30] MEDS: FOLIC ACID 1 MG TAB PO SCH (08:21)
[2020-09-30] MEDS: AMOXICILLIN/CLAVULANATE 875 MG TAB PO SCH (08:22)
[2020-09-30] MEDS: LOXAPINE 10 MG PO SCH (08:22)
[2020-09-30] MEDS: NICOTINE 21 MG/24 HR TDSY TD SCH (08:22)
[2020-09-30] MEDS: HEPARIN SOD 5,000 UNIT/0.5 ML VIAL SQ SCH (09:26)
[2020-09-30 14:32] VITALS: BP 145/93; PULSE 74
--- NOTE | 2020-10-03 08:50 | Discharge Summary ---
Date of Service September 30, 2020 Admission HPI Per Admitting Provider Attending: Dr. Lal This is a 64-year-old male with a past medical history of schizophrenia diagnosed 10 years ago, chronic prolonged QTC, alcohol abuse, tobacco abuse, hypertension. The patient presents today with intractable nausea and vomiting. He states that this began last night. Prior to bedtime he was in his normal state. He denies any hematemesis. He has no history of GI bleed or ulcers that he is aware of. He denies any melena, hematochezia, bright red blood per rectum. He is unaware of any hemorrhoid problems. He has no history of malignancy and has no rectal pain or tenesmus. He denies any fever. He has had no unusual foods. He lives alone and has not gone anywhere to eat or to socialize. Aside from some mild abdominal pain, nausea, vomiting, he has no other acute symptoms. The patient does have acute kidney injury with a creatinine of 1.3. Baseline is 0.5. He denies any hematuria and has no suprapubic pain. He states that he was diagnosed with schizophrenia approximately 10 years ago and has been on steady doses of trazodone, quetiapine, loxapine, and bupropion. He is also on as needed lorazepam which is prescribed through the [facility] psychological [facility] clinic. REGROOVER was reviewed. He has no command hallucinations. He does report some auditory hallucinations but they wax and wane. He has no other sensory hallucinations. He does drink ethanol on the weekends and yesterday drank a half a gallon of vodka straight. He has a prior history of approximately 12 beers per day but now states that he only drinks on weekends. He smokes about three quarters of a pack of cigarettes daily and has done this for 17 years. 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, . Principal Diagnosis alcohol abuse Discharge Exam Constitutional: WD/WN, vitals as above no acute distress Eyes: EOM intact bilaterally; no conjunctival abnormality ENMT: external ear and nose normal, oropharynx normal Neck: trachea midline, no thyromegaly normal visual inspection Respiratory: normal respiratory effort, lungs clear to auscultation no respiratory distress Cardiovascular: RRR, no murmur, no edema Gastrointestinal (Abdomen): Inspection/Auscultation: abdomen normal to inspection; abdomen not distended Musculoskeletal: no cyanosis or clubbing, extremities motor strength 5/5 Skin: no rashes, warm and dry Neurologic: moves all extremities and awake Psychiatric: Orientation: alert and oriented to person Eye Contact: good eye contact Speech: normal rate/rhythm/volume of speech Affect: euthymic affect Discharge Data Allergies Allergy/AdvReac Type Severity Reaction Status Date / Time No Known Allergies Allergy Verified 09/20/20 06:14 Consultations 09/20/20 07:48 ED Decision to Admit Stat 09/20/20 10:10 Consult Case Management - Discharge Planning Routine 09/24/20 13:59 Consult Psychiatry Routine Ordered Studies 09/20/20 06:47 CT abd pelvis IV con only Stat Hospital Course (1) Alcohol abuse: Metabolic encephalopathy; alcohol withdrawal vs medication-induced confusion. - AWSS protocol ordered - Now down to 0. - Seen by psychiatry with thought this is toxic encephalopathy from alcohol and medications. Holding all psychoactive medications. Using benzodiazepine sparingly. - CXR on 09/25 indicated increase in left lung base infiltrate. Procalcitonin was negative. Blood cultures done on 09/25 are no growth to date. - Unasyn for presumed aspiration x 5 days. -> Switch to Augmentin for remaining course. (End date: 10/01/2020) - By 09/27, he is doing very well. -Continue to do well and be alert on 09/29-09/30 Discharged to rehab. (2) Schizophrenia: Patient reports diagnosis approximately 10 years ago. Follows with [facility] psychological clinic. - Initially held bupropion, lorazepam, loxapine, quetiapine, and trazodone as per psych - Restarted loxapine & quetiapine. Trazodone PRN. - STOP bupropion on discharge as it increases the risk of seizures with drinking. STOP lorazepam for abuse potential with alcohol. (3) Intractable vomiting: He is an ethanol user and drank approximate 1/2 gallon of vodka prior to presentation. He has no other contacts for acute illness. He has no one bringing food into the home for him. - Patient no longer vomiting. - Resolved (4) Abdominal pain, LLQ: CT abdomen pelvis is negative. Patient has no rebound tenderness or guarding. - No longer complaining of pain. (5) Hypertension: BP is 150/90 today. - Restarted lisinopril on 09/28 - Hold furosemide until we are sure he has good PO intake. Also, could consider switching agents as furosemide is not an ideal first-line HTN medication. (6) Tobacco abuse: Patient reports starting smoking 17 years ago while working for the [employer]. Currently smokes approximately 15 cigarettes/day. - Discussed need for abstinence (7) COPD (chronic obstructive pulmonary disease): COPD is listed in the patient's history but there is no evidence of pulmonary function testing and patient is not on any bronchodilators. - DuoNebs PRN (8) DVT prophylaxis: Patient with no thrombocytopenia, active bleeding, or anemia. while hospitalized: Heparin 5000 units SQ every 12 hours Total Time Total Time Spent Total Time Spent (In Minutes): 32 Total Time Includes: Examination of the Patient, Discharge Planning and Medica tion Reconciliation Discharge Plan Discharge Items Patient Disposition: Home - Self-Care Reason For Visit: ELECTROLYTE IMBALANCE SECONDARY TO N/V Discharge Diagnosis: electrolyte imbalance secondary to N/V Activity: Resume your previous activity Non-emergency contact: Primary Care Provider Call non-emergency contact if: you have any medication questions Follow-up/Referrals: Owen Mckinnon III, MD [Primary Care Provider] - Diet: Heart Healthy Diet Texture: Easy to Chew Diet Comment: Alt solid and liquids Addtl Attending Provider Instructions: Followup with PCP in 2-4 weeks Continue Antibiotcs for 3 more doses Pending Studies at Discharge: No Stand-Alone Forms: [employer], Opioid Pain Management, Work/School Release (Inpt), Smoking Cessation Medications and DC Order Prescriptions: New quetiapine 300 mg Tablet 300 mg PO HS Qty: 0 RF: 0 thiamine HCl (vitamin B1) [Vitamin B-1] 100 mg Tablet 100 mg PO QAM Qty: 0 RF: 0 trazodone 100 mg Tablet 100 mg PO HS PRN (Reason: insomnia) Qty: 0 RF: 0 loxapine succinate 5 mg Capsule 1 dose PO BID Qty: 60 RF: 0 nicotine [Nicoderm CQ] 21 mg/24 hr Patch 24 Hour 21 mg transdermal QAM Qty: 0 RF: 0 folic acid 1 mg Tablet 1 mg PO QAM Qty: 0 RF: 0 amoxicillin-pot clavulanate [Augmentin] 875-125 mg Tablet 1 tab PO BIDM Qty: 3 RF: 0 Continued lisinopril 20 mg tablet 20 mg PO DAILY Qty: 30 RF: 5 Discontinued furosemide 20 mg tablet 20 mg PO DAILY Qty: 30 RF: 2 quetiapine 300 mg tablet 300 mg PO DAILY RF: 0 loxapine succinate 10 mg capsule 10 mg PO BID RF: 0 bupropion HCl 150 mg tablet extended release 24 hr 150 mg PO QAM RF: 0 lorazepam 1 mg tablet 1 mg PO .Q4-6HR PRN (Reason: Anxiety) RF: 0 trazodone 300 mg Tablet 300 mg PO HS RF: 0 Discharge Orders: Discharge Order (Routine); Ordered 09/30/20 Ordered By: Damaso Lal Admission Data Admit Date/Time: 09/21/20 15:09 Attending Provider: Damaso Lal Admit Provider: Damaso Lal Primary Care Provider: Owen Mckinnon III Other Providers: Chaparro Ramirez ; [facility] ; Damaso Lal ; Aliyah Foster Other Interventions: Discharge Summary Assessment (RN) Last Done: 09/30/20 14:54 PSY Interdisciplinary Discharge Planning Last Done: 09/28/20 13:26 Coding Level of Care Code D/C Day Management >30 mins Diagnoses Alcohol abuse F10.10 Schizophrenia F20.9 Schizophrenia type: unspecified Intractable vomiting R11.2 Nausea presence: with nausea Vomiting type: unspecified Abdominal pain, LLQ R10.32 Hypertension I10 Hypertension type: essential hypertension Tobacco abuse Z72.0 COPD (chronic obstructive pulmonary disease) J44.9 DVT prophylaxis Z29.9
== END 2020-09-30 15:27 | DRG 896 ==
LOC: ED 04:03 → 2N 04:03 → SUATTDRO 09-21 15:09 → 3N 09-30 01:29

== ENCOUNTER 2021-03-16 16:55 | Inpatient (IN) ==
[2021-03-16] MEDS ORDERED: MULTI-VITAMIN INFUSION 10 ML, THIAMINE HCL 100 MG, FOLIC ACID 1 MG in SODIUM CHLORIDE 0... IV ONE (17:05)
[2021-03-16] MEDS ORDERED: MoRPHine SULFATE 2 MG/ML CARP IV STA (17:05)
[2021-03-16] MEDS ORDERED: LORazepam 0.5 MG/1 ML VIAL IV STA (17:05)
[2021-03-16] MEDS ORDERED: PROMETHAZINE 6.25 MG/50.25 ML BAG IV STA (17:05)
[2021-03-16] MEDS ORDERED: ONDANSETRON INJ 2 MG/ML 2 ML VIAL IV STA (17:05)
--- NOTE | 2021-03-16 17:11 | Emergency Department Note ---
Impression & Plan Vomiting, Alcohol abuse, Hypertension, Alcohol withdrawal, Esophagitis ED Provider Note NAME: PARISH CARDOZA AGE: 65 SEX: M : 1955 ARRIVES VIA: Ambulance INFORMANT: [Patient] ED PROVIDER(S): [Orlando Ortez MD] CHIEF COMPLAINT: Illness HISTORY OF PRESENT ILLNESS: The patient is a 65-year-old male presents with 2 days of vomiting. He also has some moderate epigastric abdominal pain. The patient denies diarrhea. There has been no cough or congestion, no fever or chills. The patient does not have chest pain. The patient is a heavy alcohol user. He typically drinks at least 12 drinks a day, a combination of hard alcohol and beer. He last had a drink about 1 hour ago although, he states, he cannot keep anything down, even the alcohol. The patient denies any abdominal surgeries. He has no history of alcohol withdrawal. REVIEW OF SYSTEMS: See HPI for pertinent positives and negatives. A total of ten systems were revi ewed and were otherwise negative. PMHx/PSHx: See Below SOCIAL HISTORY: See Below. PHYSICAL EXAM: GENERAL: Patient is in moderate distress, vomiting. HEENT: No acute trauma, normocephalic atraumatic, mucous membranes moist, no nasal congestion, no scleral icterus. NECK: No stridor, no adenopathy, no meningismus, trachea is midline. LUNGS: Clear to auscultation bilaterally, no wheeze, no rhonchi, breath sounds equal. HEART: Mildly tachycardic, regular rhythm, no murmurs. ABDOMEN: Soft, moderately tender in the epigastrium, bowel sounds positive, no hernias, no peritonitis. EXTREMITIES: No cyanosis or edema, full range of motion of all the joints without pain or difficulty, no signs for acute trauma. NEUROLOGIC: Oriented x 3, no acute motor or sensory deficits, no focal weakness. SKIN: No rash, no jaundice, no diaphoresis. DIFFERENTIAL DIAGNOSIS: Appendicitis, testicular torsion, infections, diverticulitis, UTI, alcohol withdrawal, dehydration, cardiac ischemia, obstruction, mesenteric ischemia, aortic pathology, inflammatory bowel disease, renal colic, PUD, pancreatitis, bi liary pathology, hernia, volvulus, constipation, as well as other pathologies. EMERGENCY DEPARTMENT COURSE/PROCEDURES: ECG: Indication was abdominal pain. The ECG shows a sinus tachycardia with a potential old septal infarct. The rate is 110. There was some baseline artifact. There was T wave inversion noted in the inferior and lateral leads. No ST elevation. No PVCs. The QTc was 489. Compared to an ECG from 27 October 2020, the T wave changes are much more pronounced. The rate has increased. Continuous Cardiac Monitoring: An order was placed for continuous cardiac monitoring. The monitor shows a rate of 117 with sinus tachycardia. Critical Care Note: I have personally spent 44 minutes of critical care time in the direct management of this patient. This includes bedside care, interpretation of diagnostic studies, and testing, discussion with consultants, patient, and family members, and other required patient management activities. This 44 minutes is in excess of all separately billable procedures. MEDICAL DECISION MAKING: There is a mild leukocytosis which could be consistent with infection or just the stress of his vomiting. There was a normal hemoglobin and platelet count. No coagulopathy. Potassium somewhat low but not in need of emergent correction. No kidney failure. Bilirubin and AST was slightly elevated, the ALT and alk phos were normal. The patient's TSH was low however, the T4 was normal. ECG showed a sinus tachycardia, no acute ST elevation although, there were some T wave changes. Cardiac enzyme testing x1 is not consistent with acute cardiac injury. Alcohol level was elevated at 127. Covid testing is pending. Chest film did not show pneumonia or CHF, some chronic findings were seen. Abdominal and pelvis CT showed esophagitis, no bowel obstruction or evidence for acute surgical process. The patient presented tachycardic and vomiting. He received IV Zofran, IV Phenergan, IV saline, IV morphine and a small amount of IV Ativan. He did become quite somnolent with this regimen and required some O2 supplementation. He felt markedly better though with regard to his symptoms. The patient was given IV saline with multivitamins, thiamine and folate. He was given IV labetalol for his higher blood pressure, he was given IV hydralazine for his higher blood pressure. He received IV Protonix and IV Pepcid. The patient is still hypertensive although, his heart rate is improved and he seems more comfortable. He appears to be suffering from alcohol withdrawal. I suspect he has missed some of his daily medications this last 2 days because of his vomiting. He has esophagitis on CT imaging. Certainly, this esophagitis could explain his epigastric pain. I do think the patient requires a hospital stay and further care. He does not seem safe for discharge home. He has agreed to stay in the hospital. I spoke to the patient and case management. The on-call hospitalist was consulted. Past Med/Surg History Medical History Acute kidney injury Alcohol abuse Bronchitis hx Choledocholithiasis Chronic back pain Chronic obstructive pulmonary disease Depression Hip fracture, left (2017) Hyperlipidemia Hypertension Osteoarthritis Schizophrenia Thrombocytopenia Tobacco abuse Surgical History History of colonoscopy History of hip replacement (2017) LEFT History of tooth extraction S/P ERCP Family History Brother Family history of diabetes mellitus Social History Smoking Status: Current every day smoker Tobacco Type: Cigarettes Cigarettes Per Day: 1PPD; Second Hand Exposure: Yes; Hx Alcohol Use: Yes Alcohol type: hard liquor Hx Substance Use: No Preferred Language: Hebrew Communication Ability: Effective [employer] Required: No Beliefs That Will Affect Care: None marital status: Single Current Living Situation: Alone How many Children do You have: 1 Feels Safe at Home: Yes Assistive Devices: None Allergies Allergies Allergy/AdvReac Type Severity Reaction Status Date / Time No Known Allergies Allergy Verified 02/04/21 09:08 Home Meds Previous Rx's Medication Instructions Recorded folic acid 1 mg tablet 1 mg PO QAM #30 tab 11/12/20 lisinopril 20 mg tablet 20 mg PO DAILY #30 tab 11/12/20 loxapine succinate 5 mg capsule 10 mg PO BID #60 cap 11/12/20 quetiapine 300 mg tablet 300 mg PO HS #30 tab 11/12/20 thiamine HCl (vitamin B1) 100 mg 100 mg PO QAM #30 tab 11/12/20 tablet (Vitamin B-1) trazodone 100 mg tablet 100 mg PO HS PRN #30 tab 11/12/20 Results & Data (ED) Vital Signs Vital Signs - 24 hr 03/16/21 17:05 03/16/21 17:55 03/16/21 18:00 Temperature 37.0 C Temperature Source Oral Pulse Rate 117 H Pulse Rate [Apical] 106 H Pulse Rhythm [Apical] Respiratory Rate 18 21 Respiratory Effort / Characteristics Non-Labored Respiratory Depth Normal Blood Pressure 169/104 H Blood Pressure [Left Arm] 169/104 H Blood Pressure Mean 125 Blood Pressure Mean [Left Arm] 125 Blood Pressure Position Sitting Blood Pressure Position [Left Arm] Pulse Oximetry 100 99 60 L Oxygen Delivery Method Room Air Room Air Room Air Oxygen Flow Rate Sepsis Recent Fever Within 48 Hours No Sepsis New/Unexplained Change in Mental Status No Sepsis Action Taken by Nursing No Action Required Pulse Oximetry Post Tiitration 03/16/21 18:13 03/16/21 20:00 03/16/21 21:30 Temperature Temperature Source Pulse Rate Pulse Rate [Apical] 84 91 H Pulse Rhythm [Apical] Regular Respiratory Rate 18 16 Respiratory Effort / Characteristics Respiratory Depth Normal Blood Pressure Blood Pressure [Left Arm] 163/90 H 180/90 H Blood Pressure Mean Blood Pressure Mean [Left Arm] 114 120 Blood Pressure Position Blood Pressure Position [Left Arm] Lying Pulse Oximetry 60 L 100 100 Oxygen Delivery Method Oxymask Room Air Oxygen Flow Rate 0 Sepsis Recent Fever Within 48 Hours Sepsis New/Unexplained Change in Mental Status Sepsis Action Taken by Nursing Pulse Oximetry Post Tiitration 100 03/16/21 22:00 Temperature Temperature Source Pulse Rate Pulse Rate [Apical] 89 Pulse Rhythm [Apical] Regular Respiratory Rate 18 Respiratory Effort / Characteristics Non-Labored Spontaneous Respiratory Depth Normal Blood Pressure Blood Pressure [Left Arm] 181/106 H Blood Pressure Mean Blood Pressure Mean [Left Arm] 131 Blood Pressure Position Blood Pressure Position [Left Arm] Lying Pulse Oximetry 94 Oxygen Delivery Method Room Air Nasal Cannula Oxygen Flow Rate 3 Sepsis Recent Fever Within 48 Hours Sepsis New/Unexplained Change in Mental Status Sepsis Action Taken by Nursing Pulse Oximetry Post Tiitration Home Medications Current Medication List: was personally reviewed by me Laboratory Data Attestation: I reviewed the patient's lab results. Result diagrams: 03/16/21 17:30 03/16/21 17:30 Lab Results 03/16/21 03/16/21 03/16/21 Range/Units 17:30 17:30 17:30 WBC 11.30 H (4.8-10.8) K/uL RBC 5.32 (4.7-6.1) M/uL Hgb 17.8 (14.0-18.0) g/dL Hct 50.1 (42-52) % MCV 94.2 (80-100) fL MCH 33.5 (25-34) pg MCHC 35.5 (32-36) g/dL RDW Std Deviation 50.4 H (36.4-46.3) fL RDW Coeff of Harley 14.6 H (11.5-14.5) % Plt Count 238 (130-400) K/uL MPV 10.8 H (7.4-10.4) fL Immature Gran % (Auto) 0.1 % Neut % (Auto) 84.8 % Lymph % (Auto) 8.7 % [place] % (Auto) 6.2 % Eos % (Auto) 0.0 % Baso % (Auto) 0.2 % Neut # (Auto) 9.59 H (1.4-6.5) K/uL Lymph # (Auto) 0.98 L (1.2-3.4) K/uL [place] # (Auto) 0.70 H (0.11-0.59) K/uL Eos # (Auto) 0.00 (0-0.5) K/uL Baso # (Auto) 0.02 (0-0.2) K/uL Immature Gran # (Auto) 0.01 (0.00-0.02) K/uL PT 9.8 (9.0-12.0) Seconds INR 1.0 (0.9-1.1) APTT 25.1 (21.0-31.0) Seconds PTT Ratio 1.0 Sodium 136 (136-145) mmol/L Potassium 3.2 L (3.5-5.1) mmol/L Chloride 88 L (98-107) mmol/L Carbon Dioxide 21 (21-32) mmol/L Anion Gap 27.0 H (3-11) BUN 21 H (7-18) mg/dl Creatinine 0.88 (0.6-1.4) mg/dl Est Cr Clr Drug Dosing 69.1 ml/min Est GFR ( Amer) 103.7 ml/min Est GFR (Non-Af Amer) 89.5 ml/min BUN/Creatinine Ratio 23.8 H (10-20) Glucose 112 H (70-99) mg/dl Calcium 9.5 (8.5-10.1) mg/dl Magnesium 2.1 (1.8-2.4) mg/dl Total Bilirubin 2.4 H (0.2-1) mg/dl AST 45 H (15-37) U/L ALT 29 (12-78) U/L Alkaline Phosphatase 77 (45-117) U/L Troponin I < 0.015 (0-0.045) ng/ml Total Protein 8.1 (6.4-8.2) gm/dl Albumin 4.1 (3.4-5.0) gm/dl Globulin 4.0 (2.5-4.0) gm/dl Albumin/Globulin Ratio 1.0 (0.9-2) TSH 0.193 L (0.300-4.500) uIu/ml Free T4 1.00 (0.8-1.6) ng/dl Ethyl Alcohol mg/dL (0-3) mg/dl COVID-19 Eval Order 03/16/21 03/16/21 Range/Units 17:53 22:50 WBC (4.8-10.8) K/uL RBC (4.7-6.1) M/uL Hgb (14.0-18.0) g/dL Hct (42-52) % MCV (80-100) fL MCH (25-34) pg MCHC (32-36) g/dL RDW Std Deviation (36.4-46.3) fL RDW Coeff of Harley (11.5-14.5) % Plt Count (130-400) K/uL MPV (7.4-10.4) fL Immature Gran % (Auto) % Neut % (Auto) % Lymph % (Auto) % [place] % (Auto) % Eos % (Auto) % Baso % (Auto) % Neut # (Auto) (1.4-6.5) K/uL Lymph # (Auto) (1.2-3.4) K/uL [place] # (Auto) (0.11-0.59) K/uL Eos # (Auto) (0-0.5) K/uL Baso # (Auto) (0-0.2) K/uL Immature Gran # (Auto) (0.00-0.02) K/uL PT (9.0-12.0) Seconds INR (0.9-1.1) APTT (21.0-31.0) Seconds PTT Ratio Sodium (136-145) mmol/L Potassium (3.5-5.1) mmol/L Chloride (98-107) mmol/L Carbon Dioxide (21-32) mmol/L Anion Gap (3-11) BUN (7-18) mg/dl Creatinine (0.6-1.4) mg/dl Est Cr Clr Drug Dosing ml/min Est GFR ( Amer) ml/min Est GFR (Non-Af Amer) ml/min BUN/Creatinine Ratio (10-20) Glucose (70-99) mg/dl Calcium (8.5-10.1) mg/dl Magnesium (1.8-2.4) mg/dl Total Bilirubin (0.2-1) mg/dl AST (15-37) U/L ALT (12-78) U/L Alkaline Phosphatase (45-117) U/L Troponin I (0-0.045) ng/ml Total Protein (6.4-8.2) gm/dl Albumin (3.4-5.0) gm/dl Globulin (2.5-4.0) gm/dl Albumin/Globulin Ratio (0.9-2) TSH (0.300-4.500) uIu/ml Free T4 (0.8-1.6) ng/dl Ethyl Alcohol mg/dL 127.5 H (0-3) mg/dl COVID-19 Eval Order Covid19 at [facility] Administered Medications Discontinued Medications Famotidine (Famotidine 20mg/5ml Iv Push) 20 mg IV ONE STA Stop: 03/16/21 19:59 Last Admin: 03/16/21 20:06 Dose: 20 mg Documented by: [id number] Hydralazine HCl (Hydralazine Hcl 20 Mg/Ml Vial) 10 mg IV NOW STA Stop: 03/16/21 22:38 Last Admin: 03/16/21 22:41 Dose: 10 mg Documented by: [id number] Sodium Chloride (Nss) 500 mls @ 999 mls/hr IV .Q31M LAKISHA Stop: 03/16/21 17:45 Last Infusion: 03/16/21 18:35 Dose: 0 mls/hr Documented by: [id number] Admin: 03/16/21 17:50 Dose: 999 mls/hr Documented by: [id number] Promethazine HCl (Phenergan) 6.25 mg in 50.25 mls @ 201 mls/hr IV NOW STA Stop: 03/16/21 17:19 Last Infusion: 03/16/21 18:04 Dose: 0 mls/hr Documented by: [id number] Admin: 03/16/21 17:49 Dose: 201 mls/hr Documented by: [id number] Lorazepam (Ativan) 0.5 mg in 1 mls @ 1 mls/min IV NOW STA Stop: 03/16/21 17:06 Last Admin: 03/16/21 17:49 Dose: 1 mls/min Documented by: [id number] Multivitamins 10 ml/ Thiamine HCl 100 mg/ Folic Acid 1 mg/Sodium Chloride 1,011.2 mls @ 1,011.2 mls/hr IV .Q1H ONE Stop: 03/16/21 18:04 Last Infusion: 03/16/21 19:57 Dose: 0 mls/hr Documented by: [id number] Admin: 03/16/21 18:49 Dose: 1,011.2 mls/hr Documented by: [id number] Pantoprazole Sodium 40 mg/ (Syringe) 10 mls @ 5 mls/min IV NOW ONE Stop: 03/16/21 19:59 Last Admin: 03/16/21 20:29 Dose: 5 mls/min Documented by: [id number] Ioversol (Optiray 320 100ml) 95 ml IV ONCE ONE Stop: 03/16/21 19:22 Last Admin: 03/16/21 19:21 Dose: 95 ml Documented by: [id number] Labetalol HCl (Labetalol Hcl Iv 5 Mg/Ml 20ml) 10 mg IV NOW STA Stop: 03/16/21 18:22 Last Admin: 03/16/21 18:49 Dose: 10 mg Documented by: [id number] Cosigned by: [id number] Morphine Sulfate (Morphine Sulfate 2 Mg/Ml Carp) 2 mg IV NOW STA Stop: 03/16/21 17:06 Last Admin: 03/16/21 17:49 Dose: 2 mg Documented by: [id number] Ondansetron HCl (Ondansetron Inj 2 Mg/Ml 2 Ml Vial) 4 mg IV NOW STA Stop: 03/16/21 17:06 Last Admin: 03/16/21 17:49 Dose: 4 mg Documented by: [id number] Imaging Data Radiologist's Impression: Abdomen/Pelvis CT 03/16/21 17:[address] WITH IV CONTRAST CT DOSE: 292.57 mGy.cm HISTORY: Acute abdominal pain with nausea and vomiting abd pain, vomiting TECHNIQUE: Multiaxial CT images of the abdomen and pelvis were performed following the IV administration of 95 cc of Optiray, A dose lowering technique was utilized adhering to the principles of ALARA. COMPARISON STUDY: CT abdomen and pelvis 09/20/2020 FINDINGS: Coronary artery calcifications. Calcified granuloma of the basal right lower lobe. Mild subsegmental bibasilar atelectasis. No pneumatosis or pneumoperitoneum. Unremarkable spleen, pancreas and adrenal glands. Cholecystectomy. Hepatic steatosis. Mild hepatomegaly. Study is mildly degraded by respiratory motion artifact. Patency of the hepatic and portal veins. Unremarkable kidneys. No hydronephrosis. The urinary bladder and prostate appear unremarkable. Atherosclerosis of the abdominal aorta without aneurysm. No adenopathy. Moderate wall thickening of the distal esophagus with mild adjacent inflammatory stranding. Mildly distended air and fluid-filled stomach. Scattered small bowel air-fluid levels. No bowel obstruction or bowel wall thickening. The majority of the large bowel is decompressed. The appendix is not definitively seen. No secondary signs of acute appendicitis. Unremarkable soft tissues. Left hip total joint arthroplasty. Chronic left-sided rib fractures. IMPRESSION: 1. No bowel obstruction or bowel wall thickening. 2. Distal esophageal wall thickening with mild adjacent inflammatory stranding. Correlate clinically to exclude esophagitis. 3. Hepatic steatosis. 4. Cholecystectomy. 5. Additional findings as above. ACT 112: Negative or not required by law. The above report was generated using voice recognition software. It may contain grammatical, syntax or spelling errors. Electronically signed by: Antione Solis M.D. 03/16/2021 7:52 PM Chest X-Ray 03/16/21 17:05 XR chest 1V portable HISTORY: 65 years-old Male weakness acute weakness COMPARISON: 10/27/2020 TECHNIQUE: Portable AP view of the chest FINDINGS: Cardiac mediastinal and hilar silhouettes are within normal limits. No pneumothorax, pleural effusion, airspace consolidation or overt pulmonary edema. Numerous chronic left-sided fracture deformities are present. Degenerative changes of the shoulders and spine. IMPRESSION: Chronic findings as above. No acute process. ACT 112: Negative or not required by law. The above report was generated using voice recognition software. It may contain grammatical, syntax or spelling errors. Electronically signed by: Antione Solis M.D. 03/16/2021 5:22 PM Discharge Plan Visit Data Chief Complaint: Illness ED Provider: Orlando Ortez Discharge Problem: Vomiting, Alcohol abuse, Hypertension, Alcohol withdrawal, Esophagitis Patient Disposition: Admitted As Inpatient Condition: Fair Forms Stand Alone Forms: [facility] Prescriptions Prescriptions: No Action folic acid 1 mg tablet 1 mg PO QAM Qty: 30 RF: 11 lisinopril 20 mg tablet 20 mg PO DAILY Qty: 30 RF: 5 loxapine succinate 5 mg capsule 10 mg PO BID Qty: 60 RF: 5 quetiapine 300 mg tablet 300 mg PO HS Qty: 30 RF: 5 thiamine HCl (vitamin B1) [Vitamin B-1] 100 mg tablet 100 mg PO QAM Qty: 30 RF: 5 trazodone 100 mg tablet 100 mg PO HS PRN (Reason: insomnia) Qty: 30 RF: 5 Referrals Referrals: Owen Mckinnon III, MD [Primary Care Provider] -
[2021-03-16] MEDS ORDERED: SODIUM CHLORIDE 0.9% 500 ML IV SCH (17:15)
--- NOTE | 2021-03-16 17:23 | XRay Report ---
XR chest 1V portable HISTORY: 65 years-old Male weakness acute weakness COMPARISON: 10/27/2020 TECHNIQUE: Portable AP view of the chest FINDINGS: Cardiac mediastinal and hilar silhouettes are within normal limits. No pneumothorax, pleural effusion , airspace consolidation or overt pulmonary edema. Numerous chronic left-sided fracture deformities a re present. Degenerative changes of the shoulders and spine. IMPRESSION: Chronic findings as above. No acute process. ACT 112: Negative or not required by law. The above report was generated using voice recognition software. It may contain grammatical, syntax o r spelling errors. Electronically signed by: Antione Solis M.D. 03/16/2021 5:22 PM
[2021-03-16 17:48] LABS: Basophils # (auto) 0.02 K/uL (0-0.2); Basophils % (auto) 0.2 %; Hematocrit (blood only) 50.1 % (42-52); Hemoglobin 17.8 g/dL (14.0-18.0); Immature Granulocytes # (auto) 0.01 K/uL (0.00-0.02); Immature Granulocytes % (auto) 0.1 %; Lymphocytes # (auto) 0.98 K/uL (1.2-3.4); Lymphocytes % (auto) 8.7 %; Mean Corpuscular Hemoglobin 33.5 pg (25-34); Mean Corpuscular Hgb Conc 35.5 g/dL (32-36); Mean Corpuscular Volume 94.2 fL (80-100); Mean Platelet Volume 10.8 fL (7.4-10.4); Monocytes % (auto) 6.2 %; Neutrophils # (auto) 9.59 K/uL (1.4-6.5); Neutrophils % (auto) 84.8 %; Platelet Count 238 K/uL (130-400); RDW Coefficient of Variation 14.6 % (11.5-14.5); RDW Standard Deviation 50.4 fL (36.4-46.3); Red Blood Count 5.32 M/uL (4.7-6.1)
[2021-03-16 17:57] LABS: Partial Thromboplastin Time 25.1 Seconds (21.0-31.0); Prothrombin Time 9.8 Seconds (9.0-12.0)
[2021-03-16 18:04] LABS: Alanine Aminotransferase 29 U/L (12-78); Albumin Level 4.1 gm/dl (3.4-5.0); Aspartate Aminotransferase 45 U/L (15-37); BUN Creatinine Ratio 23.8 (10-20); Blood Urea Nitrogen 21 mg/dl (7-18); Calcium 9.5 mg/dl (8.5-10.1); Carbon Dioxide 21 mmol/L (21-32); Chloride 88 mmol/L (98-107); Creatinine Clr Calc Pharmacy 69.1 ml/min; Est GFR (African American) 103.7 ml/min; Est GFR (Non-African American) 89.5 ml/min; Glucose 112 mg/dl (70-99); Magnesium 2.1 mg/dl (1.8-2.4); Potassium 3.2 mmol/L (3.5-5.1); Sodium 136 mmol/L (136-145)
[2021-03-16 18:15] LABS: Alkaline Phosphatase 77 U/L (45-117); Bilirubin,Total 2.4 mg/dl (0.2-1); Thyroid Stimulating Hormone 0.193 uIu/ml (0.300-4.500); Total Protein 8.1 gm/dl (6.4-8.2); Troponin I < 0.015 ng/ml (0-0.045)
[2021-03-16] MEDS ORDERED: LABETALOL HCL IV 5 MG/ML 20ML IV STA (18:21)
[2021-03-16] MEDS ORDERED: OPTIRAY 320 100ml IV ONE (19:21)
--- NOTE | 2021-03-16 19:53 | CT Scan Report ---
ABDOMEN AND PELVIS CT WITH IV CONTRAST CT DOSE: 292.57 mGy.cm HISTORY: Acute abdominal pain with nausea and vomiting abd pain, vomiting TECHNIQUE: Multiaxial CT images of the abdomen and pelvis were performed following the IV administrat ion of 95 cc of Optiray, A dose lowering technique was utilized adhering to the principles of ALARA. COMPARISON STUDY: CT abdomen and pelvis 09/20/2020 FINDINGS: Coronary artery calcifications. Calcified granuloma of the basal right lower lobe. Mild sub segmental bibasilar atelectasis. No pneumatosis or pneumoperitoneum. Unremarkable spleen, pancreas an d adrenal glands. Cholecystectomy. Hepatic steatosis. Mild hepatomegaly. Study is mildly degraded by respiratory motion artifact. Patency of the hepatic and portal veins. Unremarkable kidneys. No hydronephrosis. The urinary bladder and prostate appear unremarkable. Athero sclerosis of the abdominal aorta without aneurysm. No adenopathy. Moderate wall thickening of the dis nora esophagus with mild adjacent inflammatory stranding. Mildly distended air and fluid-filled stomac h. Scattered small bowel air-fluid levels. No bowel obstruction or bowel wall thickening. The majorit y of the large bowel is decompressed. The appendix is not definitively seen. No secondary signs of ac harry appendicitis. Unremarkable soft tissues. Left hip total joint arthroplasty. Chronic left-sided ri b fractures. IMPRESSION: 1. No bowel obstruction or bowel wall thickening. 2. Distal esophageal wall thickening with mild adjacent inflammatory stranding. Correlate clinically to exclude esophagitis. 3. Hepatic steatosis. 4. Cholecystectomy. 5. Additional findings as above. ACT 112: Negative or not required by law. The above report was generated using voice recognition software. It may contain grammatical, syntax o r spelling errors. Electronically signed by: Antione Solis M.D. 03/16/2021 7:52 PM
[2021-03-16] MEDS ORDERED: PANTOprazole 40 MG in SYRINGE 0 ML IV ONE (19:58)
[2021-03-16] MEDS ORDERED: FAMOTIDINE 20MG/5ML IV PUSH IV STA (19:58)
[2021-03-16] MEDS ORDERED: hydrALAZINE HCL 20 MG/ML VIAL IV STA (22:37)
--- NOTE | 2021-03-16 23:19 | History & Physical Report ---
Date of Service March 16, 2021 Assessment & Plan (1) Vomiting: Plan: Secondary to alcohol abuse and withdrawal. Treat symptomatically with Zofran IV (2) Alcohol withdrawal: Plan: Alcohol withdrawal/alcohol abuse history- Admit to monitored bed Place on AWSS protocol with IV Ativan Thiamine 100 mg p.o. daily Folic acid 1 mg p.o. daily NSS + KCl 20 mEq at 125 mils per hour (3) Alcohol abuse: Plan: See above (4) Hypertension: Plan: Continue lisinopril 20 mg p.o. daily Patient did receive labetalol 10 mg IV and hydralazine 10 mg IV from by the ED (5) Esophagitis: Plan: Famotidine 20 mg IV every 12 hours (6) Tobacco abuse: Plan: Cessation counseling (7) Depression: Plan: Continue loxapine, quetiapine and trazodone History of Present Illness Chief Complaint: The patient presents to the emergency department with complaint of intractable nausea and vomiting, with epigastric discomfort, and concerns regarding alcohol withdrawal. Primary Care Provider: Owen Mckinnon MD The patient is a 65-year-old male with a past medical history of alcohol abuse,, hypertension, tobacco abuse, hyponatremia, ELENA, neuroleptic induced parkinsonism, anemia, schizophrenia, COPD, hyperlipidemia and depression. The patient presents to the emergency department as noted above. Significant abnormal laboratories in the emergency department: Total bilirubin 2.4, AST 45, TSH 0.193, alcohol level 127.5, WBC 11.30, potassium 3.[address] scan of abdomen pelvis showed esophagitis, hepatic steatosis. Chest x-ray showed chronic left rib fracture deformities Allergies Allergy/AdvReac Type Severity Reaction Status Date / Time No Known Allergies Allergy Verified 02/04/21 09:08 Home Medications Medication Instructions Recorded Confirmed Type folic acid 1 mg tablet 1 mg PO QAM #30 tab 11/12/20 02/04/21 Rx lisinopril 20 mg tablet 20 mg PO DAILY #30 tab 11/12/20 02/04/21 Rx loxapine succinate 5 mg capsule 10 mg PO BID #60 cap 11/12/20 02/04/21 Rx quetiapine 300 mg tablet 300 mg PO HS #30 tab 11/12/20 02/04/21 Rx thiamine HCl (vitamin B1) 100 mg 100 mg PO QAM #30 tab 11/12/20 02/04/21 Rx tablet (Vitamin B-1) trazodone 100 mg tablet 100 mg PO HS PRN #30 tab 11/12/20 02/04/21 Rx Past Med/Surg History Medical History (Updated 03/17/21 @ 04:47 by César Santo MD) Acute kidney injury Alcohol abuse Bronchitis hx Choledocholithiasis Chronic back pain Chronic obstructive pulmonary disease Depression Hip fracture, left (2017) Hyperlipidemia Hypertension Osteoarthritis Schizophrenia Thrombocytopenia Tobacco abuse Surgical History History of colonoscopy History of hip replacement (2017) LEFT History of tooth extraction S/P ERCP Family History Brother Family history of diabetes mellitus Social History Smoking Status: Current every day smoker Tobacco Type: Cigarettes Cigarettes Per Day: 1PPD; Second Hand Exposure: Yes; Hx Alcohol Use: Yes Alcohol type: beer and hard liquor Hx Substance Use: No Preferred Language: Tamazight Communication Ability: Effective Classification And Treatment Director Required: No Beliefs That Will Affect Care: None marital status: Single Current Living Situation: Alone How many Children do You have: 1 Feels Safe at Home: Yes Safety Concerns: Feels Safe At This Time Assistive Devices: Cane Review of Systems Review of Systems: The patient denies chest pain, palpitations, shortness of breath, dyspnea on exertion, cough, lower extremity swelling, sore throat, fevers, chills, sweats, diarrhea , constipation, abdominal pain, pelvic pain, blood in urine or stool, dysuria, urinary frequency or urgency, loss of consciousness, rash, abnormal bruising or bleeding, imbalance, focal weakness, numbness or tingling in arms or legs, generalized arthralgias or myalgias, back or neck pain, or night sweats. The review of systems is otherwise negative other than for that already noted above, and at least 10 systems have been reviewed. Physical Exam Physical Exam: The patient is awake, alert, somewhat sedated from medications, looks unkempt, normocephalic and atraumatic, lying in bed and in no acute distress. HEENT--PERRL, EOMI, mucous membranes and oropharynx dry. Neck--supple. No JVD. No bruits. Thyroid normal, trachea midline, no adenopathy. Heart--normal S1 and S2. No murmurs, rubs or gallops. Lungs--clear bilaterally, no respiratory distress, no accessory muscle use. Abdomen--normal bowel sounds and soft. Nontender. Nondistended, no hernias or masses, no organomegaly. Extremities--no cyanosis or clubbing. No edema. Dermatologic--normal skin turgor, normal color, no abnormal lymph nodes, no rash. Neurologic--cranial nerves II through XII grossly intact. Rheumatologic--limited exam, but grossly normal Psychiatric--normal affect. Results & Data Results & Data ([facility]) Vital Signs (Past 12 Hours) Vital Signs Temp Pulse Pulse Resp BP BP Pulse Ox 03/16/21 22:00 89 18 181/106 H 94 03/16/21 21:30 91 H 16 180/90 H 100 03/16/21 20:00 84 18 163/90 H 100 03/16/21 18:13 60 L 03/16/21 18:00 60 L 03/16/21 17:55 106 H 21 169/104 H 99 03/16/21 17:05 98.6 F 117 H 18 169/104 H 100 Laboratory Results Laboratory Results WBC 11.30 K/uL (4.8-10.8) H 03/16/21 17:30 RBC 5.32 M/uL (4.7-6.1) 03/16/21 17:30 Hgb 17.8 g/dL (14.0-18.0) 03/16/21 17:30 Hct 50.1 % (42-52) 03/16/21 17:30 MCV 94.2 fL (80-100) 03/16/21 17:30 MCH 33.5 pg (25-34) 03/16/21 17:30 MCHC 35.5 g/dL (32-36) 03/16/21 17:30 RDW Std Deviation 50.4 fL (36.4-46.3) H 03/16/21 17:30 RDW Coeff of Harley 14.6 % (11.5-14.5) H 03/16/21 17:30 Plt Count 238 K/uL (130-400) 03/16/21 17:30 MPV 10.8 fL (7.4-10.4) H 03/16/21 17:30 Immature Gran % (Auto) 0.1 % 03/16/21 17:30 Neut % (Auto) 84.8 % 03/16/21 17:30 Lymph % (Auto) 8.7 % 03/16/21 17:30 Rains % (Auto) 6.2 % 03/16/21 17:30 Eos % (Auto) 0.0 % 03/16/21 17:30 Baso % (Auto) 0.2 % 03/16/21 17:30 Neut # (Auto) 9.59 K/uL (1.4-6.5) H 03/16/21 17:30 Lymph # (Auto) 0.98 K/uL (1.2-3.4) L 03/16/21 17:30 Rains # (Auto) 0.70 K/uL (0.11-0.59) H 03/16/21 17:30 Eos # (Auto) 0.00 K/uL (0-0.5) 03/16/21 17:30 Baso # (Auto) 0.02 K/uL (0-0.2) 03/16/21 17:30 Immature Gran # (Auto) 0.01 K/uL (0.00-0.02) 03/16/21 17:30 PT 9.8 Seconds (9.0-12.0) 03/16/21 17:30 INR 1.0 (0.9-1.1) 03/16/21 17:30 APTT 25.1 Seconds (21.0-31.0) 03/16/21 17:30 PTT Ratio 1.0 03/16/21 17:30 Sodium 136 mmol/L (136-145) 03/16/21 17:30 Potassium 3.2 mmol/L (3.5-5.1) L 03/16/21 17:30 Chloride 88 mmol/L (98-107) L 03/16/21 17:30 Carbon Dioxide 21 mmol/L (21-32) 03/16/21 17:30 Anion Gap 27.0 (3-11) H 03/16/21 17:30 BUN 21 mg/dl (7-18) H 03/16/21 17:30 Creatinine 0.88 mg/dl (0.6-1.4) 03/16/21 17:30 Est Cr Clr Drug Dosing 69.1 ml/min 03/16/21 17:30 Est GFR ( Amer) 103.7 ml/min 03/16/21 17:30 Est GFR (Non-Af Amer) 89.5 ml/min 03/16/21 17:30 BUN/Creatinine Ratio 23.8 (10-20) H 03/16/21 17:30 Glucose 112 mg/dl (70-99) H 03/16/21 17:30 Calcium 9.5 mg/dl (8.5-10.1) 03/16/21 17:30 Magnesium 2.1 mg/dl (1.8-2.4) 03/16/21 17:30 Total Bilirubin 2.4 mg/dl (0.2-1) H 03/16/21 17:30 AST 45 U/L (15-37) H 03/16/21 17:30 ALT 29 U/L (12-78) 03/16/21 17:30 Alkaline Phosphatase 77 U/L (45-117) 03/16/21 17:30 Troponin I < 0.015 ng/ml (0-0.045) 03/16/21 17:30 Total Protein 8.1 gm/dl (6.4-8.2) 03/16/21 17:30 Albumin 4.1 gm/dl (3.4-5.0) 03/16/21 17:30 Globulin 4.0 gm/dl (2.5-4.0) 03/16/21 17:30 Albumin/Globulin Ratio 1.0 (0.9-2) 03/16/21 17:30 TSH 0.193 uIu/ml (0.300-4.500) L 03/16/21 17:30 Free T4 1.00 ng/dl (0.8-1.6) 03/16/21 17:30 Urine Color Dark Yellow 03/16/21 23:52 Urine Appearance Clear (Clear) 03/16/21 23:52 Urine pH 6.0 (4.5-7.5) 03/16/21 23:52 Ur Specific Marshall > 1.045 (1.000-1.030) H 03/16/21 23:52 Urine Protein 1+ (Negative) H 03/16/21 23:52 Urine Glucose (UA) Negative (Negative) 03/16/21 23:52 Urine Ketones 3+ (Negative) H 03/16/21 23:52 Urine Blood Negative (Negative) 03/16/21 23:52 Urine Nitrite Negative (Negative) 03/16/21 23:52 Urine Bilirubin Negative (Negative) 03/16/21 23:52 Urine Urobilinogen Negative (Negative) 03/16/21 23:52 Ur Leukocyte Esterase Negative (Negative) 03/16/21 23:52 Urine WBC (Auto) 1-5 /hpf (0-5) 03/16/21 23:52 Urine RBC (Auto) 0-4 /hpf (0-4) 03/16/21 23:52 U Hyaline Cast (Auto) 1-5 /lpf (0-5) 03/16/21 23:52 U Epithel Cells (Auto) >30 /lpf (0-5) H 03/16/21 23:52 Urine Bacteria (Auto) Negative (Negative) 03/16/21 23:52 Urine Opiates Screen Pos (Neg) H 03/16/21 23:52 Ur Methadone, Qual Neg (Neg) 03/16/21 23:52 Urine Barbiturates Neg (Neg) 03/16/21 23:52 Ur Phencyclidine (PCP) Neg (Neg) 03/16/21 23:52 U Amphetamin/Meth Scrn Neg (Neg) 03/16/21 23:52 MDMA (Ecstasy) Screen Pos (Neg) H 03/16/21 23:52 U Benzodiazepines Scrn Neg (Neg) 03/16/21 23:52 Ur Cocaine Metabolite Neg (Neg) 03/16/21 23:52 U Marijuana (THC) Screen Neg (Neg) 03/16/21 23:52 Ethyl Alcohol mg/dL 127.5 mg/dl (0-3) H 03/16/21 17:53 COVID-19 Eval Order Covid19 at [facility] 03/16/21 22:50 SARS-CoV-2 (PCR) NEGATIVE (Negative) 03/16/21 22:50 Impressions Abdomen/Pelvis CT 03/16/21 17:[address] WITH IV CONTRAST CT DOSE: 292.57 mGy.cm HISTORY: Acute abdominal pain with nausea and vomiting abd pain, vomiting TECHNIQUE: Multiaxial CT images of the abdomen and pelvis were performed following the IV administration of 95 cc of Optiray, A dose lowering technique was utilized adhering to the principles of ALARA. COMPARISON STUDY: CT abdomen and pelvis 09/20/2020 FINDINGS: Coronary artery calcifications. Calcified granuloma of the basal right lower lobe. Mild subsegmental bibasilar atelectasis. No pneumatosis or pne umoperitoneum. Unremarkable spleen, pancreas and adrenal glands. Cholecystectomy. Hepatic steatosis. Mild hepatomegaly. Study is mildly degraded by respiratory motion artifact. Patency of the hepatic and portal veins. Unremarkable kidneys. No hydronephrosis. The urinary bladder and prostate appear unremarkable. Atherosclerosis of the abdominal aorta without aneurysm. No adenopathy. Moderate wall thickening of the distal esophagus with mild adjacent inflammatory stranding. Mildly distended air and fluid-filled stomach. Scattered small bowel air-fluid levels. No bowel obstruction or bowel wall thickening. The majority of the large bowel is decompressed. The appendix is not definitively seen. No secondary signs of acute appendicitis. Unremarkable soft tissues. Left hip total joint arthroplasty. Chronic left-sided rib fractures. IMPRESSION: 1. No bowel obstruction or bowel wall thickening. 2. Distal esophageal wall thickening with mild adjacent inflammatory stranding. Correlate clinically to exclude esophagitis. 3. Hepatic steatosis. 4. Cholecystectomy. 5. Additional findings as above. ACT 112: Negative or not required by law. The above report was generated using voice recognition software. It may contain grammatical, syntax or spelling errors. Electronically signed by: Antione Solis M.D. 03/16/2021 7:52 PM Chest X-Ray 03/16/21 17:05 XR chest 1V portable HISTORY: 65 years-old Male weakness acute weakness COMPARISON: 10/27/2020 TECHNIQUE: Portable AP view of the chest FINDINGS: Cardiac mediastinal and hilar silhouettes are within normal limits. No pneumothorax, pleural effusion, airspace consolidation or overt pulmonary edema. Numerous chronic left-sided fracture deformities are present. Degenerative changes of the shoulders and spine. IMPRESSION: Chronic findings as above. No acute process. ACT 112: Negative or not required by law. The above report was generated using voice recognition software. It may contain grammatical, syntax or spelling errors. Electronically signed by: Antione Solis M.D. 03/16/2021 5:22 PM Code Status & VTE Plan Code Status Full code VTE Prophylaxis Plan VTE Prophylaxis will be ordered: Yes PG Care Time/CCT Total # of Minutes Spent Total Time Spent with Patient: Total time spent is greater than 50% in coordination of care (as documented) at patient's floor/unit and/or counseling patient: Coding Level of Care Code 59552 Initial Inpt Care Lvl 3 Diagnoses Vomiting R11.2 Nausea presence: with nausea Vomiting Intractability: non-intractable Vomiting type: unspecified Alcohol abuse F10.10 Alcohol withdrawal F10.230 Complication of substance-induced condition: uncomplicated Hypertension I10 Hypertension type: unspecified Esophagitis K20.90 Tobacco abuse Z72.0 Depression F32.9 (1) Vomiting Nausea presence: with nausea Vomiting Intractability: non-intractable Vomiting type: unspecified Qualified Code(s): R11.2 - Nausea with vomiting, unspecified (2) Alcohol withdrawal Complication of substance-induced condition: uncomplicated Qualified Code(s): F10.230 - Alcohol dependence with withdrawal, uncomplicated (3) Hypertension Hypertension type: unspecified Qualified Code(s): I10 - Essential (primary) hypertension
[2021-03-17 00:10] LABS: Appearance Urine Clear (Clear); Bacteria Urine Automated Negative (Negative); Bilirubin Urine Negative (Negative); Blood Urine Negative (Negative); Color Urine Dark Yellow; Epithelial Cell Urine Auto >30 /lpf (0-5); Glucose Urine UA Negative (Negative); Ketones Urine 3+ (Negative); Leukocyte Esterase Urine Negative (Negative); Nitrite Urine Negative (Negative); Protein Urine 1+ (Negative); RBC Urine Automated 0-4 /hpf (0-4); Specific Gravity Urine > 1.045 (1.000-1.030); Urobilinogen Urine Negative (Negative)
[2021-03-17 00:35] LABS: Amphetamines+Metham, Urine Neg (Neg); Barbiturates, Urine Neg (Neg); Benzodiazepine, Urine Neg (Neg); Cocaine, Urine Neg (Neg); MDMA (Ecstacy), Urine Pos (Neg); Methadone, Urine Neg (Neg); Opiate, Urine Pos (Neg); Phencyclidine, Urine Neg (Neg)
[2021-03-17] MEDS ORDERED: LORazepam 3 MG/6 ML VIAL IV PRN (01:56)
[2021-03-17] MEDS ORDERED: ATIVAN IV ALCOHOL WITHDRAWL IV PRN (01:56)
[2021-03-17] MEDS ORDERED: LORazepam 2 MG/4 ML VIAL IV PRN (01:56)
[2021-03-17] MEDS ORDERED: LORazepam 1 MG/2 ML VIAL IV PRN (01:56)
[2021-03-17] MEDS: NSS + 20MEQ KCL 20 MEQ/1,000 ML BAG IV SCH ×3 (02:30→19:33)
--- NOTE | 2021-03-17 07:24 | Hospitalist Progress Note ---
Date of Service March 17, 2021 Assessment & Plan (1) Alcohol withdrawal: Plan: Patient had 2 days vomitting and history alcohol abuse -placed on Thiamine 100mg and Folic acid 1mg supplements - started IVF NS 100ml w/20meq KCL -patient placed on AWSS protocol w/PRN ativan, continue to monitor -hypokalemic on admission to 3.2 - improving with KCl repletion as above -monitor CBC, BMP (2) Alcohol abuse: Plan: Patient has tried to quit in the past, per case management was sober 1 month until last week, has tried inpatient rehab and would like to go there again after current hospitalization -will discuss with case management (3) Vomiting: Plan: Zofran available PRN, patient not currently vomitting only nausea -currently on famotidine 20mg via syringe IV and pantoprazole 40mg (4) Esophagitis: Plan: -noted on CT performed on admission -likely d/t vomiting secondary to EtOH use -continue PPI as above (5) Abdominal pain: Plan: Patient remarks pain in upper right abd quadrant. Lipase lab at 120 WNL pancreatitis unlikely. -can resume diet, starting clear liquids will advance as tolerated (6) Hypertension: Plan: Patient 181/106 in ER given labetalol 10mg IV and hydralazin 10mg IV - BP currently 131/78, continue to monitor (7) Depression: Plan: Continue home quetiapine 300mg, trazodone 100mg (8) Schizophrenia: Plan: Continue Loxapine, quetiapine 300mg, trazadone 100mg -urine drug screen positive opiates and MDMA, could represent false positive due to the above medications, confirmatory tests pending (9) Tobacco abuse: Plan: Nicotine patch ordered -will discuss smoking cessation Plan: FENa: [] Code Status: [full] DVT PPX: [none] PT/OT: [none] Case 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 Herrera. In agreement with the documented findings as noted in the resident documentation with any exceptions or additions as noted here. Chronic auditory hallucinations 2/2 schizophrenia at baseline, no visual hallucinations. Still somewhat tremulous. Resolved BALLESTEROS at time of examination. EtOH abuse x 2 years following of spouse, has quit previously for months following inpatient rehab stay and would be open to same. On examination, S1/S2 nl RRR no MCG. CTAB. Abd NT/ND BS+ve. CNII-XII grossly intact, mild hand tremor bilaterally ETOH Withdrawal - continue ativan by protocol as well controlled sx at present. Case management for assistance with rehab placement following discharge. Thiamine, folate, hydration. Can advance diet as tolerated. Nausea/vomiting with gastritis/esophagitis - PPI, + famotidinee, continue PRN ondansetron, monitor BMP, IVF Schizophrenia - restart home medications as noted. UTox confirm pending - likely false +ve for MDMA, ?opiates from current meds. Else see resident documentation as noted. Subjective 65yo Male admitted to hospital for 2 days of vomitting and abd pain, PMH alcohol abuse, tobacco abuse, HTN, neuroleptic induced parkinsonism, anemia, schizophrenia, COPD, HLD, Depression. On ER admit had elevated T bili, blood alcohol, AST, WBC, urine tox positive for opiates and MDMA. CT chest abd showed esophagitis, hepatic steatosis. Patient seen at bedside, comfortable, slept well decreased appetite due to nausea, complains of headache when he doesn't drink alcohol, has had several bouts of diarrhea. He states he drinks 12 beers daily for past 2 years since , is willing to try to stop but does not know how, has tried AA in past and did not like it. In afternoon patient admitted persistent auditory hallucinations from his schizophrenia but no visual hallucinations. He has some tremors. He states he has gone to inpatient rehab before and would like to go there again after his current hospital stay. Review of Systems Constitutional: no fever and no chills Ear, Nose, Mouth, Throat: + dizziness; no change in voice Respiratory: no cough and no dyspnea Cardiovascular: no chest pain, no palpitations and no edema Gastrointestinal: + nausea and + diarrhea/loose stools; no vomiting and no constipation Integumentary: no rash Neurologic: + headache(s) Physical Exam Constitutional: cooperative and comfortable Eyes: PERRL and normal accommodation Respiratory: normal respiratory effort Auscultation: lungs clear to auscultation bilaterally; no rales, no rhonchi and no wheezes Cardiovascular: Rate/Rhythm: regular rate and regular rhythm Heart Sounds: normal S1 and normal S2; no gallop, no murmur and no cardiac rub Gastrointestinal (Abdomen): Inspection/Auscultation: abdomen normal to inspection and normal bowel sounds Percussion/Palpation: + abdomen tender (upper right quadrant and upper middle) and abdomen soft Neurologic: CN's II-XI intact bilaterally Results & Data Results & Data ([facility]) Vital Signs (Past 12 Hours) Vital Signs Temp Pulse Pulse Resp BP BP Pulse Ox 03/17/21 03:05 93 H 03/17/21 02:04 36.9 C 70 16 118/69 92 03/17/21 01:24 94 H 16 155/75 H 94 03/17/21 01:00 94 H 16 155/75 H 99 03/17/21 00:00 94 H 18 138/75 03/16/21 22:00 89 18 181/106 H 94 03/16/21 21:30 91 H 16 180/90 H 100 03/16/21 20:00 84 18 163/90 H 100 Laboratory Results 03/17/21 03/17/21 03/17/21 Range/Units 11:11 11:05 11:05 WBC 8.68 (4.8-10.8) K/uL RBC 4.28 L (4.7-6.1) M/uL Hgb 14.0 D (14.0-18.0) g/dL Hct 40.9 L (42-52) % MCV 95.6 (80-100) fL MCH 32.7 (25-34) pg MCHC 34.2 (32-36) g/dL RDW Std Deviation 51.2 H (36.4-46.3) fL RDW Coeff of Harley 14.7 H (11.5-14.5) % Plt Count 157 (130-400) K/uL MPV 10.5 H (7.4-10.4) fL Immature Gran % (Auto) 0.2 % Neut % (Auto) 68.3 % Lymph % (Auto) 19.2 % Garrett % (Auto) 11.9 % Eos % (Auto) 0.3 % Baso % (Auto) 0.1 % Neut # (Auto) 5.92 (1.4-6.5) K/uL Lymph # (Auto) 1.67 (1.2-3.4) K/uL Garrett # (Auto) 1.03 H (0.11-0.59) K/uL Eos # (Auto) 0.03 (0-0.5) K/uL Baso # (Auto) 0.01 (0-0.2) K/uL Immature Gran # (Auto) 0.02 (0.00-0.02) K/uL PT (9.0-12.0) Seconds INR (0.9-1.1) APTT (21.0-31.0) Seconds PTT Ratio Sodium 138 (136-145) mmol/L Potassium 3.4 L (3.5-5.1) mmol/L Chloride 103 (98-107) mmol/L Carbon Dioxide 27 (21-32) mmol/L Anion Gap 8.0 (3-11) BUN 14 (7-18) mg/dl Creatinine 0.63 (0.6-1.4) mg/dl Est Cr Clr Drug Dosing 97.2 ml/min Est GFR ( Amer) 119.0 ml/min Est GFR (Non-Af Amer) 102.7 ml/min BUN/Creatinine Ratio 21.5 H (10-20) Glucose 99 (70-99) mg/dl Calcium 7.6 L D (8.5-10.1) mg/dl Magnesium (1.8-2.4) mg/dl Total Bilirubin (0.2-1) mg/dl AST (15-37) U/L ALT (12-78) U/L Alkaline Phosphatase (45-117) U/L Troponin I (0-0.045) ng/ml Total Protein (6.4-8.2) gm/dl Albumin (3.4-5.0) gm/dl Globulin (2.5-4.0) gm/dl Albumin/Globulin Ratio (0.9-2) Lipase 120 121 (73-393) U/L TSH (0.300-4.500) uIu/ml Free T4 (0.8-1.6) ng/dl Urine Color Urine Appearance (Clear) Urine pH (4.5-7.5) Ur Specific [place] (1.000-1.030) Urine Protein (Negative) Urine Glucose (UA) (Negative) Urine Ketones (Negative) Urine Blood (Negative) Urine Nitrite (Negative) Urine Bilirubin (Negative) Urine Urobilinogen (Negative) Ur Leukocyte Esterase (Negative) Urine WBC (Auto) (0-5) /hpf Urine RBC (Auto) (0-4) /hpf U Hyaline Cast (Auto) (0-5) /lpf U Epithel Cells (Auto) (0-5) /lpf Urine Bacteria (Auto) (Negative) Urine Opiates Screen (Neg) U Codeine Confrm GC/MS Ur Morphine (GC/MS) Ur Hydrocodone (GC/MS) Ur Norhydrocodone Ur Noroxycodone Urine Oxycodone (GC/MS) U Oxymorphone GC/MS Ur Methadone, Qual (Neg) Ur Hydromorphone (GC/MS) Urine Barbiturates (Neg) Ur Phencyclidine (PCP) (Neg) U Amphetamin/Meth Scrn (Neg) Urine MDEA MDMA (Ecstasy) Screen (Neg) MDMA Urine MDMA U Benzodiazepines Scrn (Neg) Ur Cocaine Metabolite (Neg) U Marijuana (THC) Screen (Neg) Drug Screen Comment Ethyl Alcohol mg/dL (0-3) mg/dl COVID-19 Eval Order SARS-CoV-2 (PCR) (Negative) 03/16/21 03/16/21 03/16/21 Range/Units 23:52 23:52 23:52 WBC (4.8-10.8) K/uL RBC (4.7-6.1) M/uL Hgb (14.0-18.0) g/dL Hct (42-52) % MCV (80-100) fL MCH (25-34) pg MCHC (32-36) g/dL RDW Std Deviation (36.4-46.3) fL RDW Coeff of Harley (11.5-14.5) % Plt Count (130-400) K/uL MPV (7.4-10.4) fL Immature Gran % (Auto) % Neut % (Auto) % Lymph % (Auto) % Garrett % (Auto) % Eos % (Auto) % Baso % (Auto) % Neut # (Auto) (1.4-6.5) K/uL Lymph # (Auto) (1.2-3.4) K/uL Garrett # (Auto) (0.11-0.59) K/uL Eos # (Auto) (0-0.5) K/uL Baso # (Auto) (0-0.2) K/uL Immature Gran # (Auto) (0.00-0.02) K/uL PT (9.0-12.0) Seconds INR (0.9-1.1) APTT (21.0-31.0) Seconds PTT Ratio Sodium (136-145) mmol/L Potassium (3.5-5.1) mmol/L Chloride (98-107) mmol/L Carbon Dioxide (21-32) mmol/L Anion Gap (3-11) BUN (7-18) mg/dl Creatinine (0.6-1.4) mg/dl Est Cr Clr Drug Dosing ml/min Est GFR ( Amer) ml/min Est GFR (Non-Af Amer) ml/min BUN/Creatinine Ratio (10-20) Glucose (70-99) mg/dl Calcium (8.5-10.1) mg/dl Magnesium (1.8-2.4) mg/dl Total Bilirubin (0.2-1) mg/dl AST (15-37) U/L ALT (12-78) U/L Alkaline Phosphatase (45-117) U/L Troponin I (0-0.045) ng/ml Total Protein (6.4-8.2) gm/dl Albumin (3.4-5.0) gm/dl Globulin (2.5-4.0) gm/dl Albumin/Globulin Ratio (0.9-2) Lipase (73-393) U/L TSH (0.300-4.500) uIu/ml Free T4 (0.8-1.6) ng/dl Urine Color Dark Yellow Urine Appearance Clear (Clear) Urine pH 6.0 (4.5-7.5) Ur Specific [place] > 1.045 H (1.000-1.030) Urine Protein 1+ H (Negative) Urine Glucose (UA) Negative (Negative) Urine Ketones 3+ H (Negative) Urine Blood Negative (Negative) Urine Nitrite Negative (Negative) Urine Bilirubin Negative (Negative) Urine Urobilinogen Negative (Negative) Ur Leukocyte Esterase Negative (Negative) Urine WBC (Auto) 1-5 (0-5) /hpf Urine RBC (Auto) 0-4 (0-4) /hpf U Hyaline Cast (Auto) 1-5 (0-5) /lpf U Epithel Cells (Auto) >30 H (0-5) /lpf Urine Bacteria (Auto) Negative (Negative) Urine Opiates Screen Pos H (Neg) U Codeine Confrm GC/MS Pending Ur Morphine (GC/MS) Pending Ur Hydrocodone (GC/MS) Pending Ur Norhydrocodone Pending Ur Noroxycodone Pending Urine Oxycodone (GC/MS) Pending U Oxymorphone GC/MS Pending Ur Methadone, Qual Neg (Neg) Ur Hydromorphone (GC/MS) Pending Urine Barbiturates Neg (Neg) Ur Phencyclidine (PCP) Neg (Neg) U Amphetamin/Meth Scrn Neg (Neg) Urine MDEA Pending MDMA (Ecstasy) Screen Pos H (Neg) MDMA Pending Urine MDMA Pending U Benzodiazepines Scrn Neg (Neg) Ur Cocaine Metabolite Neg (Neg) U Marijuana (THC) Screen Neg (Neg) Drug Screen Comment Pending Ethyl Alcohol mg/dL (0-3) mg/dl COVID-19 Eval Order SARS-CoV-2 (PCR) (Negative) 03/16/21 03/16/21 03/16/21 Range/Units 22:50 22:50 17:53 WBC (4.8-10.8) K/uL RBC (4.7-6.1) M/uL Hgb (14.0-18.0) g/dL Hct (42-52) % MCV (80-100) fL MCH (25-34) pg MCHC (32-36) g/dL RDW Std Deviation (36.4-46.3) fL RDW Coeff of Harley (11.5-14.5) % Plt Count (130-400) K/uL MPV (7.4-10.4) fL Immature Gran % (Auto) % Neut % (Auto) % Lymph % (Auto) % Garrett % (Auto) % Eos % (Auto) % Baso % (Auto) % Neut # (Auto) (1.4-6.5) K/uL Lymph # (Auto) (1.2-3.4) K/uL Garrett # (Auto) (0.11-0.59) K/uL Eos # (Auto) (0-0.5) K/uL Baso # (Auto) (0-0.2) K/uL Immature Gran # (Auto) (0.00-0.02) K/uL PT (9.0-12.0) Seconds INR (0.9-1.1) APTT (21.0-31.0) Seconds PTT Ratio Sodium (136-145) mmol/L Potassium (3.5-5.1) mmol/L Chloride (98-107) mmol/L Carbon Dioxide (21-32) mmol/L Anion Gap (3-11) BUN (7-18) mg/dl Creatinine (0.6-1.4) mg/dl Est Cr Clr Drug Dosing ml/min Est GFR ( Amer) ml/min Est GFR (Non-Af Amer) ml/min BUN/Creatinine Ratio (10-20) Glucose (70-99) mg/dl Calcium (8.5-10.1) mg/dl Magnesium (1.8-2.4) mg/dl Total Bilirubin (0.2-1) mg/dl AST (15-37) U/L ALT (12-78) U/L Alkaline Phosphatase (45-117) U/L Troponin I (0-0.045) ng/ml Total Protein (6.4-8.2) gm/dl Albumin (3.4-5.0) gm/dl Globulin (2.5-4.0) gm/dl Albumin/Globulin Ratio (0.9-2) Lipase (73-393) U/L TSH (0.300-4.500) uIu/ml Free T4 (0.8-1.6) ng/dl Urine Color Urine Appearance (Clear) Urine pH (4.5-7.5) Ur Specific [place] (1.000-1.030) Urine Protein (Negative) Urine Glucose (UA) (Negative) Urine Ketones (Negative) Urine Blood (Negative) Urine Nitrite (Negative) Urine Bilirubin (Negative) Urine Urobilinogen (Negative) Ur Leukocyte Esterase (Negative) Urine WBC (Auto) (0-5) /hpf Urine RBC (Auto) (0-4) /hpf U Hyaline Cast (Auto) (0-5) /lpf U Epithel Cells (Auto) (0-5) /lpf Urine Bacteria (Auto) (Negative) Urine Opiates Screen (Neg) U Codeine Confrm GC/MS Ur Morphine (GC/MS) Ur Hydrocodone (GC/MS) Ur Norhydrocodone Ur Noroxycodone Urine Oxycodone (GC/MS) U Oxymorphone GC/MS Ur Methadone, Qual (Neg) Ur Hydromorphone (GC/MS) Urine Barbiturates (Neg) Ur Phencyclidine (PCP) (Neg) U Amphetamin/Meth Scrn (Neg) Urine MDEA MDMA (Ecstasy) Screen (Neg) MDMA Urine MDMA U Benzodiazepines Scrn (Neg) Ur Cocaine Metabolite (Neg) U Marijuana (THC) Screen (Neg) Drug Screen Comment Ethyl Alcohol mg/dL 127.5 H (0-3) mg/dl COVID-19 Eval Order Covid19 at [facility] SARS-CoV-2 (PCR) NEGATIVE (Negative) 03/16/21 03/16/21 03/16/21 Range/Units 17:30 17:30 17:30 WBC 11.30 H (4.8-10.8) K/uL RBC 5.32 (4.7-6.1) M/uL Hgb 17.8 (14.0-18.0) g/dL Hct 50.1 (42-52) % MCV 94.2 (80-100) fL MCH 33.5 (25-34) pg MCHC 35.5 (32-36) g/dL RDW Std Deviation 50.4 H (36.4-46.3) fL RDW Coeff of Harley 14.6 H (11.5-14.5) % Plt Count 238 (130-400) K/uL MPV 10.8 H (7.4-10.4) fL Immature Gran % (Auto) 0.1 % Neut % (Auto) 84.8 % Lymph % (Auto) 8.7 % Garrett % (Auto) 6.2 % Eos % (Auto) 0.0 % Baso % (Auto) 0.2 % Neut # (Auto) 9.59 H (1.4-6.5) K/uL Lymph # (Auto) 0.98 L (1.2-3.4) K/uL Garrett # (Auto) 0.70 H (0.11-0.59) K/uL Eos # (Auto) 0.00 (0-0.5) K/uL Baso # (Auto) 0.02 (0-0.2) K/uL Immature Gran # (Auto) 0.01 (0.00-0.02) K/uL PT 9.8 (9.0-12.0) Seconds INR 1.0 (0.9-1.1) APTT 25.1 (21.0-31.0) Seconds PTT Ratio 1.0 Sodium 136 (136-145) mmol/L Potassium 3.2 L (3.5-5.1) mmol/L Chloride 88 L (98-107) mmol/L Carbon Dioxide 21 (21-32) mmol/L Anion Gap 27.0 H (3-11) BUN 21 H (7-18) mg/dl Creatinine 0.88 (0.6-1.4) mg/dl Est Cr Clr Drug Dosing 69.1 ml/min Est GFR ( Amer) 103.7 ml/min Est GFR (Non-Af Amer) 89.5 ml/min BUN/Creatinine Ratio 23.8 H (10-20) Glucose 112 H (70-99) mg/dl Calcium 9.5 (8.5-10.1) mg/dl Magnesium 2.1 (1.8-2.4) mg/dl Total Bilirubin 2.4 H (0.2-1) mg/dl AST 45 H (15-37) U/L ALT 29 (12-78) U/L Alkaline Phosphatase 77 (45-117) U/L Troponin I < 0.015 (0-0.045) ng/ml Total Protein 8.1 (6.4-8.2) gm/dl Albumin 4.1 (3.4-5.0) gm/dl Globulin 4.0 (2.5-4.0) gm/dl Albumin/Globulin Ratio 1.0 (0.9-2) Lipase (73-393) U/L TSH 0.193 L (0.300-4.500) uIu/ml Free T4 1.00 (0.8-1.6) ng/dl Urine Color Urine Appearance (Clear) Urine pH (4.5-7.5) Ur Specific [place] (1.000-1.030) Urine Protein (Negative) Urine Glucose (UA) (Negative) Urine Ketones (Negative) Urine Blood (Negative) Urine Nitrite (Negative) Urine Bilirubin (Negative) Urine Urobilinogen (Negative) Ur Leukocyte Esterase (Negative) Urine WBC (Auto) (0-5) /hpf Urine RBC (Auto) (0-4) /hpf U Hyaline Cast (Auto) (0-5) /lpf U Epithel Cells (Auto) (0-5) /lpf Urine Bacteria (Auto) (Negative) Urine Opiates Screen (Neg) U Codeine Confrm GC/MS Ur Morphine (GC/MS) Ur Hydrocodone (GC/MS) Ur Norhydrocodone Ur Noroxycodone Urine Oxycodone (GC/MS) U Oxymorphone GC/MS Ur Methadone, Qual (Neg) Ur Hydromorphone (GC/MS) Urine Barbiturates (Neg) Ur Phencyclidine (PCP) (Neg) U Amphetamin/Meth Scrn (Neg) Urine MDEA MDMA (Ecstasy) Screen (Neg) MDMA Urine MDMA U Benzodiazepines Scrn (Neg) Ur Cocaine Metabolite (Neg) U Marijuana (THC) Screen (Neg) Drug Screen Comment Ethyl Alcohol mg/dL (0-3) mg/dl COVID-19 Eval Order SARS-CoV-2 (PCR) (Negative) Medications Administered Current Inpatient Medications Folic Acid (Folic Acid 1 Mg Tab) 1 mg PO QAM LAKISHA Stop: 04/16/21 08:59 Last Admin: 03/17/21 08:51 Dose: 1 mg Documented by: Potassium Chloride/Sodium Chloride (Normal Saline W/20 Meq Kcl) 20 meq in 1,000 mls @ 125 mls/hr IV .Q8H LAKISHA Stop: 04/16/21 02:14 Last Admin: 03/17/21 11:37 Dose: 125 mls/hr Documented by: Lorazepam (Ativan) 1 mg in 2 mls @ 2 mls/min IV UD PRN; Protocol PRN Reason: EtOH Withdrawl AWSS Score 6,7 Stop: 04/16/21 01:55 Lorazepam (Ativan) 2 mg in 4 mls @ 4 mls/min IV UD PRN; Protocol PRN Reason: EtOH Withdrawl AWSS Score 8,9 Stop: 04/16/21 01:55 Lorazepam (Ativan) 3 mg in 6 mls @ 4 mls/min IV ONCE PRN; Protocol PRN Reason: EtOH Withdrawl AWSS Score >=10 Stop: 04/16/21 01:55 Famotidine 20 mg/ Syringe 5 mls @ 2.5 mls/min IV Q12H COUNTS INCLUDE 234 BEDS AT THE [facility] Stop: 04/16/21 08:59 Last Admin: 03/17/21 08:51 Dose: 2.5 mls/min Documented by: Miscellaneous (Loxapine: Order Awaiting Action) 1 ea N/A QS COUNTS INCLUDE 234 BEDS AT THE [facility] Stop: 04/16/21 07:59 Last Admin: 03/17/21 07:38 Dose: Not Given Documented by: Miscellaneous (Remove Nicoderm Patch) 1 ea N/A DAILY@0859 COUNTS INCLUDE 234 BEDS AT THE [facility] Stop: 04/17/21 08:58 Nicotine (Nicotine 14 Mg/24 Hr Patch) [address] [facility] [place] Stop: 04/16/21 11:29 Last Admin: 03/17/21 13:36 Dose: 14 mg Documented by: Ondansetron HCl (Ondansetron Inj 2 Mg/Ml 2 Ml Vial) 4 mg IV Q6H PRN PRN Reason: Nausea Stop: 04/16/21 01:55 Pantoprazole Sodium (Pantoprazole 40 Mg Tab) [address] [facility] [place] Stop: 04/16/21 08:59 Last Admin: 03/17/21 08:54 Dose: 40 mg Documented by: Quetiapine Fumarate (Quetiapine Fumarate 300 Mg Tablet) 300 mg PO HS COUNTS INCLUDE 234 BEDS AT THE [facility] Stop: 04/16/21 20:59 Thiamine HCl (Thiamine Hcl 100 Mg Tab) 100 mg PO QAM COUNTS INCLUDE 234 BEDS AT THE [facility] Stop: 04/16/21 08:59 Last Admin: 03/17/21 08:51 Dose: 100 mg Documented by: Trazodone HCl (Trazodone Hcl 100 Mg Tab) 100 mg PO HS PRN PRN Reason: insomnia Stop: 04/16/21 01:55 Resident Activity Tracking Resident Involvement: Resident Care Provided Care Provided: Adult Hospital Medicine (1) Alcohol withdrawal Complication of substance-induced condition: uncomplicated Qualified Code(s): F10.230 - Alcohol dependence with withdrawal, uncomplicated (2) Schizophrenia Schizophrenia type: unspecified Qualified Code(s): F20.9 - Schizophrenia, unspecified (3) Hypertension Hypertension type: unspecified Qualified Code(s): I10 - Essential (primary) hypertension (4) Vomiting Nausea presence: with nausea Vomiting Intractability: non-intractable Vomiting type: unspecified Qualified Code(s): R11.2 - Nausea with vomiting, unspecified
[2021-03-17] MEDS: THIAMINE HCL 100 MG TAB PO SCH (08:51)
[2021-03-17] MEDS: FAMOTIDINE 20 MG in SYRINGE 3 ML IV SCH ×2 (08:51→22:17)
[2021-03-17] MEDS: FOLIC ACID 1 MG TAB PO SCH (08:51)
[2021-03-17] MEDS: PANTOprazole 40 MG TAB PO SCH (08:54)
[2021-03-17] MEDS ORDERED: PANTOprazole 40 MG TAB PO SCH (11:30)
[2021-03-17 11:37] LABS: Basophils # (auto) 0.01 K/uL (0-0.2); Basophils % (auto) 0.1 %; Eosinophils # (auto) 0.03 K/uL (0-0.5); Eosinophils % (auto) 0.3 %; Hematocrit (blood only) 40.9 % (42-52); Immature Granulocytes # (auto) 0.02 K/uL (0.00-0.02); Immature Granulocytes % (auto) 0.2 %; Lymphocytes # (auto) 1.67 K/uL (1.2-3.4); Lymphocytes % (auto) 19.2 %; Mean Corpuscular Hemoglobin 32.7 pg (25-34); Mean Corpuscular Hgb Conc 34.2 g/dL (32-36); Mean Corpuscular Volume 95.6 fL (80-100); Mean Platelet Volume 10.5 fL (7.4-10.4); Monocytes # (auto) 1.03 K/uL (0.11-0.59); Monocytes % (auto) 11.9 %; Neutrophils # (auto) 5.92 K/uL (1.4-6.5); Neutrophils % (auto) 68.3 %; Platelet Count 157 K/uL (130-400); RDW Coefficient of Variation 14.7 % (11.5-14.5); RDW Standard Deviation 51.2 fL (36.4-46.3); Red Blood Count 4.28 M/uL (4.7-6.1); White Blood Count 8.68 K/uL (4.8-10.8)
[2021-03-17 11:46] LABS: BUN Creatinine Ratio 21.5 (10-20); Calcium 7.6 mg/dl (8.5-10.1); Creatinine Clr Calc Pharmacy 97.2 ml/min; Est GFR (Non-African American) 102.7 ml/min; Potassium 3.4 mmol/L (3.5-5.1)
[2021-03-17] MEDS: NICOTINE 14 MG/24 HR PATCH TD SCH (13:36)
--- NOTE | 2021-03-17 13:50 | Electrocardiogram Report ---
Test Reason : Blood Pressure : / mmHG Vent. Rate : 110 BPM Atrial Rate : 110 BPM P-R Int : 168 ms QRS Dur : 086 ms QT Int : 362 ms P-R-T Axes : -16 078 -38 degrees QTc Int : 489 ms Poor data quality, interpretation may be adversely affected Ectopic atrial tachycardia Poor R wave progression, consider anterior DC vs. lead placement vs. LVH T wave abnormality, consider inferior ischemia Abnormal ECG When compared with ECG of 27-OCT-2020 19:21, There is now a non-sinus rhythm Non-specific change in ST segment in Inferior leads T wave inversion now evident in Inferior leads Confirmed by Aaron Gresham ([id number]) on 03/17/2021 1:49:56 PM Referred By: REFERRED SELF Confirmed By:Jacob Gresham
[2021-03-17] MEDS: ONDANSETRON INJ 2 MG/ML 2 ML VIAL IV PRN (19:33)
[2021-03-17] MEDS: QUEtiapine FUMARATE 300 MG TABLET PO SCH (22:17)
[2021-03-17] MEDS: traZODone HCL 100 MG TAB PO PRN (23:03)
[2021-03-18] MEDS: NSS + 20MEQ KCL 20 MEQ/1,000 ML BAG IV SCH ×3 (03:26→19:36)
--- NOTE | 2021-03-18 07:18 | Hospitalist Progress Note ---
Date of Service March 18, 2021 Assessment & Plan (1) Alcohol withdrawal: Plan: Patient had 2 days vomitting and history alcohol abuse. Was placed on AWSS protocol w/PRN ativan, this morning score of 0, continue to monitor. Patient has complained of headache secondary to alcohol cessation since admission. -continue Thiamine 100mg and Folic acid 1mg supplements, IVF NS 100ml w/20meq KCL -hypokalemic on admission to 3.2 currently 3.8- improving with KCl repletion as above -monitor CBC, BMP - ordered tylenol for headache (2) Alcohol abuse: Plan: Patient has tried to quit in the past, per case management was sober 1 month until last week, has tried inpatient rehab and would not like to go there again after current hospitalization. He prefers to try to wean himself off alcohol using coffee. -will discuss with case management -will suggest naltrexone and CBT to assist alcohol cessation (3) Vomiting: Plan: Zofran available PRN, patient not currently vomitting only nausea -currently on famotidine 20mg via syringe IV and pantoprazole 40mg - suspected zofran may cause QT prolongation, ordered repeat EKG, was negative for QT prolongation (4) Esophagitis: Plan: Noted on CT performed on admission, likely d/t vomiting secondary to EtOH use -continue PPI and H2 mounika as above (5) Abdominal pain: Plan: Patient remarks epigastric pain and pain on palpation in RUQ and LUQ, present since February. Originally left NPO until lipase labs returned. Lipase lab at 120 WNL pancreatitis unlikely. Resumed diet, started clear liquids advanced to regular diet. - will recommend following with GI in outpatient to evaluate possible gastritis, varicies secondary to alcohol (6) Hypertension: Plan: Patient 181/106 in ER given labetalol 10mg IV and hydralazin 10mg IV - BP currently 131/78, continue to monitor (7) Depression: Plan: Continue home quetiapine 300mg, trazodone 100mg (8) Schizophrenia: Plan: Continue Loxapine (pharmacy order stalled), quetiapine 300mg, trazadone 100mg -urine drug screen positive opiates and MDMA, could represent false positive due to the above medications, confirmatory tests pending -will run med list check on psych meds (9) Tobacco abuse: Plan: Nicotine patch ordered -will discuss smoking cessation Plan: FENa: [] Code Status: [full] DVT PPX: [none] PT/OT: [none] Case Management: [case specialist Joyce through [employer] and a rep payee [employer]] Dispo: [regular diet] Lindsay Herrera Do PGY 1, [facility] Admission and Anticipated Discharge Date Admission Date: March 16, 2021 Supervising Physician Co-Signing Physician Notes I also saw the patient with the medical student and the resident physician and confirmed mitchell portions of the history and physical examination. I agree with the impression and plans as noted in Dr. Herrera's documentation. Patient notes very mild epigastric discomfort, but no nausea or emesis. He is actually hungry and requesting an increase in his diet. Exam 137/80, 69, 18, 37.2, 96% on room air Alert and oriented. Heart regular rate and rhythm Abdomen soft and nontender. No rebound or guarding. The area of his discomfort is the mid epigastric to right upper quadrant. Data Hemoglobin 13 Platelet count 115 Potassium 3.1 BUN 5, creatinine 0.56 Impression and plan ETOH Withdrawal continue ativan by protocol as well controlled symptoms at present Case management for assistance with rehab placement following discharge Thiamine, folate, hydration. Advance diet as tolerated. He is declining inpatient rehabilitation Nausea/vomiting with gastritis/esophagitis Continue proton pump inhibitor and H2 mounika Zofran as needed If he can tolerate increased diet, potentially could discharge tomorrow on p.o. medications with outpatient gastroenterology follow-up If he has recurrent symptoms (nausea, increased abdominal pain), may need to consider inpatient gastroenterology consultation Hypokalemia Should improve with resumption of diet IV supplementation Recheck BMP in a.m. Schizophrenia Resume home medications Subjective 65yo Male admitted to hospital for 2 days of vomitting and abd pain, PMH alcohol abuse, tobacco abuse, HTN, neuroleptic induced parkinsonism, anemia, schizophrenia, COPD, HLD, Depression. Vomitting has resolved, was placed on clear liquid diet tolerated well. Patient seen at bedside comfortable, states he is still experiencing nausea and abd pain, and did not sleep well due to headache from lack of alcohol, though trazadone helped. He says he is not experiencing any tremors and has never experienced alcohol withdrawal before. He wants to transition to regular diet and go home, does not want to go to inpatient rehab, wants to try quitting alcohol by replacing it with coffee. He states he is not experiencing hallucinations at this time. Review of Systems Constitutional: no fever and no chills Ear, Nose, Mouth, Throat: no change in voice Respiratory: no cough and no dyspnea Cardiovascular: no chest pain, no palpitations and no edema Gastrointestinal: + nausea and + diarrhea/loose stools; no vomiting and no constipation Integumentary: no rash Neurologic: + headache(s) Physical Exam Constitutional: cooperative and comfortable Eyes: PERRL and normal accommodation Respiratory: normal respiratory effort Auscultation: lungs clear to auscultation bilaterally; no rales, no rhonchi and no wheezes Cardiovascular: Rate/Rhythm: regular rate and regular rhythm Heart Sounds: normal S1 and normal S2; no gallop, no murmur and no cardiac rub Gastrointestinal (Abdomen): Inspection/Auscultation: abdomen normal to inspection and normal bowel sounds Percussion/Palpation: + abdomen tender (epigastric and left upper and lower quadrant) and abdomen soft Skin: no rashes, warm and dry Neurologic: CN's II-XI intact bilaterally Results & Data Results & Data ([facility]) Vital Signs (Past 12 Hours) Vital Signs Temp Pulse Pulse Pulse Resp BP BP 03/18/21 04:54 36.6 C 73 18 126/75 03/18/21 03:30 77 03/17/21 22:54 36.9 C 75 18 147/82 H Pulse Ox 03/18/21 04:54 99 03/18/21 03:30 03/17/21 22:54 95 Laboratory Results 03/18/21 03/18/21 Range/Units 08:19 08:19 WBC 5.67 (4.8-10.8) K/uL RBC 3.99 L (4.7-6.1) M/uL Hgb 13.0 L (14.0-18.0) g/dL Hct 39.4 L (42-52) % MCV 98.7 (80-100) fL MCH 32.6 (25-34) pg MCHC 33.0 (32-36) g/dL RDW Std Deviation 51.8 H (36.4-46.3) fL RDW Coeff of Harley 14.4 (11.5-14.5) % Plt Count 115 L (130-400) K/uL MPV 11.1 H (7.4-10.4) fL Immature Gran % (Auto) 0.4 % Neut % (Auto) 47.9 % Lymph % (Auto) 39.5 % Vigo % (Auto) 9.7 % Eos % (Auto) 2.1 % Baso % (Auto) 0.4 % Neut # (Auto) 2.72 (1.4-6.5) K/uL Lymph # (Auto) 2.24 (1.2-3.4) K/uL Vigo # (Auto) 0.55 (0.11-0.59) K/uL Eos # (Auto) 0.12 (0-0.5) K/uL Baso # (Auto) 0.02 (0-0.2) K/uL Immature Gran # (Auto) 0.02 (0.00-0.02) K/uL Sodium 138 (136-145) mmol/L Potassium 3.1 L (3.5-5.1) mmol/L Chloride 107 (98-107) mmol/L Carbon Dioxide 24 (21-32) mmol/L Anion Gap 7.0 (3-11) BUN 5 L D (7-18) mg/dl Creatinine 0.56 L (0.6-1.4) mg/dl Est Cr Clr Drug Dosing 109.2 ml/min Est GFR ( Amer) 124.9 ml/min Est GFR (Non-Af Amer) 107.8 ml/min BUN/Creatinine Ratio 9.2 L (10-20) Glucose 122 H (70-99) mg/dl Calcium 7.8 L (8.5-10.1) mg/dl Medications Administered Current Inpatient Medications Acetaminophen (Acetaminophen 325 Mg Tab) 650 mg PO Q4H PRN PRN Reason: Headache Stop: 04/17/21 09:28 Folic Acid (Folic Acid 1 Mg Tab) 1 mg PO QAM [facility] Stop: 04/16/21 08:59 Last Admin: 03/18/21 08:10 Dose: 1 mg Documented by: Potassium Chloride/Sodium Chloride (Normal Saline W/20 Meq Kcl) 20 meq in 1,000 mls @ 125 mls/hr IV .Q8H [facility] Stop: 04/16/21 02:14 Last Admin: 03/18/21 10:57 Dose: 125 mls/hr Documented by: Lorazepam (Ativan) 1 mg in 2 mls @ 2 mls/min IV UD PRN; Protocol PRN Reason: EtOH Withdrawl AWSS Score 6,7 Stop: 04/16/21 01:55 Lorazepam (Ativan) 2 mg in 4 mls @ 4 mls/min IV UD PRN; Protocol PRN Reason: EtOH Withdrawl AWSS Score 8,9 Stop: 04/16/21 01:55 Lorazepam (Ativan) 3 mg in 6 mls @ 4 mls/min IV ONCE PRN; Protocol PRN Reason: EtOH Withdrawl AWSS Score >=10 Stop: 04/16/21 01:55 Famotidine 20 mg/ Syringe 5 mls @ 2.5 mls/min IV Q12H [facility] Stop: 04/16/21 08:59 Last Admin: 03/18/21 08:11 Dose: 2.5 mls/min Documented by: Miscellaneous (Loxapine: Order Awaiting Action) 1 ea N/A QS [facility] Stop: 04/16/21 07:59 Last Admin: 03/18/21 08:12 Dose: Not Given Documented by: Miscellaneous (Remove Nicoderm Patch) 1 ea N/A DAILY@0859 [facility] Stop: 04/17/21 08:58 Last Admin: 03/18/21 08:12 Dose: 1 ea Documented by: Nicotine (Nicotine 14 Mg/24 Hr Patch) 14 mg TD [facility] Stop: 04/16/21 11:29 Last Admin: 03/18/21 08:10 Dose: 14 mg Documented by: Ondansetron HCl (Ondansetron Inj 2 Mg/Ml 2 Ml Vial) 4 mg IV Q6H PRN PRN Reason: Nausea Stop: 04/16/21 01:55 Last Admin: 03/18/21 09:47 Dose: 4 mg Documented by: Pantoprazole Sodium (Pantoprazole 40 Mg Tab) [facility] Stop: 04/16/21 08:59 Last Admin: 03/18/21 08:10 Dose: 40 mg Documented by: Quetiapine Fumarate (Quetiapine Fumarate 300 Mg Tablet) 300 mg PO HS [facility] Stop: 04/16/21 20:59 Last Admin: 03/17/21 22:17 Dose: 300 mg Documented by: Thiamine HCl (Thiamine Hcl 100 Mg Tab) [facility] Stop: 04/16/21 08:59 Last Admin: 03/18/21 08:10 Dose: 100 mg Documented by: Trazodone HCl (Trazodone Hcl 100 Mg Tab) 100 mg PO HS PRN PRN Reason: insomnia Stop: 04/16/21 01:55 Last Admin: 03/17/21 23:03 Dose: 100 mg Documented by: Resident Activity Tracking Resident Involvement: Resident Care Provided Care Provided: Adult Hospital Medicine (1) Alcohol withdrawal Complication of substance-induced condition: uncomplicated Qualified Code(s): F10.230 - Alcohol dependence with withdrawal, uncomplicated (2) Schizophrenia Schizophrenia type: unspecified Qualified Code(s): F20.9 - Schizophrenia, u nspecified (3) Hypertension Hypertension type: unspecified Qualified Code(s): I10 - Essential (primary) hypertension (4) Vomiting Nausea presence: with nausea Vomiting Intractability: non-intractable Vomiting type: unspecified Qualified Code(s): R11.2 - Nausea with vomiting, unspecified
[2021-03-18] MEDS: PANTOprazole 40 MG TAB PO SCH (08:10)
[2021-03-18] MEDS: FOLIC ACID 1 MG TAB PO SCH (08:10)
[2021-03-18] MEDS: THIAMINE HCL 100 MG TAB PO SCH (08:10)
[2021-03-18] MEDS: NICOTINE 14 MG/24 HR PATCH TD SCH (08:10)
[2021-03-18] MEDS: FAMOTIDINE 20 MG in SYRINGE 3 ML IV SCH ×2 (08:11→20:44)
[2021-03-18 09:06] LABS: Basophils # (auto) 0.02 K/uL (0-0.2); Basophils % (auto) 0.4 %; Eosinophils # (auto) 0.12 K/uL (0-0.5); Eosinophils % (auto) 2.1 %; Hematocrit (blood only) 39.4 % (42-52); Immature Granulocytes # (auto) 0.02 K/uL (0.00-0.02); Immature Granulocytes % (auto) 0.4 %; Lymphocytes # (auto) 2.24 K/uL (1.2-3.4); Lymphocytes % (auto) 39.5 %; Mean Corpuscular Hemoglobin 32.6 pg (25-34); Mean Corpuscular Volume 98.7 fL (80-100); Mean Platelet Volume 11.1 fL (7.4-10.4); Monocytes # (auto) 0.55 K/uL (0.11-0.59); Monocytes % (auto) 9.7 %; Neutrophils # (auto) 2.72 K/uL (1.4-6.5); Neutrophils % (auto) 47.9 %; Platelet Count 115 K/uL (130-400); RDW Coefficient of Variation 14.4 % (11.5-14.5); RDW Standard Deviation 51.8 fL (36.4-46.3); Red Blood Count 3.99 M/uL (4.7-6.1); White Blood Count 5.67 K/uL (4.8-10.8)
[2021-03-18] MEDS ORDERED: ACETAMINOPHEN 325 MG TAB PO PRN (09:29)
[2021-03-18] MEDS ORDERED: ACETAMINOPHEN 325 MG TAB PO STA (09:30)
[2021-03-18 09:46] LABS: BUN Creatinine Ratio 9.2 (10-20); Calcium 7.8 mg/dl (8.5-10.1); Creatinine Clr Calc Pharmacy 109.2 ml/min; Est GFR (African American) 124.9 ml/min; Est GFR (Non-African American) 107.8 ml/min; Potassium 3.1 mmol/L (3.5-5.1)
[2021-03-18] MEDS: ONDANSETRON INJ 2 MG/ML 2 ML VIAL IV PRN (09:47)
--- NOTE | 2021-03-18 13:41 | Electrocardiogram Report ---
Test Reason : Blood Pressure : / mmHG Vent. Rate : 066 BPM Atrial Rate : 066 BPM P-R Int : 138 ms QRS Dur : 092 ms QT Int : 448 ms P-R-T Axes : 039 004 036 degrees QTc Int : 469 ms Normal sinus rhythm When compared with ECG of 16-MAR-2021 17:34, Questionable change in QRS axis T wave inversion no longer evident in Inferior leads Confirmed by Aaron Gresham ([id number]) on 03/18/2021 1:41:19 PM Referred By: REFERRED SELF Confirmed By:Jacob Gresham
[2021-03-18] MEDS: QUEtiapine FUMARATE 300 MG TABLET PO SCH (20:45)
[2021-03-18] MEDS: traZODone HCL 100 MG TAB PO PRN (20:45)
[2021-03-19] MEDS: NSS + 20MEQ KCL 20 MEQ/1,000 ML BAG IV SCH ×3 (03:35→21:32)
[2021-03-19 07:16] LABS: BUN Creatinine Ratio 3.7 (10-20); Calcium 8.6 mg/dl (8.5-10.1); Creatinine Clr Calc Pharmacy 101.9 ml/min; Est GFR (African American) 121.4 ml/min; Est GFR (Non-African American) 104.8 ml/min; Potassium 3.4 mmol/L (3.5-5.1)
--- NOTE | 2021-03-19 07:22 | Hospitalist Progress Note ---
Date of Service March 19, 2021 Assessment & Plan (1) Alcohol withdrawal: Plan: Patient had 2 days vomitting and history alcohol abuse. Was placed on AWSS protocol w/PRN ativan, put on thiamine and folic acid supplements, IVF NS+KCl. Pt. complained of headache secondary to lack of tylenol, tylenol ordered. AWSS yesterday around 1, last night scored 6 for HTN hallucination confusion mild tremors, given ativan 1mg which worsened confusion, placed on 1:1. At this time AWSS score 1, still mild confusion -continue Thiamine 100mg and Folic acid 1mg supplements, IVF NS 100ml w/20meq KCL -hypokalemic on admission to 3.2 currently 3.4- improving with KCl repletion as above -monitor BMP (2) Alcohol abuse: Plan: Patient has tried to quit in the past, per case management was sober 1 month until last week, has tried inpatient rehab and would not like to go there again after current hospitalization. He prefers to try to wean himself off alcohol using coffee. -will discuss with case management -will suggest naltrexone and CBT to assist alcohol cessation (3) Vomiting: Plan: Zofran available PRN, patient not currently vomitting only nausea. Suspected zofran may cause QT prolongation, ordered repeat EKG, was negative for QT prolongation -currently on famotidine 20mg via syringe IV and pantoprazole 40mg, switched famotidine to PO (4) Esophagitis: Plan: Noted on CT performed on admission, likely d/t vomiting secondary to EtOH use -continue PPI and H2 mounika as above (5) Abdominal pain: Plan: Patient remarks epigastric pain and pain on palpation in RUQ and LUQ, present since February. Originally left NPO until lipase labs returned. Lipase lab at 120 WNL pancreatitis unlikely. Resumed diet, started clear liquids advanced to regular diet. - will recommend following with GI in outpatient to evaluate possible gastritis, varicies secondary to alcohol (6) Hypertension: Plan: Patient 181/106 in ER given labetalol 10mg IV and hydralazin 10mg IV. Last night rogelio to systolic >200 given 1 dose ativan, BP went down - BP currently 170/96, continue to monitor -resumed lisinopril home dose (7) Depression: Plan: Continue home quetiapine 300mg, trazodone 100mg (8) Schizophrenia: Plan: Continue Loxapine (pharmacy order stalled), quetiapine 300mg, trazadone 100mg -urine drug screen positive opiates and MDMA, could represent false positive due to the above medications, confirmatory tests pending -will run med list check on psych meds - family brought pt's loxapine, pharmacy has verified, 1st dose in hospital administered 03/19/21 (9) Tobacco abuse: Plan: Nicotine patch ordered -will discuss smoking cessation 1) Pt/OT -ordered, results pending Plan: FENa: [] Code Status: [full] DVT PPX: [none] PT/OT: [none] Case Management: [rehabilitation caseworker Joyce through [email or web address] and a rep payee [employer]] Dispo: [regular diet] Lindsay Herrera Do PGY 1, [facility] Admission and Anticipated Discharge Date Admission Date: March 16, 2021 Supervising Physician Co-Signing Physician Notes I also saw the patient with the resident physician and confirmed mitchell portions of the history and physical examination. I agree with the impression and plans as noted in Dr. Herrera's documentation. Patient was some mild confusion this morning, apparently slightly increased agitation overnight consistent with withdrawal symptoms. Fortunately, he is agreeable to continued hospitalization (he had voiced some intent to leave [facility] previously). Exam 170/96, 84, 18, 36.4, 96% room air Alert and generally oriented. Heart regular rate and rhythm Abdomen soft and nontender. No rebound or guarding. Data Platelet count 115 Potassium 3.4 BUN 2, creatinine 0.60 Impression and plan ETOH Withdrawal continue protocol Case management for assistance with rehab placement following discharge Thiamine, folate, hydration. Tolerating normal diet. He is declining inpatient rehabilitation Nausea/vomiting with gastritis/esophagitis Continue proton pump inhibitor and H2 mounika (change famotidine to 40 mg PO) Zofran as needed Dissipate outpatient gastroenterology referral Hypertension Resume home dose of lisinopril, 20 mg daily Hypokalemia Improving with resumption of diet BMP in AM Schizophrenia Resume home medications, including loxapine (which family brought in today, pharmacy to confirm) Thrombocytopenia Recheck CBC in AM Subjective 65yo Male admitted to hospital for 2 days of vomitting and abd pain, PMH alcohol abuse, tobacco abuse, HTN, neuroleptic induced parkinsonism, anemia, schizophrenia, COPD, HLD, Depression. Patient currently on regular diet, nausea has resolved, headache and abd pain present but improving compared to yesterday. Patient seen at bedside, states he didn't sleep well but is eating well, had diarrhea last night, complains of dizziness when moving that has been present for last 6 months. Patient asked if he needed an MRI. Per nurse he had elevated diastolic blood pressure, tremor and confusion last night, some visual hallucination that may be his baseline, scored 6 on AWSS, given 1 dose ativan 1 mg which increased his confusion, was put on I:1. At this time he is still mildly confused, AWSS score 1. His family brought his loxapine medication, currently being evaluated by pharmacy. Review of Systems Constitutional: no fever and no chills Ear, Nose, Mouth, Throat: no change in voice Respiratory: no cough and no dyspnea Cardiovascular: no chest pain, no palpitations and no edema Gastrointestinal: + diarrhea/loose stools; no nausea, no vomiting and no constipation Integumentary: no rash Neurologic: + dizziness and + headache(s); no tingling and no numbness Physical Exam Constitutional: cooperative and comfortable Eyes: PERRL and normal accommodation Respiratory: normal respiratory effort Auscultation: lungs clear to auscultation bilaterally; no rales, no rhonchi and no wheezes Cardiovascular: Rate/Rhythm: regular rate and regular rhythm Heart Sounds: normal S1 and normal S2; no gallop, no murmur and no cardiac rub Gastrointestinal (Abdomen): Inspection/Auscultation: abdomen normal to inspection and normal bowel sounds Percussion/Palpation: + abdomen tender (epigastric) and abdomen soft Skin: no rashes, warm and dry Neurologic: CN's II-XI intact bilaterally Results & Data Results & Data ([facility]) Vital Signs (Past 12 Hours) Vital Signs Temp Pulse Pulse Resp BP Pulse Ox 03/19/21 07:05 36.7 C 75 19 172/108 H 99 03/19/21 07:00 76 03/19/21 03:30 36.5 C 80 18 171/102 H 03/19/21 01:23 36.7 C 80 18 185/108 H 95 03/18/21 23:56 36.6 C 70 18 161/96 H 98 03/18/21 23:22 80 Laboratory Results 03/19/21 Range/Units 06:18 Sodium 138 (136-145) mmol/L Potassium 3.4 L (3.5-5.1) mmol/L Chloride 108 H (98-107) mmol/L Carbon Dioxide 24 (21-32) mmol/L Anion Gap 7.0 (3-11) BUN 2 L (7-18) mg/dl Creatinine 0.60 (0.6-1.4) mg/dl Est Cr Clr Drug Dosing 101.9 ml/min Est GFR ( Amer) 121.4 ml/min Est GFR (Non-Af Amer) 104.8 ml/min BUN/Creatinine Ratio 3.7 L (10-20) Glucose 98 (70-99) mg/dl Calcium 8.6 (8.5-10.1) mg/dl Medications Administered Current Inpatient Medications Acetaminophen (Acetaminophen 325 Mg Tab) 650 mg PO Q4H PRN PRN Reason: Headache Stop: 04/17/21 09:28 Folic Acid (Folic Acid 1 Mg Tab) 1 mg PO QAM [facility] Stop: 04/16/21 08:59 Last Admin: 03/19/21 08:16 Dose: 1 mg Documented by: Potassium Chloride/Sodium Chloride (Normal Saline W/20 Meq Kcl) 20 meq in 1,000 mls @ 125 mls/hr IV .Q8H [facility] Stop: 04/16/21 02:14 Last Admin: 03/19/21 11:40 Dose: 125 mls/hr Documented by: Lorazepam (Ativan) 1 mg in 2 mls @ 2 mls/min IV UD PRN; Protocol PRN Reason: EtOH Withdrawl AWSS Score 6,7 Stop: 04/16/21 01:55 Last Admin: 03/19/21 01:32 Dose: 2 mls/min Documented by: Lorazepam (Ativan) 2 mg in 4 mls @ 4 mls/min IV UD PRN; Protocol PRN Reason: EtOH Withdrawl AWSS Score 8,9 Stop: 04/16/21 01:55 Lorazepam (Ativan) 3 mg in 6 mls @ 4 mls/min IV ONCE PRN; Protocol PRN Reason: EtOH Withdrawl AWSS Score >=10 Stop: 04/16/21 01:55 Famotidine 20 mg/ Syringe 5 mls @ 2.5 mls/min IV Q12H [facility] Stop: 04/16/21 08:59 Last Admin: 03/19/21 09:18 Dose: 2.5 mls/min Documented by: Miscellaneous (Loxapine: Order Awaiting Action) 1 ea N/A QS [facility] Stop: 04/16/21 07:59 Last Admin: 03/19/21 08:26 Dose: Not Given Documented by: Miscellaneous (Remove Nicoderm Patch) 1 ea N/A DAILY@0859 [facility] Stop: 04/17/21 08:58 Last Admin: 03/19/21 08:20 Dose: 1 ea Documented by: Nicotine (Nicotine 14 Mg/24 Hr Patch) 14 mg TD [facility] Stop: 04/16/21 11:29 Last Admin: 03/19/21 08:16 Dose: 14 mg Documented by: Ondansetron HCl (Ondansetron Inj 2 Mg/Ml 2 Ml Vial) 4 mg IV Q6H PRN PRN Reason: Nausea Stop: 04/16/21 01:55 Last Admin: 03/18/21 09:47 Dose: 4 mg Documented by: Pantoprazole Sodium (Pantoprazole 40 Mg Tab) 40 mg PO QAM [facility] Stop: 04/16/21 08:59 Last Admin: 03/19/21 08:16 Dose: 40 mg Documented by: Quetiapine Fumarate (Quetiapine Fumarate 300 Mg Tablet) 300 mg PO HS [facility] Stop: 04/16/21 20:59 Last Admin: 03/18/21 20:45 Dose: 300 mg Documented by: Thiamine HCl (Thiamine Hcl 100 Mg Tab) 100 mg PO QAM [facility] Stop: 04/16/21 08:59 Last Admin: 03/19/21 08:16 Dose: 100 mg Documented by: Trazodone HCl (Trazodone Hcl 100 Mg Tab) 100 mg PO HS PRN PRN Reason: insomnia Stop: 04/16/21 01:55 Last Admin: 03/18/21 20:45 Dose: 100 mg Documented by: Resident Activity Tracking Resident Involvement: Resident Care Provided Care Provided: Adult Hospital Medicine (1) Alcohol withdrawal Complication of substance-induced condition: uncomplicated Qualified Code(s): F10.230 - Alcohol dependence with withdrawal, uncomplicated (2) Schizophrenia Schizophrenia type: unspecified Qualified Code(s): F20.9 - Schizophrenia, unspecified (3) Hypertension Hypertension type: unspecified Qualified Code(s): I10 - Essential (primary) hypertension (4) Vomiting Nausea presence: with nausea Vomiting Intractability: non-intractable Vomiting type: unspecified Qualified Code(s): R11.2 - Nausea with vomiting, unspecified
[2021-03-19] MEDS: NICOTINE 14 MG/24 HR PATCH TD SCH (08:16)
[2021-03-19] MEDS: THIAMINE HCL 100 MG TAB PO SCH (08:16)
[2021-03-19] MEDS: PANTOprazole 40 MG TAB PO SCH (08:16)
[2021-03-19] MEDS: FOLIC ACID 1 MG TAB PO SCH (08:16)
[2021-03-19] MEDS: FAMOTIDINE 20 MG in SYRINGE 3 ML IV SCH (09:18)
[2021-03-19] MEDS: lisinopril 20 MG TAB PO SCH (14:01)
[2021-03-19] MEDS: QUEtiapine FUMARATE 300 MG TABLET PO SCH (21:34)
[2021-03-19] MEDS: LOXAPINE SUCCINATE PO SCH (21:34)
[2021-03-19] MEDS: traZODone HCL 100 MG TAB PO PRN (21:35)
[2021-03-20] MEDS: NSS + 20MEQ KCL 20 MEQ/1,000 ML BAG IV SCH ×2 (03:19→11:54)
[2021-03-20 07:24] LABS: Basophils # (auto) 0.01 K/uL (0-0.2); Basophils % (auto) 0.2 %; Eosinophils # (auto) 0.36 K/uL (0-0.5); Eosinophils % (auto) 5.8 %; Hematocrit (blood only) 40.4 % (42-52); Hemoglobin 13.5 g/dL (14.0-18.0); Immature Granulocytes # (auto) 0.01 K/uL (0.00-0.02); Immature Granulocytes % (auto) 0.2 %; Lymphocytes # (auto) 2.47 K/uL (1.2-3.4); Lymphocytes % (auto) 39.5 %; Mean Corpuscular Hemoglobin 32.3 pg (25-34); Mean Corpuscular Hgb Conc 33.4 g/dL (32-36); Mean Corpuscular Volume 96.7 fL (80-100); Mean Platelet Volume 12.1 fL (7.4-10.4); Monocytes # (auto) 0.55 K/uL (0.11-0.59); Monocytes % (auto) 8.8 %; Neutrophils # (auto) 2.86 K/uL (1.4-6.5); Neutrophils % (auto) 45.5 %; Platelet Count 109 K/uL (130-400); Platelet Estimate Decreased (Normal); RDW Coefficient of Variation 14.2 % (11.5-14.5); RDW Standard Deviation 50.5 fL (36.4-46.3); Red Blood Count 4.18 M/uL (4.7-6.1); White Blood Count 6.26 K/uL (4.8-10.8)
[2021-03-20 07:34] LABS: BUN Creatinine Ratio 11.9 (10-20); Calcium 8.4 mg/dl (8.5-10.1); Creatinine Clr Calc Pharmacy 92.7 ml/min; Est GFR (African American) 116.8 ml/min; Est GFR (Non-African American) 100.7 ml/min; Potassium 3.7 mmol/L (3.5-5.1)
[2021-03-20] MEDS: lisinopril 20 MG TAB PO SCH (08:35)
[2021-03-20] MEDS: FAMOTIDINE 40 MG TABLET PO SCH (08:35)
[2021-03-20] MEDS: THIAMINE HCL 100 MG TAB PO SCH (08:35)
[2021-03-20] MEDS: FOLIC ACID 1 MG TAB PO SCH (08:35)
[2021-03-20] MEDS: PANTOprazole 40 MG TAB PO SCH (08:35)
[2021-03-20] MEDS: NICOTINE 14 MG/24 HR PATCH TD SCH (08:37)
[2021-03-20] MEDS: LOXAPINE SUCCINATE PO SCH ×2 (08:37→21:22)
[2021-03-20 08:46] LABS: Codeine Urine NEGATIVE ng/mL (<50); Hydrocodone Urine NEGATIVE ng/mL (<50); Hydromor Urine NEGATIVE ng/mL (<50); MDA negative; MDEA negative; MDMA (Ecstasy) Urine, Confirm negative; Morphine Urine 1250 ng/mL (<50); Norhydrocodone Conf Ur NEGATIVE ng/mL (<50); Noroxycodone Urine NEGATIVE ng/mL (<50); Oxycodone Urine NEGATIVE ng/mL (<50); Oxymorph Urine NEGATIVE ng/mL (<50)
--- NOTE | 2021-03-20 09:48 | Hospitalist Progress Note ---
Date of Service March 20, 2021 Assessment & Plan (1) Alcohol withdrawal: Plan: Patient had 2 days vomitting and history alcohol abuse. Was placed on AWSS protocol w/PRN ativan, put on thiamine and folic acid supplements, IVF NS+KCl. Pt. complained of headache secondary to lack of alcohol, tylenol ordered. AWSS 03/18/21 around 1, overnight scored 6 for HTN hallucination confusion mild tremors, given ativan 1mg which worsened confusion, placed on 1:1. AWSS score back to 1 during daytime. 03/19/21 overnight AWSS scored 5 due to confusion disorientation. -continue Thiamine 100mg and Folic acid 1mg supplements -hypokalemic on admission to 3.2 currently 3.7, K repleted discontinue IVF -monitor BMP (2) Alcohol abuse: Plan: Patient has tried to quit in the past, per case management was sober 1 month until last week, has tried inpatient rehab and would not like to go there again after current hospitalization. He prefers to try to wean himself off alcohol using coffee. -will discuss with case management -will suggest naltrexone and CBT to assist alcohol cessation (3) Vomiting: Plan: Zofran available PRN, nausea and vomitting currently resolved. Suspected zofran may cause QT prolongation, ordered repeat EKG, was negative for QT prolongation -currently on famotidine 40mg and pantoprazole 40mg PO (4) Esophagitis: Plan: Noted on CT performed on admission, likely d/t vomiting secondary to EtOH use -continue PPI and H2 mounika as above (5) Abdominal pain: Plan: Patient remarked epigastric pain and pain on palpation in RUQ and LUQ, present since February. Originally left NPO until lipase labs returned. Lipase lab at 120 WNL pancreatitis unlikely. Resumed diet, started clear liquids advanced to regular diet. Abd pain nausea vomitting currently resolved - will recommend following with GI in outpatient to evaluate possible gastritis, varicies secondary to alcohol (6) Hypertension: Plan: Patient 181/106 in ER given labetalol 10mg IV and hydralazin 10mg IV. Last night rogelio to systolic >200 given 1 dose ativan, BP went down. Resumed lisinopril home dose 03/19/21 - BP currently 155/88 continue to monitor (7) Depression: Plan: Continue home quetiapine 300mg, trazodone 100mg (8) Schizophrenia: Plan: Continue Loxapine (pharmacy order stalled), quetiapine 300mg, trazadone 100mg. Urine drug screen positive opiates and MDMA, could represent false positive due to the above medications, confirmatory tests pending. 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 I agree with the impression and plans as noted in Dr. Herrera's documentation. Patient again had some confusion overnight, which may have been perceived/scored as anxiety/agitation secondary to withdrawal -but I think we are now out of the withdrawal period and what we may be seeing are just symptoms related to his schizophrenia. He tells me that he hears voices that instruct him to do things. Last night, they were telling him to go to the bathroom. When he tried to go to the bathroom, he set off the bed alarm which subsequently caused some agitation. He pretty much always hears voices -they do not tell him to hurt himself or others; he describes the voices as " nice voices." He also tells me that he does not like to talk about the voices too much, because if you do, they may become angry. He does follow with psychiatry at [facility] ([facility] It does sound as if he has missed a few appointments, although this could have been related to the pandemic and not true noncompliance. He is able to name his psychiatrist in several therapists. Exam 150/88, 83, 20, 96% on room air Alert and generally oriented. Heart regular rate and rhythm Abdomen soft and nontender. No rebound or guarding. Data Hemoglobin 13.5, platelet count 109 BUN 8, creatinine 0.66 Impression and plan ETOH Withdrawal continue protocol, otherwise think we are pretty much out of the withdrawal window at this time Case management for assistance with rehab placement following discharge Thiamine, folate, hydration. Tolerating normal diet. He is declining inpatient rehabilitation Schizophrenia Discussed with psychiatry today regarding difficulty in differentiation of symptoms between his withdrawal and schizophrenia. It sounds as if there may be some change in his auditory hallucination (seemingly more frequent and agitating to the patient of recent). Psychiatry to evaluate patient and his medications prior to discharge Nausea/vomiting with gastritis/esophagitis Continue proton pump inhibitor and H2 monuika Outpatient gastroenterology referral Hypertension We resumed home dose of lisinopril yesterday Continue to monitor Hypokalemia Resolved with resumption of diet Monitor Thrombocytopenia Suspect secondary to EtOH Monitor Subjective 65yo Male admitted to hospital for 2 days of vomitting and abd pain, PMH alcohol abuse, tobacco abuse, HTN, neuroleptic induced parkinsonism, anemia, schizophrenia, COPD, HLD, Depression. Patient seen at bedside, slept ate well. Patient currently on regular diet, nausea headache abd pain diarrhea resolved, still experiencing mild dizziness. Had an AWSS score 5 last night, though symptoms may be due to his schizophrenia. He says he usually hears benign hallucinations but does not like to talk about them. He states that sometimes they would tell him to walk outside at night. Last night they told him to go to the bathroom, set off his bed alarm. He does not have any homicidal or suicidal ideation. Psychiatry was consulted regarding his schizophrenia. Review of Systems Constitutional: no fever and no chills Ear, Nose, Mouth, Throat: no change in voice Respiratory: no cough and no dyspnea Cardiovascular: no chest pain, no palpitations and no edema Gastrointestinal: no abdominal pain, no nausea, no vomiting, no constipation and no diarrhea/loose stools Integumentary: no rash Neurologic: + dizziness; no tingling, no numbness and no headache(s) Physical Exam Constitutional: cooperative and comfortable Eyes: PERRL and normal accommodation Respiratory: normal respiratory effort Auscultation: lungs clear to auscultation bilaterally; no rales, no rhonchi and no wheezes Cardiovascular: Rate/Rhythm: regular rate and regular rhythm Heart Sounds: normal S1 and normal S2; no gallop, no murmur and no cardiac rub Gastrointestinal (Abdomen): Inspection/Auscultation: abdomen normal to inspection and normal bowel sounds Percussion/Palpation: abdomen soft; abdomen nontender Skin: no rashes, warm and dry Neurologic: CN's II-XI intact bilaterally Psychiatric: A+Ox3, euthymic affect Results & Data Results & Data ([facility]) Vital Signs (Past 12 Hours) Vital Signs Temp Pulse Pulse Resp BP Pulse Ox Pulse Ox 03/20/21 08:47 36.6 C 83 20 165/105 H 97 03/20/21 01:41 96 03/20/21 00:12 104 H 143/88 H 03/20/21 00:00 36.2 C L 114 H 22 184/107 H 96 Laboratory Results 03/20/21 03/20/21 03/16/21 Range/Units 06:10 06:10 23:52 WBC 6.26 (4.8-10.8) K/uL RBC 4.18 L (4.7-6.1) M/uL Hgb 13.5 L (14.0-18.0) g/dL Hct 40.4 L (42-52) % MCV 96.7 (80-100) fL MCH 32.3 (25-34) pg MCHC 33.4 (32-36) g/dL RDW Std Deviation 50.5 H (36.4-46.3) fL RDW Coeff of Harley 14.2 (11.5-14.5) % Plt Count 109 L (130-400) K/uL MPV 12.1 H (7.4-10.4) fL Immature Gran % (Auto) 0.2 % Neut % (Auto) 45.5 % Lymph % (Auto) 39.5 % Kershaw % (Auto) 8.8 % Eos % (Auto) 5.8 % Baso % (Auto) 0.2 % Neut # (Auto) 2.86 (1.4-6.5) K/uL Lymph # (Auto) 2.47 (1.2-3.4) K/uL Kershaw # (Auto) 0.55 (0.11-0.59) K/uL Eos # (Auto) 0.36 (0-0.5) K/uL Baso # (Auto) 0.01 (0-0.2) K/uL Immature Gran # (Auto) 0.01 (0.00-0.02) K/uL Platelet Estimate Decreased L (Normal) Sodium 141 (136-145) mmol/L Potassium 3.7 (3.5-5.1) mmol/L Chloride 111 H (98-107) mmol/L Carbon Dioxide 24 (21-32) mmol/L Anion Gap 6.0 (3-11) BUN 8 D (7-18) mg/dl Creatinine 0.66 (0.6-1.4) mg/dl Est Cr Clr Drug Dosing 92.7 ml/min Est GFR ( Amer) 116.8 ml/min Est GFR (Non-Af Amer) 100.7 ml/min BUN/Creatinine Ratio 11.9 (10-20) Glucose 102 H (70-99) mg/dl Calcium 8.4 L (8.5-10.1) mg/dl U Codeine Confrm GC/MS NEGATIVE (<50) ng/mL Ur Morphine (GC/MS) 1250 H (<50) ng/mL Ur Hydrocodone (GC/MS) NEGATIVE (<50) ng/mL Ur Norhydrocodone NEGATIVE (<50) ng/mL Ur Noroxycodone NEGATIVE (<50) ng/mL Urine Oxycodone (GC/MS) NEGATIVE (<50) ng/mL U Oxymorphone GC/MS NEGATIVE (<50) ng/mL Ur Hydromorphone (GC/MS) NEGATIVE (<50) ng/mL Urine MDEA negative MDMA negative Urine MDMA negative Drug Screen Comment SEE NOTE Medications Administered Current Inpatient Medications Acetaminophen (Acetaminophen 325 Mg Tab) 650 mg PO Q4H PRN PRN Reason: Headache Stop: 04/17/21 09:28 Famotidine (Famotidine 40 Mg Tablet) 40 mg PO [facility] Stop: 04/19/21 08:59 Last Admin: 03/20/21 08:35 Dose: 40 mg Documented by: Folic Acid (Folic Acid 1 Mg Tab) 1 mg PO [facility] Stop: 04/16/21 08:59 Last Admin: 03/20/21 08:35 Dose: 1 mg Documented by: Lorazepam (Ativan) 1 mg in 2 mls @ 2 mls/min IV UD PRN; Protocol PRN Reason: EtOH Withdrawl AWSS Score 6,7 Stop: 04/16/21 01:55 Last Admin: 03/19/21 01:32 Dose: 2 mls/min Documented by: Lorazepam (Ativan) 2 mg in 4 mls @ 4 mls/min IV UD PRN; Protocol PRN Reason: EtOH Withdrawl AWSS Score 8,9 Stop: 04/16/21 01:55 Lorazepam (Ativan) 3 mg in 6 mls @ 4 mls/min IV ONCE PRN; Protocol PRN Reason: EtOH Withdrawl AWSS Score >=10 Stop: 04/16/21 01:55 Lisinopril ([facility] 20 Mg Tab) [facility] Stop: 04/18/21 13:29 Last Admin: 03/20/21 08:35 Dose: 20 mg Documented by: Loxapine Succinate (Loxapine Succinate) 1 ea PO BID [facility] Stop: 04/18/21 20:59 Last Admin: 03/20/21 08:37 Dose: 1 ea Documented by: Miscellaneous (Remove Nicoderm Patch) 1 ea N/A DAILY@0859 [facility] Stop: 04/17/21 08:58 Last Admin: 03/20/21 08:36 Dose: 1 ea Documented by: Nicotine (Nicotine 14 Mg/24 Hr Patch) 14 mg TD [facility] Stop: 04/16/21 11:29 Last Admin: 03/20/21 08:37 Dose: 14 mg Documented by: Ondansetron HCl (Ondansetron Inj 2 Mg/Ml 2 Ml Vial) 4 mg IV Q6H PRN PRN Reason: Nausea Stop: 04/16/21 01:55 Last Admin: 03/18/21 09:47 Dose: 4 mg Documented by: Pantoprazole Sodium (Pantoprazole 40 Mg Tab) [facility] [place] Stop: 04/16/21 08:59 Last Admin: 03/20/21 08:35 Dose: 40 mg Documented by: Quetiapine Fumarate (Quetiapine Fumarate 300 Mg Tablet) 300 mg PO HS [facility] Stop: 04/16/21 20:59 Last Admin: 03/19/21 21:34 Dose: 300 mg Documented by: Thiamine HCl (Thiamine Hcl 100 Mg Tab) 100 [facility] Stop: 04/16/21 08:59 Last Admin: 03/20/21 08:35 Dose: 100 mg Documented by: Trazodone HCl (Trazodone Hcl 100 Mg Tab) 100 mg PO HS PRN PRN Reason: insomnia Stop: 04/16/21 01:55 Last Admin: 03/19/21 21:35 Dose: 100 mg Documented by: Resident Activity Tracking Resident Involvement: Resident Care Provided Care Provided: Adult Hospital Medicine (1) Alcohol withdrawal Complication of substance-induced condition: uncomplicated Qualified Code(s): F10.230 - Alcohol dependence with withdrawal, uncomplicated (2) Schizophrenia Schizophrenia type: unspecified Qualified Code(s): F20.9 - Schizophrenia, unspecified (3) Hypertension Hypertension type: unspecified Qualified Code(s): I10 - Essential (primary) hypertension (4) Vomiting Nausea presence: with nausea Vomiting Intractability: non-intractable Vomiting type: unspecified Qualified Code(s): R11.2 - Nausea with vomiting, unspecified
[2021-03-20] MEDS: traZODone HCL 100 MG TAB PO PRN (21:23)
[2021-03-20] MEDS: QUEtiapine FUMARATE 300 MG TABLET PO SCH (21:23)
[2021-03-21] MEDS: FOLIC ACID 1 MG TAB PO SCH (07:22)
[2021-03-21] MEDS: lisinopril 20 MG TAB PO SCH (07:22)
[2021-03-21] MEDS: THIAMINE HCL 100 MG TAB PO SCH (07:22)
[2021-03-21] MEDS: LOXAPINE SUCCINATE PO SCH (07:22)
[2021-03-21] MEDS: PANTOprazole 40 MG TAB PO SCH (07:22)
[2021-03-21] MEDS: NICOTINE 14 MG/24 HR PATCH TD SCH (07:22)
[2021-03-21] MEDS: FAMOTIDINE 40 MG TABLET PO SCH (07:22)
[2021-03-21 08:12] LABS: Basophils # (auto) 0.03 K/uL (0-0.2); Basophils % (auto) 0.4 %; Eosinophils % (auto) 5.6 %; Hematocrit (blood only) 38.2 % (42-52); Hemoglobin 13.4 g/dL (14.0-18.0); Immature Granulocytes # (auto) 0.01 K/uL (0.00-0.02); Immature Granulocytes % (auto) 0.1 %; Lymphocytes # (auto) 2.47 K/uL (1.2-3.4); Lymphocytes % (auto) 34.7 %; Mean Corpuscular Hemoglobin 33.5 pg (25-34); Mean Corpuscular Hgb Conc 35.1 g/dL (32-36); Mean Corpuscular Volume 95.5 fL (80-100); Mean Platelet Volume 11.6 fL (7.4-10.4); Monocytes # (auto) 0.81 K/uL (0.11-0.59); Monocytes % (auto) 11.4 %; Neutrophils # (auto) 3.39 K/uL (1.4-6.5); Neutrophils % (auto) 47.8 %; Platelet Count 103 K/uL (130-400); RDW Standard Deviation 49.7 fL (36.4-46.3); White Blood Count 7.11 K/uL (4.8-10.8)
[2021-03-21 08:57] LABS: BUN Creatinine Ratio 20.3 (10-20); Calcium 8.7 mg/dl (8.5-10.1); Creatinine Clr Calc Pharmacy 74.2 ml/min; Est GFR (African American) 104.2 ml/min; Est GFR (Non-African American) 89.9 ml/min; Potassium 3.6 mmol/L (3.5-5.1)
--- NOTE | 2021-03-21 09:11 | Hospitalist Progress Note ---
Date of Service March 21, 2021 Assessment & Plan (1) Alcohol withdrawal: Plan: Patient had 2 days vomitting and history alcohol abuse. Was placed on AWSS protocol w/PRN ativan, put on thiamine and folic acid supplements, IVF NS+KCl. Pt. complained of headache secondary to lack of alcohol, tylenol ordered. AWSS 03/18/21 around 1, overnight scored 6 for HTN hallucination confusion mild tremors, given ativan 1mg which worsened confusion, placed on 1:1. AWSS score back to 1 during daytime. 03/19/21 overnight AWSS scored 5 due to confusion disorientation. -continue Thiamine 100mg and Folic acid 1mg supplements -hypokalemic on admission to 3.2 currently 3.7, K repleted discontinue IVF -monitor BMP (2) Alcohol abuse: Plan: Patient has tried to quit in the past, per case management was sober 1 month until last week, has tried inpatient rehab and would not like to go there again after current hospitalization. He prefers to try to wean himself off alcohol using coffee. -will discuss with case management -will suggest naltrexone and CBT to assist alcohol cessation (3) Vomiting: Plan: Zofran available PRN, nausea and vomitting currently resolved. Suspected zofran may cause QT prolongation, ordered repeat EKG, was negative for QT prolongation -currently on famotidine 40mg and pantoprazole 40mg PO (4) Esophagitis: Plan: Noted on CT performed on admission, likely d/t vomiting secondary to EtOH use -continue PPI and H2 mounika as above (5) Abdominal pain: Plan: Patient remarked epigastric pain and pain on palpation in RUQ and LUQ, present since February. Originally left NPO until lipase labs returned. Lipase lab at 120 WNL pancreatitis unlikely. Resumed diet, started clear liquids advanced to regular diet. Abd pain nausea vomitting currently resolved - will recommend following with GI in outpatient to evaluate possible gastritis, varicies secondary to alcohol (6) Hypertension: Plan: Patient 181/106 in ER given labetalol 10mg IV and hydralazin 10mg IV. Last night rogelio to systolic >200 given 1 dose ativan, BP went down. Resumed lisinopril home dose 03/19/21 - BP currently 155/88 continue to monitor (7) Depression: Plan: Continue home quetiapine 300mg, trazodone 100mg (8) Schizophrenia: Plan: Continue Loxapine (pharmacy order stalled), quetiapine 300mg, trazadone 100mg. Urine drug screen positive opiates and MDMA, could represent false positive due to the above medications, confirmatory tests pending. 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 [employer] and a rep payee [employer]] Dispo: [regular diet] Lindsay Herrera Do PGY 1, FCM Admission and Anticipated Discharge Date Admission Date: March 16, 2021 Results & Data Results & Data ([facility]) Vital Signs (Past 12 Hours) Vital Signs Temp Pulse Pulse Resp BP BP Pulse Ox 03/21/21 08:13 36.9 C 80 18 172/101 H 160/101 H 96 03/21/21 03:38 36.5 C 87 17 159/92 H 95 03/21/21 01:00 03/20/21 23:12 37 C 91 H 17 161/93 H 92 03/20/21 22:18 87 Pulse Ox 03/21/21 08:13 03/21/21 03:38 03/21/21 01:00 97 03/20/21 23:12 03/20/21 22:18 Resident Activity Tracking Resident Involvement: Resident Care Provided Care Provided: Adult Hospital Medicine (1) Alcohol withdrawal Complication of substance-induced condition: uncomplicated Qualified Code(s): F10.230 - Alcohol dependence with withdrawal, uncomplicated (2) Vomiting Nausea presence: with nausea Vomiting Intractability: non-intractable Vomiting type: unspecified Qualified Code(s): R11.2 - Nausea with vomiting, unspecified (3) Hypertension Hypertension type: unspecified Qualified Code(s): I10 - Essential (primary) hypertension (4) Schizophrenia Schizophrenia type: unspecified Qualified Code(s): F20.9 - Schizophrenia, unspecified
--- NOTE | 2021-03-21 09:48 | Psychiatric Consultation ---
Date of Consultation March 21, 2021 Impression / Recommendations Impression 65-year-old male with past history of schizophrenia presented following alcohol intoxication and withdrawal. Patient has a long history with alcohol use and abuse and denies using recently in response to psychiatric symptoms. Patient also has had years of sobriety in the past and is hoping to achieve sobriety following his discharge. Patient is well connected to outpatient resources and has a rn case manager hospice as well. Currently denying any acute psychiatric symptoms necessitating inpatient hospitalization. Plan: No medication changes, patient to follow-up with outpatient providers. Patient is cleared for discharge from a psychiatric perspective. Psych History Identifying Data 65-year-old male with history of schizophrenia presented following alcohol withdrawal. Chief Complaint "I am okay, good morning to you sir". History of Present Illness HPI as per psychiatric liaison "Patient is a 65 year old male from [place]. States he had been drinking heavily for the last 4 days. "If I drink 6 or 7, I can fall right to sleep. States his concentration is good, denies any suicidal thoughts or thoughts of self harm. Denies any homicidal ideation. States his last hallucination was that he thought he was in his old h ome, but nothing was in the same place. States his appetite is good, "I eat 2 meals a day, 2 for breakfast, 2 for lunch and 2 for dinner." States he started drinking at age 6, came from a family of "everyone was an alcoholic, but some have been able to stop." Patient's longest period of sobriety was 10 years, states he has been sober different periods in time, but always turns back to drinking. States he is drinking less they he has in the past, but just can't close the door with alcohol. Patient had been , however she June 2019. 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 "I'd go back to drinking and go to half-way, then have to start over" States he has an upcoming court trial on May 20, for marijuana charges. States he has been seeing Dr. Stephanie Power at [facility] for years and talks with her monthly, but does not recall the next appointment. Patient does have a rn case manager hospice from [facility], . Patient is currently taking Loxapine 10 mg BID, Trazodone 100 mg prn hs, Bupropion HCL XL 150 mg, and seroquel 300 mg hs. Patient's daughter, Esther, fills his pill box. Previous trials of medications included latuda and cogentin. " Upon evaluation this morning, patient endorses above information is accurate. Denies any acute SI or HI. Does acknowledge chronic hallucinations but admits that they are not distressing to him. Patient is well connected to outpatient providers and resources including rn case manager hospice which he plans to follow-up with following his discharge. Allergies Allergy/AdvReac Type Severity Reaction Status Date / Time No Known Allergies Allergy Verified 02/04/21 09:08 Home Medications Medication Instructions Recorded Confirmed Type folic acid 1 mg tablet 1 mg PO QAM #30 tab 11/12/20 02/04/21 Rx lisinopril 20 mg tablet 20 mg PO DAILY #30 tab 11/12/20 02/04/21 Rx loxapine succinate 5 mg capsule 10 mg PO BID #60 cap 11/12/20 02/04/21 Rx quetiapine 300 mg tablet 300 mg PO HS #30 tab 11/12/20 02/04/21 Rx thiamine HCl (vitamin B1) 100 mg 100 mg PO QAM #30 tab 11/12/20 02/04/21 Rx tablet (Vitamin B-1) trazodone 100 mg tablet 100 mg PO HS PRN #30 tab 11/12/20 02/04/21 Rx Personal History Beliefs That Will Affect Care: None Patient History Medical History (Updated 03/17/21 @ 04:47 by César Santo MD) Acute kidney injury Alcohol abuse Bronchitis hx Choledocholithiasis Chronic back pain Chronic obstructive pulmonary disease Depression Hip fracture, left (2017) Hyperlipidemia Hypertension Osteoarthritis Schizophrenia Thrombocytopenia Tobacco abuse Surgical History History of colonoscopy History of hip replacement (2017) LEFT History of tooth extraction S/P ERCP Family History Brother Family history of diabetes mellitus Social History Smoking Status: Current every day smoker Tobacco Type: Cigarettes Cigarettes Per Day: 1PPD; Second Hand Exposure: Yes; Hx Alcohol Use: Yes Alcohol type: beer and hard liquor Hx Substance Use: No Preferred Language: Swazi Communication Ability: Effective Steam Box Hand Required: No Beliefs That Will Affect Care: None marital status: Single Current Living Situation: Alone How many Children do You have: 1 Feels Safe at Home: Yes Safety Concerns: Feels Safe At This Time Assistive Devices: None Physical Exam Psychiatric: Orientation: alert and oriented x 3 Apperance: appropriately groomed Eye Contact: good eye contact Motor Behavior: no abnormal motor movements Speech: normal rate/rhythm/volume of speech Affect: euthymic affect Mood: no depressed mood and no dysphoric mood Thought Process: goal directed thought process Thought Content: reality based without delusions Suicidal Thoughts: denies suicidal thoughts, denies suicidal plan and denies suicidal intent Homicidal Thoughts: denies homicidal thoughts, denies homicidal plan and denies homicidal intent Hallucinations: + auditory montez llucinations; no visual hallucinations Chronic auditory hallucinations which are nondistressing. Cognition: remote memory grossly intact Estimated Intelligence: consistent with education level Insight: + fair insight Judgement: + fair judgement Vital Signs (Past 24 Hours): Last Vital Signs Temp 36.9 C 03/21/21 08:13 Pulse 80 03/21/21 08:13 Resp 18 03/21/21 08:13 BP 172/101 H 03/21/21 08:13 Pulse Ox 96 03/21/21 08:13 Review of Systems All systems reviewed & are unremarkable except as noted in HPI & below Results & Data (PSY) Medications Administered Famotidine (Famotidine 40 Mg Tablet) [address] [facility] Stop: 04/19/21 08:59 Last Admin: 03/21/21 07:22 Dose: 40 mg Documented by: [id number] Admin: 03/20/21 08:35 Dose: 40 mg Documented by: [id number] Folic Acid (Folic Acid 1 Mg Tab) 1 mg PO QAM [facility] Stop: 04/16/21 08:59 Last Admin: 03/21/21 07:22 Dose: 1 mg Documented by: [id number] Admin: 03/20/21 08:35 Dose: 1 mg Documented by: [id number] Admin: 03/19/21 08:16 Dose: 1 mg Documented by: [id number] Admin: 03/18/21 08:10 Dose: 1 mg Documented by: [id number] Admin: 03/17/21 08:51 Dose: 1 mg Documented by: [id number] Lorazepam (Ativan) 1 mg in 2 mls @ 2 mls/min IV UD PRN; Protocol PRN Reason: EtOH Withdrawl AWSS Score 6,7 Stop: 04/16/21 01:55 Last Admin: 03/19/21 01:32 Dose: 2 mls/min Documented by: [id number] Lisinopril (Lisinopril 20 Mg Tab) [address] [facility] Stop: 04/18/21 13:29 Last Admin: 03/21/21 07:22 Dose: 20 mg Documented by: [id number] Admin: 03/20/21 08:35 Dose: 20 mg Documented by: [id number] Admin: 03/19/21 14:01 Dose: 20 mg Documented by: [id number] Loxapine Succinate (Loxapine Succinate) [address] [facility] Stop: 04/18/21 20:59 Last Admin: 03/21/21 07:22 Dose: 1 ea Documented by: [id number] Admin: 03/20/21 21:22 Dose: 1 ea Documented by: [id number] Admin: 03/20/21 08:37 Dose: 1 ea Documented by: [id number] Admin: 03/19/21 21:34 Dose: 1 ea Documented by: [id number] Miscellaneous (Remove Nicoderm Patch) 1 ea N/A [id number] [facility] Stop: 04/17/21 08:58 Last Admin: 03/21/21 07:21 Dose: 1 ea Documented by: [id number] Admin: 03/20/21 08:36 Dose: 1 ea Documented by: [id number] Admin: 03/19/21 08:20 Dose: 1 ea Documented by: [id number] Admin: 03/18/21 08:12 Dose: 1 ea Documented by: [id number] Nicotine (Nicotine 14 Mg/24 Hr Patch) 14 [facility] [place] [facility] Stop: 04/16/21 11:29 Last Admin: 03/21/21 07:22 Dose: 14 mg Documented by: [id number] Admin: 03/20/21 08:37 Dose: 14 mg Documented by: [id number] Admin: 03/19/21 08:16 Dose: 14 mg Documented by: [id number] Admin: 03/18/21 08:10 Dose: 14 mg Documented by: [id number] Admin: 03/17/21 13:36 Dose: 14 mg Documented by: [id number] Ondansetron HCl (Ondansetron Inj 2 Mg/Ml 2 Ml Vial) 4 mg IV Q6H PRN PRN Reason: Nausea Stop: 04/16/21 01:55 Last Admin: 03/18/21 09:47 Dose: 4 mg Documented by: [id number] Admin: 03/17/21 19:33 Dose: 4 mg Documented by: [id number] Pantoprazole Sodium (Pantoprazole 40 Mg Tab) 40 [facility] [place] Stop: 04/16/21 08:59 Last Admin: 03/21/21 07:22 Dose: 40 mg Documented by: [id number] Admin: 03/20/21 08:35 Dose: 40 mg Documented by: [id number] Admin: 03/19/21 08:16 Dose: 40 mg Documented by: [id number] Admin: 03/18/21 08:10 Dose: 40 mg Documented by: [id number] Admin: 03/17/21 08:54 Dose: 40 mg Documented by: [id number] Quetiapine Fumarate (Quetiapine Fumarate 300 Mg Tablet) [address] [facility] Stop: 04/16/21 20:59 Last Admin: 03/20/21 21:23 Dose: 300 mg Documented by: [id number] Admin: 03/19/21 21:34 Dose: 300 mg Documented by: [id number] Admin: 03/18/21 20:45 Dose: 300 mg Documented by: [id number] Admin: 03/17/21 22:17 Dose: 300 mg Documented by: [id number] Thiamine HCl (Thiamine Hcl 100 Mg Tab) [facility] [place] Stop: 04/16/21 08:59 Last Admin: 03/21/21 07:22 Dose: 100 mg Documented by: [id number] Admin: 03/20/21 08:35 Dose: 100 mg Documented by: [id number] Admin: 03/19/21 08:16 Dose: 100 mg Documented by: [id number] Admin: 03/18/21 08:10 Dose: 100 mg Documented by: [id number] Admin: 03/17/21 08:51 Dose: 100 mg Documented by: [id number] Trazodone HCl (Trazodone Hcl 100 Mg Tab) 100 mg PO HS PRN PRN Reason: insomnia Stop: 04/16/21 01:55 Last Admin: 03/20/21 21:23 Dose: 100 mg Documented by: [id number] Admin: 03/19/21 21:35 Dose: 100 mg Documented by: [id number] Admin: 03/18/21 20:45 Dose: 100 mg Documented by: [id number] Admin: 03/17/21 23:03 Dose: 100 mg Documented by: [id number] Coding Level of Care Code 88083 U Intl Hosp Care Lvl 2
--- NOTE | 2021-03-21 15:58 | Discharge Summary ---
Date of Service March 21, 2021 Admission HPI Per Admitting Provider The patient is a 65-year-old male with a past medical history of alcohol abuse,, hypertension, tobacco abuse, hyponatremia, ELENA, neuroleptic induced parkinsonism, anemia, schizophrenia, COPD, hyperlipidemia and depression. The patient presents to the emergency department as noted above. Significant abnormal laboratories in the emergency department: Total bilirubin 2.4, AST 45, TSH 0.193, alcohol level 127.5, WBC 11.30, potassium 3.[address] scan of abdomen pelvis showed esophagitis, hepatic steatosis. Chest x-ray showed chronic left rib fracture deformities Admission Exam Per Admitting Provider The patient is awake, alert, somewhat sedated from medications, looks unkempt, normocephalic and atraumatic, lying in bed and in no acute distress. HEENT--PERRL, EOMI, mucous membranes and oropharynx dry. Neck--supple. No JVD. No bruits. Thyroid normal, trachea midline, no adenopathy. Heart--normal S1 and S2. No murmurs, rubs or gallops. Lungs--clear bilaterally, no respiratory distress, no accessory muscle use. Abdomen--normal bowel sounds and soft. Nontender. Nondistended, no hernias or masses, no organomegaly. Extremities--no cyanosis or clubbing. No edema. Dermatologic--normal skin turgor, normal color, no abnormal lymph nodes, no rash. Neurologic--cranial nerves II through XII grossly intact. Rheumatologic--limited exam, but grossly normal Psychiatric--normal affect. Principal Diagnosis Alcohol Withdrawal with Schizophrenia Discharge Exam Constitutional cooperative and comfortable Eyes PERRL and normal accommodation Respiratory normal respiratory effort Auscultation: lungs clear to auscultation bilaterally; no rales, no rhonchi and no wheezes Cardiovascular Rate/Rhythm: regular rate and regular rhythm Heart Sounds: normal S1 and normal S2; no gallop, no murmur and no cardiac rub Gastrointestinal (Abdomen) Inspection/Auscultation: abdomen normal to inspection and normal bowel sounds Percussion/Palpation: abdomen soft; abdomen nontender Skin no rashes, warm and dry Neurologic CN's II-XI intact bilaterally Psychiatric A+Ox3, euthymic affect Discharge Data Allergies Allergy/AdvReac Type Severity Reaction Status Date / Time No Known Allergies Allergy Verified 02/04/21 09:08 Consultations 03/16/21 22:39 ED Decision to Admit Stat 03/20/21 11:31 Consult Psychiatry Routine Ordered Studies 03/16/21 17:05 CT abd pelvis IV con only Stat Hospital Course (1) Alcohol withdrawal: Patient had 2 days vomitting and history alcohol abuse. Was placed on AWSS protocol w/PRN ativan, put on thiamine and folic acid supplements, IVF NS+KCl. Pt. complained of headache secondary to lack of alcohol, tylenol ordered. AWSS at max scored 6 overnight for HTN hallucination confusion mild tremors, given ativan which worsened confusion. AWSS score back to 1 during daytime. Next night AWSS scored 5 due to confusion disorientation, more likely secondary to schizophrenia. Currently resolved. (2) Alcohol abuse: Patient has tried to quit in the past, per case management was sober 1 month until last week, has tried inpatient rehab and would not like to go there again after current hospitalization. He prefers to try to wean himself off alcohol using coffee. (3) Vomiting: Patient was given zofran PRN, famotidine and pantoprazole. Nausea and vomitting resolved. Discharged on famotidine and omeprazole. (4) Esophagitis: Noted on CT performed on admission, likely d/t vomiting secondary to EtOH use. Plan to follow up with GI in outpatient. (5) Abdominal pain: Patient remarked epigastric pain and pain on palpation in RUQ and LUQ, present since February. Placed NPO until lipase labs returned, lipase lab at 120 WNL pancreatitis unlikely, resumed diet. Patient was given zofran PRN, famotidine and pantoprazole. Abd pain nausea vomitting currently resolved. Recommended to follow up with GI in outpatient. (6) Hypertension: Patient 181/106 in ER given labetalol 10mg IV and hydralazin 10mg IV. Patient had one episode systolic >200, given 1 dose ativan, BP went down. Resumed lisinopril home dose 03/19/21. (7) Depression: Continued home quetiapine 300mg, trazodone 100mg. (8) Schizophrenia: Continue home medication quetiapine 300mg, trazadone 100mg. Urine drug screen positive opiates and MDMA, may be due to medications. Family brought pt's loxapine, began taking 03/19/21. Psychiatry was consulted 03/20/21, said no changes to patient medication, was clear for discharge from psych standpoint. (9) Tobacco abuse: Nicotine patch ordered. Follow up on tobacco cessation with PCP. Total Time Total Time Spent Total Time Spent (In Minutes): <30 Discharge Plan Discharge Items Patient Disposition: Home - Self-Care Reason For Visit: ALCOHOL WITHDRAWAL, NAUSEA AND VOMITING Discharge Diagnosis: Alcohol Withdrawal Condition on Discharge: Fair Activity: Resume your previous activity Non-emergency contact: Primary Care Provider Call non-emergency contact if: you have any medication questions and your symptoms worsen Follow-up/Referrals: Owen Mckinnon III, MD [Primary Care Provider] - 03/24/21 9:00 am Sadie Zheng PA-C [Physician Travel Coordinator] - 03/24/21 1:20 pm Diet: Regular Addtl Attending Provider Instructions: You were admitted to the hospital for alcohol withdrawal. You had an abdominal CT performed, which showed a fatty liver and esophagus inflammation. You were treated with anti-nausea medication, vitamins, and IV fluids to replenish your salt levels. You were also treated with medication that reduced your stomach acid to treat your abdominal pain. Please follow up with your primary care provider upon discharge. Please follow up with gastroenterology to evaluate your abdominal pain and esophagus inflammation. A discharge summary will be sent to your primary care physician to ensure continuity of care. Please bring this discharge summary with you to your next office appointment so that your provider can review it at that time. Follow-up appointments: We have requested a follow-up appointment with your primary care physician within one week of discharge. Please call their office if you do not hear from them. You have an appointment with gastroenterology in the next 1-2 weeks. Keep all your follow-up appointments as already scheduled. If you cannot make an appointment, notify your provider. Medications: Your medication list has been reviewed and reconciled upon discharge to ensure accuracy and continuity of care. An updated list of all your medications is included with your hospital discharge paperwork. Please review this list closely, and make note of any changes. * We sent a new medication called Pepcid to your pharmacy. Take Pepcid (20 mg) two tablets daily for 7 days. * We sent a new medication called Omeprazole to your pharmacy. Take Omeprazole (20mg) two tablets daily for 28 days. Take your medications as instructed; do not skip a dose of your medicines. Make sure all of your doctors know every medicine you are taking (including over-the- counter medicines, vitamins, and supplements). Call your primary care provider before taking any new medicines (including yset-[id number]-[id number] medicines, vitamins, and supplements), because some of these may interact with your current medications, or may make your symptoms worse. Tell your primary care provider if you cannot afford your medications. CONTACT YOUR PRIMARY CARE PROVIDER if you experience any of the following: worsening of your symptoms Difficulty following your treatment plan, or difficulty taking medications CALL 911 OR GO TO THE EMERGENCY DEPARTMENT if you experience any of the following: Sudden, severe abdominal pain or nausea/vomiting Severe chest pain, or chest pain that radiates (moves) to your jaw or arm Sudden, severe shortness of breath or difficulty breathing Thank you for allowing us to participate in your care. Pending Studies at Discharge: No Stand-Alone Forms: My [facility] [employer], Smoking Cessation Medications and DC Order Prescriptions: New omeprazole 20 mg tablet,delayed release (DR/EC) 40 mg PO DAILY 28 Days Qty: 56 RF: 0 famotidine 20 mg tablet 40 mg PO DAILY 7 Days Qty: 14 RF: 0 Continued folic acid 1 mg tablet 1 mg PO QAM Qty: 30 RF: 11 lisinopril 20 mg tablet 20 mg PO DAILY Qty: 30 RF: 5 loxapine succinate 5 mg capsule 10 mg PO BID Qty: 60 RF: 5 quetiapine 300 mg tablet 300 mg PO HS Qty: 30 RF: 5 thiamine HCl (vitamin B1) [Vitamin B-1] 100 mg tablet 100 mg PO QAM Qty: 30 RF: 5 trazodone 100 mg tablet 100 mg PO HS PRN (Reason: insomnia) Qty: 30 RF: 5 Discharge Orders: Discharge Order (Routine); Ordered 03/21/21 Ordered By: Lindsay Pedraza/Other Patient Handouts: Alcoholism: Myths and Facts, Alcoholism Resources, Alcoholism: Getting Help, Alcohol Addiction, Alcohol Withdrawal: What to Expect Admission Data Admit Date/Time: 03/16/21 23:19 Attending Provider: Saad Anaya Admit Provider: César Santo Primary Care Provider: Owen Mckinnon III Other Providers: César Santo ; Alvarado Ge ; Aliyah Foster ; Dr Shankar ; Christin Woo ; Adrien Moct[place]uma Other Interventions: Discharge Summary Assessment (RN) Last Done: 03/21/21 14:18 PSY Interdisciplinary Discharge Planning Last Done: 03/21/21 06:59 Supervising Physician Co-Signing Physician Notes I personally examined the patient and verified all mitchell points of history and exa m, discussed case, and agree with decision making with Dr Herrera. feeling up to going home. No new complaints. Vitals noted, in general he is awake and alert pleasant no distress. HEENT normocephalic atraumatic mucous membranes moist. Breathing unlabored no accessory muscle use good effort. Skin shows no rashes no pallor or icterus. No focal neuro deficits. Alcohol abuse/withdrawalstable for home, continue thiamine and folate. Schizophreniacontinue regular meds, outpatient follow-up. Resident Activity Tracking Resident Involvement: Resident Care Provided Care Provided: Adult Hospital Medicine
--- NOTE | 2021-03-21 17:29 | Billing Data ---
Date of Service March 21, 2021 Coding Level of Care Code D/C DAY MANAGEMENT <30 MINS
== END 2021-03-21 16:20 | disposition home or self-care (01) | DRG 897 ==
LOC: ED 16:55 → SUATTDRO 23:19 → 2N 23:19

== ENCOUNTER 2021-04-03 20:43 | Inpatient (IN) ==
--- NOTE | 2021-04-03 20:49 | Emergency Department Note ---
History of Present Illness General Chief Complaint: Fall Stated Complaint: FALL/ALTERED MENTAL STATUS Time Seen by Provider: 04/03/21 20:44 Source: EMS and RN notes reviewed Mode of arrival: EMS Limitations: altered mental status and clinical acuity History of Present Illness Provider complaint: fall Fall witnessed: no Place fall occurred: home Loss of consciousness: unsure Prolonged down time: unclear Treatments prior to arrival: + none Associated symptoms (after fall): + confusion Home Medications Medication Instructions Recorded Confirmed Type folic acid 1 mg tablet 1 mg PO QAM #30 tab 11/12/20 04/03/21 Rx lisinopril 20 mg tablet 20 mg PO DAILY #30 tab 11/12/20 04/03/21 Rx quetiapine 300 mg tablet 300 mg PO HS #30 tab 11/12/20 04/03/21 Rx thiamine HCl (vitamin B1) 100 mg 100 mg PO QAM #30 tab 11/12/20 04/03/21 Rx tablet (Vitamin B-1) trazodone 100 mg tablet 100 mg PO HS PRN #30 tab 11/12/20 04/03/21 Rx omeprazole 20 mg tablet,delayed 40 mg PO DAILY 28 Days #56 tab 03/21/21 04/03/21 Rx release bupropion HCl 150 mg 24 hr tablet, 150 mg PO DAILY 04/03/21 04/03/21 History extended release loxapine succinate 10 mg capsule 10 mg PO BID 04/03/21 04/03/21 History Allergies Allergy/AdvReac Type Severity Reaction Status Date / Time No Known Allergies Allergy Verified 04/03/21 21:15 Past Med/Surg History Medical History Abdominal pain, LLQ Acute kidney injury Alcohol abuse Bronchitis hx Choledocholithiasis Chronic back pain Chronic obstructive pulmonary disease Depression Hip fracture, left (2017) Hyperlipidemia Hypertension Intractable vomiting Osteoarthritis Schizophrenia Thrombocytopenia Tobacco abuse Surgical History History of colonoscopy History of hip replacement (2017) LEFT History of tooth extraction S/P ERCP Family History Brother Family history of diabetes mellitus Social History Smoking Status: Unknown if ever smoked Tobacco Type: Cigarettes Cigarettes Per Day: 1PPD; Second Hand Exposure: Yes; Hx Alcohol Use: Yes Alcohol type: beer and hard liquor Hx Substance Use: No Preferred Language: Greek Communication Ability: Effective Clerical Administrative Assistant Required: No Beliefs That Will Affect Care: None marital status: Single Current Living Situation: Alone How many Children do You have: 1 Feels Safe at Home: Yes Assistive Devices: None Review of Systems See HPI for pertinent positives & negatives. and A total of 10 systems reviewed and were otherwise negative Physical Exam Vital Signs Vital Signs - 24 hr 04/03/21 20:50 04/03/21 21:02 04/03/21 21:05 Temperature 37.5 C Temperature Source Oral Pulse Rate 109 H 107 H Pulse Rate from SpO2 Sensor 114 H Respiratory Rate 25 H 15 Blood Pressure 98/50 L Blood Pressure Mean 66 Pulse Oximetry 90 85 L 98 Oxygen Delivery Method Room Air Room Air Nasal Cannula Oxygen Flow Rate 4 Sepsis Recent Fever Within 48 Hours No Sepsis New/Unexplained Change in Mental Status Yes Sepsis Action Taken by Nursing Physician Notified 04/03/21 21:45 04/03/21 21:50 04/03/21 22:00 Temperature Temperature Source Pulse Rate 122 H 109 H 108 H Pulse Rate from SpO2 Sensor 110 H Respiratory Rate 20 14 30 H Blood Pressure Blood Pressure Mean Pulse Oximetry 98 Oxygen Delivery Method Oxygen Flow Rate Sepsis Recent Fever Within 48 Hours Sepsis New/Unexplained Change in Mental Status Sepsis Action Taken by Nursing GENERAL: Disheveled, ill in appearance. EYE EXAM: Normal conjunctiva. Pinpoint pupils. OROPHARYNX: Dry mucus membranes. NECK: Supple, no nuchal rigidity, no adenopathy, non-tender. No signs of meningismus. LUNGS: Clear to auscultation. Normal chest wall mechanics. HEART: Tachycardic and regular, no MRG. ABDOMEN: Abdomen soft, non-tender, normo-active bowel sounds, no masses, no rebound or guarding. BACK: No CVA TTP. SKIN: No rashes and no bruising. UPPER EXTREMITIES: Upper extremities are grossly normal. LOWER EXTREMITIES: Grossly normal, abrasion to the right knee without any obvious deformity and is vascularly intact distally. NEURO EXAM: Awake and does follow basic commands, questionable weakness of the left lower extremity compared to the right, no obvious upper extremity deficits, significant dysarthria/garbled speech. Course Course Cardiac monitoring: An order was placed for continuous cardiac monitoring. The monitor shows a rate of 105 with tachycardic and regular rhythm. Administered Medications Discontinued Medications Multivitamins 10 ml/ Thiamine HCl 100 mg/ Folic Acid 1 mg/Sodium Chloride 1,01 1.2 mls @ 1,011.2 mls/hr IV .Q1H ONE Stop: 04/03/21 21:51 Last Infusion: 04/03/21 23:07 Dose: 0 mls/hr Documented by: [id number] Admin: 04/03/21 21:20 Dose: 1,011.2 mls/hr Documented by: [id number] Potassium Chloride (K Yusef / Wtr) 10 meq in 100 mls @ 100 mls/hr IV Q1H LAKISHA Stop: 04/04/21 00:14 Last Admin: 04/03/21 23:07 Dose: 100 mls/hr Documented by: [id number] Sodium Chloride (Nss 1000ml) 1,000 mls @ 999 mls/hr IV .Q1H1M ONE Stop: 04/03/21 23:07 Last Admin: 04/03/21 22:22 Dose: 999 mls/hr Documented by: [id number] Ceftriaxone Sodium (Rocephin) 2,000 mg in 70 mls @ 140 mls/hr IV NOW STA Stop: 04/03/21 23:26 Last Admin: 04/03/21 23:54 Dose: 140 mls/hr Documented by: [id number] Lorazepam (Ativan) 0.5 mg in 1 mls @ 1 mls/min IV NOW STA Stop: 04/03/21 23:35 Last Admin: 04/03/21 23:52 Dose: 1 mls/min Documented by: [id number] Naloxone HCl (Naloxone Hcl 0.4 Mg/1 Ml Vial/Carp) 0.4 mg IV NOW STA Stop: 04/03/21 20:53 Last Admin: 04/03/21 21:20 Dose: 0.4 mg Documented by: [id number] Medical Decision Making Differential Diagnosis Infection, dehydration, metabolic abnormality, hypo/hyperglycemia, electrolyte disturbance, anemia, hypoxia, cardiac sources, intracerebral event, toxicologic, neurologic, as well as other pathologies. Medical Records Attestation: I reviewed the patient's medical records. Home Medications Current Medication List: was personally reviewed by me Laboratory Data Attestation: I reviewed the patient's lab results. Result diagrams: 04/03/21 20:25 04/03/21 20:25 Lab Results 04/03/21 04/03/21 04/03/21 Range/Units 20:25 20:25 20:25 WBC 8.99 (4.8-10.8) K/uL RBC 4.35 L (4.7-6.1) M/uL Hgb 14.7 (14.0-18.0) g/dL Hct 40.7 L (42-52) % MCV 93.6 (80-100) fL MCH 33.8 (25-34) pg MCHC 36.1 H (32-36) g/dL RDW Std Deviation 47.6 H (36.4-46.3) fL RDW Coeff of Harley 13.8 (11.5-14.5) % Plt Count 111 L (130-400) K/uL MPV 12.5 H (7.4-10.4) fL Immature Gran % (Auto) 0.1 % Neut % (Auto) 81.1 % Lymph % (Auto) 7.8 % Coffee % (Auto) 11.0 % Eos % (Auto) 0.0 % Baso % (Auto) 0.0 % Neut # (Auto) 7.29 H (1.4-6.5) K/uL Lymph # (Auto) 0.70 L (1.2-3.4) K/uL Coffee # (Auto) 0.99 H (0.11-0.59) K/uL Eos # (Auto) 0.00 (0-0.5) K/uL Baso # (Auto) 0.00 (0-0.2) K/uL Immature Gran # (Auto) 0.01 (0.00-0.02) K/uL Platelet Estimate Decreased L (Normal) Giant Platelets 1+ Pappenheimer Bodies 1+ PT (9.0-12.0) Seconds INR (0.9-1.1) Sodium 123 L (136-145) mmol/L Potassium 2.3 L* (3.5-5.1) mmol/L Chloride 76 L (98-107) mmol/L Carbon Dioxide 29 (21-32) mmol/L Anion Gap 18.0 H (3-11) BUN 51 H (7-18) mg/dl Creatinine 3.04 H (0.6-1.4) mg/dl Est Cr Clr Drug Dosing 20.1 ml/min Est GFR ( Amer) 23.6 ml/min Est GFR (Non-Af Amer) 20.4 ml/min BUN/Creatinine Ratio 16.6 (10-20) Glucose 97 (70-99) mg/dl Osmolality (280-300) mOsm/kg Lactate (0.4-2.0) mmol/L Calcium 8.5 (8.5-10.1) mg/dl Magnesium 2.5 H (1.8-2.4) mg/dl Total Bilirubin 4.0 H (0.2-1) mg/dl AST 95 H (15-37) U/L ALT 44 (12-78) U/L Alkaline Phosphatase 68 (45-117) U/L Ammonia (11-32) umol/L Troponin I 0.020 (0-0.045) ng/ml Total Protein 7.7 (6.4-8.2) gm/dl Albumin 3.8 (3.4-5.0) gm/dl Globulin 3.9 (2.5-4.0) gm/dl Albumin/Globulin Ratio 1.0 (0.9-2) Vitamin B12 1336 H (193-986) pg/ml Folate > 20.00 (>5.38) ng/ml TSH 0.660 (0.300-4.500) uIu/ml Urine Color Urine Appearance (Clear) Urine pH (4.5-7.5) Ur Specific Wharton (1.000-1.030) Urine Protein (Negative) Urine Glucose (UA) (Negative) Urine Ketones (Negative) Urine Blood (Negative) Urine Nitrite (Negative) Urine Bilirubin (Negative) Urine Urobilinogen (Negative) Ur Leukocyte Esterase (Negative) Urine WBC (Auto) (0-5) /hpf Urine RBC (Auto) (0-4) /hpf U Hyaline Cast (Auto) (0-5) /lpf U Epithel Cells (Auto) (0-5) /lpf Urine Bacteria (Auto) (Negative) Ur Renal Epithelial Cell Ethyl Alcohol mg/dL (0-3) mg/dl COVID-19 Eval Order SARS-CoV-2 (PCR) (Negative) 04/03/21 04/03/21 04/03/21 Range/Units 20:25 21:06 21:06 WBC (4.8-10.8) K/uL RBC (4.7-6.1) M/uL Hgb (14.0-18.0) g/dL Hct (42-52) % MCV (80-100) fL MCH (25-34) pg MCHC (32-36) g/dL RDW Std Deviation (36.4-46.3) fL RDW Coeff of Harley (11.5-14.5) % Plt Count (130-400) K/uL MPV (7.4-10.4) fL Immature Gran % (Auto) % Neut % (Auto) % Lymph % (Auto) % Coffee % (Auto) % Eos % (Auto) % Baso % (Auto) % Neut # (Auto) (1.4-6.5) K/uL Lymph # (Auto) (1.2-3.4) K/uL Coffee # (Auto) (0.11-0.59) K/uL Eos # (Auto) (0-0.5) K/uL Baso # (Auto) (0-0.2) K/uL Immature Gran # (Auto) (0.00-0.02) K/uL Platelet Estimate (Normal) Giant Platelets Pappenheimer Bodies PT 10.3 (9.0-12.0) Seconds INR 1.0 (0.9-1.1) Sodium (136-145) mmol/L Potassium (3.5-5.1) mmol/L Chloride (98-107) mmol/L Carbon Dioxide (21-32) mmol/L Anion Gap (3-11) BUN (7-18) mg/dl Creatinine (0.6-1.4) mg/dl Est Cr Clr Drug Dosing ml/min Est GFR ( Amer) ml/min Est GFR (Non-Af Amer) ml/min BUN/Creatinine Ratio (10-20) Glucose (70-99) mg/dl Osmolality 276 L (280-300) mOsm/kg Lactate (0.4-2.0) mmol/L Calcium (8.5-10.1) mg/dl Magnesium (1.8-2.4) mg/dl Total Bilirubin (0.2-1) mg/dl AST (15-37) U/L ALT (12-78) U/L Alkaline Phosphatase (45-117) U/L Ammonia (11-32) umol/L Troponin I (0-0.045) ng/ml Total Protein (6.4-8.2) gm/dl Albumin (3.4-5.0) gm/dl Globulin (2.5-4.0) gm/dl Albumin/Globulin Ratio (0.9-2) Vitamin B12 (193-986) pg/ml Folate (>5.38) ng/ml TSH (0.300-4.500) uIu/ml Urine Color Urine Appearance (Clear) Urine pH (4.5-7.5) Ur Specific Wharton (1.000-1.030) Urine Protein (Negative) Urine Glucose (UA) (Negative) Urine Ketones (Negative) Urine Blood (Negative) Urine Nitrite (Negative) Urine Bilirubin (Negative) Urine Urobilinogen (Negative) Ur Leukocyte Esterase (Negative) Urine WBC (Auto) (0-5) /hpf Urine RBC (Auto) (0-4) /hpf U Hyaline Cast (Auto) (0-5) /lpf U Epithel Cells (Auto) (0-5) /lpf Urine Bacteria (Auto) (Negative) Ur Renal Epithelial Cell Ethyl Alcohol mg/dL < 3.0 (0-3) mg/dl COVID-19 Eval Order SARS-CoV-2 (PCR) (Negative) 04/03/21 04/03/21 04/03/21 Range/Units 21:26 21:26 21:45 WBC (4.8-10.8) K/uL RBC (4.7-6.1) M/uL Hgb (14.0-18.0) g/dL Hct (42-52) % MCV (80-100) fL MCH (25-34) pg MCHC (32-36) g/dL RDW Std Deviation (36.4-46.3) fL RDW Coeff of Harley (11.5-14.5) % Plt Count (130-400) K/uL MPV (7.4-10.4) fL Immature Gran % (Auto) % Neut % (Auto) % Lymph % (Auto) % Coffee % (Auto) % Eos % (Auto) % Baso % (Auto) % Neut # (Auto) (1.4-6.5) K/uL Lymph # (Auto) (1.2-3.4) K/uL Coffee # (Auto) (0.11-0.59) K/uL Eos # (Auto) (0-0.5) K/uL Baso # (Auto) (0-0.2) K/uL Immature Gran # (Auto) (0.00-0.02) K/uL Platelet Estimate (Normal) Giant Platelets Pappenheimer Bodies PT (9.0-12.0) Seconds INR (0.9-1.1) Sodium (136-145) mmol/L Potassium (3.5-5.1) mmol/L Chloride (98-107) mmol/L Carbon Dioxide (21-32) mmol/L Anion Gap (3-11) BUN (7-18) mg/dl Creatinine (0.6-1.4) mg/dl Est Cr Clr Drug Dosing ml/min Est GFR ( Amer) ml/min Est GFR (Non-Af Amer) ml/min BUN/Creatinine Ratio (10-20) Glucose (70-99) mg/dl Osmolality (280-300) mOsm/kg Lactate (0.4-2.0) mmol/L Calcium (8.5-10.1) mg/dl Magnesium (1.8-2.4) mg/dl Total Bilirubin (0.2-1) mg/dl AST (15-37) U/L ALT (12-78) U/L Alkaline Phosphatase (45-117) U/L Ammonia (11-32) umol/L Troponin I (0-0.045) ng/ml Total Protein (6.4-8.2) gm/dl Albumin (3.4-5.0) gm/dl Globulin (2.5-4.0) gm/dl Albumin/Globulin Ratio (0.9-2) Vitamin B12 (193-986) pg/ml Folate (>5.38) ng/ml TSH (0.300-4.500) uIu/ml Urine Color Dark Yellow Urine Appearance Cloudy A (Clear) Urine pH 8.0 H (4.5-7.5) Ur Specific Wharton 1.022 (1.000-1.030) Urine Protein 2+ H (Negative) Urine Glucose (UA) Negative (Negative) Urine Ketones 1+ H (Negative) Urine Blood Negative (Negative) Urine Nitrite Positive A (Negative) Urine Bilirubin 2+ H (Negative) Urine Urobilinogen Negative (Negative) Ur Leukocyte Esterase Trace H (Negative) Urine WBC (Auto) 5-10 H (0-5) /hpf Urine RBC (Auto) 0-4 (0-4) /hpf U Hyaline Cast (Auto) 1-5 (0-5) /lpf U Epithel Cells (Auto) >30 H (0-5) /lpf Urine Bacteria (Auto) Negative (Negative) Ur Renal Epithelial Cell Not Reportable Ethyl Alcohol mg/dL (0-3) mg/dl COVID-19 Eval Order Covid19 at [facility] SARS-CoV-2 (PCR) NEGATIVE (Negative) 04/03/21 04/03/21 Range/Units 22:28 22:28 WBC (4.8-10.8) K/uL RBC (4.7-6.1) M/uL Hgb (14.0-18.0) g/dL Hct (42-52) % MCV (80-100) fL MCH (25-34) pg MCHC (32-36) g/dL RDW Std Deviation (36.4-46.3) fL RDW Coeff of Harley (11.5-14.5) % Plt Count (130-400) K/uL MPV (7.4-10.4) fL Immature Gran % (Auto) % Neut % (Auto) % Lymph % (Auto) % Coffee % (Auto) % Eos % (Auto) % Baso % (Auto) % Neut # (Auto) (1.4-6.5) K/uL Lymph # (Auto) (1.2-3.4) K/uL Coffee # (Auto) (0.11-0.59) K/uL Eos # (Auto) (0-0.5) K/uL Baso # (Auto) (0-0.2) K/uL Immature Gran # (Auto) (0.00-0.02) K/uL Platelet Estimate (Normal) Giant Platelets Pappenheimer Bodies PT (9.0-12.0) Seconds INR (0.9-1.1) Sodium (136-145) mmol/L Potassium (3.5-5.1) mmol/L Chloride (98-107) mmol/L Carbon Dioxide (21-32) mmol/L Anion Gap (3-11) BUN (7-18) mg/dl Creatinine (0.6-1.4) mg/dl Est Cr Clr Drug Dosing ml/min Est GFR ( Amer) ml/min Est GFR (Non-Af Amer) ml/min BUN/Creatinine Ratio (10-20) Glucose (70-99) mg/dl Osmolality (280-300) mOsm/kg Lactate 1.6 (0.4-2.0) mmol/L Calcium (8.5-10.1) mg/dl Magnesium (1.8-2.4) mg/dl Total Bilirubin (0.2-1) mg/dl AST (15-37) U/L ALT (12-78) U/L Alkaline Phosphatase (45-117) U/L Ammonia 11.8 (11-32) umol/L Troponin I (0-0.045) ng/ml Total Protein (6.4-8.2) gm/dl Albumin (3.4-5.0) gm/dl Globulin (2.5-4.0) gm/dl Albumin/Globulin Ratio (0.9-2) Vitamin B12 (193-986) pg/ml Folate (>5.38) ng/ml TSH (0.300-4.500) uIu/ml Urine Color Urine Appearance (Clear) Urine pH (4.5-7.5) Ur Specific Wharton (1.000-1.030) Urine Protein (Negative) Urine Glucose (UA) (Negative) Urine Ketones (Negative) Urine Blood (Negative) Urine Nitrite (Negative) Urine Bilirubin (Negative) Urine Urobilinogen (Negative) Ur Leukocyte Esterase (Negative) Urine WBC (Auto) (0-5) /hpf Urine RBC (Auto) (0-4) /hpf U Hyaline Cast (Auto) (0-5) /lpf U Epithel Cells (Auto) (0-5) /lpf Urine Bacteria (Auto) (Negative) Ur Renal Epithelial Cell Ethyl Alcohol mg/dL (0-3) mg/dl COVID-19 Eval Order SARS-CoV-2 (PCR) (Negative) Imaging Data My Impression: 1 view chest x-ray No pneumothorax pleural effusion or consolidation. Trachea midline. Radiologist's Impression: CT head no ICH or fracture CT cervical spine no fracture dislocation ECG Data Additional Comments: Sinus tachycardia, rate of 10 8. Normal NH and QRS, prolonged QTC, normal axis, no obvious ST elevations. Q waves in V2. MDM Narrative Patient was seen as they reside called and they were concerned about a fall with associated vomiting. The patient does have a known history of bipolar disorder, schizophrenia and chronic alcohol use. The patient does seem to have some possible left lower extremity weakness but is able to move the right as well as the bilateral uppers. Patient does have garbled speech does not making sense. Patient did have blood work completed and did get a CT. The patient has a negative CT head and cervical spine. Blood work shows a normal white counts w ith a normal hemoglobin with thrombocytopenia. The patient has significant hyponatremia and hypokalemia. These were ordered for replacement along with IV fluids as the patient does have acute renal failure. Patient does have elevated bilirubin but normal magnesium. Urinalysis does show concern for possible infection given positive nitrites leuks and whites but is negative for bacteria. Alcohol is negative. Given the patient's elevated anion gap and normal bicarb ethyl alcohol was also sent. Patient did receive banana bag. I did speak the on-call hospitalist and the patient was admitted to the medicine service by Dr. Oswald. While the patient did have weakness the patient's last known well was unknown and the patient had a reported fall so the decision was made not to make the patient a stroke alert and the patient was not a TPA candidate. Impression & Plan Acute renal failure (ARF), Dehydration, Weakness, Acute UTI, Acute confusion, Acute hypokalemia, Acute hyponatremia Critical Care Time Critical Care Time: Yes Total Critical Care Time: 47 Critical Care: I have personally spent 47 minutes of critical care time in direct management of this patient. This includes bedside care, interpretation of diagnostic studies, and testing, discussion with consultants, patient, and family members, and other require inpatient management activities. This 47 minutes is in excess of all separately billable procedures. Discharge Plan Visit Data Chief Complaint: Fall Stated Complaint: FALL/ALTERED MENTAL STATUS ED Provider: Marco A Hutchins Discharge Problem: Acute renal failure (ARF), Dehydration, Weakness, Acute UTI, Acute confusion, Acute hypokalemia, Acute hyponatremia Forms Stand Alone Forms: My [facility] [employer] Prescriptions Prescriptions: No Action folic acid 1 mg tablet 1 mg PO QAM Qty: 30 RF: 11 lisinopril 20 mg tablet 20 mg PO DAILY Qty: 30 RF: 5 quetiapine 300 mg tablet 300 mg PO HS Qty: 30 RF: 5 thiamine HCl (vitamin B1) [Vitamin B-1] 100 mg tablet 100 mg PO QAM Qty: 30 RF: 5 trazodone 100 mg tablet 100 mg PO HS PRN (Reason: insomnia) Qty: 30 RF: 5 loxapine succinate 10 mg capsule 10 mg PO BID RF: 0 bupropion HCl 150 mg tablet extended release 24 hr 150 mg PO DAILY RF: 0 omeprazole 20 mg tablet,delayed release (DR/EC) 40 mg PO DAILY 28 Days Qty: 56 RF: 0 Referrals Referrals: Owen Mckinnon III, MD [Primary Care Provider] - Discharge Problem: Acute renal failure (ARF) Qualifiers: Acute renal failure type: unspecified Qualified Code(s): N17.9 - Acute kidney failure, unspecified
[2021-04-03] MEDS ORDERED: MULTI-VITAMIN INFUSION 10 ML, THIAMINE HCL 100 MG, FOLIC ACID 1 MG in SODIUM CHLORIDE 0... IV ONE (20:52)
[2021-04-03] MEDS ORDERED: NALOXONE HCL 0.4 MG/1 ML VIAL/CARP IV STA (20:52)
[2021-04-03 21:24] LABS: Hematocrit (blood only) 40.7 % (42-52); Hemoglobin 14.7 g/dL (14.0-18.0); Mean Corpuscular Hemoglobin 33.8 pg (25-34); Mean Corpuscular Hgb Conc 36.1 g/dL (32-36); Mean Corpuscular Volume 93.6 fL (80-100); Mean Platelet Volume 12.5 fL (7.4-10.4); Platelet Count 111 K/uL (130-400); RDW Coefficient of Variation 13.8 % (11.5-14.5); RDW Standard Deviation 47.6 fL (36.4-46.3); Red Blood Count 4.35 M/uL (4.7-6.1); White Blood Count 8.99 K/uL (4.8-10.8)
[2021-04-03 21:29] LABS: Prothrombin Time 10.3 Seconds (9.0-12.0)
[2021-04-03 21:30] LABS: Giant Platelets 1+; Immature Granulocytes # (auto) 0.01 K/uL (0.00-0.02); Immature Granulocytes % (auto) 0.1 %; Lymphocytes % (auto) 7.8 %; Monocytes # (auto) 0.99 K/uL (0.11-0.59); Neutrophils # (auto) 7.29 K/uL (1.4-6.5); Neutrophils % (auto) 81.1 %; Pappenheimer Bodies 1+; Platelet Estimate Decreased (Normal)
[2021-04-03 21:50] LABS: Albumin Level 3.8 gm/dl (3.4-5.0); BUN Creatinine Ratio 16.6 (10-20); Creatinine Clr Calc Pharmacy 20.1 ml/min; Est GFR (African American) 23.6 ml/min; Est GFR (Non-African American) 20.4 ml/min; Globulin 3.9 gm/dl (2.5-4.0)
[2021-04-03 21:51] LABS: Calcium 8.5 mg/dl (8.5-10.1); Magnesium 2.5 mg/dl (1.8-2.4); Potassium 2.3 mmol/L (3.5-5.1); Thyroid Stimulating Hormone 0.66 uIu/ml (0.300-4.500); Total Protein 7.7 gm/dl (6.4-8.2); Troponin I 0.02 ng/ml (0-0.045)
[2021-04-03] MEDS ORDERED: SODIUM CHLORIDE 0.9% 1000ML 1,000 ML IV ONE (22:07)
[2021-04-03 22:29] LABS: Appearance Urine Cloudy (Clear); Bacteria Urine Automated Negative (Negative); Blood Urine Negative (Negative); Color Urine Dark Yellow; Epithelial Cell Urine Auto >30 /lpf (0-5); Glucose Urine UA Negative (Negative); Ketones Urine 1+ (Negative); Leukocyte Esterase Urine Trace (Negative); Nitrite Urine Positive (Negative); Specific Gravity Urine 1.022 (1.000-1.030); Urobilinogen Urine Negative (Negative)
[2021-04-03 22:35] LABS: Bilirubin Urine 2+ (Negative); Protein Urine 2+ (Negative)
[2021-04-03 22:42] LABS: RBC Urine Automated 0-4 /hpf (0-4)
[2021-04-03] MEDS ORDERED: cefTRIAXone SODIUM 2,000 MG/70 ML BAG IV STA (22:57)
[2021-04-03] MEDS: POTASSIUM CHLORIDE / WTR 10 MEQ/100 ML PLCT IV SCH (23:07)
[2021-04-03 23:28] LABS: Folate (Folic Acid) > 20.00 ng/ml (>5.38); Vitamin B12 1336 pg/ml (193-986)
[2021-04-03] MEDS ORDERED: LORazepam 0.5 MG/1 ML VIAL IV STA (23:34)
--- NOTE | 2021-04-04 00:41 | History & Physical Report ---
Date of Service April 04, 2021 Assessment & Plan (1) Encephalopathy: Plan: Mr. Maradiaga is a 65 yo gentleman with a history of alcohol use disorder who is being admitted for evaluation of acute change in his baseline mental status - etiology: CT head and C-spine were WNL (per STAT RAD), anatomic cause unlikely. - As for possible metabolic etiologies: - TSH normal. - ammonia not elevated. - Ca is normal. - Na is low at 123 - hyponatremia may be causative etiology. Continue IVF fluids at 30ml/kg bolus, followed by 150mls/hr. Repeat CMP with AM labs. - WBC not elevated, lactate not elevated. UA somewhat suspicion for infection, although contaminated with epithelial cells. Urine culture pending. CT showing R lower lobe infiltrate; atelectasis vs. PNA. History of vomiting + alcohol use does place patient at increased risk for aspiration. Although HR and RR were initially elevated, vitals have normalized with initial IV fluid bolus; sepsis unlikely. Patient did receive 1 dose of Ceftriaxone in ED. will hold off on further antimicrobial therapy, although add anaerobic coverage if any new fevers or clinical deterioration. - Etoh level undetectable on admission, so acute intoxication unlikley; however it possible Etoh withdrawal is cause. AWSS protocol ordered for eoth withdrawal management - Acute worsening may be superimposed on underlying alcoholic dementia. - serial exams (2) Acute hyponatremia: Plan: - Serum Na level 123 on admission - clinical volume status was dry - Serum osms slightly low at 276. Hypovolemic hyponatremia - urine osms 494. Urine Na 17. Likely secondary to volume depletion (ie GI losses, reduced PO intake) - Goal correction would be no more than 8 meq in 24 hours. - Continue IVF - trend CMP (3) Increased anion gap metabolic acidosis: Plan: - Bicarb at 29, anion gap at 18 - Methyl alcohol pending. Lactate not elevated. Not in DKA. BUN is elevated, however only to 54; uremia as cause seems unlikely. No isoniazid use. Salicylate level pending. - mild elevation in bicarb suggestive of a concomitant metabolic alkalosis - ie likely due to a contraction alkalosis (hx of vomiting) - trend CMP (4) Acute hypokalemia: Plan: - K 2.3 on admission - Mag level at 2.5 - EKG without T wave flattening or U waves - given 20mEQ replacement in ED - recommend cautious replacement given concurrent renal failure - trend CMP - suspect secondary to GI losses (vomiting) (5) Acute renal failure (ARF): Plan: - baseline Cr 0.6 - 0.8 - Cr 3.05, BUN at 51 on admission, ratio of 16 - certainly has pre-renal risk factors (ie vomiting, reduced PO intake) - continue IVF - trend CMP - renally dose meds as appropriate (6) Alcohol abuse: Plan: - history of - on AWSS protocol with IV Ativan, as patient cannot take PO intake due to encephalopathy. For same reason, oral gabapentin taper not started - patient is on thiamine and folate supplements on a regular basis (7) Thrombocytopenia: Plan: - chronic - level well above transfusion threshold - likely secondary to bone marrow suppression from eoth use - trend CBC (8) Hypertension: Plan: - continue home lisinopril (9) Depression: Plan: - continue home buproprion Diet: NPO as patient is too encephalopathic to eat DVT ppx: Heparin 5000 units SQ q12 Dispo: Med/Surg with tele Code: Full History of Present Illness Primary Care Provider: Owen Mckinnon MD Mr. Maradiaga is a 65 yo male with a PMHx of alcohol use disorder requiring multiple hospital admissions for withdrawal management (most recently admitted 03/16/21 to 03/21/21) who presented to [facility] for altered mental status. He apparently fell while at home in his apartment and used his medical alert button to call EMS. He lives alone in an apartment, but per reports of neighbors, he has been ill the past few days with vomiting. Unfortunately, Mr. Maradiaga is altered and cannot provide any meaningful history. In the ED, he was afebrile, tachycardic to 104 bpm, BP 120/66, RR initially recorded at 30, later normalized to 20, O2 normal on RA. His WBC and Hgb were normal, platelets low at 111k/Ul. Lactate not elevated. Na low at 123. Serum osms 276. Urine Osms 494. urine sodium 14. K low at 2.3. Cr elevated to 3.04, BUN at 51. Anion Gap at 18. INR normal. Ammonia at 11.8. UA showing + nitrate, trace LE, but neg for bacteria. Urine culture and blood cultures pending. T bili elevated to 4. AST elevated to 95, ALT normal at 44. TSH WNL. B12 and folate normal. Trop detectable at 0.40. Eoth neg. COVID neg. EKG without signs of acute ischemia. CXR wnl. CT head and C spine without acute changes. CT abdomen and p maya showing evidence of fatty liver, R lower lung infiltrate vs. atelectasis. He was given 0.5mg IV ativan, narcan, a banana bag, Ceftraixone 2g, and 20meq Kcl. Allergies Allergy/AdvReac Type Severity Reaction Status Date / Time No Known Allergies Allergy Verified 04/03/21 21:15 Home Medications Medication Instructions Recorded Confirmed Type folic acid 1 mg tablet 1 mg PO QAM #30 tab 11/12/20 04/03/21 Rx lisinopril 20 mg tablet 20 mg PO DAILY #30 tab 11/12/20 04/03/21 Rx quetiapine 300 mg tablet 300 mg PO HS #30 tab 11/12/20 04/03/21 Rx thiamine HCl (vitamin B1) 100 mg 100 mg PO QAM #30 tab 11/12/20 04/03/21 Rx tablet (Vitamin B-1) trazodone 100 mg tablet 100 mg PO HS PRN #30 tab 11/12/20 04/03/21 Rx omeprazole 20 mg tablet,delayed 40 mg PO DAILY 28 Days #56 tab 03/21/21 04/03/21 Rx release bupropion HCl 150 mg 24 hr tablet, 150 mg PO DAILY 04/03/21 04/03/21 History extended release loxapine succinate 10 mg capsule 10 mg PO BID 04/03/21 04/03/21 History Past Med/Surg History Medical History Abdominal pain, LLQ Acute kidney injury Alcohol abuse Bronchitis hx Choledocholithiasis Chronic back pain Chronic obstructive pulmonary disease Depression Hip fracture, left (2017) Hyperlipidemia Hypertension Intractable vomiting Osteoarthritis Schizophrenia Thrombocytopenia Tobacco abuse Surgical History History of colonoscopy History of hip replacement (2017) LEFT History of tooth extraction S/P ERCP Family History Brother Family history of diabetes mellitus Social History Smoking Status: Current every day smoker Tobacco Type: Cigarettes Cigarettes Per Day: 1PPD; Second Hand Exposure: Yes; Hx Alcohol Use: Yes Alcohol type: beer and hard liquor Hx Substance Use: No Preferred Language: Citizen Of [place] Communication Ability: Effective [employer]ist[employer]pers[employer] Required: No Beliefs That Will Affect Care: None marital status: Single Current Living Situation: Alone How many Children do You have: 1 Feels Safe at Home: Yes Assistive Devices: None Review of Systems Review of Systems: Unobtainable due to cognitive status Physical Exam Constitutional: + thin, + disheveled and + lethargic Eyes: + anicteric sclerae ENMT: external ear and nose normal, oropharynx normal Neck: trachea midline Respiratory: normal respiratory effort; no respiratory distress Auscultation: + rhonchi (diffusely throughout lung blood) Cardiovascular: RRR, no murmur, no edema Heart Sounds: normal S1 and normal S2 Gastrointestinal (Abdomen): normal bowel sounds, soft, nontender, no hepatosplenomegaly Musculoskeletal: Head/Neck/Chest: normocephalic and head atraumatic Skin: no rashes, warm and dry Neurologic: moves all extremities and + confused Results & Data Results & Data ([facility]) Vital Signs (Past 12 Hours) Vital Signs Temp Pulse Resp BP Pulse Ox 04/03/21 22:00 108 H 30 H 04/03/21 21:50 109 H 14 98 04/03/21 21:45 122 H 20 04/03/21 21:05 98 04/03/21 21:02 107 H 15 85 L 04/03/21 20:50 37.5 C 109 H 25 H 98/50 L 90 Supervising Physician Co-Signing Physician Notes Attending addendum: I have physically seen this patient, have supervised the medical residents activities, and agree with the H&P unless as otherwise noted. Assessment and Plan: Encephalopathy- Potential etiologies: Alcohol withdrawal, Warnicke Korsakoff's, pneumonia, UTI, acute renal failure Acute renal failure/hyponatremia/hypokalemia- Potassium 2.3, sodium 123, and creatinine 3.04 upon admission. Serum osmolality 276, urine osmolality 494. Continue volume resuscitation with NSS. Gentle oral potassium replacement Serial CBC with differential, chemistry profile and magnesium levels Alcohol abuse/withdrawal- AWSS protocol with IV Ativan Thiamine 100 mg p.o. daily Folic acid 1 mg p.o. daily Nephrocaps 1 p.o. daily Cessation counseling Remaining orders and notations as noted Resident Activity Tracking Resident Involvement: Resident Care Provided Care Provided: Adult Hospital Medicine (1) Acute renal failure (ARF) Acute renal failure type: unspecified Qualified Code(s): N17.9 - Acute kidney failure, unspecified (2) Hypertension Hypertension type: unspecified Qualified Code(s): I10 - Essential (primary) hypertension
[2021-04-04] MEDS: POTASSIUM CHLORIDE / WTR 10 MEQ/100 ML PLCT IV SCH ×9 (00:54→17:07)
[2021-04-04] MEDS ORDERED: LACTATED RINGER'S 1,000 ML IV ONE (02:01)
[2021-04-04] MEDS ORDERED: ONDANSETRON INJ 2 MG/ML 2 ML VIAL IV PRN (02:01)
[2021-04-04] MEDS ORDERED: POLYETHYLENE (MIRALAX) 17 GM PACK PO PRN (02:01)
[2021-04-04] MEDS ORDERED: LORazepam 1 MG/2 ML VIAL IV PRN ×2 (02:01→03:01)
[2021-04-04 02:26] LABS: Hemoglobin 12.9 g/dL (14.0-18.0); Mean Corpuscular Hemoglobin 33.1 pg (25-34); Mean Corpuscular Hgb Conc 35.8 g/dL (32-36); Mean Corpuscular Volume 92.3 fL (80-100); RDW Coefficient of Variation 13.8 % (11.5-14.5); RDW Standard Deviation 46.7 fL (36.4-46.3); White Blood Count 7.96 K/uL (4.8-10.8)
[2021-04-04 02:44] LABS: Mean Platelet Volume 11.6 fL (7.4-10.4); Platelet Count 82 K/uL (130-400)
[2021-04-04 02:45] LABS: Basophils # (auto) 0.01 K/uL (0-0.2); Basophils % (auto) 0.1 %; Giant Platelets 1+; Immature Granulocytes # (auto) 0.01 K/uL (0.00-0.02); Immature Granulocytes % (auto) 0.1 %; Lymphocytes # (auto) 0.65 K/uL (1.2-3.4); Lymphocytes % (auto) 8.2 %; Monocytes # (auto) 0.99 K/uL (0.11-0.59); Monocytes % (auto) 12.4 %; Neutrophils % (auto) 79.2 %
[2021-04-04] MEDS ORDERED: ATIVAN IV ALCOHOL WITHDRAWL IV PRN (03:01)
[2021-04-04] MEDS ORDERED: LACTATED RINGER'S 1,000 ML IV SCH ×2 (03:15→09:15)
[2021-04-04] MEDS: LOXAPINE~ORDER AWAITING ACTION SCH ×3 (03:49→16:01)
[2021-04-04] MEDS: LORazepam 3 MG/6 ML VIAL IV PRN (04:02)
[2021-04-04] MEDS: LORazepam 1 MG/2 ML VIAL IV PRN ×4 (05:31→16:34)
--- NOTE | 2021-04-04 07:37 | CT Scan Report ---
CT OF THE CERVICAL SPINE WITHOUT CONTRAST CLINICAL HISTORY: ?fall COMPARISON STUDY: No previous studies for comparison. TECHNIQUE: Helical axial images of the cervical spine were obtained without IV contrast. Sagittal a nd coronal reconstructions were viewed. Automated exposure control was utilized for the study. A do se lowering technique was utilized adhering to the principles of ALARA. FINDINGS: Alignment of the cervical spine is anatomic. Vertebral body heights are maintained. No acut e cervical spine fracture or subluxation is present. There is no prevertebral edema. Facet joints are intact. Moderate to severe multilevel degenerative changes are noted. Emphysema within the lung api rohit is incidentally noted. IMPRESSION: No acute cervical spine fracture or subluxation. ACT 112: Negative or not required by law. Electronically signed by: Félix Mc M.D. 04/04/2021 7:36 AM
--- NOTE | 2021-04-04 07:42 | CT Scan Report ---
CT head/brain wo con CLINICAL HISTORY: ? fall COMPARISON STUDY: March 22, 2020 TECHNIQUE: Axial CT of the brain is performed from the vertex to the skull base. IV contrast was not administered for this examination. A dose lowering technique was utilized adhering to the principles of ALARA. CT DOSE: 1003.45 mGycm FINDINGS: This exam is slightly limited due to motion and beam hardening artifact. No intra or extra-axial mass lesions are visualized. There is no CT evidence of acute cortical infarc tion. There is no evidence of midline shift. There is no acute hemorrhage. No acute depressed calvar ial fractures are visualized. There are patchy white matter hypodensities likely on a small vessel basis. Redemonstration of the atrophic changes of brain parenchyma and stable CSF collection around convexit ies Large mucous polyp is seen within right sphenoid sinus. Mucosal nodularity is demonstrated within soraya ateral maxillary sinuses. Right and left mastoid air cells are patent and well-aerated. Incidental findings of the prominent cerumen accumulation within right and left external auditory can als. IMPRESSION: 1. No acute intracranial hemorrhage, no midline shift or space occupying lesions. 2. Redemonstration of the stable atrophic changes of brain parenchyma and chronic small vessel ische tahira. 3. Slightly prominent CSF density collection around bilateral convexities is unchanged since prior s tudy performed in March 22, 2020 4. Inflammatory changes within sinuses detailed above. ACT 112: Negative or not required by law. The above report was generated using voice recognition software. It may contain grammatical, syntax o r spelling errors. Electronically signed by: Chanell Mccurdy DO 04/04/2021 7:41 AM
--- NOTE | 2021-04-04 07:56 | XRay Report ---
XR chest 1V portable CLINICAL HISTORY: weakness COMPARISON STUDY: March 16, 2021 FINDINGS: No pneumothorax. No pleural effusion. No large infiltrates or consolidative lesions are seen. Cardiomediastinal silhouette is within normal limits in size. No significant pulmonary vascular congestion.. Aorta is tortuous. Osseous structures: Redemonstration of multiple old rib fractures at the left rib cage. IMPRESSION: 1. No large infiltrates or consolidative lesions. Normal cardiac silhouette. ACT 112: Negative or not required by law. The above report was generated using voice recognition software. It may contain grammatical, syntax o r spelling errors. Electronically signed by: Chanell Mccurdy DO 04/04/2021 7:55 AM
--- NOTE | 2021-04-04 07:57 | Electrocardiogram Report ---
Test Reason : Blood Pressure : / mmHG Vent. Rate : 108 BPM Atrial Rate : 108 BPM P-R Int : 152 ms QRS Dur : 104 ms QT Int : 390 ms P-R-T Axes : 076 -11 086 degrees QTc Int : 522 ms Sinus tachycardia Biatrial enlargement Prolonged QT Abnormal ECG When compared with ECG of 18-MAR-2021 11:09, Vent. rate has increased BY 42 BPM QT has lengthened Confirmed by Zan Gilbert ([id number]) on 04/04/2021 7:57:14 AM Referred By: REFERRED SELF Confirmed By:Zan Gilbert
[2021-04-04 08:10] LABS: Alanine Aminotransferase 40 U/L (12-78); Albumin Level 3.1 gm/dl (3.4-5.0); Alkaline Phosphatase 61 U/L (45-117); Aspartate Aminotransferase 84 U/L (15-37); Bilirubin Direct 0.7 mg/dl (0-0.2); Bilirubin,Total 1.8 mg/dl (0.2-1); Total Protein 6.8 gm/dl (6.4-8.2); Troponin I < 0.015 ng/ml (0-0.045)
--- NOTE | 2021-04-04 08:42 | CT Scan Report ---
CT SCAN OF THE ABDOMEN AND PELVIS WITHOUT CONTRAST CLINICAL HISTORY: ELENA COMPARISON STUDY: March 16, 2021 TECHNIQUE: CT scan of the abdomen and pelvis was performed from the lung bases to the proximal femurs . Images are reviewed in the axial, sagittal, and coronal planes. IV contrast was not administered fo r this examination. A dose lowering technique was utilized adhering to the principles of ALARA. CT DOSE: 1169.23 mGycm FINDINGS: Lower chest: Minimal atelectasis is seen at dependent portion of the right lower lobe. Evaluation of lung parenchyma is limited due to motion artifact. Liver: Normal size liver with diffuse decrease in attenuation of its parenchyma, no evidence of focal lesions or intrahepatic biliary dilatation. Gallbladder: Is surgically absent. Spleen: Normal in size and attenuation. Pancreas: Unremarkable. Adrenal glands: Unremarkable. Kidneys: The unenhanced kidneys are normal in size without hydronephrosis. There is no contour deform ing renal mass lesion. No renal calculi are identified. Bowel: Bowel loops are nondilated. Evaluation is limited due to lack of contrast and motion artifact. Appendix is not seen. Sigmoid colon is collapsed. Peritoneum: There is no intraperitoneal free air or abdominal ascites. Vasculature: The abdominal aorta is normal in course and caliber. Scattered calcifications of aortic wall are seen. Adenopathy: None. Pelvic viscera: Urinary bladder is fluid-filled. Prostate gland is not enlarged. Evaluation is limite d due to beam hardening artifact from left hip prosthetic joint. Skeletal structures: Osteopenia. Multilevel degenerative changes of the spine. Healing fracture defor mities of the left rib cage. IMPRESSION: 1. Normal nonenhanced CT appearance of the bilateral kidneys. No hydronephrosis or nephrolithiasis. 2. Hepatic steatosis. 3. Nondilated loops of bowel. Appendix is not seen. No acute intra-abdominal findings. 4. Status post cholecystectomy. 5. The rest of findings as above. ACT 112: Negative or not required by law. The above report was generated using voice recognition software. It may contain grammatical, syntax o r spelling errors. Electronically signed by: Chanell Mccurdy DO 04/04/2021 8:41 AM
[2021-04-04 08:59] LABS: BUN Creatinine Ratio 29.5 (10-20); Calcium 7.5 mg/dl (8.5-10.1); Creatinine Clr Calc Pharmacy 48.2 ml/min; Est GFR (African American) 67.8 ml/min; Est GFR (Non-African American) 58.5 ml/min; Potassium 2.3 mmol/L (3.5-5.1)
[2021-04-04] MEDS ORDERED: THIAMINE HCL 100 MG TAB PO SCH (09:00)
[2021-04-04] MEDS ORDERED: FOLIC ACID 1 MG TAB PO SCH (09:00)
[2021-04-04] MEDS: lisinopril 20 MG TAB PO SCH (09:21)
[2021-04-04] MEDS: buPROPion XL 150 MG TABCR PO SCH (09:21)
[2021-04-04] MEDS: PANTOprazole 40 MG TAB PO SCH (09:21)
[2021-04-04] MEDS: HEPARIN SOD 5,000 UNIT/0.5 ML VIAL SQ SCH ×2 (09:27→22:04)
--- NOTE | 2021-04-04 09:59 | Hospitalist Progress Note ---
Date of Service April 04, 2021 Assessment & Plan (1) Encephalopathy: Plan: Mr. Maradiaga is a 65 yo male with PMHx significant for alcohol use disorder who was admitted to [facility] on 04/04 for AMS, with concern for alcohol withdrawal, hyponatremia and possible UTI. AMS Limited history given patient's obtunded mental status although neighbors, and daughter, reported that he was sick with vomiting/diarrhea for several days. Also fell but CT head/C-spine negative. Na 123, Cr 3.04, UA dirty but urine cx negative, h/o alcohol use disorder but BAL negative, Ammonia WNL --> etiologies include: 1. acute GI illness vs adverse GI side effects from alcohol use that led to hypovolemia, and thus hyponatremia/ELENA/AMS 2. hyponatremia 3. alcohol withdrawal 4. Pneumonitis (?2/2 aspiration) - monitor clinically for changes - plan for possible etiologies listed below Vomiting/Diarrhea; ELENA (resolved) Acute GI illness vs ASE due to alcohol intoxication vs alcohol withdrawal. Likely led to ELENA 2/2 pre-renal injury. ELENA resolving with mIVFs - held mIVFs this afternoon - clear liquid diet as tolerated, with aspiration precautions Alcohol Withdrawal Unknown amount of alcohol use (patient's daughter does not live with him). Relapsed ~2.5 years ago after 's . Per daughter, last drink was ~48 hours ago. - continue AWSS protocol with IV Ativan PRN - continue with IV thiamine/folic acid for now given obtunded mental status Hyponatremia Na 123 on admission with severe symptoms (AMS)Suspect hypovolemic hyponatremia due to GI losses (see above). - improved from 123 to 131 over the course of 18 hours (<0.5mEq per hour) - appropriate - encourage fluid intake as tolerated - trend BMP in AM Hypokalemia K 2.3 on admission, remains at 2.3 this AM despite 20mEq K-riders. Suspect 2/2 acute GI losses. - ordered total of 80mEq K-riders today - BMP as stated above Hypochloremic Alkalosis Cl 76 and HCO3 31 on admission. Suspect contraction alkalosis 2/2 GI losses. - received mIVFs until this afternoon, transition to clear liquid diet as tolerated Possible Pneumonitis/Hypoxia Patient was vomiting prior to admission and fell as well, with AMS. CT A/P showed RLL atelectasis and CXR did not show infiltrates/consolidations. Now stable on 4L NC. ?Aspiration event with pneumonitis vs atelectasis. May also be component of uncontrolled COPD (see below) - received Ceftriaxone 2g IV x1 in the ED - afebrile but is requiring 4L NC to maintain oxygenation (no home O2 requirements) - will hold off on further abx for now - wean supplemental O2 as tolerated - trend CBC daily Hyperbilirubenemia/Hepatic Steatosis TBili 4.0 on admission but down to 1.8 (~chronic baseline) today. Suspect component of alcoholic hepatitis on top of chronic hepatic steatosis, although may be due to hemoconcentration/hypovolemia as well. - discriminant score was 4 on admission, no indication for steroids - trend LFTs daily Thombocytopenia Chronic. Likely due to hepatic dysfunction as well as bone marrow suppresion from chronic alcohol use. - level well above transfusion threshold - trend CBC HTN - currently normotensive - continue home Lisinopril (once he can take PO) Depression/Schizophrenia - continue home Bupropion and Seroquel once he can take PO - hold home Loxapine for now (unavailable in hospital) Possible COPD Reported per patient's daughter but no inhalers on med list and unknown if did PFTs in the past - f/u with PCP as outpatient for PFTs +/- sleep study for further eval/management Diet: clear liquids as tolerated (with aspiration precautions) DVT ppx: Heparin 5000 units SQ q12 Dispo: Med/Surg with tele Code: Full code (2) Acute hyponatremia: (3) Increased anion gap metabolic acidosis: (4) Acute hypokalemia: (5) Acute renal failure (ARF): (6) Alcohol abuse: (7) Thrombocytopenia: (8) Hypertension: (9) Depression: Admission and Anticipated Discharge Date Admission Date: April 04, 2021 Supervising Physician Co-Signing Physician Notes I personally examined the patient and verified all mitchell points of history and exam, discussed case, and agree with decision making with Dr Buenrostro. Mumbling semicoherent answers with a conversational disha, but still not much of any meaningful HPI or review of systems obtainable. On directed questioning denies nausea or abdominal pain, denies chest pain or shortness of breath. Vitals noted, in general he is quite sedate but does not appear uncomfortable. HEENT normocephalic atraumatic mucous membranes moist. Breathing unlabored no accessory muscle use good effort. Lungs are clear without rales rhonchi or wheezes, cardio is regular no rubs murmurs gallops. Abdomen is soft nondistended nontender no masses organomegaly. Metabolic encephalopathyappears to be due to profound dehydration and hyponatremia, which in turn appears to be due to intractable nausea and vomiting, which in turn may be due to recurrent alcohol withdrawal. Rehydrated, continue supportive care, continue to follow closely. Advance diet as tolerated/as his mental status allows. Otherwise as above Subjective Patient received a total of Ativan 5.5mg IV overnight (last received at 0600 this AM). Patient is obtunded this morning and I am unable to get any meaningful history from him. Spoke with Esther Galindo, patient's daughter and emergency contact ([phone]). She helps buy food for the patient and helps with his med refills but does not live with him. She does speak with him several times per day. Reports that the patient was drinking a lot until 2 days ago when he started to have nausea/vomiting and diarrhea. He reportedly fell yesterday but Esther did not witness this. She says that he did not have preceding cough/URI symptoms before this episode of GI symptoms. Reports that he was sober for 10 years but relapsed 2.5 years ago when his . Unsure how much he drinks but knows he drinks vodka and beer. Review of Systems 2 Review of Systems: Unobtainable due to cognitive status Physical Exam Physical Exam: General: obtunded but opens eyes to verbal stimulation and has purposeful movement of arms and legs with sternal rub/pressure on nail bed HEENT: Atraumatic, normocephalic. PERRLA. Extraocular muscles cannot be tested due to obtunded Pulm: Faint crackles in right lung base but adequate air movement bilaterally. - wheezes. Symmetrical chest rise. No increase work of breathing. No respiratory distress. Cardiac: RRR, -mrg. Radial pulses intact and symmetrical. No LE edema Abdominal: soft, non-tender, non-distended, BS x 4 Skin: warm, dry, no rash Results & Data Results & Data ([facility]) Vital Signs (Past 12 Hours) Vital Signs Temp Pulse Pulse Resp BP BP BP 04/04/21 07:36 36.5 C 90 18 130/80 04/04/21 07:00 83 04/04/21 05:56 37 C 83 14 103/68 04/04/21 05:15 37.1 C 85 15 120/77 04/04/21 04:58 37.0 C 88 15 116/75 04/04/21 04:45 36.4 C L 89 14 109/70 04/04/21 04:34 36.5 C 90 16 104/67 04/04/21 04:32 36.4 C L 94 H 14 103/66 04/04/21 03:42 102 H 04/04/21 02:01 37.0 C 110 H 20 134/71 04/04/21 01:50 37.0 C 110 H 18 134/71 04/04/21 01:13 37.1 C 98 H 20 04/04/21 01:00 107 H 18 125/89 04/04/21 00:51 37.1 C 20 04/04/21 00:30 104 H 16 120/66 04/04/21 00:20 102 H 22 04/04/21 00:10 103 H 20 04/03/21 23:40 110 H 20 04/03/21 23:33 90 22 04/03/21 23:00 22 04/03/21 22:51 37.1 C 20 04/03/21 22:50 104 H 16 04/03/21 22:40 102 H 13 04/03/21 22:31 100 H 21 04/03/21 22:00 108 H 30 H Pulse Ox Pulse Ox 04/04/21 07:36 95 04/04/21 07:00 04/04/21 05:56 95 04/04/21 05:15 95 04/04/21 04:58 92 04/04/21 04:45 95 04/04/21 04:34 94 04/04/21 04:32 93 04/04/21 03:42 04/04/21 02:01 95 95 04/04/21 01:50 95 04/04/21 01:13 95 04/04/21 01:00 97 04/04/21 00:51 98 04/04/21 00:30 97 04/04/21 00:20 96 04/04/21 00:10 99 04/03/21 23:40 92 04/03/21 23:33 91 04/03/21 23:00 95 04/03/21 22:51 95 04/03/21 22:50 98 04/03/21 22:40 98 04/03/21 22:31 93 04/03/21 22:00 Resident Activity Tracking Resident Involvement: Resident Care Provided Care Provided: Adult Hospital Medicine (1) Acute renal failure (ARF) Acute renal failure type: unspecified Qualified Code(s): N17.9 - Acute kidney failure, unspecified (2) Hypertension Hypertension type: unspecified Qualified Code(s): I10 - Essential (primary) hypertension
[2021-04-04 11:42] LABS: BUN Creatinine Ratio 27.3 (10-20); Calcium 7.9 mg/dl (8.5-10.1); Creatinine Clr Calc Pharmacy 49.7 ml/min; Est GFR (African American) 70.5 ml/min; Est GFR (Non-African American) 60.8 ml/min; Phosphorus 2.8 mg/dl (2.5-4.9); Potassium 2.5 mmol/L (3.5-5.1)
[2021-04-04] MEDS ORDERED: MICONAZOLE NITRATE POWDER 43 GM EXT PRN (12:43)
[2021-04-04] MEDS: FOLIC ACID 1 MG in SYRINGE 9.8 ML IV SCH (14:38)
[2021-04-04] MEDS: THIAMINE HCL 100 MG in SYRINGE 9 ML IV SCH (14:38)
[2021-04-04 15:52] LABS: BUN Creatinine Ratio 29.3 (10-20); Calcium 7.9 mg/dl (8.5-10.1); Creatinine Clr Calc Pharmacy 65.8 ml/min; Est GFR (African American) 98.8 ml/min; Est GFR (Non-African American) 85.2 ml/min; Potassium 3.8 mmol/L (3.5-5.1)
--- NOTE | 2021-04-04 18:18 | Billing Data ---
Date of Service April 04, 2021 Coding Level of Care Code 09785 Subseq Hosp Care Lvl 3
[2021-04-04] MEDS: LORazepam 2 MG/4 ML VIAL IV PRN ×2 (22:01→23:23)
[2021-04-04] MEDS: QUEtiapine FUMARATE 300 MG TABLET PO SCH (22:04)
[2021-04-05] MEDS: LORazepam 3 MG/6 ML VIAL IV PRN (00:52)
[2021-04-05] MEDS: LORazepam 2 MG/4 ML VIAL IV PRN (02:06)
[2021-04-05 05:57] LABS: Hematocrit (blood only) 41.2 % (42-52); Mean Corpuscular Hemoglobin 32.6 pg (25-34); Mean Corpuscular Volume 95.8 fL (80-100); Mean Platelet Volume 12.3 fL (7.4-10.4); Platelet Count 89 K/uL (130-400); RDW Coefficient of Variation 13.8 % (11.5-14.5); White Blood Count 6.35 K/uL (4.8-10.8)
[2021-04-05 06:21] LABS: Eosinophils # (auto) 0.02 K/uL (0-0.5); Eosinophils % (auto) 0.3 %; Lymphocytes # (auto) 1.66 K/uL (1.2-3.4); Lymphocytes % (auto) 26.1 %; Monocytes % (auto) 12.6 %; Neutrophils # (auto) 3.87 K/uL (1.4-6.5)
[2021-04-05 06:39] LABS: Albumin Globulin Ratio 0.9 (0.9-2); Albumin Level 3.2 gm/dl (3.4-5.0); BUN Creatinine Ratio 26.5 (10-20); Bilirubin,Total 1.4 mg/dl (0.2-1); Calcium 8.7 mg/dl (8.5-10.1); Creatinine Clr Calc Pharmacy 108.4 ml/min; Est GFR (African American) 122.3 ml/min; Est GFR (Non-African American) 105.5 ml/min; Globulin 3.7 gm/dl (2.5-4.0); Magnesium 2.2 mg/dl (1.8-2.4); Phosphorus 1.2 mg/dl (2.5-4.9); Total Protein 6.9 gm/dl (6.4-8.2)
[2021-04-05] MEDS ORDERED: chlordiazePOXIDE ALCOHOL WITHDRAWL 25MG PO STA (07:26)
[2021-04-05 07:35] LABS: Potassium 2.7 mmol/L (3.5-5.1)
[2021-04-05] MEDS ORDERED: POTASSIUM PHOS 3 MMOL/1 ML INFUSION IV STA (07:35)
[2021-04-05] MEDS: THIAMINE HCL 100 MG in SYRINGE 9 ML IV SCH (07:58)
[2021-04-05] MEDS: FOLIC ACID 1 MG in SYRINGE 9.8 ML IV SCH (07:58)
[2021-04-05] MEDS: HEPARIN SOD 5,000 UNIT/0.5 ML VIAL SQ SCH ×2 (07:59→20:08)
[2021-04-05] MEDS ORDERED: POTASSIUM PHOSPHATE 21 MMOL in SODIUM CHLORIDE 0.9% 500 ML IV ONE (08:00)
[2021-04-05] MEDS ORDERED: chlordiazePOXIDE HCl 25 MG CAP PO SCH (08:00)
[2021-04-05] MEDS: lisinopril 20 MG TAB PO SCH (08:53)
[2021-04-05] MEDS: buPROPion XL 150 MG TABCR PO SCH (08:53)
[2021-04-05] MEDS: PANTOprazole 40 MG TAB PO SCH (08:53)
--- NOTE | 2021-04-05 10:00 | Hospitalist Progress Note ---
Date of Service April 05, 2021 Assessment & Plan (1) Encephalopathy: Plan: Mr. Maradiaga is a 65 yo male with PMHx significant for alcohol use disorder who was admitted to [facility] on 04/04 for AMS, with concern for alcohol withdrawal and hyponatremia. Altered Mental Status, improving Limited history given patient's obtunded mental status although neighbors, and daughter, reported that he was sick with vomiting/diarrhea for several days. Also fell but CT head/C-spine negative. Na 123, Cr 3.04, UA dirty but urine cx negative, h/o alcohol use disorder but BAL negative, Ammonia WNL --> etiologies include: 1. acute GI illness vs adverse GI side effects from alcohol use that led to hypovolemia, and thus hyponatremia/ELENA/AMS 2. hyponatremia 3. alcohol withdrawal 4. Pneumonitis (?2/2 aspiration) - monitor clinically for changes - plan for possible etiologies listed below Vomiting/Diarrhea; ELENA (resolved) Acute GI illness vs ASE due to alcohol intoxication vs alcohol withdrawal. Likely led to ELENA 2/2 pre-renal injury. ELENA resolved with mIVFs. - clear liquid diet as tolerated, with aspiration precautions Alcohol Withdrawal Unknown amount of alcohol use (patient's daughter does not live with him). Relapsed ~2.5 years ago after 's . Per daughter, last drink was ~48 hours ago. - continue AWSS protocol with IV Ativan PRN - continue with IV thiamine/folic acid for now given obtunded mental status Hyponatremia, resolving Na 123 on admission with severe symptoms (AMS). Improved to 133 this AM (~36 hours after admission). Suspect hypovolemic hyponatremia due to GI losses (see above). - encourage fluid intake as tolerated - trend BMP daily Malnutrition/Hypokalemia/Hypophosphatemia K 2.3 on admission, remains at 2.7 this AM despite repletion this AM. Phos low at 1.2 this AM. Suspect 2/2 refeeding syndrome in setting of chronic malnutrition, as well as acute GI losses - repleting with KPhos 21mmol - repeat BMP/Mg/Phos at 2pm today - BMP/Mg/Phos daily - consider initiating NG tube/tube feeds tomorrow if remains unable to tolerate PO Hypochloremic Alkalosis, resolving Cl 76 and HCO3 31 on admission. Improved with mIVFs. Suspect contraction alkalosis 2/2 GI losses. - clear liquid diet as tolerated Possible Pneumonitis/Hypoxia, Hypoxia resolved Patient was vomiting prior to admission and fell as well, with AMS. CT A/P showed RLL atelectasis and CXR did not show infiltrates/consolidations. Initially required 4L NC but weaned to RA as of today. ?Aspiration event with pneumonitis vs atelectasis. May also be component of uncontrolled COPD (see below). - received Ceftriaxone 2g IV x1 in the ED - will hold off on further abx for now - trend CBC daily Hyperbilirubenemia/Hepatic Steatosis TBili 4.0 on admission but down to 1.8 (~chronic baseline) today. Suspect component of alcoholic hepatitis on top of chronic hepatic steatosis, although may be due to hemoconcentration/hypovolemia as well. - discriminant score was 4 on admission, no indication for steroids - trend LFTs daily Thrombocytopenia Chronic. Likely due to hepatic dysfunction as well as bone marrow suppression from chronic alcohol use. - level well above transfusion threshold - trend CBC HTN - currently normotensive - continue home Lisinopril (once he can take PO) Depression/Schizophrenia - continue home Bupropion and Seroquel once he can take PO - hold home Loxapine for now (unavailable in hospital) Possible COPD Reported per patient's daughter but no inhalers on med list and unknown if did PFTs in the past - f/u with PCP as outpatient for PFTs +/- sleep study for further eval/management Diet: clear liquids as tolerated (with aspiration precautions) DVT ppx: Heparin 5000 units SQ q12 Dispo: PCU with tele Code: Full code (2) Acute hyponatremia: (3) Increased anion gap metabolic acidosis: (4) Acute hypokalemia: (5) Acute renal failure (ARF): (6) Alcohol abuse: (7) Thrombocytopenia: (8) Hypertension: (9) Depression: Admission and Anticipated Discharge Date Admission Date: April 04, 2021 Supervising Physician Co-Signing Physician Notes I personally examined the patient and verified all mitchell points of history and exam, discussed case, and agree with decision making with Dr Buenrostro. Somewhat slurred speech and short answers, but a little bit more conversive when stimulated today. HPI of questionable veracity, but denies any acute complaints. Vitals noted, in general he is quite sedate but does awaken to gentle shake of his shoulder and loud voice. HEENT normocephalic atraumatic mucous membranes slightly dry. Abdomen soft nondistended nontender no masses organomegaly. Neuro without focal deficits. Metabolic encephalopathyappears to be due to profound dehydration and hyponatremia, which in turn appears to be due to intractable nausea and vomit ing, which in turn may be due to recurrent alcohol withdrawal. Rehydrated, continue supportive care, continue to follow closely. Advance diet as tolerated/as his mental status allows. (If unable to take p.o. over the next may be 12 to 24 hours, will have to consider NG tube and enteral feeds) Otherwise as above Subjective Patient received Ativan 9mg IV total overnight. Remains altered but has been babbling throughout the night and into the morning. Significantly slurred speech but is able to say his own name and the word "hospital". Remainder of HPI/ROS limited by current altered mental status. Review of Systems Review of Systems: Unobtainable due to cognitive status Physical Exam Physical Exam: General: improved mental status but does remain significantly altered. Opens eyes spontaneously, makes eye contact and moves limbs spontaneously. Able to say name when instructed to, but speech is extremely slurred. HEENT: Atraumatic, normocephalic. PERRLA. EOMI. Pulm: Transmitted upper airway sounds bilaterally. -wheezes. Symmetrical chest rise. No increase work of breathing. No respiratory distress. Cardiac: RRR, -mrg. Radial pulses intact and symmetrical. No LE edema Abdominal: soft, non-tender, non-distended, BS x 4 Skin: warm, dry, no rash Results & Data Results & Data ([facility]) Vital Signs (Past 12 Hours) Vital Signs Temp Pulse Pulse Resp BP BP Pulse Ox 04/05/21 08:22 36.9 C 84 18 102/89 96 04/05/21 08:00 95 H 04/05/21 03:16 36.7 C 89 18 152/85 H 97 04/05/21 02:01 36.9 C 89 18 165/95 H 93 04/05/21 00:45 36.8 C 95 H 20 161/101 H 95 04/04/21 23:15 36.6 C 90 20 150/88 H 95 Resident Activity Tracking Resident Involvement: Resident Care Provided Care Provided: Adult Hospital Medicine (1) Acute renal failure (ARF) Acute renal failure type: unspecified Qualified Code(s): N17.9 - Acute kidney failure, unspecified (2) Hypertension Hypertension type: unspecified Qualified Code(s): I10 - Essential (primary) hypertension
[2021-04-05 14:52] LABS: BUN Creatinine Ratio 26.1 (10-20); Calcium 8.1 mg/dl (8.5-10.1); Est GFR (African American) 135.4 ml/min; Est GFR (Non-African American) 116.9 ml/min; Potassium 2.7 mmol/L (3.5-5.1)
[2021-04-05 14:58] LABS: Phosphorus 2.1 mg/dl (2.5-4.9)
[2021-04-05 15:07] LABS: Methyl Alcohol Comment WHOLE BLOOD; Methyl Alcohol Level NONE DETECTED (NONE DETECTED)
[2021-04-05] MEDS: POTASSIUM CHLORIDE / WTR 10 MEQ/100 ML PLCT IV SCH ×5 (16:22→21:44)
--- NOTE | 2021-04-05 17:32 | Billing Data ---
Date of Service April 05, 2021 Coding Level of Care Code 39158 Subseq Hosp Care Lvl 3
[2021-04-05] MEDS: LACTATED RINGER'S 1,000 ML IV SCH (17:53)
[2021-04-05] MEDS ORDERED: LORazepam 0.5 MG/1 ML VIAL IV PRN (18:25)
[2021-04-05] MEDS: QUEtiapine FUMARATE 300 MG TABLET PO SCH (20:05)
--- NOTE | 2021-04-05 23:13 | Billing Data ---
Date of Service April 05, 2021 Coding Level of Care Code 20951 Initial Inpt Care Lvl 3
[2021-04-06] MEDS: POTASSIUM CHLORIDE / WTR 10 MEQ/100 ML PLCT IV SCH ×5 (01:00→20:01)
[2021-04-06 06:10] LABS: Basophils # (auto) 0.01 K/uL (0-0.2); Basophils % (auto) 0.2 %; Eosinophils # (auto) 0.05 K/uL (0-0.5); Eosinophils % (auto) 0.8 %; Immature Granulocytes # (auto) 0.01 K/uL (0.00-0.02); Immature Granulocytes % (auto) 0.2 %; Lymphocytes # (auto) 1.93 K/uL (1.2-3.4); Lymphocytes % (auto) 31.6 %; Mean Corpuscular Hemoglobin 32.7 pg (25-34); Mean Corpuscular Hgb Conc 34.2 g/dL (32-36); Mean Corpuscular Volume 95.5 fL (80-100); Mean Platelet Volume 11.3 fL (7.4-10.4); Monocytes # (auto) 1.12 K/uL (0.11-0.59); Monocytes % (auto) 18.4 %; Neutrophils # (auto) 2.98 K/uL (1.4-6.5); Neutrophils % (auto) 48.8 %; Platelet Count 106 K/uL (130-400); RDW Coefficient of Variation 13.4 % (11.5-14.5); RDW Standard Deviation 46.9 fL (36.4-46.3); Red Blood Count 3.98 M/uL (4.7-6.1)
[2021-04-06 06:45] LABS: Albumin Globulin Ratio 0.9 (0.9-2); Albumin Level 3.1 gm/dl (3.4-5.0); BUN Creatinine Ratio 20.3 (10-20); Bilirubin,Total 1.4 mg/dl (0.2-1); Calcium 8.3 mg/dl (8.5-10.1); Creatinine Clr Calc Pharmacy 144.6 ml/min; Est GFR (African American) 140.6 ml/min; Est GFR (Non-African American) 121.3 ml/min; Globulin 3.4 gm/dl (2.5-4.0); Magnesium 1.8 mg/dl (1.8-2.4); Phosphorus 1.6 mg/dl (2.5-4.9); Potassium 3.2 mmol/L (3.5-5.1); Total Protein 6.5 gm/dl (6.4-8.2)
[2021-04-06] MEDS ORDERED: POTASSIUM PHOS 3 MMOL/1 ML INFUSION IV STA (06:50)
[2021-04-06] MEDS ORDERED: POTASSIUM PHOSPHATE 21 MMOL in SODIUM CHLORIDE 0.9% 500 ML IV ONE (07:15)
[2021-04-06] MEDS: THIAMINE HCL 100 MG in SYRINGE 9 ML IV SCH (08:08)
[2021-04-06] MEDS: FOLIC ACID 1 MG in SYRINGE 9.8 ML IV SCH (08:08)
[2021-04-06] MEDS: PANTOprazole 40 MG TAB PO SCH (08:08)
[2021-04-06] MEDS: lisinopril 20 MG TAB PO SCH (08:08)
[2021-04-06] MEDS: HEPARIN SOD 5,000 UNIT/0.5 ML VIAL SQ SCH ×2 (08:09→20:03)
[2021-04-06] MEDS: buPROPion XL 150 MG TABCR PO SCH (08:10)
--- NOTE | 2021-04-06 09:30 | Hospitalist Progress Note ---
Date of Service April 06, 2021 Assessment & Plan (1) Encephalopathy: Plan: Mr. Maradiaga is a 65 yo male with PMHx significant for alcohol use disorder who was admitted to [facility] on 04/04 for AMS, with concern for alcohol withdrawal and hyponatremia. Altered Mental Status, improving Limited history given patient's obtunded mental status although neighbors, and daughter, reported that he was sick with vomiting/diarrhea for several days. Also fell but CT head/C-spine negative. Na 123, Cr 3.04, UA dirty but urine cx negative, h/o alcohol use disorder but BAL negative, Ammonia WNL --> etiologies include: 1. acute GI illness vs adverse GI side effects from alcohol use that led to hypovolemia, and thus hyponatremia/ELENA/AMS 2. hyponatremia 3. alcohol withdrawal/DT 4. Pneumonitis (?2/2 aspiration) - monitor clinically for changes - plan for possible etiologies listed below Vomiting/Diarrhea; ELENA (resolved) Acute GI illness vs ASE due to alcohol intoxication vs alcohol withdrawal. Likely led to ELENA 2/2 pre-renal injury. ELENA resolved with mIVFs. - continue LR @80cc/hr - clear liquid diet as tolerated, with aspiration precautions Alcohol Withdrawal/DT Unknown amount of alcohol use (patient's daughter does not live with him). Relapsed ~2.5 years ago after 's . Per daughter, last drink was ~48 hours before admission per daughter's report. - continue AWSS protocol with IV Ativan PRN - continue with IV thiamine/folic acid for now given mental status Hyponatremia, resolving Na 123 on admission with severe symptoms (AMS). Now stable at 130-133 after mIVFs. Suspect hypovolemic hyponatremia due to GI losses (see above). - continue mIVFs - encourage fluid intake as tolerated - trend BMP daily Malnutrition; Electrolyte Abnormalities Patient reports eating only breakfast and making up remainder of calorie deficit with alcohol. Suspect refeeding syndrome in setting of chronic malnutrition, as well as acute GI losses. - repleting electrolytes as necessary - started scheduled KCl 40mEq PO BID - BMP/Mg/Phos daily - continue mIVFs, encourage PO intake Hypochloremic Alkalosis, resolved Cl 76 and HCO3 31 on admission. Improved with mIVFs. Suspect contraction alkalosis 2/2 GI losses. - continue mIVFs, clear liquid diet as tolerated Possible Pneumonitis/Hypoxia, Hypoxia resolved Patient was vomiting prior to admission and fell as well, with AMS. CT A/P showed RLL atelectasis and CXR did not show infiltrates/consolidations. Initially required 4L NC but weaned to RA as of today. ?Aspiration event with pneumonitis vs atelectasis. May also be component of uncontrolled COPD (see below). - received Ceftriaxone 2g IV x1 in the ED - will hold off on further abx for now - trend CBC daily Hyperbilirubenemia/Hepatic Steatosis TBili 4.0 on admission but down to 1.8 (~chronic baseline) today. Suspect component of alcoholic hepatitis on top of chronic hepatic steatosis, although may be due to hemoconcentration/hypovolemia as well. - discriminant score was 4 on admission, no indication for steroids - trend LFTs daily Thrombocytopenia Chronic. Likely due to hepatic dysfunction as well as bone marrow suppression from chronic alcohol use. - trend CBC HTN - continue home Lisinopril (once he can take PO) Depression/Schizophrenia - continue home Bupropion and Seroquel once he can take PO - hold home Loxapine for now (unavailable in hospital) Possible COPD Reported per patient's daughter but no inhalers on med list and unknown if did PFTs in the past - f/u with PCP as outpatient for PFTs +/- sleep study for further eval/management Diet: clear liquids as tolerated (with aspiration precautions) DVT ppx: Heparin 5000 units SQ q12 Dispo: PCU with tele Code: Full code (2) Acute hyponatremia: (3) Increased anion gap metabolic acidosis: (4) Acute hypokalemia: (5) Acute renal failure (ARF): (6) Alcohol abuse: (7) Thrombocytopenia: (8) Hypertension: (9) Depression: Admission and Anticipated Discharge Date Admission Date: April 04, 2021 Supervising Physician Co-Signing Physician Notes I personally examined the patient and verified all mitchell points of history and exam, discussed case, and agree with decision making with Dr Buenrostro. Does not answer me at all, but was much more awake and alert for earlier. Ate some for breakfast. Is a late addendum ate something like 80% of his lunch. Vitals noted, in general he is quite sedate no distress. HEENT normocephalic atraumatic mucous membranes slightly dry. Abdomen soft nondistended nontender no masses organomegaly. Neuro without focal deficits. Metabolic encephalopathyappears to be due to profound dehydration and hyponatremia, which in turn appears to be due to intractable nausea and vomiting, which in turn may be due to recurrent alcohol withdrawal. Rehydrated, continue supportive care, continue to follow closely. Cautiously doing well with diet. Continue to follow closely. PT/OT eval and treat and start to work on discharge planning. Otherwise as above Subjective Patient was removed from SS protocol - no Ativan overnight. Remains altered but has been more awake/alert overnight. Still has slurred speech but now able to speak in relatively coherent sentences. Says there are 5 people in the room (there were 2 people including myself), is able to say his name and that he is in the hospital but not oriented to time or situation. When asked about eating and alcohol the patient reports that he only eats breakfast and drinks for the rest of the day, and has done this for the last "4-5 years". He was able to eat some of his clear liquid breakfast this morning. Remainder of HPI/ROS limited by current altered mental status. Review of Systems Review of Systems: Limited due to altered mental status. Physical Exam Physical Exam: General: improved mental status but does remain significantly altered. A+O to self only. Reports visual hallucinations and appears to be responding to internal stimuli. HEENT: Atraumatic, normocephalic. PERRLA. EOMI. Pulm: Transmitted upper airway sounds bilaterally. -wheezes. Symmetrical chest rise. No increase work of breathing. No respiratory distress. Cardiac: RRR, -mrg. Radial pulses intact and symmetrical. No LE edema Abdominal: soft, non-tender, non-distended, BS x 4 Skin: second right distal toe with eschar but no surrounding erythema, drainage, red streaking or tenderness to palpation. several ecchymoses on upper extremities from IVs that the patient has removed. Results & Data Results & Data ([facility]) Vital Signs (Past 12 Hours) Vital Signs Temp Pulse Resp BP Pulse Ox 04/06/21 08:09 36.5 C 94 H 20 182/113 H 94 04/06/21 03:24 36.8 C 95 H 18 156/97 H 04/05/21 23:33 95 04/05/21 23:19 37.0 C 92 H 20 147/88 H Resident Activity Tracking Resident Involvement: Resident Care Provided Care Provided: Adult Hospital Medicine (1) Acute renal failure (ARF) Acute renal failure type: unspecified Qualified Code(s): N17.9 - Acute kidney failure, unspecified (2) Hypertension Hypertension type: unspecified Qualified Code(s): I10 - Essential (primary) hypertension
[2021-04-06 13:44] LABS: BUN Creatinine Ratio 15.7 (10-20); Calcium 8.2 mg/dl (8.5-10.1); Creatinine Clr Calc Pharmacy 106.6 ml/min; Magnesium 1.6 mg/dl (1.8-2.4); Potassium 2.8 mmol/L (3.5-5.1)
[2021-04-06 13:51] LABS: Phosphorus 3.5 mg/dl (2.5-4.9)
[2021-04-06] MEDS: MAGNESIUM SULFATE / D5W 1 GM/100 ML BAG IV SCH ×4 (14:39→20:08)
[2021-04-06] MEDS: LACTATED RINGER'S 1,000 ML IV SCH ×2 (15:05→22:13)
--- NOTE | 2021-04-06 18:12 | Billing Data ---
Date of Service April 06, 2021 Coding Level of Care Code 01864 Subseq Hosp Care Lvl 3
[2021-04-06] MEDS: QUEtiapine FUMARATE 300 MG TABLET PO SCH (20:03)
[2021-04-06] MEDS ORDERED: POTASSIUM CHLORIDE CRTAB 20 MEQ TABCR PO SCH (21:00)
[2021-04-07 06:20] LABS: Basophils # (auto) 0.01 K/uL (0-0.2); Basophils % (auto) 0.2 %; Eosinophils # (auto) 0.19 K/uL (0-0.5); Eosinophils % (auto) 3.1 %; Hematocrit (blood only) 37.1 % (42-52); Hemoglobin 12.7 g/dL (14.0-18.0); Immature Granulocytes # (auto) 0.01 K/uL (0.00-0.02); Immature Granulocytes % (auto) 0.2 %; Lymphocytes # (auto) 1.49 K/uL (1.2-3.4); Lymphocytes % (auto) 24.1 %; Mean Corpuscular Hgb Conc 34.2 g/dL (32-36); Mean Corpuscular Volume 96.4 fL (80-100); Mean Platelet Volume 11.1 fL (7.4-10.4); Monocytes # (auto) 1.29 K/uL (0.11-0.59); Monocytes % (auto) 20.9 %; Neutrophils # (auto) 3.19 K/uL (1.4-6.5); Neutrophils % (auto) 51.5 %; Platelet Count 118 K/uL (130-400); RDW Coefficient of Variation 13.8 % (11.5-14.5); RDW Standard Deviation 49.1 fL (36.4-46.3); Red Blood Count 3.85 M/uL (4.7-6.1); White Blood Count 6.18 K/uL (4.8-10.8)
[2021-04-07 07:10] LABS: Albumin Globulin Ratio 0.8 (0.9-2); Albumin Level 2.7 gm/dl (3.4-5.0); BUN Creatinine Ratio 13.4 (10-20); Bilirubin,Total 0.8 mg/dl (0.2-1); Calcium 8.1 mg/dl (8.5-10.1); Creatinine Clr Calc Pharmacy 102.1 ml/min; Est GFR (African American) 120.6 ml/min; Est GFR (Non-African American) 104.1 ml/min; Globulin 3.2 gm/dl (2.5-4.0); Magnesium 2.7 mg/dl (1.8-2.4); Phosphorus 2.1 mg/dl (2.5-4.9); Potassium 3.6 mmol/L (3.5-5.1); Total Protein 5.9 gm/dl (6.4-8.2)
[2021-04-07] MEDS ORDERED: POTASSIUM PHOS 3 MMOL/1 ML INFUSION IV STA (07:20)
[2021-04-07] MEDS ORDERED: POTASSIUM PHOSPHATE 9 MMOL in SODIUM CHLORIDE 0.9% 250 ML IV ONE (07:45)
[2021-04-07] MEDS: HEPARIN SOD 5,000 UNIT/0.5 ML VIAL SQ SCH ×2 (07:59→21:02)
[2021-04-07] MEDS: buPROPion XL 150 MG TABCR PO SCH (08:00)
[2021-04-07] MEDS: lisinopril 20 MG TAB PO SCH (08:00)
[2021-04-07] MEDS: PANTOprazole 40 MG TAB PO SCH (08:00)
[2021-04-07] MEDS: POTASSIUM CHLORIDE 10 MEQ TABCR PO SCH (08:17)
[2021-04-07] MEDS: FOLIC ACID 1 MG TAB PO SCH (08:17)
[2021-04-07] MEDS: THIAMINE HCL 100 MG TAB PO SCH (08:17)
[2021-04-07] MEDS: LACTATED RINGER'S 1,000 ML IV SCH (08:26)
--- NOTE | 2021-04-07 11:05 | Hospitalist Progress Note ---
Date of Service April 07, 2021 Assessment & Plan (1) Encephalopathy: Plan: Mr. Maradiaga is a 65 yo male with PMHx significant for alcohol use disorder who was admitted to [facility] on 04/04 for AMS, likely due to alcohol withdrawal/DT and metabolic encephalopathy. Alcohol Withdrawal/DT; Metabolic Encephalopathy; Severe Malnutrition Given updated HPI today due to patient's improved mental status, suspect AMS 2/2 both alcohol withdrawal and metabolic encephalopathy (electrolytes). 1. increased alcohol consumption led to vomiting/GI symptoms and by extension, abstinence from alcohol x2 days before admission that led to severe alcohol withdrawal/DT. 2. acute GI symptoms on chronic malnutrition led to severe electrolyte abnormalities that contributed as well. - continue AWSS protocol - continue with PO thiamine/folic acid - nutrition consult placed - appreciate recs - replete electrolytes as necessary Hepatic Steatosis; Severe Alcohol Use Disorder TBili 4.0 on admission but resolved after several days in the hospital. Suspect acute alcoholic hepatitis (resolved) on top of chronic alcoholic hepatic steatosis. - counseled on alcohol cessation - patient understands that his alcohol use has the possibility of killing him, he demonstrates decision-making capacity, and yet he still maintains that he would like to go home to drink again. Hyponatremia, resolving Na 123 on admission with severe symptoms (AMS). Now stable at 134 after mIVFs. Suspect hypovolemic hyponatremia due to GI losses (see above). - encourage PO intake - trend BMP daily Hypokalemia/Hypophosphatemia Suspect due to chronic malnutrition with re-feeding syndrome - repleting with KPhos IV - continue daily K supplementation - BMP/Mg/Phos daily ELENA, resolved Acute GI illness vs ASE due to alcohol intoxication vs alcohol withdrawal. Likely led to ELENA 2/2 pre-renal injury. ELENA resolved with mIVFs. - PO intake as tolerated Possible Pneumonitis/Hypoxia, Hypoxia resolved Patient was vomiting prior to admission and fell as well, with AMS. CT A/P showed RLL atelectasis and CXR did not show infiltrates/consolidations. Ini tially required 4L NC but weaned to RA as of today. ?Aspiration event with pneumonitis vs atelectasis. May also be component of uncontrolled COPD (see below). - received Ceftriaxone 2g IV x1 in the ED - will hold off on further abx for now - trend CBC daily Thrombocytopenia Chronic. Likely due to hepatic dysfunction as well as bone marrow suppression from chronic alcohol use. - trend CBC HTN - continue home Lisinopril Depression/Schizophrenia - continue home Bupropion and Seroquel - hold home Loxapine for now (unavailable in hospital) Possible COPD Reported per patient's daughter but no inhalers on med list and unknown if did PFTs in the past - f/u with PCP as outpatient for PFTs +/- sleep study for further eval/management Diet: regular diet DVT ppx: Heparin 5000 units SQ q12 Dispo: PCU with tele Code: Full code (2) Acute hyponatremia: (3) Increased anion gap metabolic acidosis: (4) Acute hypokalemia: (5) Acute renal failure (ARF): (6) Alcohol abuse: (7) Thrombocytopenia: (8) Hypertension: (9) Depression: Admission and Anticipated Discharge Date Admission Date: April 04, 2021 Supervising Physician Co-Signing Physician Notes I personally examined the patient and verified all mitchell points of history and exam, discussed case, and agree with decision making with Dr Buenrostro. Awake and alert, fatigued, but notes no complaints. Stomach feeling well. Ate wellnotes that overall now he is eating quite well. While he did not express this to me, in discussion with resident physician, patient unfortunately expressed a strong desire to go home and drink, and spite of the concomitant understanding that it is likely to cause him significant harm if not . Vitals noted, in general awake and alert, pleasant no distress. HEENT normocephalic atraumatic mucous membranes moist. Breathing unlabored no accessory muscle use good effort. Skin shows no rashes no pallor or icterus. Neuro without focal deficits. Metabolic encephalopathyappears to be due to profound dehydration and hyponatremia, which in turn appears to be due to intractable nausea and vomiting, which in turn was highly likely caused by recurrent alcohol withdrawal. Rehydrated, continue supportive care, continue to follow closely. Eating better. PT/OT eval and treat. While he would be best served at rehab or SNF, my fear is that he is going to choose to go home again in spite of our advice. Continue to revisit this day to day. Otherwise as above Subjective Patient's mental status is significantly improved today. Still has some slurred speech but unclear if this is his baseline; he is A+O x4 and we were able to have a full conversation today. Patient confirms that he only eats breakfast and drinks alcohol for the rest of the day, and has done this for the last 2.5 years, since his . He drinks 12-18 cans of beer per day. Several days before hospitalization he dec ided he wanted to get more drunk than usual and had almost 1/2L of whiskey in addition to regular beer consumption. Started vomiting and feeling sick the next morning so did not drink for 2-3 days before coming to the hospital. He does not have a desire to cut down on drinking currently. He only tried cutting down once, several years ago, because his daughter, who is his "whole world", said it could kill him. Currently wants to go home and drink again. Says he is an "alcoholic" and "just drinks". Says all of his friends are now due to alcoholism. 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 Is proficient in ADLs and some iADLs but is limited due to drinking. The patient is tolerating clear liquid diet well and would like to try a full diet today. Denies fever/chills, tremors, headache, visual/auditory hallucinations, anxiety. Denies chest pain, palpitations, SOB, cough, N/V, abdominal pain, rash. Review of Systems Review of Systems: All systems reviewed & are unremarkable except as noted in Subjective Physical Exam Physical Exam: General: A+O x4. NAD. Cooperative. Pulm: LCTAB. -wheezes/rales/rhonchi. Symmetrical chest rise. No increase work of breathing. No respiratory distress. Cardiac: RRR, -mrg. Radial pulses intact and symmetrical. No LE edema Abdominal: soft, non-tender, non-distended, BS x 4 Skin: second right distal toe with eschar but no surrounding erythema, drainage, red streaking or tenderness to palpation. several ecchymoses on upper extremities from IVs that the patient has removed. Results & Data Results & Data ([facility]) Vital Signs (Past 12 Hours) Vital Signs Temp Pulse Pulse Resp BP Pulse Ox 04/07/21 08:00 79 04/07/21 06:49 37.0 C 85 18 157/87 H 98 04/07/21 04:08 36.9 C 87 24 163/93 H 96 04/06/21 23:10 37.0 C 85 20 153/89 H 97 Resident Activity Tracking Resident Involvement: Resident Care Provided Care Provided: Adult Hospital Medicine (1) Acute renal failure (ARF) Acute renal failure type: unspecified Qualified Code(s): N17.9 - Acute kidney failure, unspecified (2) Hypertension Hypertension type: unspecified Qualified Code(s): I10 - Essential (primary) hypertension
--- NOTE | 2021-04-07 16:51 | Billing Data ---
Date of Service April 07, 2021 Coding Level of Care Code 12811 Subseq Hosp Care Lvl 2
[2021-04-07] MEDS: QUEtiapine FUMARATE 300 MG TABLET PO SCH (21:02)
[2021-04-08 06:39] LABS: Basophils # (auto) 0.01 K/uL (0-0.2); Basophils % (auto) 0.2 %; Eosinophils # (auto) 0.19 K/uL (0-0.5); Eosinophils % (auto) 3.4 %; Hematocrit (blood only) 33.5 % (42-52); Hemoglobin 11.4 g/dL (14.0-18.0); Immature Granulocytes # (auto) 0.02 K/uL (0.00-0.02); Immature Granulocytes % (auto) 0.4 %; Lymphocytes # (auto) 2.63 K/uL (1.2-3.4); Mean Corpuscular Hemoglobin 33.1 pg (25-34); Mean Corpuscular Volume 97.4 fL (80-100); Mean Platelet Volume 11.1 fL (7.4-10.4); Monocytes # (auto) 1.56 K/uL (0.11-0.59); Monocytes % (auto) 27.9 %; Neutrophils # (auto) 1.18 K/uL (1.4-6.5); Neutrophils % (auto) 21.1 %; Platelet Count 156 K/uL (130-400); RDW Coefficient of Variation 14.1 % (11.5-14.5); RDW Standard Deviation 50.2 fL (36.4-46.3); Red Blood Count 3.44 M/uL (4.7-6.1); White Blood Count 5.59 K/uL (4.8-10.8)
[2021-04-08 07:07] LABS: BUN Creatinine Ratio 18.4 (10-20); Calcium 8.1 mg/dl (8.5-10.1); Creatinine Clr Calc Pharmacy 87.7 ml/min; Est GFR (African American) 113.3 ml/min; Est GFR (Non-African American) 97.8 ml/min; Magnesium 1.9 mg/dl (1.8-2.4); Phosphorus 2.4 mg/dl (2.5-4.9); Potassium 3.9 mmol/L (3.5-5.1)
[2021-04-08] MEDS ORDERED: chlordiazePOXIDE HCl 5 MG CAP PO SCH (08:00)
[2021-04-08] MEDS: NICOTINE 14 MG/24 HR PATCH TD SCH (09:45)
[2021-04-08] MEDS: THIAMINE HCL 100 MG TAB PO SCH (09:46)
[2021-04-08] MEDS: lisinopril 20 MG TAB PO SCH (09:46)
[2021-04-08] MEDS: PANTOprazole 40 MG TAB PO SCH (09:46)
[2021-04-08] MEDS: buPROPion XL 150 MG TABCR PO SCH (09:47)
[2021-04-08] MEDS: POTASSIUM CHLORIDE 10 MEQ TABCR PO SCH (09:47)
[2021-04-08] MEDS: HEPARIN SOD 5,000 UNIT/0.5 ML VIAL SQ SCH ×2 (09:48→20:00)
[2021-04-08] MEDS: FOLIC ACID 1 MG TAB PO SCH (10:48)
--- NOTE | 2021-04-08 11:09 | Hospitalist Progress Note ---
Date of Service April 08, 2021 Assessment & Plan (1) Encephalopathy: Plan: Mr. Maradiaga is a 65 yo male with PMHx significant for alcohol use disorder who was admitted to [facility] on 04/04 for AMS, likely due to alcohol withdrawal/DT and metabolic encephalopathy. Alcohol Withdrawal/DT; Metabolic Encephalopathy (resolved); Severe Malnutrition Given updated HPI today due to patient's improved mental status, suspect AMS 2/2 both alcohol withdrawal and metabolic encephalopathy (electrolytes). 1. increased alcohol consumption led to vomiting/GI symptoms and by extension, abstinence from alcohol x2 days before admission that led to severe alcohol withdrawal/DT. 2. acute GI symptoms on chronic malnutrition led to severe electrolyte abnormalities that contributed as well. - now A+Ox4 - continue AWSS protocol - continue with PO thiamine/folic acid - nutrition consult placed - appreciate recs - replete electrolytes as necessary Hepatic Steatosis; Severe Alcohol Use Disorder TBili 4.0 on admission but resolved after several days in the hospital. Suspect acute alcoholic hepatitis (resolved) on top of chronic alcoholic hepatic steatosis. - counseled on alcohol cessation Patient understands that his alcohol use has the possibility of killing him, he demonstrates decision-making capacity, and yet he still maintains that he would like to go home to drink again. He is currently amenable to physical inpatient rehab first. Hyponatremia, resolved Na 123 on admission with severe symptoms (AMS). Now stable at 134 after mIVFs. Suspect hypovolemic hyponatremia due to GI losses (see above). - encourage PO intake - trend BMP daily Hypokalemia/Hypophosphatemia, resolved Suspect due to chronic malnutrition with re-feeding syndrome - continue daily K supplementation - BMP/Mg/Phos daily ELENA, resolved Acute GI illness vs ASE due to alcohol intoxication vs alcohol withdrawal. Likely led to ELENA 2/2 pre-renal injury. ELENA resolved with mIVFs. - PO intake as tolerated HTN - continue home Lisinopril Depression/Schizophrenia - continue home Bupropion and Seroquel - hold home Loxapine for now (unavailable in hospital) Possible COPD Reported per patient's daughter but no inhalers on med list and unknown if did PFTs in the past - f/u with PCP as outpatient for PFTs +/- sleep study for further eval/management Diet: regular diet DVT ppx: Heparin 5000 units SQ q12 Dispo: PCU with tele Code: Full code (2) Acute hyponatremia: (3) Increased anion gap metabolic acidosis: (4) Acute hypokalemia: (5) Acute renal failure (ARF): (6) Alcohol abuse: (7) Thrombocytopenia: (8) Hypertension: (9) Depression: Admission and Anticipated Discharge Date Admission Date: April 04, 2021 Supervising Physician Co-Signing Physician Notes I personally examined the patient and verified all mitchell points of history and exam, discussed case, and agree with decision making with Dr Buenrostro. Sleeping comfortably. No distress. Is willing to go to physical rehab. Vitals noted, in general awake and alert, pleasant no distress. HEENT normocephalic atraumatic mucous membranes moist. Breathing unlabored no acces reji muscle use good effort. Skin shows no rashes no pallor or icterus. Neuro without focal deficits. Metabolic encephalopathyappears to be due to profound dehydration and hyponatremia, which in turn appears to be due to intractable nausea and vomiting, which in turn was highly likely caused by recurrent alcohol withdrawal. Rehydrated, continue supportive care, continue to follow closely. Eating better. PT/OT eval and treat. Fortunately at least willing to go to physical rehab, even if he is unwilling to consider alcohol cessation. Continue supportive care. Otherwise as above Subjective No acute events overnight, without need for PRNs. Patient is completely alert/oriented today. Wanted to get a nicotine patch. Amenable to physical inpatient rehab - preference is [facility]. Denies fever/chills, chest pain, palpitations, SOB, cough, N/V, abdominal pain, rash. Review of Systems Review of Systems: All systems reviewed & are unremarkable except as noted in Subjective Physical Exam Physical Exam: General: A+O x4. NAD. Cooperative. Pulm: LCTAB. -wheezes/rales/rhonchi. Symmetrical chest rise. No increase work of breathing. No respiratory distress. Cardiac: RRR, -mrg. Radial pulses intact and symmetrical. No LE edema Abdominal: soft, non-tender, non-distended, BS x 4 Skin: second right distal toe with eschar but no surrounding erythema, drainage, red streaking or tenderness to palpation. Results & Data Results & Data ([facility]) Vital Signs (Past 12 Hours) Vital Signs Temp Pulse Resp BP Pulse Ox 04/08/21 07:37 36.8 C 89 18 167/94 H 96 Resident Activity Tracking Resident Involvement: Resident Care Provided Care Provided: Adult Hospital Medicine (1) Acute renal failure (ARF) Acute renal failure type: unspecified Qualified Code(s): N17.9 - Acute kidney failure, unspecified (2) Hypertension Hypertension type: unspecified Qualified Code(s): I10 - Essential (primary) hypertension
--- NOTE | 2021-04-08 19:24 | Billing Data ---
Date of Service April 08, 2021 Coding Level of Care Code 98298 Subseq Hosp Care Lvl 1
[2021-04-08] MEDS: QUEtiapine FUMARATE 300 MG TABLET PO SCH (20:00)
[2021-04-08] MEDS ORDERED: THIAMINE HCL 200 MG in SODIUM CHLORIDE 0.9% 50 ML IV SCH (21:00)
--- NOTE | 2021-04-09 05:49 | Hospitalist Progress Note ---
Date of Service April 09, 2021 Assessment & Plan (1) Encephalopathy: Plan: Mr. Maradiaga is a 65-year-old male with a history significant for alcohol use disorder who was admitted to [facility] on 04/04 for AMS, likely due to alcohol withdrawal/DT and metabolic encephalopathy. Alcohol Withdrawal/DT; Metabolic Encephalopathy (resolved); Severe Malnutrition Suspect encephalopathic state was secondary to severe dehydration and hyponatremia, borne both by severe protein-calorie malnutrition and intractable vomiting from acute alcohol withdrawal - Encephalopathy resolved. - Continue folate, thiamine repletion - Nutrition following - appreciate recs - Daily lytes, repletion p.r.n. - Amenable to going to inpatient physical rehab after discharge. Not currently amenable to go to cessation-directed rehab. Hepatic Steatosis; Severe Alcohol Use Disorder TBili 4.0 on admission but resolved after several days in the hospital. Suspect acute alcoholic hepatitis (resolved) atop chronic alcoholic hepatic steatosis. - counseled on alcohol cessation Patient understands that his alcohol use has the possibility of killing him, he demonstrates decision-making capacity, and yet he still maintains that he would like to go home to drink again. He is currently amenable to physical inpatient rehab first. Hyponatremia, resolved Na 123 on admission with severe symptoms (AMS). Now demonstrating normalcy s/p IVF. - Suspect hypovolemic hyponatremia due to previous vomiting atop chronic malnutrition - encourage PO intake - trend BMP daily Hypokalemia/Hypophosphatemia, resolved Suspect due to chronic malnutrition atop re-feeding syndrome - continue daily K supplementation - BMP/Mg/Phos daily ELENA, resolved - Secondary to the above. Resolved. HTN - continue home Lisinopril Depression/Schizophrenia - continue home Bupropion and Seroquel - hold home Loxapine for now (unavailable in hospital) Possible COPD Reported per patient's daughter but no inhalers on med list and unknown if did PFTs in the past - f/u with PCP as outpatient for PFTs +/- sleep study for further eval/management Diet: regular diet DVT ppx: Heparin 5000 units SQ q12 Dispo: PCU with tele Code: Full code (2) Acute hyponatremia: (3) Increased anion gap metabolic acidosis: (4) Acute hypokalemia: (5) Acute renal failure (ARF): (6) Alcohol abuse: (7) Thrombocytopenia: (8) Hypertension: (9) Depression: Admission and Anticipated Discharge Date Admission Date: April 04, 2021 Subjective NAEO. VSS. Review of Systems Review of Systems: As per HPI Physical Exam Physical Exam: General: [ Age ] old _ who is alert, oriented, and appears in no acute distress. Body habitus: _. HEENT: NCAT. Eyes - Sclera are white, anicteric, and without injection. PERRL. EOMs display full ROM bilaterally. Mouth - MMM with no tonsillar edema or exudates. Nose - nasal turbinates are uninflamed and without discharge. Ears - External ears appears healthy b/l with no erythema or rashes; TMs displayed white reflex b/l and are non-bulging, uninflamed, and reveal no signs of fluid accumulation. Neck - supple and without LAD. Thyroid - no appreciable goiter or nodules. Cardiac: Normal rate and regular rhythm; S1 and S2 present with no murmurs, rubs, or gallops. Pulmonary: Good respiratory effort with symmetric expansion of the chest. No use of accessory muscles. Lungs were clear to auscultation bilaterally with no crackles or wheezes. Abdominal: Normoactive bowel sounds. Abdomen was soft, nondistended, and non- tender to palpation. No hepatomegaly or splenomegaly. Extremities: Upper and lower extremities are warm and well perfused. Radial and dorsalis pedis pulses were 2+ b/l. Capillary refill assessed in UE was < 3 sec. Psych: Well-developed, well-nourished, appropriately dressed for occasion. Behavior is cooperative and appropriate. Affect is WNL. Insight is appropriate. Results & Data Results & Data ([facility]) Vital Signs (Past 12 Hours) Vital Signs Temp Pulse Resp BP Pulse Ox 04/08/21 22:55 37 C 92 H 20 137/79 96 Resident Activity Tracking Resident Involvement: Resident Care Provided Care Provided: Adult Hospital Medicine (1) Acute renal failure (ARF) Acute renal failure type: unspecified Qualified Code(s): N17.9 - Acute kidney failure, unspecified (2) Hypertension Hypertension type: unspecified Qualified Code(s): I10 - Essential (primary) hypertension
[2021-04-09 06:27] LABS: Hemoglobin 11.6 g/dL (14.0-18.0); Mean Corpuscular Hemoglobin 33.3 pg (25-34); Mean Corpuscular Hgb Conc 34.1 g/dL (32-36); Mean Corpuscular Volume 97.7 fL (80-100); Mean Platelet Volume 10.4 fL (7.4-10.4); Platelet Count 198 K/uL (130-400); RDW Coefficient of Variation 14.4 % (11.5-14.5); RDW Standard Deviation 51.2 fL (36.4-46.3); Red Blood Count 3.48 M/uL (4.7-6.1); White Blood Count 5.64 K/uL (4.8-10.8)
[2021-04-09 06:53] LABS: BUN Creatinine Ratio 24.9 (10-20); Calcium 8.8 mg/dl (8.5-10.1); Creatinine Clr Calc Pharmacy 95.8 ml/min; Est GFR (African American) 117.5 ml/min; Est GFR (Non-African American) 101.4 ml/min; Magnesium 1.9 mg/dl (1.8-2.4); Phosphorus 2.6 mg/dl (2.5-4.9); Potassium 3.9 mmol/L (3.5-5.1)
[2021-04-09 07:04] LABS: Eosinophils # (auto) 0.21 K/uL (0-0.5); Eosinophils % (auto) 3.7 %; Immature Granulocytes # (auto) 0.03 K/uL (0.00-0.02); Immature Granulocytes % (auto) 0.5 %; Lymphocytes # (auto) 2.77 K/uL (1.2-3.4); Lymphocytes % (auto) 49.1 %; Monocytes % (auto) 30.1 %; Neutrophils # (auto) 0.93 K/uL (1.4-6.5); Neutrophils % (auto) 16.6 %
[2021-04-09] MEDS ORDERED: FOLIC ACID 1 MG in SYRINGE 9.8 ML IV SCH (09:00)
[2021-04-09] MEDS: THIAMINE HCL 100 MG TAB PO SCH ×2 (09:03→20:14)
[2021-04-09] MEDS: PANTOprazole 40 MG TAB PO SCH (09:03)
[2021-04-09] MEDS: NICOTINE 14 MG/24 HR PATCH TD SCH (09:03)
[2021-04-09] MEDS: FOLIC ACID 1 MG TAB PO SCH (09:04)
[2021-04-09] MEDS: lisinopril 20 MG TAB PO SCH (09:04)
[2021-04-09] MEDS: buPROPion XL 150 MG TABCR PO SCH (09:05)
[2021-04-09] MEDS: HEPARIN SOD 5,000 UNIT/0.5 ML VIAL SQ SCH ×2 (09:05→20:14)
[2021-04-09] MEDS: POTASSIUM CHLORIDE 10 MEQ TABCR PO SCH (09:08)
--- NOTE | 2021-04-09 19:50 | Hospitalist Progress Note ---
Date of Service April 09, 2021 Assessment & Plan (1) Encephalopathy: Plan: Mr. Maradiaga is a 65 yo male with PMHx significant for alcohol use disorder who was admitted to [facility] on 04/04 for AMS, likely due to alcohol withdrawal/DT and metabolic encephalopathy. Alcohol Withdrawal/DT; Metabolic Encephalopathy (resolved); Severe Malnutrition Given updated HPI once patient showed improved mental status, suspect AMS 2/2 both alcohol withdrawal and metabolic encephalopathy (electrolytes). 1. increased alcohol consumption led to vomiting/GI symptoms and by extension, abstinence from alcohol x2 days before admission that led to severe alcohol with drawal/DT. 2. acute GI symptoms on chronic malnutrition led to severe electrolyte abnormalities that contributed as well. - now has been A+Ox4 - continue with PO thiamine/folic acid - nutrition consult placed - appreciate recs - replete electrolytes as necessaryfollow periodically Hepatic Steatosis; Severe Alcohol Use Disorder TBili 4.0 on admission but resolved after several days in the hospital. Suspect acute alcoholic hepatitis (resolved) on top of chronic alcoholic hepatic steatosis. - counseled on alcohol cessation Patient understands that his alcohol use has the possibility of killing him, he demonstrates decision-making capacity, and yet he still maintains that he would like to go home to drink again. He is currently amenable to physical inpatient rehab first. Hyponatremia, resolved Na 123 on admission with severe symptoms (AMS). Now improved. Suspect hypovolemic hyponatremia due to GI losses (see above). -We will continue to stabilize with reliable PO intake - trend BMP periodically Hypokalemia/Hypophosphatemia, resolved Suspect due to chronic malnutrition with question of a degree of re-feeding syndrome - continue daily K supplementation -Follow periodic labs ELENA, resolved Acute GI illness vs ASE due to alcohol intoxication vs alcohol withdrawal. Likely led to ELENA 2/2 pre-renal injury. ELENA resolved with mIVFs. - PO intake as tolerated HTN - continue home Lisinopril Depression/Schizophrenia - continue home Bupropion and Seroquel - hold home Loxapine for now (unavailable in hospital) Possible COPD Reported per patient's daughter but no inhalers on med list and unknown if did PFTs in the past - f/u with PCP as outpatient for PFTs +/- sleep study for further eval/management Diet: regular diet DVT ppx: Heparin 5000 units SQ q12 Dispo: [facility], [facility] once [facility]bed available Code: Full code (2) Acute hyponatremia: (3) Increased anion gap metabolic acidosis: (4) Acute hypokalemia: (5) Acute renal failure (ARF): (6) Alcohol abuse: (7) Thrombocytopenia: (8) Hypertension: (9) Depression: Admission and Anticipated Discharge Date Admission Date: April 04, 2021 Subjective Shaved his rodriguez. Still has his mustache. Sleeping comfortably. Awaiting rehab. Physical Exam Physical Exam: Sleeping comfortably. No distress. HEENT normocephalic atraumatic. Breathing unlabored no accessory muscle use. Skin without pallor, rashes, icterus. Results & Data Results & Data ([facility]) Vital Signs (Past 12 Hours) Vital Signs Temp Pulse Pulse Resp BP Pulse Ox 04/09/21 14:44 98.4 F 98 H 16 139/83 96 04/09/21 12:08 97.7 F 86 16 136/78 98 PG Care Time/CCT Total # of Minutes Spent Total Time Spent with Patient: Total time spent is greater than 50% in coordination of care (as documented) at patient's floor/unit and/or counseling patient: Coding Level of Care Code 33283 Subseq Hosp Care Lvl 1 Diagnoses Encephalopathy G93.40 Acute hyponatremia E87.1 Increased anion gap metabolic acidosis E87.2 Acute hypokalemia E87.6 Acute renal failure (ARF) N17.9 Acute renal failure type: unspecified Alcohol abuse F10.10 Thrombocytopenia D69.6 Hypertension I10 Hypertension type: unspecified Depression F32.9 (1) Acute renal failure (ARF) Acute renal failure type: unspecified Qualified Code(s): N17.9 - Acute kidney failure, unspecified (2) Hypertension Hypertension type: unspecified Qualified Code(s): I10 - Essential (primary) hypertension
[2021-04-09] MEDS: QUEtiapine FUMARATE 300 MG TABLET PO SCH (20:14)
[2021-04-09] MEDS ORDERED: traZODone HCL 100 MG TAB PO SCH (21:00)
[2021-04-10 07:08] LABS: BUN Creatinine Ratio 25.7 (10-20); Calcium 9.1 mg/dl (8.5-10.1); Creatinine Clr Calc Pharmacy 84.2 ml/min; Est GFR (African American) 111.4 ml/min; Est GFR (Non-African American) 96.1 ml/min; Potassium 4.2 mmol/L (3.5-5.1)
[2021-04-10] MEDS: buPROPion XL 150 MG TABCR PO SCH (09:00)
[2021-04-10] MEDS: lisinopril 20 MG TAB PO SCH (09:00)
[2021-04-10] MEDS: PANTOprazole 40 MG TAB PO SCH (09:00)
[2021-04-10] MEDS: THIAMINE HCL 100 MG TAB PO SCH (09:00)
[2021-04-10] MEDS: HEPARIN SOD 5,000 UNIT/0.5 ML VIAL SQ SCH ×2 (09:01→09:09)
[2021-04-10] MEDS: FOLIC ACID 1 MG TAB PO SCH (09:01)
[2021-04-10] MEDS: NICOTINE 14 MG/24 HR PATCH TD SCH (09:02)
[2021-04-10] MEDS: POTASSIUM CHLORIDE 10 MEQ TABCR PO SCH (09:03)
[2021-04-10] MEDS ORDERED: ALUMINUM/MAGNESIUM/SIMETH (MAALOX MAX) 30 ML UDC PO PRN (09:15)
[2021-04-10] MEDS ORDERED: FAMOTIDINE 20 MG TAB PO SCH (09:15)
--- NOTE | 2021-04-10 11:41 | Hospitalist Progress Note ---
Date of Service April 10, 2021 Assessment & Plan (1) Encephalopathy: Plan: Mr. Maradiaga is a 65 yo male with PMHx significant for alcohol use disorder who was admitted to [facility] on 04/04 for AMS, likely due to alcohol withdrawal/DT and metabolic encephalopathy. Alcohol Withdrawal/DT; Metabolic Encephalopathy (resolved); Severe Malnutrition Given updated HPI once patient showed improved mental status, suspect AMS 2/2 both alcohol withdrawal and metabolic encephalopathy (electrolytes). 1. increased alcohol consumption led to vomiting/GI symptoms and by extension, abstinence from alcohol x2 days before admission that led to severe alcohol with drawal/DT. 2. acute GI symptoms on chronic malnutrition led to severe electrolyte abnormalities that contributed as well. - now has been A+Ox4 - continue with PO thiamine/folic acid - nutrition consult placed - appreciate recs - replete electrolytes as necessaryfollow periodically - Patient overall stable, and awaiting possible discharge to [facility] for rehab. He is not agreeable to placement at any other facility or alcohol rehab. He plans to continue drinking upon discharge. Hepatic Steatosis; Severe Alcohol Use Disorder TBili 4.0 on admission but resolved after several days in the hospital. Suspect acute alcoholic hepatitis (resolved) on top of chronic alcoholic hepatic steatosis. - counseled on alcohol cessation Patient understands that his alcohol use has the possibility of killing him, he demonstrates decision-making capacity, and yet he still maintains that he would like to go home to drink again. He is currently amenable to physical inpatient rehab first. Hyponatremia, resolved Na 123 on admission with severe symptoms (AMS). Suspect hypovolemic hyponatremia due to GI losses (see above). - has trended down to 135 this morning. - Continue to monitor and repeat BMP in AM. Hypokalemia/Hypophosphatemia, resolved Suspect due to chronic malnutrition with question of a degree of re-feeding syndrome - 4.2 today. - continue daily K supplementation - Repeat BMP in AM. ELENA, resolved Acute GI illness vs ASE due to alcohol intoxication vs alcohol withdrawal. Likely led to ELENA 2/2 pre-renal injury. ELENA resolved with mIVFs. - PO intake as tolerated HTN - continue home Lisinopril Depression/Schizophrenia - continue home Bupropion and Seroquel - hold home Loxapine for now (unavailable in hospital) Possible COPD Reported per patient's daughter but no inhalers on med list and unknown if did PFTs in the past - f/u with PCP as outpatient for PFTs +/- sleep study for further eval/management Chest pain Patient c/o intermittent chest pain of the epigastric region x 2 months. Occurs when lying down. Dull ache which lasts 5 minutes. Denies pain with activity. - Troponin normal on admission - EKG with QT prolongation - Suspect pain is more likely r/t some reflux in the setting of chronic alcohol abuse. - Continue pantoprazole. - Will add Pepcid 20mg BID and Mylanta PRN for recurrent pain. Open wound of toe of right foot - Traumatic wound of the right second toe with eschar. No evidence for cellulitis. - +2 pedal pulses bilaterally - Continue to paint wound with betadine daily. Diet: regular diet DVT ppx: Heparin 5000 units SQ q12 Dispo: [facility] surg, [facility] once [facility]/bed available Code: Full code (2) Acute hyponatremia: (3) Increased anion gap metabolic acidosis: (4) Acute hypokalemia: (5) Acute renal failure (ARF): (6) Alcohol abuse: (7) Thrombocytopenia: (8) Hypertension: (9) Depression: (10) Open wound of toe of right foot: (11) Chest pain: Admission and Anticipated Discharge Date Admission Date: April 04, 2021 Subjective Patient reports this morning that he has been having chest pain x 2 months. He reports the pain occurs at night in the epigastric region. It lasts 5 minutes and is a dull ache. He denies pain after eating or with activity. He is on pantoprazole. Troponin was normal on admission. EKG showed prolonged QT and sinus tachycardia. Patient was in alcohol withdrawal with encephalopathy at that time. Otherwise states he feels well. Review of Systems Review of Systems: All systems reviewed & are unremarkable except as noted in Subjective Physical Exam Physical Exam: Patient has an area of eschar of the right second toe on the nail bed. States he traumatically stubbed his toe causing the wound and for him to lose the nail. No odor or drainage present. Bilateral feet are warm to touch with +2 pedal pulses bilaterally. Constitutional: + thin; no acute distress Eyes: + anicteric sclerae ENMT: Ears: no hearing impairment Neck: trachea midline, no thyromegaly Respiratory: normal respiratory effort, lungs clear to auscultation Cardiovascular: RRR, no murmur, no edema Gastrointestinal (Abdomen): Inspection/Auscultation: normal bowel sounds Percussion/Palpation: abdomen soft; abdomen nontender Skin: no rashes, warm and dry Psychiatric: A+Ox3, euthymic affect Lymphatic: no cervical or axillary lymphadenopathy Results & Data Results & Data ([facility]) Vital Signs (Past 12 Hours) Vital Signs Temp Pulse Pulse Resp BP Pulse Ox 04/10/21 07:16 37.1 C 85 16 122/66 95 04/10/21 06:56 36.8 C 87 16 107/73 95 PG Care Time/CCT Total # of Minutes Spent Total Time Spent with Patient: Total time spent is greater than 50% in coordination of care (as documented) at patient's floor/unit and/or counseling patient: Coding Diagnoses Encephalopathy G93.40 Acute hyponatremia E87.1 Increased anion gap metabolic acidosis E87.2 Acute hypokalemia E87.6 Acute renal failure (ARF) N17.9 Acute renal failure type: unspecified Alcohol abuse F10.10 Thrombocytopenia D69.6 Hypertension I10 Hypertension type: unspecified Depression F32.9 Open wound of toe of right foot S91.104A Chest pain R07.9 (1) Acute renal failure (ARF) Acute renal failure type: unspecified Qualified Code(s): N17.9 - Acute kidney failure, unspecified (2) Hypertension Hypertension type: unspecified Qualified Code(s): I10 - Essential (primary) hypertension
--- NOTE | 2021-04-10 14:24 | Discharge Summary ---
Date of Service April 10, 2021 Admission HPI Per Admitting Provider Mr. Maradiaga is a 65 yo male with a PMHx of alcohol use disorder requiring multiple hospital admissions for withdrawal management (most recently admitted 03/16/21 to 03/21/21) who presented to [facility] for altered mental status. He apparently fell while at home in his apartment and used his medical alert button to call EMS. He lives alone in an apartment, but per reports of neighbors, he has been ill the past few days with vomiting. Unfortunately, Mr. Maradiaga is altered and cannot provide any meaningful history. In the ED, he was afebrile, tachycardic to 104 bpm, BP 120/66, RR initially recorded at 30, later normalized to 20, O2 normal on RA. His WBC and Hgb were normal, platelets low at 111k/Ul. Lactate not elevated. Na low at 123. Serum osms 276. Urine Osms 494. urine sodium 14. K low at 2.3. Cr elevated to 3.04, BUN at 51. Anion Gap at 18. INR normal. Ammonia at 11.8. UA showing + nitrate, trace LE, but neg for bacteria. Urine culture and blood cultures pending. T bili elevated to 4. AST elevated to 95, ALT normal at 44. TSH WNL. B12 and folate normal. Trop detectable at 0.40. Eoth neg. COVID neg. EKG without signs of acute ischemia. CXR wnl. CT head and C spine without acute changes. CT abdomen and pelvis showing evidence of fatty liver, R lower lung infiltrate vs. atelectasis. He was given 0.5mg IV ativan, narcan, a banana bag, Ceftraixone 2g, and 20meq Kcl. Admission Exam Per Admitting Provider Constitutional: + thin, + disheveled and + lethargic Eyes: + anicteric sclerae ENMT: external ear and nose normal, oropharynx normal Neck: trachea midline Respiratory: normal respiratory effort; no respiratory distress Auscultation: + rhonchi (diffusely throughout lung blood) Cardiovascular: RRR, no murmur, no edema Heart Sounds: normal S1 and normal S2 Gastrointestinal (Abdomen): normal bowel sounds, soft, nontender, no hepatosplenomegaly Musculoskeletal: Head/Neck/Chest: normocephalic and head atraumatic Skin: no rashes, warm and dry Neurologic: moves all extremities and + confused Principal Diagnosis Metabolic encephalopathy, alcohol withdrawal Discharge Exam Patient has an area of eschar of the right second toe on the nail bed. States he traumatically stubbed his toe causing the wound and for him to lose the nail. No odor or drainage present. Bilateral feet are warm to touch with +2 pedal pulses bilaterally. Constitutional + thin; no acute distress Eyes + anicteric sclerae ENMT Ears: no hearing impairment Neck trachea midline, no thyromegaly Respiratory normal respiratory effort, lungs clear to auscultation Cardiovascular RRR, no murmur, no edema Gastrointestinal (Abdomen) Inspection/Auscultation: normal bowel sounds Percussion/Palpation: abdomen soft; abdomen nontender Skin no rashes, warm and dry Psychiatric A+Ox3, euthymic affect Lymphatic no cervical or axillary lymphadenopathy Discharge Data Allergies Allergy/AdvReac Type Severity Reaction Status Date / Time No Known Allergies Allergy Verified 04/03/21 21:15 Consultations 04/03/21 23:34 ED Decision to Admit Stat 04/04/21 07:19 Consult Behavioral Health Liaison Routine Ordered Studies 04/03/21 20:54 CT cervical spine wo con Urgent CT head/brain wo con Urgent 04/03/21 22:57 CT abd pelvis wo con Urgent Hospital Course (1) Encephalopathy: Mr. Maradiaga is a 65 yo male with PMHx significant for alcohol use disorder who was admitted to [facility] on 04/04 for AMS, likely due to alcohol withdrawal/DT and metabolic encephalopathy. Alcohol Withdrawal/DT; Metabolic Encephalopathy (resolved); Severe Malnutrition Given updated HPI once patient showed improved mental status, suspect AMS 2/2 both alcohol withdrawal and metabolic encephalopathy (electrolytes). 1. increased alcohol consumption led to vomiting/GI symptoms and by extension, abstinence from alcohol x2 days before admission that led to severe alcohol withdrawal/DT. 2. acute GI symptoms on chronic malnutrition led to severe electrolyte abnormalities that contributed as well. - now has been A+Ox4 - continue with PO thiamine/folic acid - nutrition consult placed - appreciate recs - replete electrolytes as necessaryfollow periodically - Patient overall stable, and awaiting possible discharge to [facility] for rehab. He is not agreeable to placement at any other facility or alcohol rehab. He plans to continue drinking upon discharge. Hepatic Steatosis; Severe Alcohol Use Disorder TBili 4.0 on admission but resolved after several days in the hospital. Suspect acute alcoholic hepatitis (resolved) on top of chronic alcoholic hepatic steatosis. - counseled on alcohol cessation Patient understands that his alcohol use has the possibility of killing him, he demonstrates decision-making capacity, and yet he still maintains that he would like to go home to drink again. He is currently amenable to physical inpatient rehab first. Hyponatremia, resolved Na 123 on admission with severe symptoms (AMS). Suspect hypovolemic hyponatremia due to GI losses (see above). - has trended down to 135 this morning. - Continue to monitor Hypokalemia/Hypophosphatemia, resolved Suspect due to chronic malnutrition with question of a degree of re-feeding syndrome - 4.2 today. - continue daily K supplementation ELENA, resolved Acute GI illness vs ASE due to alcohol intoxication vs alcohol withdrawal. Likely led to ELENA 2/2 pre-renal injury. ELENA resolved with mIVFs. - PO intake as tolerated HTN - continue home Lisinopril Depression/Schizophrenia - continue home Bupropion and Seroquel - hold home Loxapine for now (unavailable in hospital) Possible COPD Reported per patient's daughter but no inhalers on med list and unknown if did PFTs in the past - f/u with PCP as outpatient for PFTs +/- sleep study for further eval/management Chest pain Patient c/o intermittent chest pain of the epigastric region x 2 months. Occurs when lying down. Dull ache which lasts 5 minutes. Denies pain with activity. - Troponin normal on admission - EKG with QT prolongation - Suspect pain is more likely r/t some reflux in the setting of chronic alcohol abuse. - Continue pantoprazole. - Will add Pepcid 20mg BID and Mylanta PRN for recurrent pain. Open wound of toe of right foot - Traumatic wound of the right second toe with eschar. No evidence for cellulitis. - +2 pedal pulses bilaterally - Continue to paint wound with betadine daily. Diet: regular diet DVT ppx: Heparin 5000 units SQ q12 Dispo: Med surg, anticipate [facility] once approved/bed available Code: Full code (2) Acute hyponatremia: (3) Increased anion gap metabolic acidosis: (4) Acute hypokalemia: (5) Acute renal failure (ARF): (6) Alcohol abuse: (7) Thrombocytopenia: (8) Hypertension: (9) Depression: (10) Open wound of toe of right foot: (11) Chest pain: Total Time Total Time Spent Total Time Spent (In Minutes): >30 minutes spent on discharge planning including physical exam, med reconciliation, problem reconciliation, and coordination of care. Discharge Plan Discharge Items Patient Disposition: Transfer Inpatient Rehab Fac Reason For Visit: ALTERED MENTAL STATUS Discharge Diagnosis: Metabolic encephalopathy, alcohol withdrawal Activity: Per Instructions section Lifting: Gradually increase as tolerated Bathing: No limitations Exercise/Sports: Gradually increase as tolerated Weightbearing: Full weightbearing Non-emergency contact: Primary Care Provider Call non-emergency contact if: you have any medication questions and your symptoms worsen Follow-up/Referrals: Owen Mckinnon III, MD [Primary Care Provider] - Diet: Regular Addtl Attending Provider Instructions: Follow-up with primary care in 1 week. Pending Studies at Discharge: No Stand-Alone Forms: about.me Skilled Items Patient informed of condition?: Yes DNR: No Discharge Level of Care: Acute rehab Communicable Disease: No Discharge Prognosis: Stable Lines: None Urinary Catheter: No Medications and DC Order Prescriptions: New Desenex 2 % Powder 1 applic EXT PRN PRN (Reason: sacral fungal infection) 14 Days Qty: 43 RF: 0 alum-mag hydroxide-simeth [Mag-Al Plus Extra Strength] 400-400-40 mg/5 mL Suspension 30 ml PO Q6H PRN (Reason: indigestion) 30 Days Qty: 3000 RF: 0 famotidine 20 mg Tablet 20 mg PO BID 30 Days Qty: 60 RF: 0 polyethylene glycol 3350 [Miralax] 17 gram Powder In Packet 17 g PO DAILY PRN (Reason: constipation) 30 Days RF: 0 potassium chloride [Klor-Con M10] 10 mEq Tablet,Er Particles/Crystals 40 meq PO QAM 30 Days Qty: 120 RF: 0 Continued folic acid 1 mg tablet 1 mg PO QAM Qty: 30 RF: 11 lisinopril 20 mg tablet 20 mg PO DAILY Qty: 30 RF: 5 quetiapine 300 mg tablet 300 mg PO HS Qty: 30 RF: 5 thiamine HCl (vitamin B1) [Vitamin B-1] 100 mg tablet 100 mg PO QAM Qty: 30 RF: 5 trazodone 100 mg tablet 100 mg PO HS PRN (Reason: insomnia) Qty: 30 RF: 5 loxapine succinate 10 mg capsule 10 mg PO BID RF: 0 bupropion HCl 150 mg tablet extended release 24 hr 150 mg PO DAILY RF: 0 omeprazole 20 mg tablet,delayed release (DR/EC) 40 mg PO DAILY 28 Days Qty: 56 RF: 0 Discharge Orders: Discharge Order (Routine); Ordered 04/10/21 Ordered By: Danica Pedraza/Other Patient Handouts: Alcohol Addiction, Alcoholism: Myths and Facts, Alcoholism Resources, Alcohol Withdrawal: What to Expect Admission Data Admit Date/Time: 04/04/21 00:21 Attending Provider: Saad Anaya Admit Provider: Ernestine Willingham Primary Care Provider: Owen Mckinnon III Other Providers: César Santo ; [facility] Coding Level of Care Code D/C DAY MANAGEMENT >30 MINS History Expanded Problem Focused Exam Expanded Problem Focused Medical Decision Making Moderate Complexity Diagnoses Encephalopathy G93.40 Acute hyponatremia E87.1 Increased anion gap metabolic acidosis E87.2 Acute hypokalemia E87.6 Acute renal failure (ARF) N17.9 Acute renal failure type: unspecified Alcohol abuse F10.10 Thrombocytopenia D69.6 Hypertension I10 Hypertension type: unspecified Depression F32.9 Open wound of toe of right foot S91.104A Chest pain R07.9
== END 2021-04-10 19:15 | DRG 896 ==
LOC: ED 20:43 → 2N 04-04 00:21 → SUATTDRO 04-04 00:21 → 2N 04-04 01:13 → 2E 04-04 08:56 → 3W 04-07 16:32
DX: E43 Unspecified severe protein-calorie malnutrition; F10.139 Alcohol abuse with withdrawal, unspecified; Z83.3 Family history of diabetes mellitus; E87.1 Hypo-osmolality and hyponatremia; D69.59 Other secondary thrombocytopenia; E87.2 Acidosis; N39.0 Urinary tract infection, site not specified; E83.39 Other disorders of phosphorus metabolism; F32.9 Major depressive disorder, single episode, unspecified; Z96.642 Presence of left artificial hip joint; K76.0 Fatty (change of) liver, not elsewhere classified; J98.11 Atelectasis; J44.9 Chronic obstructive pulmonary disease, unspecified; G93.41 Metabolic encephalopathy; I10 Essential (primary) hypertension; Y92.89 Other specified places as the place of occurrence of the external cause; E87.3 Alkalosis; E87.6 Hypokalemia; K70.10 Alcoholic hepatitis without ascites; S91.201A Unspecified open wound of right great toe with damage to nail, initial encounter; W19.XXXA Unspecified fall, initial encounter; F17.200 Nicotine dependence, unspecified, uncomplicated; F10.129 Alcohol abuse with intoxication, unspecified; F20.9 Schizophrenia, unspecified; J69.0 Pneumonitis due to inhalation of food and vomit; E86.0 Dehydration; N17.9 Acute kidney failure, unspecified